=== PATIENT | female | born 1940 | race Caucasian/White ===

== ENCOUNTER 2016-09-06 12:55 | Emergency (ER) | payer MEDICARE, OTHER ==
[~2016-09-06] VITALS: Ht 160 cm; Wt 70.4 kg
[~2016-09-06 12:55] MED LIST: AMLO5TAB4 PO; ASP81TEC PO; ASPI-999 PO; ATOR20TA49 PO; ATRV10T; CA C1TAB26 PO; CALC-656 PO; CALCIUM; CALCIUM + D; CHOL10003 PO; CHOL5000 PO; CLOP75TA28 PO; CYAN1TAB46 PO; DGX.25T; DICL100G18 TP; FEXO60TA PO; FOLI1TAB24 PO; ISOS30TA3 PO; LEVO75TA6 PO; LISI1TAB6 PO; LVT.088T PO; LVT.1T; METO-351 PO; METO50TA7 PO; MULT1CAP27 PO; MULT1TAB69 PO; NF-CIT200; NF-METANX; NFPRILOC40 PO; OMG1KC PO; POTA99TA4 PO; PRAV40TA PO; PRD20T PO; SERT50TA2 PO; SIMV40TA2 PO; SRTR100T PO; WRF2.5T; WRF2.5T PO; [UNRECOGNIZED DRUG - OTHER]; [UNRECOGNIZED DRUG - OTHER]; alegra PO
--- OUTSIDE RECORDS SUMMARY | 2016-09-06 13:06 | XMS REPORT | Continuity of Care Document ---
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 If you do not see the information that you expected, contact Release of Information in the Health Information Management department at [phone] for further assistance in locating additional records.[facility] Active Allergies and Adverse Reactions No Known Allergies Current Medications Prescription Sig. Disp. Refills Start End Date Status Date levothyroxine (SYNTHROID) Take 100 mcg by mouth Active 100 mcg tablet Daily. warfarin (COUMADIN) 2.5 Take 2.5 mg by mouth. 1 Active mg tablet tablet , , sat,sat. 1/2 tablet sat,sat,sat metoprolol XL (TOPROL XL) Take by mouth Daily. 1/2 Active 50 mg tablet tablet daily lisinopril 20 mg Tab 20 Take by mouth daily. Active mg, hydrochlorothiazide 25 mg Tab 25 mg D-Hcjtkcpbheon-Hpe Take 2 Tabs by mouth Active B12-Vit B6 (METANX) Daily. 2.8-2-25 mg Tab Aspirin 81 mg Tab Take 1 Tab by mouth Active Daily. pravastatin (PRAVACHOL) Take 40 mg by mouth Active 40 mg tablet Daily. Cholecalciferol (Vitamin Take 2,000 Units by mouth Active D3) (VITAMIN D-3) 2,000 Daily. unit PO Tab sertraline (ZOLOFT) 50 mg Take 50 mg by mouth Active PO tablet daily. Active Problems Problem Noted Date PAST MEDICAL HISTORY OF 07/27/2010 Overview: PAST MEDICAL HISTORY: -Permanent AFIB: Deemed so June 2008. -First diagnosed April 2008 -- Attempted cardioversion without antiarrhythmic drug therapy June 2008 -- Immediate recurrent AFib. -Managed with rate control and anticoagulation since June 2008. -Questionable symptoms related to AFib. -EP consultation for other therapeutic options. -Rate control has been with digoxin and metoprolol. -Hypertension -Hyperlipidemia -History of PVD -April 2008 cardiac cath with runoff demonstrated 60 percent to 70 percent stenosis in the right superficial femoral artery with 50 percent stenosis in the left mid superficial femoral artery. -Hypothyroidism, on replacement therapy. -Normal LV function by prior imaging, including echo 08/09/2009, EF 55 percent. -Nonobstructive CAD -April [address] Apple's office suggestive of ischemia in the inferior apical wall. -06/30/2008, cardiac catheterization: 40 percent to 50 percent stenosis in the proximal LAD; 40 percent to 50 percent ostial right coronary stenosis with right coronary spasm; nonobstructive circ disease. Atrial fibrillation (HCC) 02/14/2010 A-fib (HCC) Heart palpitations Dyspnea Hypothyroidism HTN (hypertension), benign Hypercholesteremia Social History Tobacco Use Types Packs/Day Years Used Date Current Every Day Smoker Cigarettes 0.25 30 Smokeless Tobacco: Never Used Alcohol Use Drinks/Week oz/Week Comments Yes 7 Glasses of 4.2 1 glass of wine per day wine Last Filed Vital Signs Vital Sign Reading Time Taken Blood Pressure 98/60 09/12/2010 11:06 AM [employer]ET [employer] PROFESSIONAL Pulse 68 09/12/2010 11:06 AM [employer]AL Temperature - - Respiratory Rate - - Height 1.575 m (5' 2") 09/12/2010 11:06 AM [employer] PROF[employer]AL Weight 66.271 kg (146 lb 1.6 oz) 09/12/2010 11:06 AM [employer] PROFESSIONAL Body Mass Index 26.72 09/12/2010 11:06 AM [employer] PROFESSIONAL Oxygen Saturation - - Plan of Care Health Maintenance Due Date Last Done Comments Physical (Comprehensive) 1945 Exam Pertussis Vaccine 1949 Tetanus Vaccine 1955 Breast Cancer Screening 1978 Shingles Vaccine 1998 Osteoporosis Screening 2003 Prevnar/Pneumovax (#1) 2003 Influenza Vaccine 03/22/2015 Results from Last 3 Months Not on file
--- NOTE | 2016-09-06 13:24 | Diagnostic Imaging Report ---
EXAMINATION: CT scan of the head performed without intravenous contrast. INDICATION: Altered mental status. FINDINGS: There is no intracranial hemorrhage, edema or mass effect. There is encephalomalacia in the right frontal lobe in a relatively small region suggestive of an old infarct. Periventricular and deep white matter hypodensities are compatible with chronic microvascular ischemic changes. No hydrocephalus. No extra-axial fluid collection is seen. The calvarium, the paranasal sinuses and orbits appear grossly unremarkable. IMPRESSION: No intracranial hemorrhage. Dictated by: Dictated on workstation # [id number]
[2016-09-06 13:27] LABS: BASOPHILS % (AUTO) 0 % (0-10); EOSINOPHILS # (AUTO) 0.2 10^3/uL (0.0-0.3); EOSINOPHILS % (AUTO) 3 % (0-10); LYMPHOCYTES # (AUTO) 1.9 X 10^3 (1.0-4.0); LYMPHOCYTES % (AUTO) 23 % (12-44); MEAN CORPUSCULAR HEMOGLOBIN 32 PG (25-34); MEAN CORPUSCULAR HGB CONC 34 G/DL (32-36); MEAN CORPUSCULAR VOLUME 94 FL (80-99); MEAN PLATELET VOLUME 9.3 FL (7.4-10.4); MONOCYTES # (AUTO) 0.9 X 10^3 (0.0-1.0); MONOCYTES % (AUTO) 11 % (0-12); NEUTROPHILS # (AUTO) 5.2 X 10^3 (1.8-7.8); NEUTROPHILS % (AUTO) 63 % (42-75); PLATELET COUNT 203 10^3/uL (130-400); RED BLOOD COUNT 4.58 10^6/uL (4.35-5.85); RED CELL DISTRIBUTION WIDTH 14.2 % (10.0-14.5); WHITE BLOOD COUNT 8.2 10^3/uL (4.3-11.0)
--- NOTE | 2016-09-06 13:47 | ED Neurological Problem ---
General Chief Complaint: Neuro-Stroke Like Symptoms Stated Complaint: STROKE SYMPTOMS Nursing Triage Note: PT AMBULATES TO ED ROOM 8 WITH . REPORTS THAT PT WAS LAST KNOWN WELL AT APPROX 0930 THIS AM. HE LEFT TO GO RUN ERRANDS AND WHEN HE RETURNED PT WAS RAMBLING, NOT MAKING SENSE AND APPEARED TO BE CONFUSED. PT IS C/O FRIAS AT THIS TIME. PT SPEECH GARBLED, BUT CLEAR. PT UNABLE TO ANSWER QUESTIONS APPROPRIATELY AT THIS TIME. Nursing Sepsis Screen: No Definite Risk Source: patient Exam Limitations: no limitations History of Present Illness Time seen by provider: 13:00 Initial Comments This 76-year-old woman presents to the emergency room with her after developing confusion and "word salad" between 10:00 and 10:30. Last known well time was when her left the house around 09:00. When he returned home, he noted that she could not answer questions appropriately. She reported being hungry but would not eat anything that her offered. He noted speech became progressively garbled and she could not identify her children were. then brought her to the emergency room. She she reports discontinuing her Coumadin about 3 months ago due to her preference. She was concerned about bleeding issues and easy skin bruising. Her primary care providers Dr. Brady. Her enrollment representative has been Dr. Apple. She has atrial fibrillation which is confirmed on EKG today. Allergies and Home Medications Allergies Coded Allergies: No Known Drug Allergies (Verified , 04/30/08) Home Medications Amlodipine Besylate 5 Mg Tablet 5 MG PO DAILY (Reported) Aspirin 81 Mg Tab.chew 81 MG PO HS (Reported) Atorvastatin Calcium 20 Mg Tablet 20 MG PO DAILY (Reported) Cholecalciferol (Vitamin D3) 5,000 Unit Capsule 5,000 UNIT PO DAILY (Reported) Clopidogrel Bisulfate 75 Mg Tablet #30 75 MG PO DAILY Prescribed by: EUNICE APPLE on 03/24/15 1117 Diclofenac Sodium 100 Gm Gel..gram. TP BID PRN PRN PAIN (Reported) Fexofenadine Hcl 60 Mg Tablet 60 MG PO BID PRN PRN ALLERGIES (Reported) Folic Acid 1 Mg Tablet 1 MG PO BID (Reported) Isosorbide Mononitrate 30 Mg Tab.er.24h #30 30 MG PO DAILY Prescribed by: EUNICE APPLE on 03/24/15 1117 Levothyroxine Sodium 75 Mcg Tablet 75 MCG PO MO,TU,WE,TH,FR,SA (Reported) Levothyroxine Sodium 75 Mcg Tablet 112.5 MCG PO SUNDAYS (Reported) TAKES 1 & 1/2 (75MCG) TABLETS Metoprolol Succinate 25 Mg Tab.er.24h #30 25 MG PO DAILY Prescribed by: EUNICE APPLE on 03/24/15 1117 Multivitamin 1 Each Tablet 1 TAB PO DAILY (Reported) Ulen 3 Polyunsat Fatty Acids 1,000 Mg Cap 1,000 MG PO TID (Reported) Sertraline Hcl 100 Mg Tab 100 MG PO DAILY (Reported) Warfarin Sodium 2.5 Mg Tablet 2.5 MG PO EVERY EVENING (Reported) Constitutional: no symptoms reported Eyes: No Symptoms Reported Ears, Nose, Mouth, Throat: no symptoms reported Respiratory: no symptoms reported Cardiovascular: no symptoms reported Gastrointestinal: no symptoms reported Genitourinary: no symptoms reported Musculoskeletal: no symptoms reported Skin: no symptoms reported Psychiatric/Neurological: See HPI Endocrine: No Symptoms Reported Past Pepvlze-Juxust-Dgxhgy Hx Patient Social History Alcohol Use: Denies Use Recreational Drug Use: No Smoking Status: Unknown if Ever Smoked 2nd Hand Smoke Exposure: No Recent Infectious Disease Expo: No Recent Hopitalizations: No Immunizations Up To Date Tetanus Booster (TDap): More than 5yrs PED Vaccines UTD: Yes Date of Pneumonia Vaccine: Mar 29, 2013 Surgeries HX Surgeries: Yes (UNABLE TO OBTAIN AT THIS TIME) Respiratory Hx Respiratory Disorders: No Cardiovascular Hx Cardiac Disorders: Yes Cardiac Disorders: Atrial Fibrillation, Hypertension Neurological Hx Neurological Disorders: No 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 System Hx 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 Disorders: No Sexually Transmitted Disease: No HIV/AIDS: No Female 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 Disorders: Denies Genitourinary Hx Genitourinary Disorders: No Gastrointestinal Hx Gastrointestinal Disorders: No Musculoskeletal Hx Musculoskeletal Disorders: Yes Musculoskeletal Disorders: Osteoporosis, Arthritis Endocrine Hx Endocrine Disorders: Yes Endocrine Disorders: Hypothyroidsim HEENT HX ENT Disorders: No Loss of Vision: Denies Hearing Impairment: Denies Cancer Hx Cancer: No Cancer: Skin Psychosocial Hx Psychiatric Problems: Yes Behavioral Health Disorders: Anxiety, Depression Integumentary HX Skin/Integumentary Disorder: No Blood Transfusions Hx Blood Disorders: No Physical Exam Vital Signs Vital Sign - Last 12Hours 09/06/16 12:55 Temp 96.6 Pulse 66 Resp 14 B/P 165/141 Pulse Ox 97 O2 Delivery Room Air Capillary Refill : Less Than 3 Seconds General Appearance: WD/WN no apparent distress HEENT: PERRL/EOMI normal ENT inspection pharynx normal Neck: normal inspection Respiratory: lungs clear normal breath sounds no respiratory distress no accessory muscle use Cardiovascular: no edema no murmur irregularly irregular Gastrointestinal: normal bowel sounds non tender soft Extremities: normal inspection no pedal edema Neurologic/Psychiatric: alert normal mood/affect oriented x 3 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- XII (expressive aphasia, garbled speech) sensory deficit (slight right sided numbness) Crainal Nerves: normal hearing PERRL abnormal speech Coordination/Gait: normal finger to nose Motor/Sensory: no motor deficit sensory deficit (slight right-sided sensory deficit) Skin: normal color warm/dry Stroke NIH Stroke Scale Assessment Select: Initial (13:15) Level of Consciousness: 0=Alert Level of Consciousness-Questio: 2=Answer neither question LOC Commands: 1=Performs one task Gaze: 0=Normal Visual Castellon: 0=No visual loss Facial Movement (Facial Paresi: 0=Normal symmetrical mnt Motor Function-Arms Right: 0=No drift Motor Function-Arms Left: 0=No drift Motor Function-Legs Right: 0=No drift Motor Function-Legs Left: 0=No drift Limb Ataxia: 0=Absent Sensory: 1=Mild to Moderate loss Best Language: 2=Severe aphasia Dysarthria: 1=Mild to moderate loss Extinction & Inattention: 1=Visual,tactile,auditory NIH Stroke Scale Score: 7 Progress/Results/Core Measures Results/Orders Lab Results Laboratory Tests Test 09/06/16 13:21 09/06/16 13:38 09/06/16 14:35 Range/Units Basophils # (Auto) 0.0 0.0-0.1 10^3/uL Basophils (%) (Auto) 0 0-10 % Eosinophils # (Auto) 0.2 0.0-0.3 10^3/uL Eosinophils (%) (Auto) 3 0-10 % Hematocrit 43 35-52 % Hemoglobin 14.8 11.5-16.0 G/DL Lymphocytes # (Auto) 1.9 1.0-4.0 X 10^3 Lymphocytes (%) (Auto) 23 12-44 % Mean Corpuscular Hemoglobin 32 25-34 PG Mean Corpuscular Hemoglobin Concent 34 32-36 G/DL Mean Corpuscular Volume 94 80-99 FL Mean Platelet Volume 9.3 7.4-10.4 FL Monocytes # (Auto) 0.9 0.0-1.0 X 10^3 Monocytes (%) (Auto) 11 0-12 % Neutrophils # (Auto) 5.2 1.8-7.8 X 10^3 Neutrophils (%) (Auto) 63 42-75 % Platelet Count 203 130-400 10^3/uL Red Blood Count 4.58 4.35-5.85 10^6/uL Red Cell Distribution Width 14.2 10.0-14.5 % White Blood Count 8.2 4.3-11.0 10^3/uL Activated Partial Thromboplast Time 28 24-35 SEC Alanine Aminotransferase (ALT/SGPT) 17 0-55 U/L Albumin 3.9 3.2-4.5 G/DL Alkaline Phosphatase 62 40-136 U/L Anion Gap 9 5-14 MMOL/L Aspartate Amino Transf (AST/SGOT) 21 5-34 U/L BUN/Creatinine Ratio 17 Blood Urea Nitrogen 17 7-18 MG/DL Calcium Level 9.3 8.5-10.1 MG/DL Carbon Dioxide Level 26 21-32 MMOL/L Chloride Level 104 98-107 MMOL/L Creatinine 0.99 0.60-1.30 MG/DL D-Dimer 1.52 H 0.00-0.49 UG/ML Estimat Glomerular Filtration Rate 54 Free Thyroxine 1.19 0.70-1.48 NG/DL Glucose Level 85 70-105 MG/DL INR Comment 1.0 0.8-1.4 Potassium Level 4.4 3.6-5.0 MMOL/L Prothrombin Time 12.8 12.2-14.7 SEC Sodium Level 139 135-145 MMOL/L Thyroid Stimulating Hormone (TSH) 1.50 0.35-4.94 UIU/ML Total Bilirubin 0.6 0.1-1.0 MG/DL Total Protein 6.8 6.4-8.2 G/DL Troponin I < 0.30 <0.30 NG/ML Urine Bacteria NEGATIVE /HPF Urine Bilirubin NEGATIVE NEGATIVE Urine Casts NONE /LPF Urine Clarity CLEAR Urine Color YELLOW Urine Crystals NONE /LPF Urine Culture Indicated NO Urine Glucose (UA) NEGATIVE NEGATIVE Urine Ketones NEGATIVE NEGATIVE Urine Leukocyte Esterase 2+ H NEGATIVE Urine Mucus NEGATIVE /LPF Urine Nitrite NEGATIVE NEGATIVE Urine Protein NEGATIVE NEGATIVE Urine RBC NONE /HPF Urine RBC (Auto) NEGATIVE NEGATIVE Urine Specific [place] 1.005 L 1.016-1.022 Urine Squamous Epithelial Cells RARE /HPF Urine Urobilinogen NORMAL NORMAL MG/DL Urine WBC 2-5 /HPF Urine pH 7 5-9 My Orders Orders-GRIFFIN SILVA MD Cbc With Automated Diff (09/06/16 13:22) Protime With Inr (09/06/16 13:22) Partial Thromboplastin Time (09/06/16 13:22) Comprehensive Metabolic Panel (09/06/16 13:22) Fibrin Degradation Products (09/06/16 13:22) Troponin I (09/06/16 13:22) Ua Culture If Indicated (09/06/16 13:22) Chest 1 View, Ap/Pa Only (09/06/16:22) Ekg Tracing (09/06/16:22) Nothing By Mouth (09/06/16 Dinner) Accucheck Stat ONCE (09/06/16 13:22) Saline Lock/Iv-Start (09/06/16:22) Saline Lock/Iv-Start (09/06/16 13:22) Vital Signs-Stroke Q1H (09/06/16 13:22) O2 (09/06/16 13:22) Intake & Output 06,14,22 (09/06/16 13:22) Monitor-Rhythm Ecg Trace Only (09/06/16 13:22) Dysphagia Screening Tool (09/06/16 13:22) Thyroid Stimulating Hormone (09/06/16 13:23) Free T4 (Free Thyroxine) (09/06/16 13:23) Fentanyl Injection (Sublimaze Injection (09/06/16 15:30) Ct Angio Head/Neck (09/06/16 15:31) Iohexol Injection (Omnipaque 350 Mg/Ml 1 (09/06/16 15:45) Sodium Chloride Flush (Catheter Flush Sy (09/06/16 15:45) Ns (Ivpb) (Sodium Chloride 0.9% Ivpb Bag (09/06/16 15:45) Aspirin Tablet (Aspirin Tablet) (09/06/16 16:45) Enoxaparin Injection (Lovenox Injection) (09/06/16 17:15) Medications Given in ED Current Medications Medications Dose Ordered Sig/Ananth Route Start Time Stop Time Status Last Admin Dose Admin Fentanyl Citrate 50 mcg ONCE ONCE IVP 09/06/16 15:30 09/06/16 15:31 DC 09/06/16 15:37 50 MCG Iohexol 100 ml ONCE ONCE IV 09/06/16 15:45 09/06/16 15:46 DC 09/06/16 15:51 80 ML Sodium Chloride 100 ml ONCE ONCE IV 09/06/16 15:45 09/06/16 15:46 DC 09/06/16 15:51 80 ML Vital Signs/I&O Vital Sign - Last 12Hours 09/06/16 12:55 Temp 96.6 Pulse 66 Resp 14 B/P 165/141 Pulse Ox 97 O2 Delivery Room Air Blood Pressure Mean: 149 Progress Note #1: Time: 13:44 Progress Note Unfortunately, patient presented to near to the 4.5 hour time limitation for TPA. She has Coumadin listed on her medication profile, although she and her report this was stopped about 3 months ago. I spoke with Dr. De Jesus, stroke neurologist at [facility]. He agrees that patient is to near the 4.5 hour magalis from last known well time and that INR needs to be confirmed before TPA could be given in this scenario since Coumadin is on her med list. He advised against use of TPA. Progress Note #2: Time: 16:02 Progress Note Case was reviewed with Dr. Rodrigez and Dr. Sims. Dr. Rodrigez is agreeable to admission in the ICU for further monitoring. Case reviewed with Dr. Sims to suggest restarting anticoagulation with Eliquis. Patient is reluctant to use Ellik was because of cost. CT angiogram report is pending. Once the results of CT angiogram are reviewed, I will contact Dr. Rodrigez and discuss anticoagulation preferences as this will affect the course of hospital care and discharge. Patient's speech has improved significantly since arrival. Progress Note #3: Time: 17:[address] angiogram of the head was negative for thrombosis, aneurysm, or occlusion. Admission was accepted by Dr. Rodrigez and Dr. Sims. However, there are no beds available to accommodate this patient's needs. Transfer is necessary. Patient selects [facility] in [place] as a transfer facility. Progress Note #4: Time: 18:02 Progress Note Patient was accepted by Dr. Neri at [facility] in [place]. She received therapeutic Lovenox for prophylaxis with A. fib. She also received aspirin 325 mg orally. ECG Initial ECG Impression Date: Sep 06, 2016 Initial ECG Impression Time: 13:19 Initial ECG Rate: 66 Initial ECG Rhythm: A Fib/Flutter Comment Rate controlled atrial fibrillation with no ST elevation or depression. Similar to prior. Diagnostic Imaging Diagonstic Imaging: CT Plain Films/CT/US/NM/MRI: head Comments CT head viewed by me and report reviewed. See report below: NAME: NATHEN ALVAREZ [facility] REC#: [id number] PT STATUS: REG ER : 1940 PHYSICIAN: JUSTINO MEYERS APRN ADMIT DATE: 09/06/16/ER Signed Date of Exam: 09/06/16 CT HEAD WO-R/O STROKE EXAMINATION: CT scan of the head performed without intravenous contrast. INDICATION: Altered mental status. FINDINGS: There is no intracranial hemorrhage, edema or mass effect. There is encephalomalacia in the right frontal lobe in a relatively small region suggestive of an old infarct. Periventricular and deep white matter hypodensities are compatible with chronic microvascular ischemic changes. No hydrocephalus. No extra-axial fluid collection is seen. The calvarium, the paranasal sinuses and orbits appear grossly unremarkable. IMPRESSION: No intracranial hemorrhage. Dictated by: Dictated on workstation # [id number] Dict: 09/06/16 1319 Trans: 09/06/16 1419 [facility] [id number] Interpreted by: JAY CHAMBERS MD Electronically signed by:JAY CHAMBERS MD 09/06/16 1422 Diagonstic Imaging: Xray Plain Films/CT/US/NM/MRI: chest Comments Chest x-ray viewed by me and report reviewed. See report below: NAME: NATHEN ALVAREZ [facility] REC#: [id number] PT STATUS: REG ER : 1940 PHYSICIAN: GRIFFIN SILVA MD ADMIT DATE: 09/06/16/ER Signed Date of Exam: 09/06/16 CHEST 1 VIEW, AP/PA ONLY EXAMINATION: Portable upright radiograph of the chest. COMPARISON: 03/23/15. INDICATION: Altered mental status. FINDINGS: The heart size is enlarged. There is minimal vascular congestion. No significant consolidation. Mild density near the cardiac apex is probably related to prominent pericardial fat pad and minimal adjacent atelectasis. No effusion or pneumothorax. Mediastinum and marylou appear unremarkable. Impression: Cardiomegaly with minimal pulmonary vascular congestion. Dictated by: Dictated on workstation # [id number] Dict: 09/06/16 1351 Trans: 09/06/16 1419 [facility] [id number] Interpreted by: JAY CHAMBERS MD Electronically signed by:JAY CHAMBERS MD 09/06/16 1427 Diagonstic Imaging: CT Plain Films/CT/US/NM/MRI: other (CT angiogram head and neck) Comments CT angiogram head and neck viewed by me and report reviewed. See report below: NAME: NATHEN ALVAREZ [facility] REC#: [id number] PT STATUS: REG ER : 1940 PHYSICIAN: GRIFFIN SILVA MD ADMIT DATE: 09/06/16/ER Draft Date of Exam:09/06/16 CT ANGIO HEAD/NECK PROCEDURE: CT angiography of the head and CT angiography of the neck with and without contrast. TECHNIQUE: Contiguous noncontrast images were obtained from the skull base through the vertex. After intravenous contrast administration, helical CT angiography of the neck was performed. Source data was reformatted into multiple MIP projections. Delayed post contrast acquisition was also obtained. INDICATION: Slurred speech TECHNIQUE: 8 mL of Omnipaque 350 was administered intravenously. CTA HEAD: The unenhanced phase imaging of the brain demonstrates no intracranial hemorrhage, edema or mass-effect. There is evidence of an old small right frontal infarct. There is no hydrocephalus. No extra-axial fluid collection is seen. Parenchymal phase after contrast demonstrates no enhancing brain mass. Angiographic phase demonstrates atherosclerotic calcifications in the cavernous segment of the internal carotid arteries with no high-grade stenosis. The FIOR, the MCA, and the PATIENT OMBUDSPERSON are patent bilaterally. The left PATIENT OMBUDSPERSON has a origin from a prominent PCOM. The right PATIENT OMBUDSPERSON originates from the basilar artery which is patent. The right vertebral artery is dominant and continues as the basilar artery. The left vertebral artery terminates as the left PICA. CT NECK: The right vertebral artery is patent from its origin. The left vertebral artery is small in size and appears patent. The origin is not well-evaluated. The aortic arch demonstrates atherosclerotic plaque at the origin of the great vessels with no high-grade stenosis. The left common carotid artery is patent with atherosclerotic plaque at its distal aspect. The origin of the internal carotid demonstrates plaque extension with estimated 50% degree of stenosis. More distally, the ICA is tortuous with no significant stenosis. There is mild plaque along the proximal right ICA with no significant stenosis. Both external carotid arteries are patent. The right common carotid artery and right brachycephalic arteries are patent. No soft tissue mass in the neck is seen and no significant lymphadenopathy. The lung apices demonstrate emphysema changes with no significant consolidation. IMPRESSION: CTA NECK: Bilateral carotid bifurcation atherosclerotic plaques with estimated underlying stenosis of 50% at the origin of the left ICA. No significant stenosis in the right ICA. CTA HEAD: origin of the left PATIENT OMBUDSPERSON from a well-formed left PCOM. No significant stenosis, occlusion or aneurysm in the main central intracranial arteries. Dictated on workstation # [id number] Dict: 09/06/16 1622 Trans: 09/06/16 1647 [facility] [id number] Interpreted by: JAY CHAMBERS MD Departure Impression Impression: Primary Impression: CVA (cerebral vascular accident) Qualified Code: I63.9 - Cerebral infarction, unspecified Additional Impressions: Expressive aphasia Numbness on right side Atrial fibrillation Qualified Code: I48.2 - Chronic atrial fibrillation Disposition: ADMITTED INPATIENT Condition: Improved Decision to Admit Reason: Admit from ER (General) Decision to Admit/Date: Sep 06, 2016 Time/Decision to Admit Time: 13:10 Departure-Patient Inst. Referrals: BERTHA BRADY MD (PCP/Family) Primary Care Physician GRIFFIN SILVA MD Sep 06, 2016 13:47
--- NOTE | 2016-09-06 13:55 | Diagnostic Imaging Report ---
EXAMINATION: Portable upright radiograph of the chest. COMPARISON: 03/23/15. INDICATION: Altered mental status. FINDINGS: The heart size is enlarged. There is minimal vascular congestion. No significant consolidation. Mild density near the cardiac apex is probably related to prominent pericardial fat pad and minimal adjacent atelectasis. No effusion or pneumothorax. Mediastinum and marylou appear unremarkable. Impression: Cardiomegaly with minimal pulmonary vascular congestion. Dictated by: Dictated on workstation # [id number]
[2016-09-06 14:00] LABS: PROTHROMBIN TIME PATIENT 12.8 SEC (12.2-14.7)
[2016-09-06 14:10] LABS: ALANINE AMINOTRANSFERASE 17 U/L (0-55); ALBUMIN 3.9 G/DL (3.2-4.5); ANION GAP 9 MMOL/L (5-14); ASPARTATE AMINO TRANSFERASE 21 U/L (5-34); BILIRUBIN,TOTAL 0.6 MG/DL (0.1-1.0); BLOOD UREA NITROGEN 17 MG/DL (7-18); BUN/CREATININE RATIO 17; CALCIUM 9.3 MG/DL (8.5-10.1); CARBON DIOXIDE 26 MMOL/L (21-32); CHLORIDE 104 MMOL/L (98-107); CREATININE SERUM 0.99 MG/DL (0.60-1.30); GFR ESTIMATED 54; GLUCOSE 85 MG/DL (70-105); POTASSIUM 4.4 MMOL/L (3.6-5.0); SODIUM 139 MMOL/L (135-145); TOTAL PROTEIN 6.8 G/DL (6.4-8.2)
[2016-09-06 14:35] LABS: TROPONIN I < 0.30 NG/ML (<0.30)
[2016-09-06 14:46] LABS: BILIRUBIN,URINE NEGATIVE (NEGATIVE); KETONES,URINE NEGATIVE (NEGATIVE); LEUKOCYTE ESTERASE ,URINE 2+ (NEGATIVE); NITRITE,URINE NEGATIVE (NEGATIVE); PH,URINE 7 (5-9); PROTEIN,URINE NEGATIVE (NEGATIVE); UROBILINOGEN,URINE NORMAL (NORMAL)
[2016-09-06 15:04] LABS: SQUAMOUS EPITHELIAL CELL,UR RARE /HPF
[2016-09-06] MEDS ORDERED: fentaNYL INJECTION 100 MCG/2 ML AMP IVP ONE (15:30)
[2016-09-06] MEDS ORDERED: CATHETER FLUSH 10 ML SYR IV PRN (15:45)
[2016-09-06] MEDS ORDERED: IOHEXOL 350 MG/ML 100 ML (OMNIPAQUE 350) VIAL IV ONE (15:45)
[2016-09-06] MEDS ORDERED: NS 100 ML (IVPB) BAG IV ONE (15:45)
[2016-09-06] MEDS ORDERED: ASPIRIN 325 MG (5 GR) TABLET PO ONE (16:45)
--- NOTE | 2016-09-06 16:48 | Diagnostic Imaging Report ---
PROCEDURE: CT angiography of the head and CT angiography of the neck with and without contrast. TECHNIQUE: Contiguous noncontrast images were obtained from the skull base through the vertex. After intravenous contrast administration, helical CT angiography of the neck was performed. Source data was reformatted into multiple MIP projections. Delayed post contrast acquisition was also obtained. INDICATION: Slurred speech TECHNIQUE: 8 mL of Omnipaque 350 was administered intravenously. CTA HEAD: The unenhanced phase imaging of the brain demonstrates no intracranial hemorrhage, edema or mass-effect. There is evidence of an old small right frontal infarct. There is no hydrocephalus. No extra-axial fluid collection is seen. Parenchymal phase after contrast demonstrates no enhancing brain mass. Angiographic phase demonstrates atherosclerotic calcifications in the cavernous segment of the internal carotid arteries with no high-grade stenosis. The FIOR, the MCA, and the MEDICAL ADVISOR are patent bilaterally. The left MEDICAL ADVISOR has a origin from a prominent PCOM. The right MEDICAL ADVISOR originates from the basilar artery which is patent. The right vertebral artery is dominant and continues as the basilar artery. The left vertebral artery terminates as the left PICA. CT NECK: The right vertebral artery is patent from its origin. The left vertebral artery is small in size and appears patent. The origin is not well-evaluated. The aortic arch demonstrates atherosclerotic plaque at the origin of the great vessels with no high-grade stenosis. The left common carotid artery is patent with atherosclerotic plaque at its distal aspect. The origin of the internal carotid demonstrates plaque extension with estimated 50% degree of stenosis. More distally, the ICA is tortuous with no significant stenosis. There is mild plaque along the proximal right ICA with no significant stenosis. Both external carotid arteries are patent. The right common carotid artery and right brachycephalic arteries are patent. No soft tissue mass in the neck is seen and no significant lymphadenopathy. The lung apices demonstrate emphysema changes with no significant consolidation. IMPRESSION: CTA NECK: Bilateral carotid bifurcation atherosclerotic plaques with estimated underlying stenosis of 50% at the origin of the left ICA. No significant stenosis in the right ICA. CTA HEAD: origin of the left MEDICAL ADVISOR from a well-formed left PCOM. No significant stenosis, occlusion or aneurysm in the main central intracranial arteries. Dictated by: Dictated on workstation # [id number]
[2016-09-06] MEDS ORDERED: ENOXAPARIN 80 MG/0.8 ML (LOVENOX) SYR SC ONE (17:15)
--- NOTE | 2016-09-06 17:23 | Consultation-Cardiology ---
HPI-Cardiology Cardiology Consultation: Date of Consultation 09/06/16 Date of Admission 09/06/16 Attending Physician Admitting Physician Elvin Hess MD Consulting Physician DANIELA HALL MD, FACP, FACC, FSCAI, CCDS Primary imaging engineer: Dr Apple Physician requesting consult: Dr Rodrigez HPI: Chief Complaint: Reason for consultation: Chronic atrial fib 76 yo woman admitted to Dr Rodrigez for management of acute stroke resulting in expressive aphasia and R-sided numbness. We have been asked to see her for a fib for which she has been noncompliant with oral anticoag. Communication is difficult due to expressive aphasia, but she denies cp or palp or syncope or leg swelling or shortness of breath Review of Systems-Cardiology Review of Systems Constitutional: No weight loss, No weight gain Eyes: No vision change Ears/Nose/Throat: No ear discharge, No nasal drainage Respiratory: As described under HPI Cardiovascular: As described under HPI Gastrointestinal: No nausea Genitourinary: No dysuria, No hematuria Musculoskeletal: back pain (chronic) Skin: No rash, No ulcerations Psychiatric/Neurological: As described under HPI Hematologic: No bleeding abnormalities [id number]-Cxxihh Hx Patient Social History Alcohol Use: Denies Use Recreational Drug Use: No Smoking Status: Unknown if Ever Smoked 2nd Hand Smoke Exposure: No Recent Infectious Disease Expo: No Hospitalization with Isolation: Denies Immunizations Up To Date Tetanus Booster (TDap): More than 5yrs Date of Pneumonia Vaccine: Mar 29, 2013 Past Medical History PMH As described under Assessment. Family Medical History Family Medical History: Does not report fam h/o early CAD Allergies and Home Medications Allergies Coded Allergies: No Known Drug Allergies (Verified , 04/30/08) Home Medications Amlodipine Besylate 5 Mg Tablet 5 MG PO DAILY (Reported) Aspirin 81 Mg Tab.chew 81 MG PO HS (Reported) Atorvastatin Calcium 20 Mg Tablet 20 MG PO DAILY (Reported) Cholecalciferol (Vitamin D3) 5,000 Unit Capsule 5,000 UNIT PO DAILY (Reported) Clopidogrel Bisulfate 75 Mg Tablet #30 75 MG PO DAILY Prescribed by: EUNICE APPLE on 03/24/15 1117 Diclofenac Sodium 100 Gm Gel..gram. TP BID PRN PRN PAIN (Reported) Fexofenadine Hcl 60 Mg Tablet 60 MG PO BID PRN PRN ALLERGIES (Reported) Folic Acid 1 Mg Tablet 1 MG PO BID (Reported) Isosorbide Mononitrate 30 Mg Tab.er.24h #30 30 MG PO DAILY Prescribed by: EUNICE APPLE on 03/24/15 1117 Levothyroxine Sodium 75 Mcg Tablet 75 MCG PO MO,,,,FR,SA (Reported) Levothyroxine Sodium 75 Mcg Tablet 112.5 MCG PO SUNDAYS (Reported) TAKES 1 & 1/2 (75MCG) TABLETS Metoprolol Succinate 25 Mg Tab.er.24h #30 25 MG PO DAILY Prescribed by: EUNICE APPLE on 03/24/15 1117 Multivitamin 1 Each Tablet 1 TAB PO DAILY (Reported) [place] 3 Polyunsat Fatty Acids 1,000 Mg Cap 1,000 MG PO TID (Reported) Sertraline Hcl 100 Mg Tab 100 MG PO DAILY (Reported) Warfarin Sodium 2.5 Mg Tablet 2.5 MG PO EVERY EVENING (Reported) Physical Exam-Cardiology Physical Exam Vital Signs/I&O Vital Sign - Last 12Hours 09/06/16 12:55 Temp 96.6 Pulse 66 Resp 14 B/P 165/141 Pulse Ox 97 O2 Delivery Room Air Capillary Refill : Less Than 3 Seconds Constitutional: other (communication difficult, but does appear alert and oriented ) HEENT: PERRL EOMINo xanthelasmas are seen Neck: carotid pulses are 2 + bilaterally with good upstrokes Respiratory: No accessory muscle use, lungs clear to percussion lungs clear to auscultation Cardiovascular: irregularly irregular S1 and S2 systolic murmur (faint TIMOTHY at cardiac base) Gastrointestinal: No tender, softNo guarding, audible bowel sounds Extremities: No clubbing, No cyanosis, No significant edema Neurologic/Psychiatric: other (slurred speech, expressive aphasia, does seem to be able to move all limbs) Skin: No rash on exposed areas, No ulcerations on exposed areas Data Review Labs Laboratory Tests 09/06/16 13:21: Basophils # (Auto) 0.0, Basophils (%) (Auto) 0, Eosinophils # (Auto) 0.2, Eosinophils (%) (Auto) 3, Hematocrit 43, Hemoglobin 14.8, Lymphocytes # (Auto) 1.9, Lymphocytes (%) (Auto) 23, Mean Corpuscular Hemoglobin 32, Mean Corpuscular Hemoglobin Concent 34, Mean Corpuscular Volume 94, Mean Platelet Volume 9.3, Monocytes # (Auto) 0.9, Monocytes (%) (Auto) 11, Neutrophils # (Auto ) 5.2, Neutrophils (%) (Auto) 63, Platelet Count 203, Red Blood Count 4.58, Red Cell Distribution Width 14.2, White Blood Count 8.2 09/06/16 13:38: Activated Partial Thromboplast Time 28, Alanine Aminotransferase (ALT/SGPT) 17, Albumin 3.9, Alkaline Phosphatase 62, Anion Gap 9, Aspartate Amino Transf (AST/ SGOT) 21, BUN/Creatinine Ratio 17, Blood Urea Nitrogen 17, Calcium Level 9.3, Carbon Dioxide Level 26, Chloride Level 104, Creatinine 0.99, D-Dimer 1.52H, Estimat Glomerular Filtration Rate 54, Free Thyroxine 1.19, Glucose Level 85, INR Comment 1.0, Potassium Level 4.4, Prothrombin Time 12.8, Sodium Level 139, Thyroid Stimulating Hormone (TSH) 1.50, Total Bilirubin 0.6, Total Protein 6.8, Troponin I < 0.30 09/06/16 14:35: Urine Bacteria NEGATIVE, Urine Bilirubin NEGATIVE, Urine Casts NONE, Urine Clarity CLEAR, Urine Color YELLOW, Urine Crystals NONE, Urine Culture Indicated NO, Urine Glucose (UA) NEGATIVE, Urine Ketones NEGATIVE, Urine Leukocyte Esterase 2+H, Urine Mucus NEGATIVE, Urine Nitrite NEGATIVE, Urine Protein NEGATIVE, Urine RBC NONE, Urine RBC (Auto) NEGATIVE, Urine Specific [place] 1.005L, Urine Squamous Epithelial Cells RARE, Urine Urobilinogen NORMAL, Urine WBC 2-5, Urine pH 7 Laboratory Tests 09/06/16 13:21 09/06/16 13:38 A/P-Cardiology Assessment/Admission Diagnosis Ac CVA (nonhemorrhagic), being managed by Dr Rodrigez Permanent atrial fibrillation, rate controlled, noncompliant with anticoag (has not taken any warfarin in 3 months or more, according to her) Coronary artery disease, most recent cardiac catheterization done March 23, 2015 revealing 80 percent mid LAD stenosis. Successful primary stenting using a resolute integrity drug-eluting stent 318 mm. No residual stenosis. Ostial diagonal artery stenosis of 60 percent. 40 percent mid RCA stenosis. EF 50 percent. Hypertension, by history Hyperlipidemia, by history Allergy to TRACY inhibitor-causing angioedema Moderate carotid artery stenosis on head and neck CT angio of 09/06/16 Peripheral vascular disease monitored by [facility] Tobaccoism, still an active smoker Discussion and Recomendations * Resume oral anticoag, if OK with Dr Rodrigez * Parenteral anticoag until therapeutic on oral anticoag, if OK with Dr Rodrigez * I had a detailed discussion with Ms Liu and explained the rationale of anticoag and its pros and cons. She understands and wishes to proceed * Monitor labs DANIELA HALL MD FACP FAC CCDS Sep 06, 2016 17:23
[2016-09-06] MEDS ORDERED: ASPIRIN 325 MG (5 GR) TABLET ONE (17:57)
[2016-09-06] MEDS ORDERED: ENOXAPARIN 80 MG/0.8 ML (LOVENOX) SYR ONE (17:58)
[2016-09-06] MEDS ORDERED: warFARin 7.5 MG (COUMADIN) TAB PO SCH (18:00)
[2016-09-06 18:40] VITALS: BP 144/111
[2016-09-07] MEDS ORDERED: ENOXAPARIN 80 MG/0.8 ML (LOVENOX) SYR SC SCH (06:00)
[2016-09-07] MEDS ORDERED: ASPIRIN 81 MG CHEW (CHILDREN'S ASA) PO SCH (09:00)
[2016-09-14] MEDS ORDERED: WARF2TAB PO (07:45)
[2016-09-14] MEDS ORDERED: LEVO75TA PO (07:45)
== END 2016-09-06 18:40 | disposition short-term general hospital (02) ==
LOC: EDUNIT# 12:55 → ER 12:57
DX: I63.9 Cerebral infarction, unspecified (principal); R47.01 Aphasia; I48.2 Chronic atrial fibrillation; R20.0 Anesthesia of skin
CPT/HCPCS: 36415; 70450; 70496; 70498; 71010; 80053; 81000; 84439; 84443; 84484; 85025; 85379; 85610; 85730; 93005; 93041; 96372; 96374

== ENCOUNTER 2016-09-10 12:19 | Inpatient (IN) | payer MEDICARE, OTHER ==
[~2016-09-10] VITALS: Ht 157.5 cm; Wt 71.0 kg
[2016-09-10] MEDS ORDERED: ATOR80TA76 PO (14:42)
[2016-09-10 15:12] VITALS: BP 163/108
[2016-09-10] MEDS ORDERED: cloNIDine 0.1 MG (CATAPRES) TAB PO NR (15:15)
--- OUTSIDE RECORDS SUMMARY | 2016-09-10 15:43 | XMS REPORT | Continuity of Care Document ---
Author Author [facility] Organization [facility] Address Unknown Phone Unavailable Care Team Providers Care Sales Assistants And Salespersons Name Role Phone Unverified, Unverified PCP Unavailable Source Comments Some departments are not documenting in the electronic medical record. If you do not see the information that you expected, contact Release of Information in the Health Information Management department at [phone] for further assistance in locating additional records.[facility] Active Allergies and Adverse Reactions No Known [...] mg, hydrochlorothiazide 25 mg Tab 25 mg K-Arcowyejxdoq-Wru Take 2 Tabs by mouth Active B12-Vit [...] Taken Blood Pressure 98/60 09/12/2010 11:06 AM SOFTWARE TEST MANAGER Pulse 68 09/12/2010 11:06 AM SOFTWARE TEST MANAGER Temperature - - Respiratory Rate - - Height 1.575 m (5' 2") 09/12/2010 11:06 AM SOFTWARE TEST MANAGER Weight 66.271 kg (146 lb 1.6 oz) 09/12/2010 11:06 AM SOFTWARE TEST MANAGER Body Mass Index 26.72 09/12/2010 11:06 AM SOFTWARE TEST MANAGER Oxygen Saturation - - Plan of Care Health Maintenance Due Date Last Done Comments Physical (Comprehensive) 1945 Exam Pertussis Vaccine 1949 Tetanus Vaccine 1955 Breast Cancer Screening 1978 Shingles Vaccine 1998 Osteoporosis Screening 2003 Prevnar/Pneumovax (#1) 2003 Influenza Vaccine 03/22/2015 Results from Last 3 Months Not on file
--- NOTE | 2016-09-10 15:56 | Speech Therapy Progress Note ---
Therapy Progress Note The patient was admitted to [facility] on this date with a diagnosis of left parietal lobe CVA and past medical history significant for atrial fibrillation, HTN, hyperlipidemia, and a previous right parietal ischemic CVA. Upon admission, the patient reported feeling ill and fatigued, therefore, vitals were taken by staff. The patient's blood pressure was 163/108 and she stated, "I just don't feel well." Due to the patient's low tolerance level, full speech evaluation could not occur (please refer to subsequent notes for complete assessment results). Throughout informal conversation, the patient exhibited initial phoneme paraphasias, word-finding errors, and decreased fluency. The speech pathology evaluation will continue as the patient is able to fully participate. Time: 15:15 to 15:33 (18 minutes total) CHRISTIE SALAZAR Sep 10, 2016 15:56
--- NOTE | 2016-09-10 16:02 | Physical Therapy Evaluation ---
PT Evaluation-General Medical Diagnosis Admission Date Sep 10, 2016 at 15:00 Medical Diagnosis: CVA Onset Date: Sep 10, 2016 Therapy Diagnosis Therapy Diagnosis: abn gait; balance deficits Height/Weight Height (Feet): 5 Height (Inches): 2.00 Weight (Pounds): 156 Weight (Ounces): 9.0 Precautions Precautions/Isolations: Standard Precautions Referral Physician: Jefry Reason for Referral: Evaluation/Treatment Medical History Pertinent Medical History: Atrial Fib, Alcoholism, HTN, Hypothroidism, PVD Current History Pt with recent CVA, transferred to this facility from outside hospital for continued therapy services. Reviewed History: Yes Social History Home: Single Level Current Living Status: Spouse Entry Into Home: Stairs With Railing Prior/Core FIM Prior Level of Function Functional [place] Measure 0=Not Assessed/NA 4=Minimal Assistance 1=Total Assistance 5=Supervision or Setup 2=Maximal Assistance 6=Modified [place] 3=Moderate Assistance 7=Complete [place] Bed Mobility: 7 Transfers (B,C,W/C) (FIM): 7 Gait: 7 Pt was indep with all functional mobility and active at a community level. Pt able to still drive. Pt lives with spouse in [place], [place] PT Evaluation-Current Subjective Upon arrival on the floor, pt complained of a "slight" headache. Rated it 3-4/ 10. Nursing and Dr aware. Objective Patient Orientation: Person, Place, Time, Situation Problem Solving: Fair ROM/Strength ROM Lower Extremities WNL Strenght Lower Extremities WNL all planes. Integumentary/Posture Integumentary intact Bowel Incontinence: No Bladder Incontinence: No Posture normal and symmetrical Neuromuscular (Tone, Coordination, Reflexes) intact and without noted deficit. Sensory Vision: Wears Glasses Hearing: Functional Hand Dominance: Right Sensation Right Lower Extremit: Intact Sensation Left Lower Extremity: Intact Transfers Functional [place] Measure 0=Not Assessed/NA 4=Minimal Assistance 1=Total Assistance 5=Supervision or Setup 2=Maximal Assistance 6=Modified [place] 3=Moderate Assistance 7=Complete IndependenceIRFPAI Quality Coding Scale 6 Independent with activity with or without an assistive device 5 Patient requires set up or clean up by helper. Patient completes activity by themselves 4 Supervision or touching assist (CGA). [place] provide cues , steadying assist 3 The helper provides less than half the effort to complete the activity 2 The helper provides more than half the effort to complete the activity 1 Dependent. The helper does all the effort to complete an activity 7 Patient refused to complete or attempt activity 9 The patient did not perform the activity before the current illness or injury 88 Not attempted due to Medical conditions or safety concerns Transfers (B, C, W/C) (FIM): 5 Scootin Rollin Supine to/from Sit: 5 (supervision only for safety ) Sit to/from Stand: 5 (no touch assist required or indicated) Sit to Lying (QC): 5 Lying to Sitting/Side of Bed(Q: 5 Sit to Stand (QC): 5 Chair/Xtc-qv-Jxuev Xfer(QC): 5 Car Transfer (QC): 5 (met pt at curb and she exited car with no assist) Pt rated SBA with transfers as this is the first meeting and using caution with mobility. Recommend SBA due to recent CVA Gait Does the Patient Walk?: Yes Mode of Locomotion: Walk Anticipated Mode of Locomotion: Walk Gait (FIM): 5 Distance (FIM): 3=150 ft Walk 10 feet (QC): 5 (no AD) Walk 50 ft with 2 Turns(QC): 5 (to enter the hospital from outdoors. ) Walk 150 ft (QC): 5 Walking 10ft/uneven surface-QC: 5 (outdoor surface and with a slope; SBA only. ) Distance: 150 ft Gait Level of Assist: 5 Gait Assistive Device: None Comments/Gait Description Pt's gait is steady and without need for AD or touch assist. Pt is SBA with mobility for safety reasons and pt new to our unit and this therapist. Wheelchair Training Does the Pt Use a Wheelchair?: No Stairs Stairs (FIM): 1 #of Steps: 1 Level of Assist: 5 (SBa on outdoor curb step) 1 Step (curb) (QC): 5 4 Steps (QC): 88 12 Steps (QC): 88 Balance Sitting Static: Good Sitting Dynamic: Good Standing Static: Good Standing Dynamic: Fair Picking up an Object (QC): 4 Assessment/Needs Pt presents post CVA with transfer to this unit for continued therapy services to allow her to return home as she was before. Her functional mobility is fairly high level, but she does have slight balance deficit, further testing to follow. She will benefit from PT to integrate functional mobility with balance and safety. Upon entering her room, her vitals were taken and found to be 163/ 108--at this point, pt laid herself down to rest and no further treatment rendered due to elevated BP. Will continue to assess this patient tomorrow when her BP is more stable. Pt pleasant and cooperative and expresses that her primary desire is to focus on her speech. Pt does have 3 factors that affect her plan, CVA and current smoker and AFib, 3 systems affected, balance, gait and transfers and her presentation is changing as her BP elevated today as well as recent CVA. Rehab Potential: Good PT Short Term Goals Short Term Goals Time Frame: Sep 12, 2016 Transfers (B,C,W/C) (FIM): 6 Gait (FIM): 5 Stairs (FIM): 2 # of Steps: 4 Stairs Level of Assist: 6 PT Senior Living Goals Senior Living Goals PT Combat Control Goals Time Frame: Sep 19, 2016 Transfers (B,C,W/C) (FIM): 7 Sit to Lying (QC): 6 Lying-Sitting on Side/Bed(QC): 6 Sit to Stand (QC): 6 Roll Left to Right (QC): 6 Chair/Nvz-zg-Lyzon Xfer(QC): 6 Car Transfer (QC): 6 Gait (FIM): 7 Gait distance (FIM): 3=150 ft Walk 10 feet (QC): 6 Walk 10ft-Uneven Surface(QC): 6 Walk 50ft with 2 Turns (QC): 6 Walk 150 ft (QC): 6 Gait Level of Assist: 6 Gait Assistive Device: None Does the Pt use WC or Scooter?: No Stairs (FIM): 6 # of Steps: 12 1 Step (curb) (QC): 6 4 Steps (QC): 6 12 Steps (QC): 6 Stairs Level Of Assist: 6 Picking up an Object (QC): 6 The primary goal for this patient is to be indep with all functional mobility. PT Plan Problem List Problem List: Activity Tolerance, Functional Strength, Safety, Balance, Gait, Transfer, Bed Mobility Treatment/Plan Treatment Plan: Continue Plan of Care Treatment Plan: Bed Mobility, Education, Functional Activity Sweta, Functional Strength, Group Therapy, Gait, Safety, Therapeutic Exercise, Transfers Treatment Duration: Sep 19, 2016 # of days/week 5-6 Visits Per Week: 10-15 Minutes/Day (M-F): 60-90 Minutes/Day (Sat/Handy): prn Pt/Family Agrees w/Plan: Yes Safety Risks/Education Patient Education: Gait Training, Transfer Techniques, Safety Issues Teaching Recipient: Patient Teaching Methods: Discussion Response to Teaching: Reinforcement Needed Discharge Recommendations Plan Further assess functional balance. Time/GCodes Time In: 1450 Time Out: 1510 Total Billed Treatment Time: 20 Total Billed Treatment visit EVM 20 MARTHA VALLEJO PT Sep 10, 2016 16:02
[2016-09-10 16:24] VITALS: BP 139/92
[2016-09-10 18:00] VITALS: BP 130/80
[2016-09-10] MEDS: SERTRALINE 100 MG (ZOLOFT) TAB PO SCH (21:06)
[2016-09-11 05:04] VITALS: BP 121/71
[2016-09-11] MEDS: LEVOTHYROXINE 75 MCG (LEVOTHROID) TABLET PO SCH (06:08)
[2016-09-11] MEDS: CALCIUM CARB + VIT D 600 MG (CALCARB + D) TAB PO SCH (06:08)
[2016-09-11 06:32] LABS: BASOPHILS % (AUTO) 0 % (0-10); EOSINOPHILS # (AUTO) 0.2 10^3/uL (0.0-0.3); EOSINOPHILS % (AUTO) 4 % (0-10); LYMPHOCYTES # (AUTO) 1.4 X 10^3 (1.0-4.0); LYMPHOCYTES % (AUTO) 23 % (12-44); MEAN CORPUSCULAR HEMOGLOBIN 32 PG (25-34); MEAN CORPUSCULAR HGB CONC 34 G/DL (32-36); MEAN CORPUSCULAR VOLUME 95 FL (80-99); MEAN PLATELET VOLUME 9.2 FL (7.4-10.4); MONOCYTES # (AUTO) 0.6 X 10^3 (0.0-1.0); MONOCYTES % (AUTO) 10 % (0-12); NEUTROPHILS # (AUTO) 3.9 X 10^3 (1.8-7.8); NEUTROPHILS % (AUTO) 63 % (42-75); PLATELET COUNT 208 10^3/uL (130-400); RED BLOOD COUNT 4.33 10^6/uL (4.35-5.85); RED CELL DISTRIBUTION WIDTH 14.2 % (10.0-14.5); WHITE BLOOD COUNT 6.2 10^3/uL (4.3-11.0)
[2016-09-11 06:36] LABS: INR 2.6 (0.8-1.4); PROTHROMBIN TIME PATIENT 27.6 SEC (12.2-14.7)
[2016-09-11 06:54] LABS: ALBUMIN 3.5 G/DL (3.2-4.5); BILIRUBIN,TOTAL 0.3 MG/DL (0.1-1.0); CALCIUM 8.9 MG/DL (8.5-10.1); CREATININE SERUM 0.93 MG/DL (0.60-1.30); POTASSIUM 4.2 MMOL/L (3.6-5.0); TOTAL PROTEIN 6.4 G/DL (6.4-8.2)
[2016-09-11] MEDS: ASPIRIN E.C. 81 MG (ECOTRIN) TAB PO SCH (08:19)
--- NOTE | 2016-09-11 08:46 | Consultation ---
History of Present Illness History of Present Illness Patient Consulted On(chayo/time) 09/11/16 08:42 Date of Admission History of Present Illness patient states she had a stroke which chest affected her speech. Patient showed up at the emergency room at [facility]. Patient transferred to [facility] in [place]. Patient states she can move all extremities. Patient states she had problems with his speech. Patient denied having any surgeries. Family history father cancer. Denies asthma TB diabetes heart disease Allergies and Home Medications Allergies Coded Allergies: hydrochlorothiazide (Verified Allergy, Unknown, 09/10/16) Home Medications Aspirin 81 Mg Tab.chew 81 MG PO HS (Reported) Atorvastatin Calcium 80 Mg Tablet 80 MG PO HS (Reported) Cholecalciferol (Vitamin D3) 5,000 Unit Capsule 5,000 UNIT PO DAILY (Reported) Levothyroxine Sodium 75 Mcg Tablet 75 MCG PO ,,,,, (Reported) Levothyroxine Sodium 75 Mcg Tablet 112.5 MCG PO SUNDAYS (Reported) TAKES 1 & 1/2 (75MCG) TABLETS Metoprolol Succinate 25 Mg Tab.er.24h #30 25 MG PO DAILY Prescribed by: EUNICE BURGOS on 03/24/15 1117 Sertraline Hcl 100 Mg Tab 100 MG PO DAILY (Reported) Warfarin Sodium 2.5 Mg Tablet 2.5 MG PO EVERY EVENING (Reported) Past Cmzdduw-Szfhpo-Qxwyma Hx Patient Social History Alcohol Use: Denies Use Recreational Drug Use: No Smoking Status: Current Everyday Smoker Type Used: Cigarettes 2nd Hand Smoke Exposure: No Recent Foreign Travel: No Contact w/Someone Who Travel: No Recent Infectious Disease Expo: No Recent Hopitalizations: Yes ([facility] ) Physical Abuse Screen: No Sexual Abuse: No Immunizations Up To Date Tetanus Booster (TDap): More than 5yrs PED Vaccines UTD: Yes Date of Pneumonia Vaccine: May 10, 2015 Date of Influenza Vaccine: May 22, 2016 Seasonal Allergies Seasonal Allergies: No Surgeries HX Surgeries: Yes (UNABLE TO OBTAIN AT THIS TIME) Respiratory Hx Respiratory Disorders: No Cardiovascular Hx Cardiac Disorders: Yes Cardiac Disorders: Atrial Fibrillation, Hypertension Neurological Hx Neurological Disorders: No 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 System Hx 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 Disorders: No Sexually Transmitted Disease: No HIV/AIDS: No Female 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 Disorders: Denies Genitourinary Hx Genitourinary Disorders: No Gastrointestinal Hx Gastrointestinal Disorders: No Musculoskeletal Hx Musculoskeletal Disorders: Yes Musculoskeletal Disorders: Osteoporosis, Arthritis Endocrine Hx Endocrine Disorders: Yes Endocrine Disorders: Hypothyroidsim HEENT HX ENT Disorders: No Loss of Vision: Denies Hearing Impairment: Denies Cancer Hx Cancer: No Cancer: Skin Psychosocial Hx Psychiatric Problems: Yes Behavioral Health Disorders: Anxiety, Depression Integumentary HX Skin/Integumentary Disorder: No Blood Transfusions Hx Blood Disorders: No Adverse Reaction to a Blood Tr: No Review of Systems-General Constitutional: no symptoms reported EENTM: other (speech difficulty) Respiratory: no symptoms reported Cardiovascular: other (hhistory of atrial fibrillation) Gastrointestinal: no symptoms reported Genitourinary: no symptoms reported Physical Exam-General Problems Physical Exam Vital Signs Vital Sign - Last 12Hours 09/10/16 15:12 Temp 98.0 Pulse 77 Resp 20 B/P 163/108 Pulse Ox 98 O2 Delivery Room Air Capillary Refill : General Appearance: WD/WN no apparent distress Eyes: Bilateral Eye Normal Inspection HEENT: normal ENT inspection Neck: non-tender full range of motion Respiratory: chest non-tender no respiratory distress no accessory muscle use Cardiovascular: other (atrial fibrillation) Gastrointestinal: non tender soft Assessment/Plan Assessment/Plan Admission Diagnosis/Plan CVA affecting her speech. Atrial fibrillation. Elevated liver enzymes. Hyperlipidemia. Present date tobacco usage Clinical Quality Measures DVT/VTE Risk/Contraindication: Risk Factor Score Per Nursin RFS Level Per Nursing on Admit: 4+=Very High JUICE VILLASENOR DO Sep 11, 2016 08:46
--- NOTE | 2016-09-11 09:00 | ST Cognitive Linguistic Eval ---
Speech Evaluation-General Medical Diagnosis CVA (Left Parietal) Onset Date: Sep 10, 2016 Therapy Diagnosis Therapy Diagnosis: Moderate Expressive Aphasia Precautions Precautions/Isolations: Standard Precautions Referral Referring Physician: Dr. Santo Capps Reason for Referral: Evaluation/Treatment Speech, Language, and Cognitive Evaluation Medical History Pertinent Medical History: Atrial Fib, Alcoholism, HTN, Hypothroidism, PVD, Smoking Reviewed History: Yes Social History Current Living Status: Spouse Speech PLF-Current Status Prior Level of Function Prior to the patient's CVA, the patient denied challenges with communication (expressive or receptive) and cognition. Subjective The patient was recently admitted to [facility] following a left parietal CVA. The patient greeted the clinician appropriately and agreed to participate in the speech, language, and cognitive evaluation. Per patient, her largest deficit and concern post-CVA is her communication ability. Language Eval: Auditory Comprehends Simple Yes/No Ques: Functional (+12/12 (independently)) Indent/Objects Multiple Castellon: Functional (Single phoneme paraphasia present throughout evaluation.) Ident/Pics in Multiple Castellon: Functional (Single phoneme paraphasia present throughout evaluation.) Follows 1-Step Commands: Functional (Intermittent repetition of instruction for increased accuracy.) Follows Complex Directions: Mild (Increased, intermittent repetition for improved accuracy.) Follows General Conversations: Mild (Intermittent repetition is required, as well as, increased pauses for comprehension and response.) Language Eval: Verbal Language Completes Spontaneous Greeting: Functional Produces Auto, Serial Info: Functional Imitates Simple Words/Phrases: Moderate Word Finding: Severe Requests Basic Needs: Mild States Basic Personal Info: Mild Expresses Complex Ideas: Moderate Moderate whole word and single phoneme paraphasias were present throughout the evaluation. Language Evaluation: Reading Comprehends Single Nouns: Functional Follows Simple Written Direct: Functional Comprehends Multiple Sentences: Functional Language Evaluation: Writing Writes to Simple Dictation: Mild Writes Personal Information: Functional Writes Short Phrases: Mild (Patient exhibited difficulty with accurate spelling.) Cognitive Patient Orientation The patient is oriented to name, date of , location, city, and month. The patient could identify the accurate year, however, had a difficult time with verbal expression. Objective Cognitive Domain Attention: Mild Memory: Mild (The patient was able to recall three of three single words with recognition cues.) Problem Solving: Mild Clock Drawing Severity Rating: Mild (The patient provided one inaccurate number on the clock drawing.) Objective Oral Motor/Speech Production No oral motor impairments were noted. The patient is 100% intelligible in known and unknown contexts. Impression The patient demonstrates moderate expressive aphasia with the presence of whole word and single phoneme paraphasias, as well as, word-finding errors and pauses. Communication/Social Cognition Comprehension: 4 Expression: 3 Social Interaction: 5 Problem Solvin Memory: 5 Speech Patient Assess Expression of Ideas/Wants: Frequently (2) Understanding Vebal Content: Usually Understands (3) Brief Interview-Mental Status: Yes Repetition of Three Words: Three (3) Temporal Orientation: Year: Missed by 2-5 years (1) Temporal Orientation: Month: Accurate within 5 days(2) Temporal Orientation: Day: Correct (1) Recall : Wear to say "Sock": Yes, no cue required (2) Recall : Color: Yes, no cue required (2) Recall : Bed: Yes,after cueing (1) Speech Short Term Goals Short Term Goals Short Term Goals 1. The patient will demonstrate 90% accuracy with structured word-finding tasks with mild clinician cueing. 2. The patient will display 80% accuracy with repetition of functional phrases with mild clinician cueing. Time Frame-ST Days Speech Employment Interviewer Goals Employment Interviewer Goals 1. The patient will demonstrate improved expressive communication for increased function and safety with ADL's in the least restrictive setting. Time Frame: Two Weeks Comprehension: 6 Expression: 5 Social Interaction: 6 Problem Solvin Memory: 5 Speech-Plan Treatment Plan Speech Therapy Treatment Plan: Continue Plan of Care Skilled speech services to focus on functional word-finding and expressive communication. Treatment Duration: Sep 25, 2016 # of days/week Five Visits Per Week: Eight to Ten Minutes/Day (M-F): 30 to 60 Rehab Potential: Fair Safety Risks/Education Teaching Recipient: Patient Teaching Methods: Discussion Response to Teaching: Verbalize Understanding Education Topics Provided: Results, Recommendations, Plan of Care, Therapy Goals Discharge Recommendations Speech Therapy Outpatient Time Speech Therapy Time In: 07:45 Speech Therapy Time Out: 08:45 Total Billed Time: 60 Billed Treatment Time 1CHINYERE ELIZABETH Sep 11, 2016 09:00
--- NOTE | 2016-09-11 10:02 | HISTORY AND PHYSICAL ---
CHIEF COMPLAINT: Difficulty with speech. HISTORY OF PRESENT ILLNESS: The patient is a 76-year-old female patient of Dr. Hess who presented to [facility] with difficulty with speech. This was associated with left frontal headache. 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 The patient gradually improved, but had a decline in her functional independence. She had been independent prior to this and had been followed by Dr. Apple and Jimena. She was referred to Inpatient Rehabilitation Unit as she is from [place], [place]. Currently she is standby assist for mobility and much of her ADLs, other than eating and grooming which she is modified independent at the wheelchair level with extra time. INR today is 3.1. Hospitalist from [facility] discussed the case with Dr. Capps today by phone. Coumadin is to be on hold this evening and resumed tomorrow at home dose at 2.5. Her Plavix has been discontinued. Dr. Apple is to follow-up regarding the need to continue the aspirin along with the Coumadin. PAST MEDICAL HISTORY: 1. Tobaccoism. 2. Atrial fibrillation. 3. Hypertension. 4. Hyperlipidemia. 5. Bilateral carotid artery stenosis. PAST SURGICAL HISTORY: 1. Rotator cuff repair on the right. 2. Hysterectomy. ALLERGIES: Hydrochlorothiazide. FAMILY HISTORY: Noncontributory. SOCIAL HISTORY: She lives in [place], [place]. She has family that presents to the unit with her today. REVIEW OF SYSTEMS: Ten-point review of systems: significant for difficulty with speech, mild gait imbalance, headaches. Blood pressure upon admission to this facility was 163/108. Not all therapy assessments could be done due to this reason. One Catapres 0.1 mg was given with blood pressure at 1392, with headache improved. MEDICATIONS: 1. Coumadin 2.5 mg daily, resumed tomorrow on hold this evening. 2. ASA 81 mg p.o. daily. 3. Toprol-XL 25 mg p.o. daily. 4. Calcium carbonate with D 600 mg p.o. daily. 5. Synthroid 75 mcg p.o. daily. 6. Zoloft 100 mg p.o. at bedtime. 7. Catapres 0.1 mg x1 this afternoon. 8. Tylenol Extra Strength 1 to 2 tablets p.o. q.8 hours p.r.n. headache. PHYSICAL EXAMINATION: Significant for a pleasant female, appearing somewhat younger than stated age, lying in bed in no acute distress. VITAL SIGNS: Blood pressure 139/92, respirations 20, pulse 77. She is afebrile. O2 sat 98%. HEENT: Vision, hearing, grossly intact. No oral lesions noted. Speech, she has mild expressive aphasia with some word finding difficulty. She is able to follow simple commands. NECK: Supple without mass. HEART: Regular rhythm. LUNGS: Clear. ABDOMEN: Soft, nontender. Bowel sounds present. EXTREMITIES: No lower leg edema. No calf tenderness. MUSCULOSKELETAL: The patient has functional active range of motion of all 4 extremities. NEUROLOGIC: Sensation is grossly intact to touch. Cognition grossly intact. She has mild expressive aphasia. Strength is functional generally 4+/5. She has mild impairment in dynamic standing balance. IMPRESSION: 1. 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 2. Atrial fibrillation, currently controlled on medication and with chronic anticoagulation with Coumadin. 3. Hypothyroidism on replacement. 4. Frontal headaches improved with treatment of hypertension. 5. Hypertension, additional dose done. The patient will follow up with Dr. Apple tomorrow regarding any further adjustments. 6. Hypertension, currently abstaining. 7. Bilateral mild carotid artery stenosis associated with mixed hyperlipidemia on statin, currently off statin. 8. Peripheral vascular disease. PLAN: The patient will have a comprehensive program of inpatient rehabilitation with goal of maximizing level of functional independence prior to discharge home with family and home health care. The patient will have PT/OT 90 minutes per day each discipline, 5 days a week, when not being seen by speech therapy, for gait strengthening, conditioning, balance, ADLs, any patient/family/caregiver training necessary, any adaptive equipment and training necessary. Speech therapy to see patient 30 to 45 minutes per day, 3 to 5 times a week for expressive aphasia, word finding difficulty. Rehabilitation nursing to assist with pain management, medication administration, monitoring vital signs, adjusting medications as ordered for hypertension. Consult Dr. Apple for cardiology follow-up. Consult Medical service for follow-up in lieu of Dr. Hess, PCP. Routine admission labs, therapy with cardiac and fall precautions. Social work to assist with discharge planning and community reentry. ESTIMATED LENGTH OF STAY: Two weeks. PROGNOSIS: Rehab prognosis appears good for goal of discharging home with family and home health hopefully modified independent to supervision for ADLs and mobility skills. DIET: Heart healthy. CODE STATUS: Full code. POST ADMISSION PHYSICIAN ASSESSMENT: The preadmission screen agrees with the post admission assessment that the patient is a good candidate for inpatient rehabilitation. She appears to be well motivated to participate in 3 hours of therapy a day. She should be able tolerate 3 hours of therapy a day from a medical standpoint. She should benefit from the 3 hours of therapy a day. She did miss some time today do to elevated blood pressure and headache. These can be made up during the week. She has various comorbidities that need to be closely monitored with medications and treatments adjusted on a daily basis as needed. These include adjustment of her INR, therapeutic doses Coumadin as well as medication adjustments for her hypertension. BARRIERS TO DISCHARGE: Barriers to discharge for this patient who had been independent prior to this are for her to be modified independent to supervision for ADLs, mobility and communication skills prior to discharge home with family so as to lessen the burden of the caregivers. RISKS FOR THIS PATIENT INCLUDE: Include: 1. Recurrent stroke. 2. Fall. 3. Fracture. 4. DVT. 5. Pulmonary embolism. 6. Urinary retention. 7. UTI. 8. Respiratory infection. 9. Aspiration. 10. Poorly controlled hypertension. 11. Non-therapeutic INR. 12. Recurrent stroke. Job ID: [id number] Dictated Date: 09/10/2016 17:16:57 Cake Wringer Date: 09/11/2016 09:11:57/noreen BOB
--- NOTE | 2016-09-11 10:28 | Physical Therapy Daily Note ---
PT Daily Note-Current Subjective Patient in bed pre tx, agrees to PT, does not have any complaints about pain. Appearance Patient sitting EOB post tx with family in the room, has tray. Mental Status Patient Orientation: Unable to Assess Patient has communication problems and it is unclear how oriented she is Transfers Functional Cedar Measure 0=Not Assessed/NA 4=Minimal Assistance 1=Total Assistance 5=Supervision or Setup 2=Maximal Assistance 6=Modified Cedar 3=Moderate Assistance 7=Complete IndependenceIRFPAI Quality Coding Scale 6 Independent with activity with or without an assistive device 5 Patient requires set up or clean up by helper. Patient completes activity by themselves 4 Supervision or touching assist (CGA). [place] provide cues , steadying assist 3 The helper provides less than half the effort to complete the activity 2 The helper provides more than half the effort to complete the activity 1 Dependent. The helper does all the effort to complete an activity 7 Patient refused to complete or attempt activity 9 The patient did not perform the activity before the current illness or injury 88 Not attempted due to Medical conditions or safety concerns Transfers (B, C, W/C) (FIM): 5 Scootin Rollin Supine to/from Sit: 6 Sit to/from Stand: 6 Bed to/from Chair: 5 Patient has moments of unsteadiness but no LOB. Gait Training Gait (FIM): 5 Distance: 800'x2 Gait Level of Assist: 5 Gait Persons Needed: 1 Gait Assistive Device: None Patient has impaired balance and cannot walk in a strait path but she did not have a LOB. Stair Training Stair Training: Handrails/: 2 handrails Stairs (FIM): 5 #of Steps: 12 Stairs: Pattern: Step to Level of Assist: 5 cues for safety, she needed to be told to slow down Neuromuscular García balance score was 47/56, patient also performed balance activities (toe touches to cones, stepping over and back) Treatments bed mobility and transfers, ambulation, balance training, stair training Assessment Current Status: Fair Progress Had a safety discussion about her home with patient and her family member. Apparently she has a lot of throw rugs and I advised patient to think about getting rid of them because she barely scored above needed an assistive device on the García. Family member seemed to understand and agree. Patient was against the idea and stated that she has never had any problems with it and didn 't see a need to get rid of them now. Safety awareness could very well be impaired. She also has impaired tracking on the left side however her peripheral vision seemed to be intact. Her family member was asking me about driving and because of her tracking I advised her to see an passenger elevator operator at least before even thinking about driving at this time. PT Short Term Goals Short Term Goals Time Frame: Sep 12, 2016 Transfers (B,C,W/C) (FIM): 6 Gait (FIM): 5 Stairs (FIM): 2 # of Steps: 4 Stairs Level of Assist: 6 PT Custodial Goals Custodial Goals PT Rx Specialist Goals Time Frame: Sep 19, 2016 Transfers (B,C,W/C) (FIM): 7 Sit to Lying (QC): 6 Lying-Sitting on Side/Bed(QC): 6 Sit to Stand (QC): 6 Rollin Roll Left to Right (QC): 6 Chair/Ufd-gz-Fhdeo Xfer(QC): 6 Car Transfer (QC): 6 Gait (FIM): 7 Gait distance (FIM): 3=150 ft Walk 10 feet (QC): 6 Walk 10ft-Uneven Surface(QC): 6 Walk 50ft with 2 Turns (QC): 6 Walk 150 ft (QC): 6 Gait Level of Assist: 6 Gait Assistive Device: None Does the Pt use WC or Scooter?: No Stairs (FIM): 6 # of Steps: 12 1 Step (curb) (QC): 6 4 Steps (QC): 6 12 Steps (QC): 6 Stairs Level Of Assist: 6 Picking up an Object (QC): 6 PT Plan Problem List Problem List: Activity Tolerance, Functional Strength, Safety, Balance, Gait, Transfer Treatment/Plan Treatment Plan: Continue Plan of Care Treatment Plan: Bed Mobility, Education, Functional Activity Sweta, Functional Strength, Group Therapy, Gait, Safety, Therapeutic Exercise, Transfers Treatment Duration: Sep 19, 2016 Visits Per Week: 10-15 Minutes/Day (M-F): 60-90 Minutes/Day (Sat/Handy): prn Safety Risks/Education Patient Education: Gait Training, Transfer Techniques, Steps, Safety Issues Teaching Recipient: Patient Teaching Methods: Demonstration, Discussion Response to Teaching: Reinforcement Needed Time/GCodes Time In: 945 Time Out: 1030 Total Billed Treatment Time: 45 Total Billed Treatment 1 visit NM 30 min GT 15 min MARVIN ARAUZ PT Sep 11, 2016 10:28
--- NOTE | 2016-09-11 13:08 | Consultation-Cardiology ---
HPI-Cardiology Cardiology Consultation Date of Consultation 09/11/16 Date of Admission Indication: Acute CVA HPI 76 years old lady with history of paroxysmal atrial fibrillation, was refusing to take oral anticoagulation, admitted to [facility] with acute stroke. Recovering slowly, reporting improvement in her weakness have slight weakness on her right side, diagnosed with right middle cerebral artery stroke. Still having slight slurred speech. Denied any chest pain or shortness of breath. Home Medications & Allergies Allergies: Coded Allergies: hydrochlorothiazide (Verified Allergy, Unknown, 09/10/16) Home Medication List Reviewed: Yes QBM-[id number]-Nucotp Hx Patient Social History Alcohol Use: Denies Use Recreational Drug Use: No Smoking Status: Current Everyday Smoker Type Used: Cigarettes 2nd Hand Smoke Exposure: No Recent Foreign Travel: No Recent Infectious Disease Expo: No Recent [facility]: [facility] Physical Abuse Screen: No Sexual Abuse: No Immunizations Up To Date Tetanus Booster (TDap): More than 5yrs Date of Pneumonia Vaccine: May 10, 2015 Date of Influenza Vaccine: May 22, 2016 Past Medical History past medical history as discussed below Family Medical History Family Medical Hx noncontributory to her current condition Family History: Constitutional: no symptoms reported see HPI EENTM: no symptoms reported see HPI Respiratory: no symptoms reported see HPI Cardiovascular: see HPI Gastrointestinal: no symptoms reported see HPI Genitourinary: no symptoms reported see HPI Musculoskeletal: no symptoms reported see HPI Skin: no symptoms reported see HPI Psychiatric/Neurological: See HPI Other (slurred speech and slight weakness) Reviewed Test Results Reviewed Test Results Lab Laboratory Tests Test 09/11/16 05:30 Range/Units Alanine Aminotransferase (ALT/SGPT) 66 H 0-55 U/L Albumin 3.5 3.2-4.5 G/DL Alkaline Phosphatase 63 40-136 U/L Anion Gap 9 5-14 MMOL/L Aspartate Amino Transf (AST/SGOT) 82 H 5-34 U/L BUN/Creatinine Ratio 26 Basophils # (Auto) 0.0 0.0-0.1 10^3/uL Basophils (%) (Auto) 0 0-10 % Blood Urea Nitrogen 24 H 7-18 MG/DL Calcium Level 8.9 8.5-10.1 MG/DL Carbon Dioxide Level 22 21-32 MMOL/L Chloride Level 108 H 98-107 MMOL/L Creatinine 0.93 0.60-1.30 MG/DL Eosinophils # (Auto) 0.2 0.0-0.3 10^3/uL Eosinophils (%) (Auto) 4 0-10 % Estimat Glomerular Filtration Rate 58 Glucose Level 89 70-105 MG/DL Hematocrit 41 35-52 % Hemoglobin 13.9 11.5-16.0 G/DL INR Comment 2.6 H 0.8-1.4 Lymphocytes # (Auto) 1.4 1.0-4.0 X 10^3 Lymphocytes (%) (Auto) 23 12-44 % Mean Corpuscular Hemoglobin 32 25-34 PG Mean Corpuscular Hemoglobin Concent 34 32-36 G/DL Mean Corpuscular Volume 95 80-99 FL Mean Platelet Volume 9.2 7.4-10.4 FL Monocytes # (Auto) 0.6 0.0-1.0 X 10^3 Monocytes (%) (Auto) 10 0-12 % Neutrophils # (Auto) 3.9 1.8-7.8 X 10^3 Neutrophils (%) (Auto) 63 42-75 % Platelet Count 208 130-400 10^3/uL Potassium Level 4.2 3.6-5.0 MMOL/L Prothrombin Time 27.6 H 12.2-14.7 SEC Red Blood Count 4.33 L 4.35-5.85 10^6/uL Red Cell Distribution Width 14.2 10.0-14.5 % Sodium Level 139 135-145 MMOL/L Total Bilirubin 0.3 0.1-1.0 MG/DL Total Protein 6.4 6.4-8.2 G/DL White Blood Count 6.2 4.3-11.0 10^3/uL Physical Exam Vital Signs Vital Sign - Last 12Hours 09/10/16 15:12 Temp 98.0 Pulse 77 Resp 20 B/P 163/108 Pulse Ox 98 O2 Delivery Room Air Capillary Refill : General Appearance: No Apparent Distress WD/WN Eyes: Bilateral Eye EOMI, Bilateral Eye Normal Inspection, Bilateral Eye PERRL HEENT: PERRL/EOMI TMs Normal Normal ENT Inspection Pharynx Normal Neck: Full Range of Motion Normal Inspection Non Tender Supple Carotid Bruit Respiratory: Chest Non Tender Lungs Clear Normal Breath Sounds No Accessory Muscle Use No Respiratory Distress Cardiovascular: No Edema No Gallop No JVD No Murmur Normal Peripheral Pulses Irregularly Irregular Gastrointestinal: Normal Bowel Sounds No Organomegaly No Pulsatile Mass Non Tender Soft Back: Normal Inspection No CVA Tenderness No Vertebral Tenderness Extremity: Normal Capillary Refill Normal Inspection Normal Range of Motion Non Tender No Calf Tenderness No Pedal Edema Neurologic/Psychiatric: Alert Oriented x3 Normal Mood/Affect Other ( expressive aphasia and slight slurred speech, slight weakness on the right side) Skin: Normal Color Warm/Dry Lymphatic: No Adenopathy A/P-Cardiology Admission Diagnosis Acute CVA Atrial fibrillation Coronary artery disease Hypertension Assessment/Plan Acute CVA, right middle cerebral artery infarct, still having slight weakness on the right side and slurred speech. Receiving physical and occupational therapy. Embolic stroke Permanent atrial fibrillation, rate controlled with history of sick sinus syndrome, has been refusing Coumadin, aaron to restarted. [id number] score is 5, yearly risk of stroke without oral anticoagulation is 6.7 percent. Patient stopped taking her Coumadin as an outpatient, currently back on Coumadin. Understand the importance of compliance with medication. Coronary artery disease, most recent cardiac catheterization done March 23, 2015 revealing 80 percent mid LAD stenosis. Successful primary stenting using a resolute integrity drug-eluting stent 318 mm. No residual stenosis. Ostial diagonal artery stenosis of 60 percent. 40 percent mid RCA stenosis. EF 50 percent. currently asymptomatic, planning for stress test as an outpatient Hypertension, continue current medication monitor blood pressure Hyperlipidemia, continue to monitor lipids Allergy to TRACY inhibitor-causing angioedema Moderate carotid artery stenosis monitored by heart and vascular care Peripheral vascular disease monitored by heart and vascular care Tobaccoism, still an active smoker, educated and instructed on smoking cessation. Clinical Quality Measures DVT/VTE Risk/Contraindication: Risk Factor Score Per Nursin RFS Level Per Nursing on Admit: 4+=Very High EUNICE BURGOS MD Sep 11, 2016 13:08
--- NOTE | 2016-09-11 13:59 | Physical Therapy Daily Note ---
PT Daily Note-Current Subjective Patient in bed pre tx, agrees to PT, no complaints of pain. Pain Numeric Pain Scale: 0-No Pain Appearance Patient in bed post tx, has nurse call, phone, tray, all needs met. Daughter in the room. Transfers Functional [place] Measure 0=Not Assessed/NA 4=Minimal Assistance 1=Total Assistance 5=Supervision or Setup 2=Maximal Assistance 6=Modified [place] 3=Moderate Assistance 7=Complete IndependenceIRFPAI Quality Coding Scale 6 Independent with activity with or without an assistive device 5 Patient requires set up or clean up by helper. Patient completes activity by themselves 4 Supervision or touching assist (CGA). [place] provide cues , steadying assist 3 The helper provides less than half the effort to complete the activity 2 The helper provides more than half the effort to complete the activity 1 Dependent. The helper does all the effort to complete an activity 7 Patient refused to complete or attempt activity 9 The patient did not perform the activity before the current illness or injury 88 Not attempted due to Medical conditions or safety concerns Transfers (B, C, W/C) (FIM): 5 Scootin Rollin Supine to/from Sit: 7 Sit to/from Stand: 5 patient can be impulsive, cues for safety Gait Training Gait (FIM): 5 Distance: 800'x2 Gait Level of Assist: 5 Gait Persons Needed: 1 Patient needs cues to slow down Exercises NuStep Minutes: 10 NuStep Workload: 5 Treatments bed mobility and transfers, ambulation, functional strengthening Assessment Current Status: Fair Progress Patient has impaired safety awareness and is somewhat impulsive. She has poor endurance, 10 min on the stepper really wore her out. PT Short Term Goals Short Term Goals Time Frame: Sep 12, 2016 Transfers (B,C,W/C) (FIM): 6 Gait (FIM): 5 Stairs (FIM): 2 # of Steps: 4 Stairs Level of Assist: 6 PT Shelter Goals Shelter Goals PT Saw Offbearer Goals Time Frame: Sep 19, 2016 Transfers (B,C,W/C) (FIM): 7 Sit to Lying (QC): 6 Lying-Sitting on Side/Bed(QC): 6 Sit to Stand (QC): 6 Rollin Roll Left to Right (QC): 6 Chair/[id number] Xfer(QC): 6 Car Transfer (QC): 6 Gait (FIM): 7 Gait distance (FIM): 3=150 ft Walk 10 feet (QC): 6 Walk 10ft-Uneven Surface(QC): 6 Walk 50ft with 2 Turns (QC): 6 Walk 150 ft (QC): 6 Gait Level of Assist: 6 Gait Assistive Device: None Does the Pt use WC or Scooter?: No Stairs (FIM): 6 # of Steps: 12 1 Step (curb) (QC): 6 4 Steps (QC): 6 12 Steps (QC): 6 Stairs Level Of Assist: 6 Picking up an Object (QC): 6 PT Plan Problem List Problem List: Activity Tolerance, Functional Strength, Safety, Balance, Gait, Transfer, Bed Mobility Treatment/Plan Treatment Plan: Continue Plan of Care Treatment Plan: Bed Mobility, Education, Functional Activity Sweta, Functional Strength, Group Therapy, Gait, Safety, Therapeutic Exercise, Transfers Treatment Duration: Sep 19, 2016 Visits Per Week: 10-15 Minutes/Day (M-F): 60-90 Minutes/Day (Sat/Handy): prn Safety Risks/Education Patient Education: Gait Training, Transfer Techniques, Safety Issues Teaching Recipient: Patient Teaching Methods: Demonstration, Discussion Response to Teaching: Reinforcement Needed Time/GCodes Time In: 1330 Time Out: 1400 Total Billed Treatment Time: 30 Total Billed Treatment 1 visit EX 10 min GT 20 min MARVIN ARAUZ PT Sep 11, 2016 13:59
--- NOTE | 2016-09-11 13:59 | Occupational Therapy Eval ---
OT Evaluation-General/PLF Medical Diagnosis Admission Date Sep 10, 2016 at 15:00 Medical Diagnosis: CVA (Left Parietal) Onset Date: Sep 10, 2016 Therapy Diagnosis Therapy Diagnosis: Expressive aphasia Height/Weight Height (Feet): 5 Height (Inches): 2.00 Weight (Pounds): 156 Weight (Ounces): 9.0 Precautions Precautions/Isolations: Standard Precautions Weight Bear Status Weight Bearing Restriction: Weight Bearing/Tolerated Referral Physician: Jefry Referral Reason: Activity Tolerance, Self Care, Evaluation/Treatment, Strengthening/ROM Medical History Pertinent Medical History: Atrial Fib, Alcoholism, HTN, Hypothroidism, PVD, Smoking Additional Medical History alcoholism Current History Pt. had CVA. Has difficulty expressing self. States that her spouse is unable to help her. She states, "I take care of him." Reviewed History: Yes Social History Home: Single Level Current Living Status: Spouse Entry Into Home: Stairs With Railing Steps Into Home: 5 ADL-Prior Level of Function ADL PLOF Comments Pt. and daughter state that pt. was independent with daily tasks previous to this happening. State that she was driving, and had no difficulties. DME/Equipment: Bath Chair, Tub/Shower DME/Equipment Comments Pt. states that she has no other equipment at home. Drive Self: Yes OT Current Status Subjective Pt. has difficulty getting words out but overall is able to express herself. States that she has no pain. Appearance Pt. is sitting on side of bed. Already dressed. Daughter and pt. both state that she has had a shower the last two days. Daughter states that she was in the room when pt. showered, but did not have to assist her and that the pt. was able to do it on her own. Mental Status/Objective Patient Orientation: Person, Place Current Glasses/Contacts: Yes Hand Dominance: Right Upper Extremity ROM WFL Upper Extremity Coordination intact Upper Extremity Sensation intact Upper Extremity Strength Pt. demonstrates bilateral UE strength of 4/5 ADL-Treatment Functional [place] Measure 0=Not Assessed/NA 4=Minimal Assistance 1=Total Assistance 5=Supervision or Setup 2=Maximal Assistance 6=Modified [place] 3=Moderate Assistance 7=Complete IndependenceIRFPAI Quality Coding Scale 6 Independent with activity with or without an assistive device 5 Patient requires set up or clean up by helper. Patient completes activity by themselves 4 Supervision or touching assist (CGA). [place] provide cues , steadying assist 3 The helper provides less than half the effort to complete the activity 2 The helper provides more than half the effort to complete the activity 1 Dependent. The helper does all the effort to complete an activity 7 Patient refused to complete or attempt activity 9 The patient did not perform the activity before the current illness or injury 88 Not attempted due to Medical conditions or safety concerns Lower Body Dressing (FIM): 5 (Pt. demonstrated ability to stand, pull down pants, sit down and pull off pants and socks. Pt. able to don socks and pants back on with SBA.) Other Treatments Pt. on side of bed and already dressed. Both daughter and pt. state that she had a shower the last two days. Daughter states that she was in the room when she showered, but she did it on her own. Pt. declines fully showering again. Ambulated to therapy gym. Daughter states that her concern was that she noticed that pt. had spilled her coffee in other hospital, and was unaware of this. States that her awareness has increased, but that was a concern. Noted that with ambulation, pt somewhat impulsive and did not know left from right. Ambulated to therapy gym and completed series of fine motor coordination and strengthening tasks. Pt. demonstrates adequate fine motor skills. Ambulated to kitchen. Before going, pt. given two items to complete, which were to retrieve items from high and low cabinets. Once in kitchen, pt. had forgot what she had been told. Required cues again, and pt. able to retrieve item from high and low cabinet with no difficulty. Ambulated back to room. All needs met. Completed simple visual test from behind. Without looking at eyes, pt is able to indicate that she sees items in periphery correctly. All needs met in room. Pt. is issued hand sponge and theraband to continue with strengthening while not in therapy. Verbalizes understanding of exercises given to her. Education OT Patient Education: Correct positioning, Exercise program, Instructions to caregiver, Modified ADL techniques, Progress toward Goal/Update tx plan, Purpose of tx/functional activities, Reviewed precautions, Rehab process, Transfer techniques Teaching Recipient: Patient Teaching Methods: Demonstration, Discussion Response to Teaching: Verbalize Understanding, Return Demonstration OT Short Term Goals Short Term Goals Time Frame: Sep 11, 2016 Transfers (B,C,W/C) (FIM): 6 1=Demonstrate adherence to instructed precautions during ADL tasks. 2=Patient will verbalize/demonstrate understanding of assistive devices/ modifications for ADL. 3=Patient will improve strength/tolerance for activity to enable patient to perform ADL's. OT Intermediate Goals Wastewater Analyst Goals Time Frame: Sep 25, 2016 Eating (FIM): 6 Eating (QC): 6 Groomin Oral Hygiene (QC): 6 Bathing(FIM): 5 Shower/Bathe Self (QC): 5 Upper Body Dressing(FIM): 6 Upper Body Dressing (QC): 6 Lower Body Dressing(FIM): 6 Lower Body Dressing (QC): 6 Toileting(FIM): 6 Toileting Hygiene (QC): 6 Transfers (B,C,W/C) (FIM): 6 Toilet/Commode Transfer(FIM): 6 Toilet/Commode Transfer (QC): 6 Shower Transfer(FIM): 5 Comprehension(FIM): 6 Expression (FIM): 5 Social Interaction(FIM): 6 Problem Solving(FIM): 5 Memory(FIM): 5 1=Demonstrate adherence to instructed precautions during ADL tasks. 2=Patient will verbalize/demonstrate understanding of assistive devices/ modifications for ADL. 3=Patient will improve strength/tolerance for activity to enable patient to perform ADL's. OT Education/Plan Problem List/Assessment Assessment: Decreased Activ Tolerance, Decreased Safety Aware, Decreased UE Strength, Dependent Transfers, Impaired Cognition, Impaired Funct Balance, Impaired I ADL's, Impaired Self-Care Skills Discharge Recommendations Plan/Recommendations: Continue POC Therapy D/C Recommendations: Home w/ Family Support, Occupational Therapy Home Care Target Placement Home with family support. Treatment Plan/Plan of Care Treatment,Training & Education: Yes Patient would benefit from OT for education, treatment and training to promote independence in ADL's, mobility, safety and/or upper extremity function for ADL' s. Plan of Care: ADL Retraining, Functional Mobility, UE Funct Exercise/Act Treatment Duration: Sep 25, 2016 # of days/week 5-6 Visits Per Week: 10-12 Agreement: Yes Rehab Potential: Fair Time/GCodes Start Time: 08:45 Stop Time: 09:45 Total Time Billed (hr/min): 60 Billed Treatment Time 1, EVmod complexity x 15minutes, FA x 45minutes WILLIE MCDOWELL OT Sep 11, 2016 13:59
--- NOTE | 2016-09-11 14:46 | PM & R (SOAP) Progress Note ---
Subjective Subjective/Events-last exam Patient was seen in her room this AM INR 2.[address] Trejo and ksenia notes and orders Patient SBA for transfers and gait Objective Exam Last Set of Vital Signs Vital Signs Date Time Temp Pulse Resp B/P Pulse Ox O2 Delivery O2 Flow Rate FiO2 09/11/16 09:00 97 Room Air 09/11/16 05:04 97.4 67 18 121/71 Capillary Refill : I&O Bad tableGeneral: Alert, Oriented X3, Cooperative, No Acute Distress HEENT: Atraumatic, PERRLA, EOMI, Mucous Memb Moist/[place], Other (mild aphasia and word finding difficulties) Neck: Supple, No JVD Lungs: Clear to Auscultation Heart: Regular Rate Abdomen: Normal Bowel Sounds, Soft Extremities: No Edema Neuro: Other (mild gait imbalance and word finding difficulties) Results Lab Laboratory Tests 09/11/16 05:30: Alanine Aminotransferase (ALT/SGPT) 66H, Albumin 3.5, Alkaline Phosphatase 63, Anion Gap 9, Aspartate Amino Transf (AST/SGOT) 82H, BUN/Creatinine Ratio 26, Basophils # (Auto) 0.0, Basophils (%) (Auto) 0, Blood Urea Nitrogen 24H, Calcium Level 8.9, Carbon Dioxide Level 22, Chloride Level 108H, Creatinine 0.93 , Eosinophils # (Auto) 0.2, Eosinophils (%) (Auto) 4, Estimat Glomerular Filtration Rate 58, Glucose Level 89, Hematocrit 41, Hemoglobin 13.9, INR Comment 2.6H, Lymphocytes # (Auto) 1.4, Lymphocytes (%) (Auto) 23, Mean Corpuscular Hemoglobin 32, Mean Corpuscular Hemoglobin Concent 34, Mean Corpuscular Volume 95, Mean Platelet Volume 9.2, Monocytes # (Auto) 0.6, Monocytes (%) (Auto) 10, Neutrophils # (Auto) 3.9, Neutrophils (%) (Auto) 63, Platelet Count 208, Potassium Level 4.2, Prothrombin Time 27.6H, Red Blood Count 4.33L, Red Cell Distribution Width 14.2, Sodium Level 139, Total Bilirubin 0.3, Total Protein 6.4, White Blood Count 6.2 Assessment/Plan Assessment 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 HTN better conrolled-missed some therapy time yesterday due to Elevated SBP associated with FRIAS Chronic anticoagulation now with INR in Therapeutic range with Coumadin resumed Plan Continue PT/OT/ST F/U with Cardiology PRN Monitor INR and Adjust Coumadin as needed Monitor Blood pressure and adjust meds as needed SANJU SUN MD Sep 11, 2016 14:46
[2016-09-11 17:57] VITALS: BP 122/74
[2016-09-11] MEDS: warFARin 2.5 MG (COUMADIN) TAB PO SCH (18:04)
[2016-09-11] MEDS: SERTRALINE 100 MG (ZOLOFT) TAB PO SCH (20:08)
[2016-09-12 05:59] LABS: BASOPHILS % (AUTO) 1 % (0-10); EOSINOPHILS # (AUTO) 0.3 10^3/uL (0.0-0.3); EOSINOPHILS % (AUTO) 4 % (0-10); LYMPHOCYTES # (AUTO) 1.8 X 10^3 (1.0-4.0); LYMPHOCYTES % (AUTO) 28 % (12-44); MEAN CORPUSCULAR HEMOGLOBIN 31 PG (25-34); MEAN CORPUSCULAR HGB CONC 33 G/DL (32-36); MEAN CORPUSCULAR VOLUME 94 FL (80-99); MEAN PLATELET VOLUME 9.2 FL (7.4-10.4); MONOCYTES # (AUTO) 0.6 X 10^3 (0.0-1.0); MONOCYTES % (AUTO) 9 % (0-12); NEUTROPHILS # (AUTO) 3.9 X 10^3 (1.8-7.8); NEUTROPHILS % (AUTO) 59 % (42-75); PLATELET COUNT 215 10^3/uL (130-400); RED BLOOD COUNT 4.31 10^6/uL (4.35-5.85); RED CELL DISTRIBUTION WIDTH 14.2 % (10.0-14.5); WHITE BLOOD COUNT 6.6 10^3/uL (4.3-11.0)
[2016-09-12 06:00] VITALS: BP 149/89
[2016-09-12 06:08] LABS: INR 2.4 (0.8-1.4)
[2016-09-12] MEDS: LEVOTHYROXINE 75 MCG (LEVOTHROID) TABLET PO SCH (06:11)
[2016-09-12] MEDS: CALCIUM CARB + VIT D 600 MG (CALCARB + D) TAB PO SCH ×2 (06:12→20:21)
[2016-09-12 06:30] LABS: ALANINE AMINOTRANSFERASE 59 U/L (0-55); ALBUMIN 3.6 G/DL (3.2-4.5); ANION GAP 11 MMOL/L (5-14); ASPARTATE AMINO TRANSFERASE 63 U/L (5-34); BILIRUBIN,TOTAL 0.3 MG/DL (0.1-1.0); BLOOD UREA NITROGEN 23 MG/DL (7-18); BUN/CREATININE RATIO 27; CALCIUM 8.8 MG/DL (8.5-10.1); CARBON DIOXIDE 20 MMOL/L (21-32); CHLORIDE 109 MMOL/L (98-107); CREATININE SERUM 0.85 MG/DL (0.60-1.30); GFR ESTIMATED > 60; GLUCOSE 86 MG/DL (70-105); POTASSIUM 4.2 MMOL/L (3.6-5.0); SODIUM 140 MMOL/L (135-145); TOTAL PROTEIN 6.3 G/DL (6.4-8.2)
[2016-09-12] MEDS: ASPIRIN E.C. 81 MG (ECOTRIN) TAB PO SCH (08:14)
--- NOTE | 2016-09-12 08:44 | Progress Note (SOAP) ---
Subjective Subjective/Events-last exam CVA affecting speech. Atrial fibrillation. Patient less confused Objective Exam Vital Signs Date Time Temp Pulse Resp B/P Pulse Ox O2 Delivery O2 Flow Rate FiO2 09/12/16 06:00 96.9 54 20 149/89 97 Room Air 09/11/16 21:00 Room Air 09/11/16 17:57 97.3 64 16 122/74 98 Room Air 09/11/16 09:00 97 Room Air I & O 09/12/16 07:00 Intake Total 1040 ml Balance 1040 ml Capillary Refill : General Appearance: No Apparent Distress WD/WN Results Lab Laboratory Tests 09/12/16 05:06: Alanine Aminotransferase (ALT/SGPT) 59H, Albumin 3.6, Alkaline Phosphatase 60, Anion Gap 11, Aspartate Amino Transf (AST/SGOT) 63H, BUN/Creatinine Ratio 27, Basophils # (Auto) 0.0, Basophils (%) (Auto) 1, Blood Urea Nitrogen 23H, Calcium Level 8.8, Carbon Dioxide Level 20L, Chloride Level 109H, Creatinine 0.85, Eosinophils # (Auto) 0.3, Eosinophils (%) (Auto) 4, Estimat Glomerular Filtration Rate > 60, Glucose Level 86, Hematocrit 41, Hemoglobin 13.5, INR Comment 2.4H, Lymphocytes # (Auto) 1.8, Lymphocytes (%) (Auto) 28, Mean Corpuscular Hemoglobin 31, Mean Corpuscular Hemoglobin Concent 33, Mean Corpuscular Volume 94, Mean Platelet Volume 9.2, Monocytes # (Auto) 0.6, Monocytes (%) (Auto) 9, Neutrophils # (Auto) 3.9, Neutrophils (%) (Auto) 59, Platelet Count 215, Potassium Level 4.2, Prothrombin Time 26.0H, Red Blood Count 4.31L, Red Cell Distribution Width 14.2, Sodium Level 140, Total Bilirubin 0.3, Total Protein 6.3L, White Blood Count 6.6 Assessment/Plan Assessment/Plan Assess & Plan/Chief Complaint CVA affecting her speech. Atrial fibrillation. Elevated liver enzymes. Hyperlipidemia. Present date tobacco usage. . 09/12/16. CVA affecting speech atrial fibrillation. Hyperlipidemia Diagnosis/Problems: Clinical Quality Measures DVT/VTE Risk/Contraindication: Risk Factor Score Per Nursin RFS Level Per Nursing on Admit: 4+=Very High JUICE VILLASENOR DO Sep 12, 2016 08:44
--- NOTE | 2016-09-12 09:00 | Cardiology Progress Note ---
Subjective Subjective/Events-last exam Patient with PT. No new complaints. Continues to have mild right sided weakness. Review of Systems General: No Night Sweats, No Fatigue, No Malaise HEENT: No Visual Changes, No Dysphasia Pulmonary: No Dyspnea, No Cough Cardiovascular: No: Chest Pain, Edema, Palpitations, Paroxysmal Noc. Dyspnea Gastrointestinal: No: Abdominal Pain, Constipation, Diarrhea, Nausea, Vomiting Genitourinary: No Dysuria, No Frequency Musculoskeletal: No: back pain, neck pain Neurological: : Change in speech: WeaknessNo: Confusion, Numbness Objective-Cardiology Exam Last Set of Vital Signs Vital Signs 09/12/16 06:00 Temp 96.9 Pulse 54 Resp 20 B/P 149/89 Pulse Ox 97 O2 Delivery Room Air Capillary Refill : I&O Intake and Output 09/12/16 00:00 Intake Total 1080 ml Balance 1080 ml Intake Oral 1080 ml # Voids 6 General: Alert, Oriented X3, Cooperative, No Acute Distress HEENT: Atraumatic, PERRLA, EOMI, Mucous Memb Moist/[place], Other (mild aphasia and word finding difficulties) Neck: Supple, No JVD Lungs: Clear to Auscultation Heart: Regular Rate Abdomen: Normal Bowel Sounds, Soft Extremities: No Edema Neuro: Other (mild gait imbalance and word finding difficulties) Results Lab Laboratory Tests 09/12/16 05:06 A/P-Cardiology Admission Diagnosis Acute CVA Atrial fibrillation Coronary artery disease Hypertension Assessment/Plan Acute CVA, right middle cerebral artery infarct, still having slight weakness on the right side and difficulty finding words. Receiving physical and occupational therapy. Embolic stroke Permanent atrial fibrillation, rate controlled with history of sick sinus syndrome, has been refusing Coumadin in the past. Now agreeable to OAC. [id number] score is 5, yearly risk of stroke without oral anticoagulation is 6.7 percent. Patient stopped taking her Coumadin as an outpatient, currently back on Coumadin. Understand the importance of compliance with medication. Coronary artery disease, most recent cardiac catheterization done March 23, 2015 revealing 80 percent mid LAD stenosis. Successful primary stenting using a resolute integrity drug-eluting stent 318 mm. No residual stenosis. Ostial diagonal artery stenosis of 60 percent. 40 percent mid RCA stenosis. EF 50 percent. currently asymptomatic, planning for stress test as an outpatient Hypertension, continue current medication monitor blood pressure Hyperlipidemia, continue to monitor lipids Allergy to TRACY inhibitor-causing angioedema Moderate carotid artery stenosis monitored by heart and vascular care Peripheral vascular disease monitored by heart and vascular care Tobaccoism, still an active smoker, educated and instructed on smoking cessation. Clinical Quality Measures DVT/VTE Risk/Contraindication: Risk Factor Score Per Nursin RFS Level Per Nursing on Admit: 4+=Very High FOZIA LANTIGUA Sep 12, 2016 09:00
--- NOTE | 2016-09-12 09:29 | PM & R (SOAP) Progress Note ---
Subjective Subjective/Events-last exam Patient was seen in HER ROOM THIS am aPPRECIATE dR [place] NOTES AND ORDERS aPPRECIATE cURRENT LABS AND THERAPY NOTES Review of Systems HEENT: Other (DIFFICULTY WITH SPEECH) Neurological: : Other (APHASIA MOLD AND GAIT IMBALANCE) Objective Exam Last Set of Vital Signs Vital Signs Date Time Temp Pulse Resp B/P Pulse Ox O2 Delivery O2 Flow Rate FiO2 09/12/16 06:00 96.9 54 20 149/89 97 Room Air Capillary Refill : I&O Intake and Output 09/12/16 00:00 Intake Total 1080 ml Balance 1080 ml Intake Oral 1080 ml # Voids 6 General: Alert, Oriented X3, Cooperative, No Acute Distress HEENT: Atraumatic, PERRLA, EOMI, Mucous Memb Moist/[place], Other (mild aphasia and word finding difficulties) Neck: Supple, No JVD Lungs: Clear to Auscultation Heart: Regular Rate Abdomen: Normal Bowel Sounds, Soft Extremities: No Edema Neuro: Other (mild gait imbalance and word finding difficulties) Results Lab Laboratory Tests 09/11/16 05:30: Alanine Aminotransferase (ALT/SGPT) 66H, Albumin 3.5, Alkaline Phosphatase 63, Anion Gap 9, Aspartate Amino Transf (AST/SGOT) 82H, BUN/Creatinine Ratio 26, Basophils # (Auto) 0.0, Basophils (%) (Auto) 0, Blood Urea Nitrogen 24H, Calcium Level 8.9, Carbon Dioxide Level 22, Chloride Level 108H, Creatinine 0.93 , Eosinophils # (Auto) 0.2, Eosinophils (%) (Auto) 4, Estimat Glomerular Filtration Rate 58, Glucose Level 89, Hematocrit 41, Hemoglobin 13.9, INR Comment 2.6H, Lymphocytes # (Auto) 1.4, Lymphocytes (%) (Auto) 23, Mean Corpuscular Hemoglobin 32, Mean Corpuscular Hemoglobin Concent 34, Mean Corpuscular Volume 95, Mean Platelet Volume 9.2, Monocytes # (Auto) 0.6, Monocytes (%) (Auto) 10, Neutrophils # (Auto) 3.9, Neutrophils (%) (Auto) 63, Platelet Count 208, Potassium Level 4.2, Prothrombin Time 27.6H, Red Blood Count 4.33L, Red Cell Distribution Width 14.2, Sodium Level 139, Total Bilirubin 0.3, Total Protein 6.4, White Blood Count 6.2 09/12/16 05:06: Alanine Aminotransferase (ALT/SGPT) 59H, Albumin 3.6, Alkaline Phosphatase 60, Anion Gap 11, Aspartate Amino Transf (AST/SGOT) 63H, BUN/Creatinine Ratio 27, Basophils # (Auto) 0.0, Basophils (%) (Auto) 1, Blood Urea Nitrogen 23H, Calcium Level 8.8, Carbon Dioxide Level 20L, Chloride Level 109H, Creatinine 0.85, Eosinophils # (Auto) 0.3, Eosinophils (%) (Auto) 4, Estimat Glomerular Filtration Rate > 60, Glucose Level 86, Hematocrit 41, Hemoglobin 13.5, INR Comment 2.4H, Lymphocytes # (Auto) 1.8, Lymphocytes (%) (Auto) 28, Mean Corpuscular Hemoglobin 31, Mean Corpuscular Hemoglobin Concent 33, Mean Corpuscular Volume 94, Mean Platelet Volume 9.2, Monocytes # (Auto) 0.6, Monocytes (%) (Auto) 9, Neutrophils # (Auto) 3.9, Neutrophils (%) (Auto) 59, Platelet Count 215, Potassium Level 4.2, Prothrombin Time 26.0H, Red Blood Count 4.31L, Red Cell Distribution Width 14.2, Sodium Level 140, Total Bilirubin 0.3, Total Protein 6.3L, White Blood Count 6.6 Assessment/Plan Assessment 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 HTN better conrolled-missed some therapy time yesterday due to Elevated SBP associated with FRIAS Chronic anticoagulation now with INR in Therapeutic range with Coumadin resumed eLEVATED lfts Plan Continue PT/OT/ST F/U with Cardiology PRN Monitor INR and Adjust Coumadin as needed Monitor Blood pressure and adjust meds as needed f/u lIVER PANEL tEAM cONFERENCE TO BE HELD LATER TODAY SEE REPORT FOR FULL FUNCTIONAL UPDATE AND poc AND SANJU Koroma MD Sep 12, 2016 09:29
--- NOTE | 2016-09-12 11:02 | Speech Therapy Daily Note ---
Speech Daily Progress Note Subjective The patient was seated upright in bed upon entrance. The patient greeted the clinician appropriately and was agreeable to speech and language therapy on this date. Objective Word-Finding Strategies: Ten word finding strategies were discussed and demonstrated for the patient at the initiation of the session. The strategies included description, synonym use, drawing, writing, resting, phonemic cues, practice, gestures, and association. The strategy of synonym use was practiced throughout today's session. Synonym Use: The patient demonstrated fair accuracy with providing synonyms for specific words (74% accuracy) with mild clinician cueing. Repetition of Single Words: - Single Syllable: The patient demonstrated 100% accuracy with single syllable word repetition. - Two Syllable: The patient demonstrated 40% accuracy with double syllable words with maximum clinician prompting. The patient's accuracy increased with direct modeling by clinician. - Multi-Syllable: The patient demonstrated 36% accuracy with multi syllabic words with maximum clinician prompting. * The patient's accuracy did not increase if she read the word instead of hearing the word read by the clinician. Assessment Assessment Current Status: Fair Progress Treatment Plan Continue Plan of Care Communication Comprehension: 4 Expression: 3 Social Cognition Social Interaction: 5 Problem Solvin Memory: 5 Speech Short Term Goals Short Term Goals Short Term Goals 1. The patient will demonstrate 90% accuracy with structured word-finding tasks with mild clinician cueing. 2. The patient will display 80% accuracy with repetition of functional phrases with mild clinician cueing. Time Frame-ST Days Speech Yarn Dyer Goals Yarn Dyer Goals 1. The patient will demonstrate improved expressive communication for increased function and safety with ADL's in the least restrictive setting. Time Frame: Two Weeks Comprehension: 6 Expression: 5 Social Interaction: 6 Problem Solvin Memory: 5 Speech-Plan Treatment Plan Speech Therapy Treatment Plan: Continue Plan of Care Continue skilled speech services to target expressive communication for increased function and safety at home. Treatment Duration: Sep 25, 2016 # of days/week Eight to Ten Visits Per Week: Eight to Ten Minutes/Day (M-F): 30 to 60 Rehab Potential: Fair Safety Risks/Education Teaching Recipient: Patient Teaching Methods: Demonstration, Handout, Discussion Response to Teaching: Verbalize Understanding, Return Demonstration Education Topics Provided: Circumlocuation Strategies Time Speech Therapy Time In: 07:45 Speech Therapy Time Out: 08:45 Total Billed Time: 60 Billed Treatment Time 1TYSON [address]IZ[address] ST Sep 12, 2016 11:02
--- NOTE | 2016-09-12 11:51 | Cardiology Progress Note ---
Subjective Subjective/Events-last exam Patient is in bed, feeling better, receiving PT Review of Systems General: No Chills, No Night Sweats, No Fatigue, No Malaise, No Appetite HEENT: No Head Aches, No Visual Changes, No Eye Pain, No Ear Pain, No Dysphasia , No Sinus Congestion, No Post Nasal Drip, No Sore Throat, No Other Pulmonary: No Dyspnea, No Cough, No Pleuritic Chest Pain, No Other Cardiovascular: No: Chest Pain, Edema, Lt Headedness, Orthopnea, Other, Palpitations, Paroxysmal Noc. Dyspnea Objective-Cardiology Exam Last Set of Vital Signs Vital Signs 09/12/16 09/12/16 06:00 09:00 Temp 96.9 Pulse 54 Resp 20 B/P 149/89 Pulse Ox 97 O2 Delivery Room Air Capillary Refill : I&O Intake and Output 09/12/16 00:00 Intake Total 1080 ml Balance 1080 ml Intake Oral 1080 ml # Voids 6 General: Alert, Oriented X3, Cooperative, No Acute Distress HEENT: Atraumatic, PERRLA, EOMI, Mucous Memb Moist/[place], Other (mild aphasia and word finding difficulties) Neck: Supple, No JVD Lungs: Clear to Auscultation Heart: Regular Rate Abdomen: Normal Bowel Sounds, Soft Extremities: No Edema Neuro: Other (mild gait imbalance and word finding difficulties) Results Lab Laboratory Tests 09/12/16 05:06 A/P-Cardiology Admission Diagnosis Acute CVA Atrial fibrillation Coronary artery disease Hypertension Assessment/Plan Acute CVA, right middle cerebral artery infarct, still having slight weakness on the right side and difficulty finding words. Receiving physical and occupational therapy. Embolic stroke Permanent atrial fibrillation, rate controlled with history of sick sinus syndrome, has been refusing Coumadin in the past. Now agreeable to OAC. [id number] score is 5, yearly risk of stroke without oral anticoagulation is 6.7 percent. Patient stopped taking her Coumadin as an outpatient, currently back on Coumadin. Understand the importance of compliance with medication. Coronary artery disease, most recent cardiac catheterization done March 23, 2015 revealing 80 percent mid LAD stenosis. Successful primary stenting using a resolute integrity drug-eluting stent 318 mm. No residual stenosis. Ostial diagonal artery stenosis of 60 percent. 40 percent mid RCA stenosis. EF 50 percent. currently asymptomatic, planning for stress test as an outpatient Hypertension, continue current medication monitor blood pressure Hyperlipidemia, continue to monitor lipids Allergy to TRACY inhibitor-causing angioedema Moderate carotid artery stenosis monitored by heart and vascular care Peripheral vascular disease monitored by heart and vascular care Tobaccoism, still an active smoker, educated and instructed on smoking cessation. Clinical Quality Measures DVT/VTE Risk/Contraindication: Risk Factor Score Per Nursin RFS Level Per Nursing on Admit: 4+=Very High EUNICE BURGOS MD Sep 12, 2016 11:51
--- NOTE | 2016-09-12 14:17 | Occupational Ther Daily Note ---
OT Current Status-Daily Note Subjective No pain reported. Appearance Pt. is in bed. Has already showered and dressed independently. Agreed to come to therapy gym. Mental Status/Objective Patient Orientation: Person, Place Functional [place] Measure 0=Not Assessed/NA 4=Minimal Assistance 1=Total Assistance 5=Supervision or Setup 2=Maximal Assistance 6=Modified [place] 3=Moderate Assistance 7=Complete [place] ADL-Treatment Functional [place] Measure 0=Not Assessed/NA 4=Minimal Assistance 1=Total Assistance 5=Supervision or Setup 2=Maximal Assistance 6=Modified [place] 3=Moderate Assistance 7=Complete IndependenceIRFPAI Quality Coding Scale 6 Independent with activity with or without an assistive device 5 Patient requires set up or clean up by helper. Patient completes activity by themselves 4 Supervision or touching assist (CGA). [place] provide cues , steadying assist 3 The helper provides less than half the effort to complete the activity 2 The helper provides more than half the effort to complete the activity 1 Dependent. The helper does all the effort to complete an activity 7 Patient refused to complete or attempt activity 9 The patient did not perform the activity before the current illness or injury 88 Not attempted due to Medical conditions or safety concerns Eating (FIM): 6 Eating (QC): 6 Grooming (FIM): 6 Oral Hygiene (QC): 6 Bathing (FIM): 6 Shower/Bathe Self (QC): 5 Upper Body (FIM): 7 Upper Body Dressing (QC): 6 Lower Body Dressing (FIM): 7 Lower Body Dressing (QC): 6 On/Off Footwear (QC): 7 Toileting Hygiene (QC): 6 Transfers (B, C, W/C) (FIM): 7 Toilet/Commode Transfer (FIM): 6 Toilet Transfer (QC): 7 Shower Transfer(FIM): 6 Other Treatment Pt. had already bathed and dressed. Agreed to come to therapy gym. Ambulated independently to therapy gym. Completed armbike x 15 minutes to increase overall strength and independence for daily tasks. Tolerated treatment well. Completed several visual worksheets for visual scanning and perception. Pt. tolerated these well. Pt. educated in therapy putty exercises to increase fine motor coordination and strength. Pt. tolerated these as well. Issued theraputty for home. All needs met back in room. Education OT Patient Education: Modified ADL techniques, Progress toward Goal/Update tx plan, Purpose of tx/functional activities, Reviewed precautions, Rehab process, Transfer techniques Teaching Recipient: Patient Teaching Methods: Demonstration, Discussion Response to Teaching: Verbalize Understanding OT Short Term Goals Short Term Goals Time Frame: Sep 11, 2016 Transfers (B,C,W/C) (FIM): 6 1=Demonstrate adherence to instructed precautions during ADL tasks. 2=Patient will verbalize/demonstrate understanding of assistive devices/ modifications for ADL. 3=Patient will improve strength/tolerance for activity to enable patient to perform ADL's. OT Penitentiary Goals Penitentiary Goals Time Frame: Sep 25, 2016 Eating (FIM): 6 Eating (QC): 6 Groomin Oral Hygiene (QC): 6 Bathing(FIM): 5 Shower/Bathe Self (QC): 5 Upper Body Dressing(FIM): 6 Upper Body Dressing (QC): 6 Lower Body Dressing(FIM): 6 Lower Body Dressing (QC): 6 Toileting(FIM): 6 Toileting Hygiene (QC): 6 Transfers (B,C,W/C) (FIM): 6 Toilet/Commode Transfer(FIM): 6 Toilet/Commode Transfer (QC): 6 Shower Transfer(FIM): 5 Comprehension(FIM): 6 Expression (FIM): 5 Social Interaction(FIM): 6 Problem Solving(FIM): 5 Memory(FIM): 5 Additional Goals: 1-Demonstrate ADL Tasks, 2-Verbalize Understanding, 3- ImproveStrength/Sweta 1=Demonstrate adherence to instructed precautions during ADL tasks. 2=Patient will verbalize/demonstrate understanding of assistive devices/ modifications for ADL. 3=Patient will improve strength/tolerance for activity to enable patient to perform ADL's. OT Education/Plan Problem List/Assessment Assessment: Decreased Activ Tolerance Discharge Recommendations Plan/Recommendations: Continue POC Therapy D/C Recommendations: Home Independently Target Placement Home with family support. Treatment Plan/Plan of Care Treatment,Training & Education: Yes Patient would benefit from OT for education, treatment and training to promote independence in ADL's, mobility, safety and/or upper extremity function for ADL' s. Plan of Care: ADL Retraining, Functional Mobility, UE Funct Exercise/Act Treatment Duration: Sep 25, 2016 Visits Per Week: 10-12 Agreement: Yes Rehab Potential: Fair Time/GCodes Start Time: 08:45 Stop Time: 09:45 Total Time Billed (hr/min): 60 Billed Treatment Time 1, FA x 45minutes, EX x 15minutes WILLIE MCDOWELL OT Sep 12, 2016 14:17
--- NOTE | 2016-09-12 15:50 | Physical Therapy Daily Note ---
PT Daily Note-Current Subjective Pt laying supine in bed upon arrival. Pt is continuing to have confusion and is unaware of deficits. Pt agrees to PT. Pain Numeric Pain Scale: 0-No Pain Location: No Pain Reported Mental Status Patient Orientation: Person, Confused Transfers Functional [place] Measure 0=Not Assessed/NA 4=Minimal Assistance 1=Total Assistance 5=Supervision or Setup 2=Maximal Assistance 6=Modified [place] 3=Moderate Assistance 7=Complete IndependenceIRFPAI Quality Coding Scale 6 Independent with activity with or without an assistive device 5 Patient requires set up or clean up by helper. Patient completes activity by themselves 4 Supervision or touching assist (CGA). [place] provide cues , steadying assist 3 The helper provides less than half the effort to complete the activity 2 The helper provides more than half the effort to complete the activity 1 Dependent. The helper does all the effort to complete an activity 7 Patient refused to complete or attempt activity 9 The patient did not perform the activity before the current illness or injury 88 Not attempted due to Medical conditions or safety concerns Transfers (B, C, W/C) (FIM): 5 Scootin Rollin Roll Left to Right (QC): 6 Supine to/from Sit: 5 Sit to/from Stand: 5 Sit to Lying (QC): 5 Sit to Stand (QC): 5 Weight Bearing Weight Bearing Restriction: Full Weight Bearing Location Restriction: LE Bilateral Gait Training Does the Patient Walk?: Yes Gait (FIM): 5 Distance (FIM): 3=150 ft Distance: 200' + 200'= 400' Walk 10 feet (QC): 5 Walk 50 ft with 2 Turns(QC): 5 Walk 150 ft (QC): 5 Gait Level of Assist: 5 Gait Persons Needed: 1 Gait Assistive Device: None Pt is unsteady when walking and has difficulty walking in straight line. Wheelchair Training Does the Pt Use a Wheelchair?: No Exercises NuStep Minutes: 15 NuStep Workload: 3 Treatments Pt transfers from supine to EOB at Mod I then EOB to standing at SBA. Pt ambulates w/o AD at close SBA in hallway to Therapy Gym. Pt transferred to NuStep at SBA then used for 15m at Workload 3. Pt took short rest break before transferring to standing at SBA. Pt ambulated in hallway w/o AD at close SBA and tried to focus on walking straight line with reference point used. Pt returned to room to rest at end of walk. Pt transferred from standing to EOB to supine at SBA. Pt left with all needs met at end of tx. Assessment Current Status: Fair Progress Pt has poor social awareness. Pt ambulates about room as pt wants to. Pt needs to continue to work on activity tolerance as well as balance especially while walking. PT Short Term Goals Short Term Goals Time Frame: Sep 12, 2016 Transfers (B,C,W/C) (FIM): 6 Gait (FIM): 5 Stairs (FIM): 2 # of Steps: 4 Stairs Level of Assist: 6 PT Snf Goals Supervisor [employer] Goals PT Supervisor [employer] Goals Time Frame: Sep 19, 2016 Transfers (B,C,W/C) (FIM): 7 Sit to Lying (QC): 6 Lying-Sitting on Side/Bed(QC): 6 Sit to Stand (QC): 6 Rollin Roll Left to Right (QC): 6 Chair/Ucc-rv-Glhsj Xfer(QC): 6 Car Transfer (QC): 6 Gait (FIM): 7 Gait distance (FIM): 3=150 ft Walk 10 feet (QC): 6 Walk 10ft-Uneven Surface(QC): 6 Walk 50ft with 2 Turns (QC): 6 Walk 150 ft (QC): 6 Gait Level of Assist: 6 Gait Assistive Device: None Does the Pt use WC or Scooter?: No Stairs (FIM): 6 # of Steps: 12 1 Step (curb) (QC): 6 4 Steps (QC): 6 12 Steps (QC): 6 Stairs Level Of Assist: 6 Picking up an Object (QC): 6 PT Plan Problem List Problem List: Activity Tolerance, Safety, Balance, Gait Treatment/Plan Treatment Plan: Continue Plan of Care Treatment Plan: Bed Mobility, Education, Functional Activity Sweta, Functional Strength, Group Therapy, Gait, Safety, Therapeutic Exercise, Transfers Treatment Duration: Sep 19, 2016 Visits Per Week: 10-15 Minutes/Day (M-F): 60-90 Minutes/Day (Sat/Handy): prn Safety Risks/Education Patient Education: Gait Training, Transfer Techniques, Correct Positioning, Safety Issues Teaching Recipient: Patient Teaching Methods: Discussion Response to Teaching: Reinforcement Needed Time/GCodes Time In: 1100 Time Out: 1145 Total Billed Treatment Time: 45 Total Billed Treatment visit, GT X2 (30m) & EX (15m) JUAN RICE HEAD OF ACQUISITIONS Sep 12, 2016 15:50
--- NOTE | 2016-09-12 16:46 | Physical Therapy Daily Note ---
PT Daily Note-Current Subjective Pt reports feeling fatigued from morning tx. Pt agrees to PT. Pain Numeric Pain Scale: 0-No Pain Location: No Pain Reported Mental Status Patient Orientation: Person, Confused Transfers Functional [place] Measure 0=Not Assessed/NA 4=Minimal Assistance 1=Total Assistance 5=Supervision or Setup 2=Maximal Assistance 6=Modified [place] 3=Moderate Assistance 7=Complete IndependenceIRFPAI Quality Coding Scale 6 Independent with activity with or without an assistive device 5 Patient requires set up or clean up by helper. Patient completes activity by themselves 4 Supervision or touching assist (CGA). [place] provide cues , steadying assist 3 The helper provides less than half the effort to complete the activity 2 The helper provides more than half the effort to complete the activity 1 Dependent. The helper does all the effort to complete an activity 7 Patient refused to complete or attempt activity 9 The patient did not perform the activity before the current illness or injury 88 Not attempted due to Medical conditions or safety concerns Wheelchair Training Does the Pt Use a Wheelchair?: No Exercises Supine Ex: Ankle pumps, Quad Set, Glut sets, Heel Slides, Straight leg raise, Hip abd/add Supine Reps: 20 Treatments Pt completes supine EX due to fatigue from morning tx. Pt completes EX with a couple short rest breaks. Pt is left with all needs met at end of tx. Assessment Current Status: Fair Progress Pt continues to be very confused during tx. Pt fatigues easy but is able to complete tx. PT Short Term Goals Short Term Goals Time Frame: Sep 12, 2016 Transfers (B,C,W/C) (FIM): 6 Gait (FIM): 5 Stairs (FIM): 2 # of Steps: 4 Stairs Level of Assist: 6 PT Potato [employer] Maker Goals Group Home Goals PT Group Home Goals Time Frame: Sep 19, 2016 Transfers (B,C,W/C) (FIM): 7 Sit to Lying (QC): 6 Lying-Sitting on Side/Bed(QC): 6 Sit to Stand (QC): 6 Rollin Roll Left to Right (QC): 6 Chair/Ifx-jz-Arcum Xfer(QC): 6 Car Transfer (QC): 6 Gait (FIM): 7 Gait distance (FIM): 3=150 ft Walk 10 feet (QC): 6 Walk 10ft-Uneven Surface(QC): 6 Walk 50ft with 2 Turns (QC): 6 Walk 150 ft (QC): 6 Gait Level of Assist: 6 Gait Assistive Device: None Does the Pt use WC or Scooter?: No Stairs (FIM): 6 # of Steps: 12 1 Step (curb) (QC): 6 4 Steps (QC): 6 12 Steps (QC): 6 Stairs Level Of Assist: 6 Picking up an Object (QC): 6 PT Plan Problem List Problem List: Activity Tolerance, Safety, Balance, Gait Treatment/Plan Treatment Plan: Continue Plan of Care Treatment Plan: Bed Mobility, Education, Functional Activity Sweta, Functional Strength, Group Therapy, Gait, Safety, Therapeutic Exercise, Transfers Treatment Duration: Sep 19, 2016 Visits Per Week: 10-15 Minutes/Day (M-F): 60-90 Minutes/Day (Sat/Handy): prn Safety Risks/Education Patient Education: Transfer Techniques, Correct Positioning, Safety Issues Teaching Recipient: Patient Teaching Methods: Discussion Response to Teaching: Reinforcement Needed Time/GCodes Time In: 1430 Time Out: 1445 Total Billed Treatment Time: 15 Total Billed Treatment visit, EX (15m) JUAN RICE SKIVER MACHINE Sep 12, 2016 16:46
[2016-09-12 17:15] VITALS: BP 135/71
[2016-09-12] MEDS: warFARin 2.5 MG (COUMADIN) TAB PO SCH (17:22)
--- NOTE | 2016-09-12 19:34 | Individualized Plan of Care ---
Individualized Plan of Care Rehab Nursing IPOC Order Admission Date Sep 10, 2016 at 15:00 Current Orders Orders-SANJU SUN MD Consult Physician (09/11/16 08:34) Patient Visit (09/11/16 ) Speech Sound Lang Comp (09/11/16 ) Patient Visit (09/11/16 ) Ex Neuromuscular, Ea 15 Min (09/11/16 ) Gait Training, Ea 15 Min (09/11/16 ) Exercise Therap, Ea 15 Min (09/11/16 ) Patient Visit (09/12/16 ) Treat. Speech/Lang/Voice (09/12/16 ) Patient Visit (09/12/16 ) Gait Training, Ea 15 Min (09/12/16 ) Exercise Therap, Ea 15 Min (09/12/16 ) PT IPOC Problem List: Activity Tolerance, Safety, Balance, Gait Treatment Plan: Continue Plan of Care Bed Mobility, Education, Functional Activity Sweta, Functional Strength, Group Therapy, Gait, Safety, Therapeutic Exercise, Transfers Treatment Duration: Sep 19, 2016 Visits Per Week: 10-15 Minutes/Day (M-F): 60-90 Minutes/Day (Sat/Handy): prn OT IPOC Problems: Decreased Activ Tolerance Plan of Care: ADL Retraining, Functional Mobility, UE Funct Exercise/Act Treatment Duration: Sep 25, 2016 Visits Per Week: 10-12 Minutes/Day (M-F): 60-90 Minutes/Day (Sat/Handy): prn ST IPOC Speech Therapy Treatment Plan: Continue Plan of Care Treatment Duration: Sep 25, 2016 Visits Per Week: Eight to Ten Minutes/Day (M-F): 30 to 60 Physician IPOC Medical Issues being managed closely and that require the 24 hour availability of a physician: HTN Elevated LFTS Headaches Coumadin management Medical Issues: DVT Prophylaxis, Falls Precautions, Fluid/Electrolyte/ Nutrition Balance, Infection Protection, Pain Management, Other (List) (as per above) Brief Synthesis of Preadmission Screen, Post-Admission Evaluation, and Therapy Evaluations: 76 yo female with Left MCA distribution CVA with gait imbalance and aphasia which is mild Currently INR is therapeutic on home dose of Coumadin Also on ASA DR Padilla and Ambika following Statin on hold due to Elevated LFTS Had frontal headache upon arrival to [facility] associated with Elevated SBP Now resolved Medical Prognosis: good Anticipated Length of Stay: 09-15-16 Rehab Goals Modified Independent for adls and mobility skills with improved intelligibility of speech Therapeutic INR and good control of HTN Anticipated discharge destinat: Home with family and C SANJU SUN MD Sep 12, 2016 19:34
[2016-09-12] MEDS: SERTRALINE 100 MG (ZOLOFT) TAB PO SCH (20:52)
[2016-09-13 05:31] VITALS: BP 130/67
[2016-09-13 05:35] LABS: INR 2.6 (0.8-1.4); PROTHROMBIN TIME PATIENT 27.9 SEC (12.2-14.7)
[2016-09-13 05:42] LABS: ALBUMIN 3.5 G/DL (3.2-4.5); BILIRUBIN,DIRECT 0.1 MG/DL (0.0-0.3); BILIRUBIN,INDIRECT 0.3 MG/DL; BILIRUBIN,TOTAL 0.4 MG/DL (0.1-1.0); TOTAL PROTEIN 6.2 G/DL (6.4-8.2)
[2016-09-13] MEDS: LEVOTHYROXINE 75 MCG (LEVOTHROID) TABLET PO SCH (05:50)
--- NOTE | 2016-09-13 07:37 | Cardiology Progress Note ---
Subjective Subjective/Events-last exam Patient is eating breakfast, feeling better, still having slurred speech Review of Systems General: No Chills, No Night Sweats, No Fatigue, No Malaise, No Appetite, No Other HEENT: No Head Aches, No Visual Changes, No Eye Pain, No Ear Pain, No Dysphasia , No Sinus Congestion, No Post Nasal Drip, No Sore Throat, No Other Pulmonary: No Dyspnea, No Cough, No Pleuritic Chest Pain, No Other Cardiovascular: No: Chest Pain, Edema, Lt Headedness, Orthopnea, Other, Palpitations, Paroxysmal Noc. Dyspnea Objective-Cardiology Exam Last Set of Vital Signs Vital Signs 09/13/16 05:31 Temp 98.2 Pulse 57 Resp 16 B/P 130/67 Pulse Ox 97 O2 Delivery Room Air Capillary Refill : I&O Intake and Output 09/13/16 00:00 Intake Total 1020 ml Balance 1020 ml Intake Oral 1020 ml # Voids 5 General: Alert, Oriented X3, Cooperative, No Acute Distress HEENT: Atraumatic, PERRLA, EOMI, Mucous Memb Moist/[place], Other (mild aphasia and word finding difficulties) Neck: Supple, No JVD Lungs: Clear to Auscultation Heart: Regular Rate, Normal S1, Normal S2 Abdomen: Normal Bowel Sounds, Soft Extremities: No Clubbing, No Cyanosis, No Edema Skin: No Rashes, No Breakdown Neuro: Normal Gait, Other (mild gait imbalance and word finding difficulties) Results Lab Laboratory Tests Test 09/13/16 05:17 Range/Units Alanine Aminotransferase (ALT/SGPT) 54 0-55 U/L Albumin 3.5 3.2-4.5 G/DL Alkaline Phosphatase 64 40-136 U/L Aspartate Amino Transf (AST/SGOT) 46 H 5-34 U/L Direct Bilirubin 0.1 0.0-0.3 MG/DL INR Comment 2.6 H 0.8-1.4 Indirect Bilirubin 0.3 MG/DL Prothrombin Time 27.9 H 12.2-14.7 SEC Total Bilirubin 0.4 0.1-1.0 MG/DL Total Protein 6.2 L 6.4-8.2 G/DL A/P-Cardiology Admission Diagnosis Acute CVA Atrial fibrillation Coronary artery disease Hypertension Assessment/Plan Acute CVA, right middle cerebral artery infarct, still having slight weakness on the right side and difficulty finding words. Receiving physical and occupational therapy. Embolic stroke Permanent atrial fibrillation, rate controlled with history of sick sinus syndrome, has been refusing Coumadin in the past. Now agreeable to OAC. INR 2.6 , I will decrease coumadin to 2mg daily and monitor [id number] score is 5, yearly risk of stroke without oral anticoagulation is 6.7 percent. Patient stopped taking her Coumadin as an outpatient, currently back on Coumadin. Understand the importance of compliance with medication. Coronary artery disease, most recent cardiac catheterization done March 23, 2015 revealing 80 percent mid LAD stenosis. Successful primary stenting using a resolute integrity drug-eluting stent 318 mm. No residual stenosis. Ostial diagonal artery stenosis of 60 percent. 40 percent mid RCA stenosis. EF 50 percent. currently asymptomatic, planning for stress test as an outpatient Hypertension, continue current medication monitor blood pressure Hyperlipidemia, continue to monitor lipids Allergy to TRACY inhibitor-causing angioedema Moderate carotid artery stenosis monitored by heart and vascular care Peripheral vascular disease monitored by heart and vascular care Tobaccoism, still an active smoker, educated and instructed on smoking cessation. Dr Camp is covering for [place] Clinical Quality Measures DVT/VTE Risk/Contraindication: Risk Factor Score Per Nursin RFS Level Per Nursing on Admit: 4+=Very High EUNICE BURGOS MD Sep 13, 2016 07:37
[2016-09-13] MEDS: ASPIRIN E.C. 81 MG (ECOTRIN) TAB PO SCH (08:26)
--- NOTE | 2016-09-13 08:37 | Progress Note (SOAP) ---
Subjective Subjective/Events-last exam acute CVA with speech problem Patient is improving. Patient a work in progress. Patient daughter from [place] is here. Patient still has to think before words come out at time Objective Exam Vital Signs Date Time Temp Pulse Resp B/P Pulse Ox O2 Delivery O2 Flow Rate FiO2 09/13/16 05:31 98.2 57 16 130/67 97 Room Air 09/12/16 20:32 Room Air 09/12/16 17:15 97.5 61 18 135/71 95 Room Air 09/12/16 09:00 Room Air I & O 09/13/16 07:00 Intake Total 1070 ml Balance 1070 ml Capillary Refill : General Appearance: No Apparent Distress WD/WN Results Lab Laboratory Tests 09/13/16 05:17: Alanine Aminotransferase (ALT/SGPT) 54, Albumin 3.5, Alkaline Phosphatase 64, Aspartate Amino Transf (AST/SGOT) 46H, Direct Bilirubin 0.1, INR Comment 2.6H, Indirect Bilirubin 0.3, Prothrombin Time 27.9H, Total Bilirubin 0.4, Total Protein 6.2L Assessment/Plan Assessment/Plan Assess & Plan/Chief Complaint CVA affecting her speech. Atrial fibrillation. Elevated liver enzymes. Hyperlipidemia. Present date tobacco usage. . 09/12/16. CVA affecting speech atrial fibrillation. Hyperlipidemia. . 09/13/16. CVA affecting her speech. Patient speech is improving but is a work in progress. Patient at time has to think before she states the words. Patient's liver tests coming down. Patient has definite improvement Diagnosis/Problems: Clinical Quality Measures DVT/VTE Risk/Contraindication: Risk Factor Score Per Nursin RFS Level Per Nursing on Admit: 4+=Very High JUICE VILLASENOR DO Sep 13, 2016 08:37
[2016-09-13] MEDS ORDERED: ACETAMINOPHEN 325 MG TABLET/CAPLET (TYLENOL) PO PRN (09:30)
--- NOTE | 2016-09-13 11:07 | PM & R (SOAP) Progress Note ---
Subjective Subjective/Events-last exam Patient was seen in [facility] this AM Discussed case with RN Patient c/o left frontal FRIAS earlier today relieved by Baudilio EMERY Patient sba for transfers Patients daughter from [place] in to visit Her other daughter from [place] has left Review of Systems HEENT: Head Aches Objective Exam Last Set of Vital Signs Vital Signs Date Time Temp Pulse Resp B/P Pulse Ox O2 Delivery O2 Flow Rate FiO2 09/13/16 08:23 Room Air 09/13/16 05:31 98.2 57 16 130/67 97 Capillary Refill : I&O Intake and Output 09/13/16 00:00 Intake Total 1020 ml Balance 1020 ml Intake Oral 1020 ml # Voids 5 General: Alert, Oriented X3, Cooperative, No Acute Distress HEENT: Atraumatic, PERRLA, EOMI, Mucous Memb Moist/[place], Other (mild aphasia and word finding difficulties) Neck: Supple, No JVD Lungs: Clear to Auscultation Heart: Regular Rate, Normal S1, Normal S2 Abdomen: Normal Bowel Sounds, Soft Extremities: No Clubbing, No Cyanosis, No Edema Skin: No Rashes, No Breakdown Neuro: Normal Gait, Other (mild gait imbalance and word finding difficulties) Results Lab Laboratory Tests 09/11/16 05:30: Alanine Aminotransferase (ALT/SGPT) 66H, Albumin 3.5, Alkaline Phosphatase 63, Anion Gap 9, Aspartate Amino Transf (AST/SGOT) 82H, BUN/Creatinine Ratio 26, Basophils # (Auto) 0.0, Basophils (%) (Auto) 0, Blood Urea Nitrogen 24H, Calcium Level 8.9, Carbon Dioxide Level 22, Chloride Level 108H, Creatinine 0.93 , Eosinophils # (Auto) 0.2, Eosinophils (%) (Auto) 4, Estimat Glomerular Filtration Rate 58, Glucose Level 89, Hematocrit 41, Hemoglobin 13.9, INR Comment 2.6H, Lymphocytes # (Auto) 1.4, Lymphocytes (%) (Auto) 23, Mean Corpuscular Hemoglobin 32, Mean Corpuscular Hemoglobin Concent 34, Mean Corpuscular Volume 95, Mean Platelet Volume 9.2, Monocytes # (Auto) 0.6, Monocytes (%) (Auto) 10, Neutrophils # (Auto) 3.9, Neutrophils (%) (Auto) 63, Platelet Count 208, Potassium Level 4.2, Prothrombin Time 27.6H, Red Blood Count 4.33L, Red Cell Distribution Width 14.2, Sodium Level 139, Total Bilirubin 0.3, Total Protein 6.4, White Blood Count 6.2 09/12/16 05:06: Alanine Aminotransferase (ALT/SGPT) 59H, Albumin 3.6, Alkaline Phosphatase 60, Anion Gap 11, Aspartate Amino Transf (AST/SGOT) 63H, BUN/Creatinine Ratio 27, Basophils # (Auto) 0.0, Basophils (%) (Auto) 1, Blood Urea Nitrogen 23H, Calcium Level 8.8, Carbon Dioxide Level 20L, Chloride Level 109H, Creatinine 0.85, Eosinophils # (Auto) 0.3, Eosinophils (%) (Auto) 4, Estimat Glomerular Filtration Rate > 60, Glucose Level 86, Hematocrit 41, Hemoglobin 13.5, INR Comment 2.4H, Lymphocytes # (Auto) 1.8, Lymphocytes (%) (Auto) 28, Mean Corpuscular Hemoglobin 31, Mean Corpuscular Hemoglobin Concent 33, Mean Corpuscular Volume 94, Mean Platelet Volume 9.2, Monocytes # (Auto) 0.6, Monocytes (%) (Auto) 9, Neutrophils # (Auto) 3.9, Neutrophils (%) (Auto) 59, Platelet Count 215, Potassium Level 4.2, Prothrombin Time 26.0H, Red Blood Count 4.31L, Red Cell Distribution Width 14.2, Sodium Level 140, Total Bilirubin 0.3, Total Protein 6.3L, White Blood Count 6.6 09/13/16 05:17: Alanine Aminotransferase (ALT/SGPT) 54, Albumin 3.5, Alkaline Phosphatase 64, Aspartate Amino Transf (AST/SGOT) 46H, INR Comment 2.6H, Prothrombin Time 27.9H , Total Bilirubin 0.4, Total Protein 6.2L, Direct Bilirubin 0.1, Indirect Bilirubin 0.3 Assessment/Plan Assessment 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
--- NOTE | 2016-09-13 13:06 | Speech Therapy Daily Note ---
Speech Daily Progress Note Subjective The patient was seated upright in bed upon entrance. The patient reported a headache and the RN was notified. Per RN, pain medication will be administered for the patient. The patient greeted the clinician appropriately and agreed to participate in the speech and language session on this date. Objective Synonym Use: The patient demonstrated fair accuracy (mildly reduced) with providing synonyms for specific words (65% accuracy) with moderate clinician cueing. The patient's accuracy decreased as her fatigue increased. Repetition of Single Words: - Single Syllable: The patient demonstrated 100% accuracy with single syllable word repetition (/b/). - Two Syllable: The patient demonstrated 70% accuracy with double syllable words with mild clinician prompting (/b/). The patient's accuracy increased with direct modeling by clinician. - Multi-Syllable: The patient demonstrated 40% accuracy with multi syllabic words with maximum clinician prompting (/b/). Assessment Assessment Current Status: Good Progress Treatment Plan Continue Plan of Care Communication Comprehension: 4 Expression: 4 Social Cognition Social Interaction: 5 Problem Solvin Memory: 5 Speech Short Term Goals Short Term Goals Short Term Goals 1. The patient will demonstrate 90% accuracy with structured word-finding tasks with mild clinician cueing. 2. The patient will display 80% accuracy with repetition of functional phrases with mild clinician cueing. Time Frame-ST Days Speech [facility] Goals Chemical Laboratory Chief Goals 1. The patient will demonstrate improved expressive communication for increased function and safety with ADL's in the least restrictive setting. Time Frame: Two Weeks Comprehension: 6 Expression: 5 Social Interaction: 6 Problem Solvin Memory: 5 Speech-Plan Treatment Plan Speech Therapy Treatment Plan: Continue Plan of Care Continue skilled speech services to focus on expressive communication. Treatment Duration: Sep 25, 2016 # of days/week Five Visits Per Week: Eight to Ten Minutes/Day (M-F): 30 to 60 Rehab Potential: Fair Safety Risks/Education Teaching Recipient: Patient, Family Teaching Methods: Demonstration, Handout, Discussion Response to Teaching: Verbalize Understanding, Return Demonstration, Reinforcement Needed Education Topics Provided: Word-Finding Strategies Time Speech Therapy Time In: 07:45 Speech Therapy Time Out: 08:45 Total Billed Time: 60 Billed Treatment Time TYSON Ortega ELIZABETH Sep 13, 2016 13:06
--- NOTE | 2016-09-13 13:07 | Physical Therapy Daily Note ---
PT Daily Note-Current Subjective Pt supine in bed upon arrival. Pt reports headache but nursing gave Tylenol to help and pt reported it was helping. Pt agreed to PT. Pain Location: Anterior Location Body Site: Head Pain Description: Ache Comment: Pt didn't give rating to pain. Mental Status Patient Orientation: Person, Confused Transfers Functional [place] Measure 0=Not Assessed/NA 4=Minimal Assistance 1=Total Assistance 5=Supervision or Setup 2=Maximal Assistance 6=Modified [place] 3=Moderate Assistance 7=Complete IndependenceIRFPAI Quality Coding Scale 6 Independent with activity with or without an assistive device 5 Patient requires set up or clean up by helper. Patient completes activity by themselves 4 Supervision or touching assist (CGA). [place] provide cues , steadying assist 3 The helper provides less than half the effort to complete the activity 2 The helper provides more than half the effort to complete the activity 1 Dependent. The helper does all the effort to complete an activity 7 Patient refused to complete or attempt activity 9 The patient did not perform the activity before the current illness or injury 88 Not attempted due to Medical conditions or safety concerns Transfers (B, C, W/C) (FIM): 5 Scootin Rollin Roll Left to Right (QC): 6 Supine to/from Sit: 6 Sit to/from Stand: 5 Sit to Lying (QC): 6 Sit to Stand (QC): 5 Weight Bearing Weight Bearing Restriction: Full Weight Bearing Location Restriction: LE Bilateral Gait Training Does the Patient Walk?: Yes Gait (FIM): 5 Distance (FIM): 3=150 ft Distance: 400' Walk 10 feet (QC): 5 Walk 50 ft with 2 Turns(QC): 5 Walk 150 ft (QC): 5 Gait Level of Assist: 5 Gait Persons Needed: 1 Gait Assistive Device: None Pt still walks with some unsteadiness but no LOB. PT focuses on pt using floor seam to follow in straight line. Pt gets easily distracted and "wobbles side to side". Wheelchair Training Does the Pt Use a Wheelchair?: No Stair Training Stair Training: Handrails/: 2 handrails Stairs (FIM): 5 #of Steps: 16 1 Step (curb) (QC): 5 4 Steps (QC): 5 12 Steps (QC): 5 Stairs: Pattern: Reciprocal Level of Assist: 5 Exercises Standing: Hip Abduction, Heel/toe raises, 3 way Ex=Flex, Abd, Ext, Marching, Mini squats, Weight shifts Standing Reps: 20 NuStep Minutes: 15 NuStep Workload: 5 Treatments Pt transfers supine to EOB at Mod I and EOB to standing w/o AD at SBA. Pt ambulates in hallway w/o AD at close SBA for unsteadiness. Pt ambulates to Therapy Gym for short rest at NuStep. Pt uses NuStep for 15m at Workload 5. Pt then takes short rest before ambulating the stairs. Pt able to ambulate using both hand rails in reciprocal gait pattern for 4 sets of 4 stairs. Pt then ambulates to //bars for Standing Ex at //bars. Pt takes short rest break at chair during Ex. Pt then ambulates to room at end of tx to rest. Pt transfers standing to EOB to supine in bed at SBA. PT left with all needs met at end of tx. Pt's daughter visiting with pt. Assessment Current Status: Good Progress Pt is making progress with activity tolerance but continues to ambulate unsteady. PT Short Term Goals Short Term Goals Time Frame: Sep 12, 2016 Transfers (B,C,W/C) (FIM): 6 Gait (FIM): 5 Stairs (FIM): 2 # of Steps: 4 Stairs Level of Assist: 6 PT Fringe Maker Goals Fci Goals PT [facility]ci Goals Time Frame: Sep 19, 2016 Transfers (B,C,W/C) (FIM): 7 Sit to Lying (QC): 6 Lying-Sitting on Side/Bed(QC): 6 Sit to Stand (QC): 6 Rollin Roll Left to Right (QC): 6 Chair/Bwh-cw-Afexo Xfer(QC): 6 Car Transfer (QC): 6 Gait (FIM): 7 Gait distance (FIM): 3=150 ft Walk 10 feet (QC): 6 Walk 10ft-Uneven Surface(QC): 6 Walk 50ft with 2 Turns (QC): 6 Walk 150 ft (QC): 6 Gait Level of Assist: 6 Gait Assistive Device: None Does the Pt use WC or Scooter?: No Stairs (FIM): 6 # of Steps: 12 1 Step (curb) (QC): 6 4 Steps (QC): 6 12 Steps (QC): 6 Stairs Level Of Assist: 6 Picking up an Object (QC): 6 PT Plan Problem List Problem List: Safety, Balance, Gait Treatment/Plan Treatment Plan: Continue Plan of Care Treatment Plan: Bed Mobility, Education, Functional Activity Sweta, Functional Strength, Group Therapy, Gait, Safety, Therapeutic Exercise, Transfers Treatment Duration: Sep 19, 2016 Visits Per Week: 10-15 Minutes/Day (M-F): 60-90 Minutes/Day (Sat/Handy): prn Safety Risks/Education Patient Education: Gait Training, Correct Positioning, Safety Issues Teaching Recipient: Patient, Family Teaching Methods: Discussion Response to Teaching: Verbalize Understanding Time/GCodes Time In: 945 Time Out: 1045 Total Billed Treatment Time: 60 Total Billed Treatment visit, GT (15m), EX X2 (30m) & FA (15m) JUAN RICE INTERNATIONAL ACCOUNT MANAGER Sep 13, 2016 13:07
--- NOTE | 2016-09-13 15:15 | Occupational Ther Daily Note ---
OT Current Status-Daily Note Subjective No pain reported. Pt. is tired since she has just had PT. Demonstrates slurred speech that is less recognizable. Appearance Pt. is in bed. Daughter in room. Pt. agrees to shower. Mental Status/Objective Patient Orientation: Person Functional [place] Measure 0=Not Assessed/NA 4=Minimal Assistance 1=Total Assistance 5=Supervision or Setup 2=Maximal Assistance 6=Modified [place] 3=Moderate Assistance 7=Complete [place] ADL-Treatment Functional [place] Measure 0=Not Assessed/NA 4=Minimal Assistance 1=Total Assistance 5=Supervision or Setup 2=Maximal Assistance 6=Modified [place] 3=Moderate Assistance 7=Complete IndependenceIRFPAI Quality Coding Scale 6 Independent with activity with or without an assistive device 5 Patient requires set up or clean up by helper. Patient completes activity by themselves 4 Supervision or touching assist (CGA). [place] provide cues , steadying assist 3 The helper provides less than half the effort to complete the activity 2 The helper provides more than half the effort to complete the activity 1 Dependent. The helper does all the effort to complete an activity 7 Patient refused to complete or attempt activity 9 The patient did not perform the activity before the current illness or injury 88 Not attempted due to Medical conditions or safety concerns Grooming (FIM): 6 Bathing (FIM): 6 Upper Body (FIM): 6 Lower Body Dressing (FIM): 6 Toileting (FIM): 6 Transfers (B, C, W/C) (FIM): 7 Toilet/Commode Transfer (FIM): 6 Shower Transfer(FIM): 6 Other Treatment Pt. seen for shower. Pt. is able to shower and dress self independently, using only equipment to sit on. After shower, pt. ambulates to therapy gym. Completes armbike x 15 reps for increased UE strength and overall endurance for functional tasks. Tolerated this well with no rest breaks, even though they are offered to her. Pt. then completed fine motor coordination tasks due to slight fine motor weakness in left hand, reported by pt. today. Pt. did very well with all tasks, including threading large beads on string and other tasks. Pt. then ambulated back to room and all needs met in room. Education OT Patient Education: Correct positioning, Exercise program, Modified ADL techniques, Progress toward Goal/Update tx plan, Purpose of tx/functional activities, Reviewed precautions, Rehab process, Transfer techniques Teaching Recipient: Patient Teaching Methods: Demonstration, Discussion Response to Teaching: Verbalize Understanding, Return Demonstration OT Short Term Goals Short Term Goals Time Frame: Sep 11, 2016 Transfers (B,C,W/C) (FIM): 6 1=Demonstrate adherence to instructed precautions during ADL tasks. 2=Patient will verbalize/demonstrate understanding of assistive devices/ modifications for ADL. 3=Patient will improve strength/tolerance for activity to enable patient to perform ADL's. OT Senior Living Goals Remelt Operator Goals Time Frame: Sep 25, 2016 Eating (FIM): 6 Eating (QC): 6 Groomin Oral Hygiene (QC): 6 Bathing(FIM): 5 Shower/Bathe Self (QC): 5 Upper Body Dressing(FIM): 6 Upper Body Dressing (QC): 6 Lower Body Dressing(FIM): 6 Lower Body Dressing (QC): 6 Toileting(FIM): 6 Toileting Hygiene (QC): 6 Transfers (B,C,W/C) (FIM): 6 Toilet/Commode Transfer(FIM): 6 Toilet/Commode Transfer (QC): 6 Shower Transfer(FIM): 5 Comprehension(FIM): 6 Expression (FIM): 5 Social Interaction(FIM): 6 Problem Solving(FIM): 5 Memory(FIM): 5 Additional Goals: 1-Demonstrate ADL Tasks, 2-Verbalize Understanding, 3- ImproveStrength/Sweta 1=Demonstrate adherence to instructed precautions during ADL tasks. 2=Patient will verbalize/demonstrate understanding of assistive devices/ modifications for ADL. 3=Patient will improve strength/tolerance for activity to enable patient to perform ADL's. OT Education/Plan Problem List/Assessment Assessment: Decreased Activ Tolerance Discharge Recommendations Plan/Recommendations: Continue POC Therapy D/C Recommendations: Home w/ Family Support Treatment Plan/Plan of Care Treatment,Training & Education: Yes Patient would benefit from OT for education, treatment and training to promote independence in ADL's, mobility, safety and/or upper extremity function for ADL' s. Plan of Care: ADL Retraining, Functional Mobility, UE Funct Exercise/Act Treatment Duration: Sep 25, 2016 Visits Per Week: 10-12 Minutes/Day (M-F): 60-90 Minutes/Day (Sat/Handy): prn Agreement: Yes Rehab Potential: Good Time/GCodes Start Time: 10:55 Stop Time: 11:55 Total Time Billed (hr/min): 60 Billed Treatment Time 1, ADL x 45minutes, EX x 15minutes WILLIE MCDOWELL OT Sep 13, 2016 15:15
[2016-09-13] MEDS: warFARin 2 MG (COUMADIN) TAB PO SCH (17:25)
[2016-09-13 18:03] VITALS: BP 134/78
[2016-09-13] MEDS: SERTRALINE 100 MG (ZOLOFT) TAB PO SCH (21:20)
[2016-09-14 05:50] VITALS: BP 162/83
[2016-09-14] MEDS: CALCIUM CARB + VIT D 600 MG (CALCARB + D) TAB PO SCH ×2 (06:37→06:39)
[2016-09-14] MEDS: LEVOTHYROXINE 75 MCG (LEVOTHROID) TABLET PO SCH (06:37)
[2016-09-14 06:50] LABS: INR 2.8 (0.8-1.4); PROTHROMBIN TIME PATIENT 29.5 SEC (12.2-14.7)
--- NOTE | 2016-09-14 07:40 | PM & R (SOAP) Progress Note ---
Subjective Subjective/Events-last exam Patient was seen in her room this AM Patient SBA for transfers INR therapeutic Objective Exam Last Set of Vital Signs Vital Signs Date Time Temp Pulse Resp B/P Pulse Ox O2 Delivery O2 Flow Rate FiO2 09/14/16 05:50 98.3 64 20 162/83 98 Room Air Capillary Refill : I&O Intake and Output 09/14/16 00:00 Intake Total 1200 ml Balance 1200 ml Intake Oral 1200 ml # Voids 9 # Bowel Movements 2 General: Alert, Oriented X3, Cooperative, No Acute Distress HEENT: Atraumatic, PERRLA, EOMI, Mucous Memb Moist/[place], Other (mild aphasia and word finding difficulties) Neck: Supple, No JVD Lungs: Clear to Auscultation Heart: Regular Rate, Normal S1, Normal S2 Abdomen: Normal Bowel Sounds, Soft Extremities: No Clubbing, No Cyanosis, No Edema Skin: No Rashes, No Breakdown Neuro: Normal Gait, Other (mild gait imbalance and word finding difficulties) Results Lab Laboratory Tests 09/12/16 05:06: Alanine Aminotransferase (ALT/SGPT) 59H, Albumin 3.6, Alkaline Phosphatase 60, Anion Gap 11, Aspartate Amino Transf (AST/SGOT) 63H, BUN/Creatinine Ratio 27, Basophils # (Auto) 0.0, Basophils (%) (Auto) 1, Blood Urea Nitrogen 23H, Calcium Level 8.8, Carbon Dioxide Level 20L, Chloride Level 109H, Creatinine 0.85, Eosinophils # (Auto) 0.3, Eosinophils (%) (Auto) 4, Estimat Glomerular Filtration Rate > 60, Glucose Level 86, Hematocrit 41, Hemoglobin 13.5, INR Comment 2.4H, Lymphocytes # (Auto) 1.8, Lymphocytes (%) (Auto) 28, Mean Corpuscular Hemoglobin 31, Mean Corpuscular Hemoglobin Concent 33, Mean Corpuscular Volume 94, Mean Platelet Volume 9.2, Monocytes # (Auto) 0.6, Monocytes (%) (Auto) 9, Neutrophils # (Auto) 3.9, Neutrophils (%) (Auto) 59, Platelet Count 215, Potassium Level 4.2, Prothrombin Time 26.0H, Red Blood Count 4.31L, Red Cell Distribution Width 14.2, Sodium Level 140, Total Bilirubin 0.3, Total Protein 6.3L, White Blood Count 6.6 09/13/16 05:17: Alanine Aminotransferase (ALT/SGPT) 54, Albumin 3.5, Alkaline Phosphatase 64, Aspartate Amino Transf (AST/SGOT) 46H, INR Comment 2.6H, Prothrombin Time 27.9H , Total Bilirubin 0.4, Total Protein 6.2L, Direct Bilirubin 0.1, Indirect Bilirubin 0.3 09/14/16 06:17: INR Comment 2.8H, Prothrombin Time 29.5H Assessment/Plan Assessment 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 HTN better conrolled-missed some therapy time yesterday due to Elevated SBP associated with FRIAS Chronic anticoagulation now with INR in Therapeutic range with Coumadin resumed ELEVATED LFTS Recuurent left frontal H/A Plan Continue PT/OT/ST F/U with Cardiology PRN Monitor INR and Adjust Coumadin as needed Monitor Blood pressure and adjust meds as needed F/U lIVER PANEL-done improved TEAM cONFERENCE held 09-12-16 SEE REPORT FOR FULL FUNCTIONAL UPDATE AND POC AND ELOS Discharge tomorrow to home with her daughter and [facility] F/U with PCP DR lion F/U INR thru [facility] See orders SANJU SUN MD Sep 14, 2016 07:40
[2016-09-14] MEDS ORDERED: LEVO75TA PO (07:45)
[2016-09-14] MEDS ORDERED: WARF2TAB PO (07:45)
--- NOTE | 2016-09-14 08:14 | Progress Note (SOAP) ---
Subjective Subjective/Events-last exam patient is a work in progress. Patient speaking better than when first came in. Patient still needs practice Objective Exam Vital Signs Date Time Temp Pulse Resp B/P Pulse Ox O2 Delivery O2 Flow Rate FiO2 09/14/16 05:50 98.3 64 20 162/83 98 Room Air 09/13/16 18:03 96.9 72 16 134/78 95 09/13/16 08:23 Room Air I & O 09/14/16 07:00 Intake Total 1630 ml Balance 1630 ml Capillary Refill : General Appearance: No Apparent Distress WD/WN Results Lab Laboratory Tests 09/14/16 06:17: INR Comment 2.8H, Prothrombin Time 29.5H Assessment/Plan Assessment/Plan Assess & Plan/Chief Complaint CVA affecting her speech. Atrial fibrillation. Elevated liver enzymes. Hyperlipidemia. Present date tobacco usage. . 09/12/16. CVA affecting speech atrial fibrillation. Hyperlipidemia. . 09/13/16. CVA affecting her speech. Patient speech is improving but is a work in progress. Patient at time has to think before she states the words. Patient's liver tests coming down. Patient has definite improvement. . 09/14/16. CVA affecting her speech. Patient work in progress. Patient improving. Atrial fibrillation Diagnosis/Problems: Clinical Quality Measures DVT/VTE Risk/Contraindication: Risk Factor Score Per Nursin RFS Level Per Nursing on Admit: 4+=Very High JUICE VILLASENOR DO Sep 14, 2016 08:13
[2016-09-14] MEDS: ASPIRIN E.C. 81 MG (ECOTRIN) TAB PO SCH (08:40)
--- NOTE | 2016-09-14 08:44 | Speech Therapy Daily Note ---
Speech Daily Progress Note Subjective The patient was seated upright in bed upon entrance. The patient's daughter was present for the treatment session on this date. The patient greeted the clinician appropriately and agreed to participate in the speech and language session on this date. Objective Functional Safety Problem Solving (Picture Description): The patient was provided pictures that showed safety issues in the home environment. The patient was asked to describe the photograph to the clinician, state the safety issue, and provide a solution to make the situation more safe. The patient demonstrated excellent accuracy with identification of safety issues, however, moderate whole word and phoneme paraphasias were present throughout descriptions. Single Word Repetition: - Single Syllable: The patient demonstrated 90% accuracy with single syllable word repetition (/m/). - Two Syllable: The patient demonstrated 70% accuracy with double syllable words with mild clinician prompting (/m/). The patient's accuracy increased with direct modeling by clinician. - Multi-Syllable: The patient demonstrated 20% accuracy with multi syllabic words with maximum clinician prompting (/m/). - To note, the patient's accuracy began decreasing significantly upon fatigue. The correlation between accuracy and fatigue were discussed and reviewed with the patient and her daughter on this date. Assessment Assessment Current Status: Good Progress Treatment Plan Continue Plan of Care Communication Comprehension: 5 Expression: 4 Social Cognition Social Interaction: 6 Problem Solvin Memory: 5 Speech Short Term Goals Short Term Goals Short Term Goals 1. The patient will demonstrate 90% accuracy with structured word-finding tasks with mild clinician cueing. 2. The patient will display 80% accuracy with repetition of functional phrases with mild clinician cueing. Time Frame-ST Days Speech [facility] Goals [facility] Goals 1. The patient will demonstrate improved expressive communication for increased function and safety with ADL's in the least restrictive setting. 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 Treatment Duration: Sep 25, 2016 # of days/week Five Visits Per Week: Eight to Ten Minutes/Day (M-F): 30 to 60 Rehab Potential: Good Safety Risks/Education Teaching Recipient: Patient, Family Teaching Methods: Demonstration, Handout, Discussion Response to Teaching: Verbalize Understanding, Return Demonstration Education Topics Provided: /M/ Practice Sheets Time Speech Therapy Time In: 07:45 Speech Therapy Time Out: 08:45 Total Billed Time: 60 Billed Treatment Time 1, CHRISTIE FERRARO Sep 14, 2016 08:44
--- NOTE | 2016-09-14 10:45 | Physical Therapy Daily Note ---
PT Daily Note-Current Subjective Pt supine in bed upon arrival. Pt & daughter report that pt didn't sleep well last night. Pt agrees to PT. Pain Numeric Pain Scale: 0-No Pain Location: No Pain Reported Mental Status Patient Orientation: Person, Confused Transfers Functional [place] Measure 0=Not Assessed/NA 4=Minimal Assistance 1=Total Assistance 5=Supervision or Setup 2=Maximal Assistance 6=Modified [place] 3=Moderate Assistance 7=Complete IndependenceIRFPAI Quality Coding Scale 6 Independent with activity with or without an assistive device 5 Patient requires set up or clean up by helper. Patient completes activity by themselves 4 Supervision or touching assist (CGA). [place] provide cues , steadying assist 3 The helper provides less than half the effort to complete the activity 2 The helper provides more than half the effort to complete the activity 1 Dependent. The helper does all the effort to complete an activity 7 Patient refused to complete or attempt activity 9 The patient did not perform the activity before the current illness or injury 88 Not attempted due to Medical conditions or safety concerns Transfers (B, C, W/C) (FIM): 6 Scootin Rollin Roll Left to Right (QC): 6 Supine to/from Sit: 6 Sit to/from Stand: 6 Sit to Lying (QC): 6 Sit to Stand (QC): 6 Chair/Gdk-wy-Xefaf Xfer(QC): 6 Bed to/from Chair: 6 Car Transfer (QC): 6 Weight Bearing Weight Bearing Restriction: Full Weight Bearing Location Restriction: LE Bilateral Gait Training Does the Patient Walk?: Yes Gait (FIM): 5 Distance (FIM): 3=150 ft Distance: 400' Walk 10 feet (QC): 5 Walk 50 ft with 2 Turns(QC): 5 Walk 150 ft (QC): 5 Walking 10ft/uneven surface-QC: 5 Gait Level of Assist: 5 Gait Persons Needed: 1 Gait Assistive Device: None Pt continues to walk in serpentine motion during ambulation. Pt has social awareness problem and when given VC to correct pt verbalizes that she is following VC. Stair Training Stair Training: Handrails/: 2 handrails Stairs (FIM): 6 #of Steps: 12 1 Step (curb) (QC): 6 4 Steps (QC): 6 12 Steps (QC): 6 Stairs: Pattern: Reciprocal Level of Assist: 6 Balance Picking up an Object (QC): 6 Exercises Supine Ex: Ankle pumps, Quad Set, Rolling, Heel Slides, Straight leg raise, Hip abd/add Supine Reps: 20 Treatments Pt transfers from supine to EOB to standing w/o AD at [place]. Pt ambulates to restroom to use w/o AD at A. After using toilet, pt transfers to standing at sink to wash hands and fix hair. Pt then ambulates to Therapy Gym. Pt ambulates 3 sets of 4 stairs using both handrails at [place] in reciprocal gait pattern. Pt then transfers to mat from standing to EOB to supine at [place] then rolls side to side. Pt completes supine EX on mat then rests. Pt then transfers from supine to EOB to standing at [place]. Pt ambulates in hallway w/o AD at [facility] for safety. Pt takes rest break after approx. 150'. Pt then ambulated an additional 250'. Pt transferred from standing to EOB to supine in bed at [place]. Pt left with all needs met at end of tx. Assessment Current Status: Good Progress Pt's daughter inquired as to if pt would be able to drive and PT advised PT did not feel pt would be safe to drive yet but advised it is up to the doctor to release pt to drive. Pt continues to be socially unaware of how pt ambulates and safety. PT Short Term Goals Short Term Goals Time Frame: Sep 12, 2016 Transfers (B,C,W/C) (FIM): 6 Gait (FIM): 5 Stairs (FIM): 2 # of Steps: 4 Stairs Level of Assist: 6 PT Mcfp Goals Analyst Sales Goals PT Analyst Sales Goals Time Frame: Sep 19, 2016 Transfers (B,C,W/C) (FIM): 7 Sit to Lying (QC): 6 Lying-Sitting on Side/Bed(QC): 6 Sit to Stand (QC): 6 Rollin Roll Left to Right (QC): 6 Chair/Poy-np-Fvmic Xfer(QC): 6 Car Transfer (QC): 6 Gait (FIM): 7 Gait distance (FIM): 3=150 ft Walk 10 feet (QC): 6 Walk 10ft-Uneven Surface(QC): 6 Walk 50ft with 2 Turns (QC): 6 Walk 150 ft (QC): 6 Gait Level of Assist: 6 Gait Assistive Device: None Does the Pt use WC or Scooter?: No Stairs (FIM): 6 # of Steps: 12 1 Step (curb) (QC): 6 4 Steps (QC): 6 12 Steps (QC): 6 Stairs Level Of Assist: 6 Picking up an Object (QC): 6 PT Plan Problem List Problem List: Safety, Balance, Gait Treatment/Plan Treatment Plan: Continue Plan of Care Treatment Plan: Bed Mobility, Education, Functional Activity Sweta, Functional Strength, Group Therapy, Gait, Safety, Therapeutic Exercise, Transfers Treatment Duration: Sep 19, 2016 Visits Per Week: 10-15 Minutes/Day (M-F): 60-90 Minutes/Day (Sat/Handy): prn Safety Risks/Education Patient Education: Gait Training, Transfer Techniques, Correct Positioning, Safety Issues Teaching Recipient: Patient Teaching Methods: Discussion Response to Teaching: Verbalize Understanding Time/GCodes Time In: 945 Time Out: 1045 Total Billed Treatment Time: 60 Total Billed Treatment visit, GT X2 (30m), GT (15m) & FA (15m) JUAN RICE HISTORY TEACHER Sep 14, 2016 10:45
--- NOTE | 2016-09-14 12:01 | Occupational Ther Daily Note ---
OT Current Status-Daily Note Subjective Pt in bed, agrees to treatment. Pt has no c/o pain. Plan is for pt to d/c home tomorrow. Mental Status/Objective Functional [place] Measure 0=Not Assessed/NA 4=Minimal Assistance 1=Total Assistance 5=Supervision or Setup 2=Maximal Assistance 6=Modified [place] 3=Moderate Assistance 7=Complete [place] ADL-Treatment Supine to sit with modified independence. Pt retrieved clothing and carried it to restroom without AD. [place] clothing with modified independence. Transfer to walk in shower with modified independence. Pt able to wash/dry all areas with modified independence. Uses grab bars for balance. Don pullover shirt with modified independence. Pt donned pants and shoes with modified independence. Transfer to toilet with modified independence. Pt able to manage clothing and hygiene with modified independence. Pt combed hair and brushed teeth with modified independence. Functional [place] Measure 0=Not Assessed/NA 4=Minimal Assistance 1=Total Assistance 5=Supervision or Setup 2=Maximal Assistance 6=Modified [place] 3=Moderate Assistance 7=Complete IndependenceIRFPAI Quality Coding Scale 6 Independent with activity with or without an assistive device 5 Patient requires set up or clean up by helper. Patient completes activity by themselves 4 Supervision or touching assist (CGA). [place] provide cues , steadying assist 3 The helper provides less than half the effort to complete the activity 2 The helper provides more than half the effort to complete the activity 1 Dependent. The helper does all the effort to complete an activity 7 Patient refused to complete or attempt activity 9 The patient did not perform the activity before the current illness or injury 88 Not attempted due to Medical conditions or safety concerns Eating (FIM): 6 (per nursing report) Eating (QC): 6 Grooming (FIM): 6 Oral Hygiene (QC): 6 Bathing (FIM): 6 Shower/Bathe Self (QC): 6 Upper Body (FIM): 6 Upper Body Dressing (QC): 6 Lower Body Dressing (FIM): 6 Lower Body Dressing (QC): 6 On/Off Footwear (QC): 6 Toileting (FIM): 6 Toileting Hygiene (QC): 6 Toilet/Commode Transfer (FIM): 6 Toilet Transfer (QC): 6 Shower Transfer(FIM): 6 Other Treatment Gait to therapy gym without AD, no LOB noted. Arm bike [id number] to increase overall strength and activity tolerance needed for functional tasks. Pt completed activity with moderate resistance. One brief rest break taken during task. Pt completed fine motor peg activity with bilateral UE with 1# weights in place to increase strength and coordination. Fine motor activity with nuts and bolts to increase coordination. Pt able to complete task without difficulty. Pt returned to room, in bed with needs met and daughter present after session. Plan is for pt to d/c home tomorrow. Pt has no questions or concerns at this time. OT Short Term Goals Short Term Goals Time Frame: Sep 11, 2016 Transfers (B,C,W/C) (FIM): 6 1=Demonstrate adherence to instructed precautions during ADL tasks. 2=Patient will verbalize/demonstrate understanding of assistive devices/ modifications for ADL. 3=Patient will improve strength/tolerance for activity to enable patient to perform ADL's. OT Hand Stripper Goals Hand Stripper Goals Time Frame: Sep 25, 2016 Eating (FIM): 6 (met 09/14/16) Eating (QC): 6 (6-MET) Groomin (met 09/14/16) Oral Hygiene (QC): 6 (6-MET) Bathing(FIM): 5 (met 09/14/16) Shower/Bathe Self (QC): 5 (6--EXCEEDED) Upper Body Dressing(FIM): 6 (met 09/14/16) Upper Body Dressing (QC): 6 (6-MET) Lower Body Dressing(FIM): 6 (met 09/14/16) Lower Body Dressing (QC): 6 (6-MET) Toileting(FIM): 6 (met 09/14/16) Toileting Hygiene (QC): 6 (6-MET) Transfers (B,C,W/C) (FIM): 6 Toilet/Commode Transfer(FIM): 6 (met 09/14/16) Toilet/Commode Transfer (QC): 6 (6-MET) Shower Transfer(FIM): 5 (6-EXCEEDED) Comprehension(FIM): 6 Expression (FIM): 5 Social Interaction(FIM): 6 Problem Solving(FIM): 5 Memory(FIM): 5 Additional Goals: 1-Demonstrate ADL Tasks, 2-Verbalize Understanding, 3- ImproveStrength/Sweta 1=Demonstrate adherence to instructed precautions during ADL tasks. 2=Patient will verbalize/demonstrate understanding of assistive devices/ modifications for ADL. 3=Patient will improve strength/tolerance for activity to enable patient to perform ADL's. OT Education/Plan Discharge Recommendations Plan/Recommendations: Continue POC Treatment Plan/Plan of Care Patient would benefit from OT for education, treatment and training to promote independence in ADL's, mobility, safety and/or upper extremity function for ADL' s. Plan of Care: ADL Retraining, Functional Mobility, UE Funct Exercise/Act Treatment Duration: Sep 25, 2016 Visits Per Week: 10-12 Minutes/Day (M-F): 60-90 Minutes/Day (Sat/Handy): prn Agreement: Yes Rehab Potential: Good Time/GCodes Start Time: 10:45 Stop Time: 11:45 Total Time Billed (hr/min): 60 Billed Treatment Time 1 visit, ADLx2(25minutes), EXx2(35minutes) YARI STODDARD OT Sep 14, 2016 12:01
[2016-09-14] MEDS: warFARin 2 MG (COUMADIN) TAB PO SCH (17:09)
[2016-09-14 17:59] VITALS: BP 142/76
[2016-09-14] MEDS: SERTRALINE 100 MG (ZOLOFT) TAB PO SCH (21:56)
[2016-09-15] MEDS: CALCIUM CARB + VIT D 600 MG (CALCARB + D) TAB PO SCH (05:09)
[2016-09-15] MEDS: LEVOTHYROXINE 75 MCG (LEVOTHROID) TABLET PO SCH (05:09)
[2016-09-15 05:24] LABS: INR 3.2 (0.8-1.4); PROTHROMBIN TIME PATIENT 32.4 SEC (12.2-14.7)
[2016-09-15 05:36] VITALS: BP 138/76
[2016-09-15] MEDS: ASPIRIN E.C. 81 MG (ECOTRIN) TAB PO SCH (09:31)
--- NOTE | 2016-09-17 09:41 | Therapy Team Discharge Summary ---
Therapy Discharge Summary Discharge Recommendations Date of Discharge Sep 15, 2016 at 11:33 Therapy D/C Recommendations: Home w/ Family Support Physical Therapy Patient came to rehab following CVA. Upon admission patient performed bed mobility and transfers with SBA, ambulated 150' with standby assist and no assistive device, went up and down 1 step with SBA, she showed balance and endurance deficits. Patient has been performing transfer training, balance and endurance training, functional strengthening, stair training, gait training, and education. Patient has made fair progress and has met all of her group home goals except for her gait goal. Now, patient performs bed mobility and transfers with mod I, ambulates 400' with SBA and no assistive device ( including 10' over an uneven surface like carpet and 50' with at least 2 turns of 90 degrees), and can go up and down 12 steps using 2 handrails with mod I. Patient has been discharged from this facility and will be discharged from PT at this time. PT Chcf Goals Chcf Goals PT Human Resources Benefits Assistant Goals Time Frame: Sep 19, 2016 Transfers (B,C,W/C) (FIM): 7 Roll Left to Right (QC): 6 Sit to Lying (QC): 6 Lying-Sitting on Side/Bed(QC): 6 Sit to Stand (QC): 6 Chair/Awc-du-Yocrl Xfer(QC): 6 Car Transfer (QC): 6 Gait (FIM): 7 Gait distance (FIM): 3=150 ft Walk 10 feet (QC): 6 Walk 10ft-Uneven Surface(QC): 6 Walk 50ft with 2 Turns (QC): 6 Walk 150 ft (QC): 6 Gait Level of Assist: 6 Gait Assistive Device: None Does the Pt use WC or Scooter?: No Stairs (FIM): 6 # of Steps: 12 1 Step (curb) (QC): 6 4 Steps (QC): 6 12 Steps (QC): 6 Stairs Level Of Assist: 6 Picking up an Object (QC): 6 OT Chcf Goals Human Resources Benefits Assistant Goals Time Frame: Sep 25, 2016 Eating (FIM): 6 (met 09/14/16) Eating (QC): 6 (6-MET) Oral Hygiene (QC): 6 (6-MET) Grooming(FIM): 6 (met 09/14/16) Bathing(FIM): 5 (met 09/14/16) Shower/Bathe Self (QC): 5 (6--EXCEEDED) Upper Body Dressing(FIM): 6 (met 09/14/16) Upper Body Dressing (QC): 6 (6-MET) Lower Body Dressing(FIM): 6 (met 09/14/16) Lower Body Dressing (QC): 6 (6-MET) Toileting(FIM): 6 (met 09/14/16) Toileting Hygiene (QC): 6 (6-MET) Transfers (B,C,W/C) (FIM): 6 Toilet/Commode Transfer(FIM): 6 (met 09/14/16) Toilet/Commode Transfer (QC): 6 (6-MET) Shower Transfer(FIM): 5 (6-EXCEEDED) Comprehension(FIM): 6 Expression (FIM): 5 Social Interaction(FIM): 6 Problem Solving(FIM): 5 Memory(FIM): 5 Additional Goals: 1-Demonstrate ADL Tasks, 2-Verbalize Understanding, 3- ImproveStrength/Sweta 1=Demonstrate adherence to instructed precautions during ADL tasks. 2=Patient will verbalize/demonstrate understanding of assistive devices/ modifications for ADL. 3=Patient will improve strength/tolerance for activity to enable patient to perform ADL's. Speech Chcf Goals Human Resources Benefits Assistant Goals 1. The patient will demonstrate improved expressive communication for increased function and safety with ADL's in the least restrictive setting. Time Frame: Two Weeks Comprehension: 6 Expression: 5 Social Interaction: 6 Problem Solvin Memory: 5 MARVIN ARAUZ PT Sep 17, 2016 09:41
--- NOTE | 2016-09-17 13:30 | Therapy Team Discharge Summary ---
Therapy Discharge Summary Discharge Recommendations Date of Discharge Sep 15, 2016 at 11:33 Therapy D/C Recommendations: Home w/ Family Support Occupational Therapy Pt admitted to ARU following acute hospitalization for CVA. On admission pt required SBA for LE dressing and transfers. Skilled OT intervention focused on ADL training, transfers, strengthening and safety education. Pt progressed with therapy and by discharge is completing ADLs and transfers with modified independence. Pt met all OT LTG. Pt discharged home. D/C ARU OT. PT Mcfp Goals Electrical Calibrator Goals PT Mcfp Goals Time Frame: Sep 19, 2016 Transfers (B,C,W/C) (FIM): 7 Roll Left to Right (QC): 6 Sit to Lying (QC): 6 Lying-Sitting on Side/Bed(QC): 6 Sit to Stand (QC): 6 Chair/Qgd-iq-Aethu Xfer(QC): 6 Car Transfer (QC): 6 Gait (FIM): 7 Gait distance (FIM): 3=150 ft Walk 10 feet (QC): 6 Walk 10ft-Uneven Surface(QC): 6 Walk 50ft with 2 Turns (QC): 6 Walk 150 ft (QC): 6 Gait Level of Assist: 6 Gait Assistive Device: None Does the Pt use WC or Scooter?: No Stairs (FIM): 6 # of Steps: 12 1 Step (curb) (QC): 6 4 Steps (QC): 6 12 Steps (QC): 6 Stairs Level Of Assist: 6 Picking up an Object (QC): 6 OT Electrical Calibrator Goals Mcfp Goals Time Frame: Sep 25, 2016 Eating (FIM): 6 (met 09/14/16) Eating (QC): 6 (6-MET) Oral Hygiene (QC): 6 (6-MET) Grooming(FIM): 6 (met 09/14/16) Bathing(FIM): 5 (met 09/14/16) Shower/Bathe Self (QC): 5 (6--EXCEEDED) Upper Body Dressing(FIM): 6 (met 09/14/16) Upper Body Dressing (QC): 6 (6-MET) Lower Body Dressing(FIM): 6 (met 09/14/16) Lower Body Dressing (QC): 6 (6-MET) Toileting(FIM): 6 (met 09/14/16) Toileting Hygiene (QC): 6 (6-MET) Transfers (B,C,W/C) (FIM): 6 Toilet/Commode Transfer(FIM): 6 (met 09/14/16) Toilet/Commode Transfer (QC): 6 (6-MET) Shower Transfer(FIM): 5 (6-EXCEEDED) Comprehension(FIM): 6 Expression (FIM): 5 Social Interaction(FIM): 6 Problem Solving(FIM): 5 Memory(FIM): 5 Additional Goals: 1-Demonstrate ADL Tasks, 2-Verbalize Understanding, 3- ImproveStrength/Sweta 1=Demonstrate adherence to instructed precautions during ADL tasks. 2=Patient will verbalize/demonstrate understanding of assistive devices/ modifications for ADL. 3=Patient will improve strength/tolerance for activity to enable patient to perform ADL's. Speech Electrical Calibrator Goals Electrical Calibrator Goals 1. The patient will demonstrate improved expressive communication for increased function and safety with ADL's in the least restrictive setting. Time Frame: Two Weeks Comprehension: 6 Expression: 5 Social Interaction: 6 Problem Solvin Memory: 5 YARI STODDARD OT Sep 17, 2016 13:30
--- NOTE | 2016-09-26 10:44 | DISCHARGE SUMMARY ---
DATE OF ADMISSION: 09/10/2016 DATE OF DISCHARGE: 09/15/2016 HISTORY OF PRESENT ILLNESS: The patient is a 76-year-old female with history of paroxysmal atrial fibrillation who was refusing to take her oral anticoagulation. She was who was admitted to [facility] with acute stroke involving the left middle cerebral artery distribution, embolic in nature with very mild right hemiparesis and expressive aphasia. The patient gradually improved but had a decline in her functional independence. She had been independent prior to this and is followed by Dr. Apple and Dr. Hess. She was referred to Inpatient Rehabilitation Unit. She is from [place], [place]. Coumadin was on hold the evening of admission to rehab unit as her INR was more than 3. She is to resume 2.5 mg in the morning. Her Plavix has been discontinued. Dr. Apple was to follow-up regarding the need to continue the aspirin along with the Coumadin. PAST MEDICAL HISTORY: 1. Tobaccoism. 2. Atrial fibrillation. 3. Hypertension 4. Hyperlipidemia. 5. Bilateral carotid artery stenosis. 6. Rotator cuff repair of the right. 7. Hysterectomy. MEDICAL COURSE: The patient was followed by Dr. Capps and Dr. Padilla as well as Dr. Apple cardiology while on rehab unit. INR was monitored, Coumadin adjusted accordingly CBC on 09/12 showed H&H 13.5/41. Platelet count 215,000, WBC 6.6. Chemistry on 09/12 showed chloride elevated at 109, CO2 low at 28, BUN elevated at 23 but declining from 24 on 09/11. Liver function tests were elevated on 09/11, AST was 82, ALT 66. They were trending down to AST of 46 and normalized ALT of 54 on 09/13. Total protein was 6.2 on 09/13, albumin 3.5, INR on 09/15 and was 3.2. She was afebrile during her stay. Her pulse was 63 and regular on 09/15, respirations 18, blood pressure 138/76, O2 sat 97% on room air. Her aspirin was continued as well as the Zoloft, Toprol XL, vitamin D3. The patient will go home on Coumadin 2 mg daily. REHABILITATION COURSE: She progressed well with her therapies. She had increased strength and endurance. Speech therapy notes that the patient demonstrated 90% accuracy with single syllable words upon discharge, 70% accuracy with double syllable words. Her activity began decreasing significantly with fatigue. Speech therapy notes upon admission, her reading comprehension was functional. She did have mild impairment in attention and memory, problem solving. These were gradually improving. OT notes upon admission, the patient requires standby assist for lower body dressing, and transfers. The patient progressed well with therapies and by discharge was completing ADLs and transfers with modified independence. PT notes upon admission, the patient performed bed mobility, and transfers. Standby assist and could ambulate 150 feet with standby assist and no assistive device. Prior to discharge the patient performed bed mobility, and transfers with modified independence, and could ambulate 400 feet with standby assist with no assistive device. DISCHARGE INSTRUCTIONS: The patient will have follow-up with Dr. Hess, PCP and cardiology, to follow-up INR draw on Wednesday 08/23. The patient will have home health care services. Continue current diet. DISCHARGE MEDICATIONS: 1. Synthroid 75 micrograms p.o. daily. 2. Coumadin 2 mg p.o. evening. 3. ASA 81 mg p.o. at bedtime. 4. Vitamin D3 5000 units p.o. daily. 5. Toprol-XL 25 mg p.o. daily. 6. Zoloft 100 mg p.o. daily. 7. Lipitor was stopped due to elevated liver function tests, which are improving. She may have follow-up liver function test with Dr. Apple or Dr. Hess. DISCHARGE DIAGNOSES: 1. 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 2. Mild gait imbalance, improving. 3. Paroxysmal atrial fibrillation, controlled with medication. 4. Hypertension, controlled with medication. 5. Mixed hyperlipidemia, currently with statin on hold due to elevated liver function tests. 6. Hypothyroidism on replacement. 7. Bilateral carotid artery disease. 8. Peripheral arterial disease. 9. Osteoporosis. 10. Coronary artery disease, status post cardiac stents. 11. Tobaccoism currently abstaining. 12. Oral anticoagulation on Coumadin 13. Elevated liver function tests with statin medication on hold. 14. Mild azotemia with BUN 23 on 09/13. CONDITION AT DISCHARGE: Improved and stable. PROGNOSIS: Rehab prognosis appears good for continued improvement at home with ongoing home health therapies. Her daughter will assist her at her home. Job ID: [id number] Dictated Date: 09/25/2016 10:13:50 Kindergarten Assistant Date: 09/26/2016 10:22:51/ambreen BOB
== END 2016-09-15 11:33 | disposition home health service (06) | DRG 57 ==
PROVIDERS: ADMIT Physical Medicine & Rehabilitation; ATTEND Physical Medicine & Rehabilitation
DX: I69.351 Hemiplegia and hemiparesis following cerebral infarction affecting right dominant side (principal); I69.320 Aphasia following cerebral infarction; I69.398 Other sequelae of cerebral infarction; R26.81 Unsteadiness on feet; I48.0 Paroxysmal atrial fibrillation; I10 Essential (primary) hypertension; E78.2 Mixed hyperlipidemia; E03.9 Hypothyroidism, unspecified; I65.23 Occlusion and stenosis of bilateral carotid arteries; I73.9 Peripheral vascular disease, unspecified; M81.0 Age-related osteoporosis without current pathological fracture; I25.10 Atherosclerotic heart disease of native coronary artery without angina pectoris; Z95.5 Presence of coronary angioplasty implant and graft; F17.210 Nicotine dependence, cigarettes, uncomplicated; Z79.01 Long term (current) use of anticoagulants
CPT/HCPCS: 36415; 80053; 80076; 85025; 85610

== ENCOUNTER 2016-11-13 10:29 | Outpatient (RCR) | payer MEDICARE, OTHER ==
--- OUTSIDE RECORDS SUMMARY | 2016-09-20 10:28 | XMS REPORT | Continuity of Care Document ---
Author Author [facility] Organization [facility] Address Unknown Phone Unavailable Care Team Providers Care Branch Controller Name Role Phone Unverified, Unverified PCP Unavailable Source Comments Some departments are not documenting in the electronic medical record. If you do not see the information that you expected, contact Release of Information in the Health Information Management department at [phone] for further assistance in locating additional records.[facility] Active Allergies and Adverse Reactions [...] mg, hydrochlorothiazide 25 mg Tab 25 mg P-Xolazluulppr-Umm Take 2 Tabs by mouth Active B12-Vit [...] Taken Blood Pressure 98/60 09/12/2010 11:06 AM BRONC BUSTER Pulse 68 09/12/2010 11:06 AM BRONC BUSTER Temperature - - Respiratory Rate - - Height 1.575 m (5' 2") 09/12/2010 11:06 AM BRONC BUSTER Weight 66.271 kg (146 lb 1.6 oz) 09/12/2010 11:06 AM BRONC BUSTER Body Mass Index 26.72 09/12/2010 11:06 AM BRONC BUSTER Oxygen Saturation - - Plan of Care Health Maintenance Due Date Last Done Comments Physical (Comprehensive) 1945 Exam Pertussis Vaccine 1949 Tetanus Vaccine 1955 Breast Cancer Screening 1978 Shingles Vaccine 1998 Osteoporosis Screening 2003 Prevnar/Pneumovax (#1) 2003 Influenza Vaccine 03/22/2015 Results from Last 3 Months Not on file
[~2016-11-13 10:29] MED LIST changes: +ATOR80TA76 PO; +LEVO75TA PO; +WARF2TAB PO
== END 2016-11-13 13:47 | disposition home or self-care (01) ==
PROVIDERS: ATTEND Internal Medicine
DX: I69.351 Hemiplegia and hemiparesis following cerebral infarction affecting right dominant side (principal); I69.320 Aphasia following cerebral infarction; I69.398 Other sequelae of cerebral infarction

== ENCOUNTER → 2017-02-22 | Outpatient (CLI) | payer MEDICARE, OTHER | LOC: CARD 09:37 | PROVIDERS: ATTEND Physician Assistant | DX: I48.2 Chronic atrial fibrillation (principal); I25.10 Atherosclerotic heart disease of native coronary artery without angina pectoris; I65.23 Occlusion and stenosis of bilateral carotid arteries; I10 Essential (primary) hypertension | CPT/HCPCS: 93306 ==

== ENCOUNTER → 2017-02-27 | Outpatient (CLI) | payer MEDICARE, OTHER ==
[~2017-02-27] VITALS: Ht 157.5 cm; Wt 70.8 kg
[~2017-02-27] MED LIST changes: +CATHETER FLUSH 10 ML SYR IV PRN; +REGADENOSON 0.4 MG/5 ML SYR (LEXISCAN) IV ONE
[2017-02-27 09:25] VITALS: BP 151/76
--- NOTE | 2017-02-28 08:43 | STRESS TEST ---
DATE OF SERVICE: 02/27/2017 LEXISCAN MYOVIEW STRESS TEST REPORT REFERRING PHYSICIAN: Dr. Hess. SUMMARY: The patient was injected with 10.76 mCi of technetium-99 Myoview and the resting images were obtained with peak. Then she received 0.4 mg of Lexiscan followed by 31.0 mCi of technetium-99 Myoview. Throughout the test, there were no EKG changes. The resting and stress images were reviewed and compared in the short axis, horizontal long axis, and vertical long axis views. Review of the images showed breast attenuation affecting the quality of the images. There is mild decreased uptake at the mid to apical anterolateral and inferolateral wall with subtle reversibility. SSS 4, SDS 4. TID value of 1.1. On the gated images, the left ventricle appeared to be normal size with normal contractility. Calculated ejection fraction 75%. CONCLUSION: 1. The patient tolerated Lexiscan well. 2. Breast attenuation with mild decreased uptake at the mid to apical anterior lateral wall and inferolateral wall, probably due to the breast attenuation. 3. Normal left ventricular size with normal contractility. Calculated ejection fraction 75%. Job ID: [id number] DocumentID: [id number] Dictated Date: 02/27/2017 14:44:57 Executive Sous Chef Date: 02/27/2017 18:19:57 Dictated By: EUNICE BURGOS MD
== END ==
LOC: CARD 07:24
PROVIDERS: ATTEND Physician Assistant
DX: I48.2 Chronic atrial fibrillation (principal); I25.10 Atherosclerotic heart disease of native coronary artery without angina pectoris; I65.23 Occlusion and stenosis of bilateral carotid arteries; I10 Essential (primary) hypertension
CPT/HCPCS: 78452; 93017

== ENCOUNTER → 2017-03-12 | Outpatient (CLI) | payer MEDICARE, OTHER ==
[~2017-03-12] MED LIST changes: -CATHETER FLUSH 10 ML SYR IV PRN; -REGADENOSON 0.4 MG/5 ML SYR (LEXISCAN) IV ONE
--- NOTE | 2017-03-12 20:42 | Diagnostic Imaging Report ---
EXAMINATION: Ultrasound of the left breast. INDICATION: Left breast pain. FINDINGS: The diagnostic mammogram performed earlier today failed to show any sign of an acute abnormality of the left breast. There is no evidence of malignancy. On this study, there is no mass, cyst, or abscess identified to account for the patient's left breast pain. Clinical follow-up is recommended. IMPRESSION: There is no evidence of malignancy or for an acute abnormality to account for the patient's left breast pain. Clinical follow-up is recommended. ACR BI-RADS Category 1: Negative. Dictated by: Dictated on workstation # [id number]
--- NOTE | 2017-03-13 06:41 | Diagnostic Imaging Report ---
Bilateral diagnostic mammogram with tomosynthesis. INDICATION: At this time the patient does complain of pain in the left breast. There are scattered fibroglandular densities in both breasts which could obscure a lesion. There is no primary or secondary sign of malignancy noted. The 3-D tomographic views also failed to show any sign of malignancy. There is no abnormality to account for the patient's left breast pain either. I would recommend that ultrasound be performed for further study. IMPRESSION: There is no evidence of malignancy of either breast. There is no sign of acute abnormality to account for the patient's left breast pain. Ultrasound would be recommended for further study. ACR BI-RADS Category 0: Incomplete. (Needs additional imaging evaluation). Result letter will be mailed to the patient. Note: At least 10% of breast cancer is not imaged by mammography. Dictated on workstation # [id number]
== END ==
LOC: RAD 08:44
PROVIDERS: ATTEND Nurse Practitioner
DX: Z12.31 Encounter for screening mammogram for malignant neoplasm of breast (principal); N64.4 Mastodynia
CPT/HCPCS: 76642; 77066

== ENCOUNTER → 2017-07-03 | Outpatient (CLI) | payer MEDICARE, OTHER ==
[~2017-07-03] MED LIST changes: +RT-ALBUTEROL SULF 2.5 MG/3 ML PRE-MIX VIAL INH ONE
== END ==
LOC: RT 12:42
PROVIDERS: ATTEND Internal Medicine
DX: J44.9 Chronic obstructive pulmonary disease, unspecified (principal)
CPT/HCPCS: 94060; 94726; 94729

== ENCOUNTER → 2017-08-28 | Outpatient (CLI) | payer MEDICARE, OTHER ==
[~2017-08-28] MED LIST changes: +GADOBUTROL 7.5 MMOL/7.5 ML (GADAVIST) VIAL IV ONE; -RT-ALBUTEROL SULF 2.5 MG/3 ML PRE-MIX VIAL INH ONE
[2017-08-28 14:16] LABS: CREATININE SERUM 1.08 MG/DL (0.60-1.30)
--- NOTE | 2017-08-28 15:46 | Diagnostic Imaging Report ---
EXAMINATION: MRI of the brain and IACs with and without contrast. INDICATION: Hearing loss. TECHNIQUE: Multiplanar images utilizing both T1- and T2-weighted sequences were obtained. Additional images following administration of intravenous contrast were also performed. Magnified images of the skull base were also obtained in both the coronal and axial plane both before and after administration of intravenous contrast. FINDINGS: There are no previous MRI examinations available for comparison. The CTA head and neck exam performed on 09/06/2016 failed to show any sign of an acute intracranial abnormality or of a mass lesion. There is no sign of an aneurysm either. There did appear to be a prominent area of encephalomalacia involving the right jvvaecq-aayhqyur-vfridajv region. On the postcontrast images through the skull base, there is no abnormal enhancement to suggest a mass involving the seventh or eighth nerve complexes. There is no other abnormal enhancement identified. There is no mass, shift of the midline, or hemorrhage. There is no abnormal signal arising from the brain on the diffusion series to indicate an area of acute ischemia either. The ventricles are not abnormally dilated and stable in size when compared to the prior CT head exam. The area of encephalomalacia in the right yqeacyg-dcisrary-djzbjbom lobe seen previously is again visualized and unchanged. The FLAIR series does show areas of increased signal in the periventricular white matter bilaterally as well as about the area of encephalomalacia in the right zdefmnd-ncjvugia-fmswymhw lobe. There is also an area of increased signal in the posterior aspect of the left temporal lobe. I suspect that this is related to encephalomalacia as well. This may be a sequela of a prior infarct. Cortical atrophy is also seen. The degree of atrophy is consistent with the patient's age. The orbits are symmetrical and within normal limits. The sinuses are generally clear. The sella is not enlarged, and the expected carotid flow voids are evident bilaterally. IMPRESSION: 1. There is no evidence for an acute intracranial abnormality. In particular, there is no abnormal enhancement of the seventh or eighth nerve complexes to account for the patient's hearing loss. 2. There are senescent changes including cortical atrophy and periventricular encephalomalacia. There also appear to be areas of encephalomalacia in the right wddfiiw-azcbpcfc-yhhforbq region and in the left temporoparietal lobe. Dictated by: Dictated on workstation # [id number]
== END ==
LOC: RAD 13:36
PROVIDERS: ATTEND Otolaryngology Otolaryngology/Facial Plastic Surgery
DX: H91.8X1 Other specified hearing loss, right ear (principal); G31.9 Degenerative disease of nervous system, unspecified; G93.89 Other specified disorders of brain
CPT/HCPCS: 36415; 70553; 82565; 84520

== ENCOUNTER → 2018-04-28 | Outpatient (CLI) | payer MEDICARE, OTHER ==
[~2018-04-28] MED LIST changes: -GADOBUTROL 7.5 MMOL/7.5 ML (GADAVIST) VIAL IV ONE
--- NOTE | 2018-04-28 13:18 | Diagnostic Imaging Report ---
INDICATION: Screening. COMPARISON: 03/12/2017. TECHNIQUE: Screening digital mammography was performed bilaterally with a Computer Aided Detection (CAD) system. 3D tomosynthesis was also performed and reviewed. FINDINGS: There are scattered fibroglandular densities bilaterally. There are vascular benign type calcifications in both breasts. There is no new dominant mass, spiculated lesion, or suspicious calcification identified. The skin, nipples, and axillae are unremarkable. IMPRESSION: Benign findings. ACR BI-RADS Category 2: Benign findings. Result letter will be mailed to the patient. Note: At least 10% of breast cancer is not imaged by mammography. Dictated by: Dictated on workstation # [id number]
== END ==
LOC: RAD 09:41
PROVIDERS: ATTEND Internal Medicine
DX: Z12.31 Encounter for screening mammogram for malignant neoplasm of breast (principal)
CPT/HCPCS: 77067

== ENCOUNTER 2018-05-12 05:41 | Outpatient (CLI) | payer MEDICARE, OTHER ==
[~2018-05-12] VITALS: Ht 157.5 cm; Wt 72.1 kg
[2018-05-13] MEDS ORDERED: WARF2TAB8 PO ×2 (10:55)
[2018-05-13] MEDS ORDERED: SERT100T8 PO (10:55)
== END 2018-05-12 15:00 | disposition home or self-care (01) ==
LOC: PREOP 05:41
PROVIDERS: ATTEND Internal Medicine
DX: Z01.818 Encounter for other preprocedural examination (principal)

== ENCOUNTER 2018-05-16 07:34 | Day surgery (SDC) | payer MEDICARE, OTHER ==
--- NOTE | 2018-05-08 15:46 | HISTORY AND PHYSICAL ---
DATE OF SERVICE: COLONOSCOPY H AND P HISTORY OF PRESENT ILLNESS: The patient is a 77-year-old white female referred for screening colonoscopy by Dr. Hess. I last performed colonoscopy on her 10 years ago, at which time she had two small hyperplastic polyps removed. No other significant abnormalities were noted at that time. She may be of higher than average risk as there is a family history of cancer in her father who at the age of 64. It was questionably colonic in origin, but the patient nor her daughter are sure. 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 It did involve the left middle cerebral artery distribution. Her only residual and has some memory impairment and word search difficulty at times. She reports that she has been feeling well. She denies chest pain, shortness of breath, bowel habit change, abdominal pain, bright red blood per rectum, melena, heartburn symptoms or dysphagia. PAST MEDICAL HISTORY: Other than above is also significant for coronary artery disease. She had one coronary stent placed, she believes around 5 years ago with no subsequent problems with acute coronary syndrome. She has been compliant with Coumadin with no subsequent strokes since 08/2016 per her report. She has history of hypertension and hyperlipidemia as well as past tobaccoism. PAST SURGICAL HISTORY: Significant for right-sided rotator cuff repair, past total abdominal hysterectomy for benign reasons and an appendectomy many years ago. She also underwent radioactive iodine ablation for Graves' disease many years ago with no problems with recurrence. She has been on thyroid replacement since that time. FAMILY HISTORY: Her mother of dementia at the age of 82. Father had a malignancy, possibly colon cancer as noted above at the age of 64. SOCIAL HISTORY: Quit smoking many years ago. No significant past alcohol intake. She is retired and I believe she lives with her daughter since her stroke. PHYSICAL EXAMINATION: GENERAL: Reveals a pleasant white female appears to be in no acute distress. VITAL SIGNS: Blood pressure 130/80, weight 159.6. HEENT: Reveals a Mallampati class 3 oropharyngeal configuration without erythema or exudate. Sclerae are nonicteric. NECK: Revealed no JVD, adenopathy or bruits. CHEST: Clear to auscultation. CARDIOVASCULAR: Reveals regular rate and rhythm without murmur, S3 or S4. ABDOMEN: Soft, supple without mass, organomegaly or tenderness. EXTREMITIES: Reveal no cyanosis, clubbing or edema. ASSESSMENT AND PLAN: The patient was set up for screening colonoscopy on 05/16/2018. We will have her hold her Coumadin 48 hours for the procedure and obtain an INR prior. We will hold aspirin one week prior to the procedure and written instructions were given to the patient and her daughter. She will continue her other medications unchanged. With review of electronic medical record and evaluation, 40 minutes care time spent. I thank you for the referral of this pleasant lady. Job ID: [id number] DocumentID: [id number] Dictated Date: 05/06/2018 10:08:57 [employer] Teacher Date: 05/06/2018 10:35:49 Dictated By: NURIS PETERS MD
[~2018-05-16] VITALS: Ht 157.5 cm; Wt 72.1 kg
[~2018-05-16 07:34] MED LIST changes: +SERT100T8 PO; +WARF2TAB8 PO
--- OUTSIDE RECORDS SUMMARY | 2018-05-16 07:38 | XMS REPORT | Clinical Summary ---
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 If you do not see the information that you expected, contact Release of Information in the Health Information Management department at [phone] for further assistance in locating additional records.[facility] Allergies No Known Allergies Current Medications Prescription Sig. Disp. Refills Start End Date Status Date levothyroxine (SYNTHROID) Take 100 mcg by mouth Active 100 mcg tablet Daily. warfarin (COUMADIN) 2.5 Take 2.5 mg by mouth. 1 Active mg tablet tablet , , sat,sat. 1/2 tablet mon,sat,sat metoprolol XL (TOPROL XL) Take by mouth Daily. 1/2 Active 50 mg tablet tablet daily lisinopril 20 mg Tab 20 Take by mouth daily. Active mg, hydrochlorothiazide 25 mg Tab 25 mg Q-Nfxdrqpcypfb-Xfk Take 2 Tabs by mouth Active B12-Vit [...] palpitations Dyspnea Hypothyroidism HTN (hypertension), benign Hypercholesteremia Family History Medical History Relation Name Comments Stroke Father Cancer Mother Relation Name Status Comments Brother Alive Brother Alive Brother Alive Brother MVA Father Mother Sister Alive Sister Alive Social History Tobacco Use Types Packs/Day Years Used Date Current Every Day Smoker Cigarettes 0.25 30 Smokeless Tobacco: Never Used Alcohol Use Drinks/Week oz/Week Comments Yes 7 Glasses of 4.2 1 glass of wine per day wine Sex Assigned at Date Recorded Not on file Last Filed Vital Signs Vital Sign Reading Time Taken Blood Pressure 98/60 09/12/2010 11:06 AM [facility] TECH Pulse 68 09/12/2010 11:06 AM [facility] PROC[facility]URES TECH Temperature - - Respiratory Rate - - Oxygen Saturation - - Inhaled Oxygen - - Concentration Weight 66.3 kg (146 lb 1.6 oz) 09/12/2010 11:06 AM [facility] PROC[facility] TECH Height 157.5 cm (5' 2") 09/12/2010 11:06 AM [employer] PROC[facility]URES TECH Body Mass Index 26.72 09/12/2010 11:06 AM 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
--- OUTSIDE RECORDS SUMMARY | 2018-05-16 07:40 | XMS REPORT | Continuity of Care Document ---
Author Author [facility] Organization [facility] Address Unknown Phone Unavailable Allergies Active Description Code Type Severity Reaction Onset Reported/Identified Relationship to Patient Clinical Status Yes No Known Drug Allergies [id number] Drug Allergy Unknown N/A 04/30/2008 Yes hydrochlorothiazide [id number] Drug Allergy Unknown N/A 09/10/2016 Medications There is no data. Problems Date Dx Coded Attending Type Code Diagnosis Diagnosed By 06/20/1346 BERTHA BRADY MD Ot I69.320 APHASIA FOLLOWING CEREBRAL INFARCTION 06/20/1346 BERTHA BRADY MD Ot I69.351 HEMIPLGA FOLLOWING CEREBRAL INFRC AFF RI 06/20/1346 BERTHA BRADY MD Ot I69.398 OTHER SEQUELAE OF CEREBRAL INFARCTION 09/20/2010 Ot 173.3 03/29/2013 DARRION WORTHINGTON MD Ot 300.00 ANXIETY STATE NOS 03/29/2013 DARRION WORTHINGTON MD Ot 305.1 TOBACCO USE DISORDER 03/29/2013 DARRION WORTHINGTON MD Ot 311 DEPRESSIVE DISORDER NEC 03/29/2013 DARRION WORTHINGTON MD Ot 401.9 HYPERTENSION NOS 03/29/2013 DARRION WORTHINGTON MD Ot 427.31 ATRIAL FIBRILLATION 03/29/2013 DARRION WORTHINGTON MD Ot 478.19 OTHER DISEASE OF NASAL CAVITY AND SINUSE 03/29/2013 DARRION WORTHINGTON MD Ot 995.1 ANGIONEUROTIC EDEMA 03/29/2013 DARRION WORTHINGTON MD Ot V03.82 PROPHYLACTIC VACC AGAINST STREPTOCOCCUS 10/21/2014 Ot 719.41 10/28/2014 Ot 719.41 12/18/2014 EUNICE BURGOS MD Ot 272.4 12/18/2014 EUNICE BURGOS MD Ot 401.9 12/18/2014 EUNICE BURGOS MD Ot 414.00 12/18/2014 EUNICE BURGOS MD Ot 433.10 01/03/2015 EUNICE BURGOS MD Ot 272.4 01/03/2015 EUNICE BURGOS MD Ot 401.9 01/03/2015 EUNICE BURGOS MD Ot 414.00 01/03/2015 EUNICE BURGOS MD Ot 433.10 03/14/2015 GRZEGORZ TATE, FOZIA Mcginnis Ot 272.4 03/14/2015 GRZEGORZ PA, FOZIA Mcginnis Ot 401.9 03/14/2015 GRZEGORZ PA, FOZIA K Ot 414.00 03/14/2015 GRZEGORZ PA, FOZIA K Ot 427.31 03/14/2015 GRZEGORZ PA, FOZIA K Ot 433.10 03/18/2015 GRZEGORZ PA, FOZIA Mcginnis Ot 272.4 03/18/2015 GRZEGORZ PA, FOZIA Mcginnis Ot 401.9 03/18/2015 GRZEGORZ PA, FOZIA K Ot 414.00 03/18/2015 GRZEGORZ PA, FOZIA Mcginnis Ot 427.31 03/18/2015 GRZEGORZ PA, FOZIA Mcginnis Ot 433.10 03/24/2015 EUNICE BURGOS MD Ot 272.4 HYPERLIPIDEMIA NEC/NOS 03/24/2015 EUNICE BURGOS MD Ot 305.1 TOBACCO USE DISORDER 03/24/2015 EUNICE BURGOS MD Ot 401.9 HYPERTENSION NOS 03/24/2015 EUNICE BURGOS MD Ot 414.01 CORONARY ATHEROSCLEROSIS OF [place] CORON 03/24/2015 EUNICE BURGOS MD Ot 427.31 ATRIAL FIBRILLATION 03/24/2015 EUNICE BURGOS MD Ot 443.9 PERIPH VASCULAR DIS NOS 03/24/2015 EUNICE BURGOS MD Ot 794.30 ABN CARDIOVASC STUDY NOS 03/24/2015 EUNICE BURGOS MD Ot V58.61 ANTICOAGULANTS,LT,CURRENT USE 03/24/2015 EUNICE BURGOS MD Ot V58.69 OTH MED,LT,CURRENT USE 03/30/2015 FOZIA MILAN Ot 272.4 03/30/2015 FOZIA MILAN Ot 401.9 03/30/2015 FOZIA MILAN Ot 414.00 03/30/2015 FOZIA MILAN Ot 427.31 03/30/2015 GRZEGORZ PA, FOZIA Rahel Ot 433.10 04/20/2015 GRZEGORZ PA, FOZIA K Ot 272.4 04/20/2015 GRZEGORZ PA, FOZIA Rahel Ot 401.9 04/20/2015 GRZEGORZ PA, FOZIA K Ot 414.00 04/20/2015 GRZEGORZ PA, FOZIA K Ot 427.31 04/20/2015 GRZEGORZ PA, FOZIA Rahel Ot 433.10 08/02/2015 Ot 726.0 08/02/2015 Ot V58.69 08/02/2015 Ot V72.83 08/02/2015 Ot V74.8 08/02/2015 Ot 733.00 08/02/2015 Ot V76.12 08/02/2015 Ot 722.52 08/02/2015 Ot 173.3 08/02/2015 Ot V72.63 08/02/2015 Ot V72.81 08/02/2015 Ot V74.8 08/02/2015 Ot 427.31 08/02/2015 Ot 786.50 08/02/2015 Ot 473.9 08/02/2015 Ot 733.00 08/02/2015 Ot 733.90 08/02/2015 Ot 414.00 08/02/2015 Ot 427.31 08/02/2015 Ot 786.50 08/02/2015 Ot 414.00 08/02/2015 Ot 427.31 08/02/2015 Ot 786.50 08/02/2015 Ot 414.00 08/02/2015 Ot 427.31 08/02/2015 Ot 786.50 08/02/2015 Ot 429.3 08/02/2015 Ot 786.05 08/02/2015 ANDER GRIFFIN, DARRION Landin Ot 733.00 08/02/2015 ANDER GRIFFIN, DARRION Landin Ot 733.90 08/02/2015 Ot 719.41 08/02/2015 AUBREY GRIFFIN, EUNICE Carlson Ot 272.4 08/02/2015 AUBREY GRIFFIN, EUNICE Carlson Ot 401.9 08/02/2015 AUBREY GRIFFIN, EUNICE J Ot 414.00 08/02/2015 AUBREY GRIFFIN, EUNICE Carlson Ot 433.10 08/02/2015 GARVEY-FOZIA DELACRUZ Ot 272.4 08/02/2015 FOZIA MILAN Ot 401.9 08/02/2015 FOZIA MILAN Ot 414.00 08/02/2015 FOZIA MILAN Ot 427.31 08/02/2015 FOZIA MILAN Ot 433.10 09/06/2016 Ot 473.9 CHRONIC SINUSITIS NOS 09/06/2016 Ot 733.00 OSTEOPOROSIS NOS 09/06/2016 Ot 733.90 BONE CARTILAGE DIS NOS 09/06/2016 Ot 414.00 CORON ATHEROSCLER NOS TYPE VESSEL, NATIV 09/06/2016 Ot 427.31 ATRIAL FIBRILLATION 09/06/2016 Ot 786.50 CHEST PAIN NOS 09/06/2016 Ot 414.00 CORON ATHEROSCLER NOS TYPE VESSEL, NATIV 09/06/2016 Ot 427.31 ATRIAL FIBRILLATION 09/06/2016 Ot 786.50 CHEST PAIN NOS 09/06/2016 Ot 414.00 CORON ATHEROSCLER NOS TYPE VESSEL, NATIV 09/06/2016 Ot 427.31 ATRIAL FIBRILLATION 09/06/2016 Ot 786.50 CHEST PAIN NOS 09/06/2016 Ot 429.3 CARDIOMEGALY 09/06/2016 Ot 786.05 SHORTNESS OF BREATH 09/06/2016 ANDER GRIFFIN, DARRION Landin Ot 733.00 OSTEOPOROSIS NOS 09/06/2016 DARRION WORTHINGTON MD Ot 733.90 BONE CARTILAGE DIS NOS 09/06/2016 Ot 719.41 JOINT PAIN- SHLDER 09/06/2016 EUNICE BURGOS MD Ot 272.4 HYPERLIPIDEMIA NEC/NOS 09/06/2016 EUNICE BURGOS MD Ot 401.9 HYPERTENSION NOS 09/06/2016 EUNICE BURGOS MD Ot 414.00 CORON ATHEROSCLER NOS TYPE VESSEL, NATIV 09/06/2016 EUNICE BURGOS MD Ot 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 W O CEREBRAL IN 09/06/2016 FOZIA MILAN Ot 272.4 HYPERLIPIDEMIA NEC/NOS 09/06/2016 FOZIA MILAN Ot 401.9 HYPERTENSION NOS 09/06/2016 FOZIA MILAN Ot 414.00 CORON ATHEROSCLER NOS TYPE VESSEL, NATIV 09/06/2016 GARVEY-AYDEN PA, FOZIA K Ot 427.31 ATRIAL FIBRILLATION 09/06/2016 FOZIA MILAN Ot 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 W O CEREBRAL IN 09/06/2016 GRIFFIN SILVA MD Ot I48.2 CHRONIC ATRIAL FIBRILLATION 09/06/2016 GRIFFIN SILVA MD Ot I63.9 CEREBRAL INFARCTION, UNSPECIFIED 09/06/2016 GRIFFIN SILVA MD Ot R20.0 ANESTHESIA OF SKIN 09/06/2016 GRIFFIN SILVA MD Ot R41.0 DISORIENTATION, UNSPECIFIED 09/06/2016 GRIFFIN SILVA MD Ot R47.01 APHASIA 09/07/2016 GRIFFIN SILVA MD Ot I48.2 CHRONIC ATRIAL FIBRILLATION 09/07/2016 GRIFFIN SILVA MD Ot I63.9 CEREBRAL INFARCTION, UNSPECIFIED 09/07/2016 GRIFFIN SILVA MD Ot R20.0 ANESTHESIA OF SKIN 09/07/2016 GRIFFIN SILVA MD Ot R41.0 DISORIENTATION, UNSPECIFIED 09/07/2016 GRIFFIN SILVA MD Ot R47.01 APHASIA 09/10/2016 Ot 473.9 CHRONIC SINUSITIS NOS 09/10/2016 Ot 733.00 OSTEOPOROSIS NOS 09/10/2016 Ot 733.90 BONE CARTILAGE DIS NOS 09/10/2016 Ot 414.00 CORON ATHEROSCLER NOS TYPE VESSEL, NATIV 09/10/2016 Ot 427.31 ATRIAL FIBRILLATION 09/10/2016 Ot 786.50 CHEST PAIN NOS 09/10/2016 Ot 414.00 CORON ATHEROSCLER NOS TYPE VESSEL, NATIV 09/10/2016 Ot 427.31 ATRIAL FIBRILLATION 09/10/2016 Ot 786.50 CHEST PAIN NOS 09/10/2016 Ot 414.00 CORON ATHEROSCLER NOS TYPE VESSEL, NATIV 09/10/2016 Ot 427.31 ATRIAL FIBRILLATION 09/10/2016 Ot 786.50 CHEST PAIN NOS 09/10/2016 Ot 429.3 CARDIOMEGALY 09/10/2016 Ot 786.05 SHORTNESS OF BREATH 09/10/2016 DARRION WORTHINGTON MD Ot 733.00 OSTEOPOROSIS NOS 09/10/2016 DARRION WORTHINGTON MD Ot 733.90 BONE CARTILAGE DIS NOS 09/10/2016 Ot 719.41 JOINT PAIN- SHLDER 09/10/2016 AUBREY GRIFFIN, EUNICE Carlson Ot 272.4 HYPERLIPIDEMIA NEC/NOS 09/10/2016 EUNICE BURGOS MD Ot 401.9 HYPERTENSION NOS 09/10/2016 EUNICE BURGOS MD Ot 414.00 CORON ATHEROSCLER NOS TYPE VESSEL, NATIV 09/10/2016 EUNICE BURGOS MD Ot 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 W O CEREBRAL IN 09/10/2016 FOZIA MILAN Ot 272.4 HYPERLIPIDEMIA NEC/NOS 09/10/2016 FOZIA MILAN Ot 401.9 HYPERTENSION NOS 09/10/2016 FOZIA MILAN Ot 414.00 CORON ATHEROSCLER NOS TYPE VESSEL, NATIV 09/10/2016 FOZIA MILAN Ot 427.31 ATRIAL FIBRILLATION 09/10/2016 FOZIA MILAN Ot 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 W O CEREBRAL IN 09/13/2016 Ot 473.9 CHRONIC SINUSITIS NOS 09/13/2016 Ot 733.00 OSTEOPOROSIS NOS 09/13/2016 Ot 733.90 BONE CARTILAGE DIS NOS 09/13/2016 Ot 414.00 CORON ATHEROSCLER NOS TYPE VESSEL, NATIV 09/13/2016 Ot 427.31 ATRIAL FIBRILLATION 09/13/2016 Ot 786.50 CHEST PAIN NOS 09/13/2016 Ot 414.00 CORON ATHEROSCLER NOS TYPE VESSEL, NATIV 09/13/2016 Ot 427.31 ATRIAL FIBRILLATION 09/13/2016 Ot 786.50 CHEST PAIN NOS 09/13/2016 Ot 414.00 CORON ATHEROSCLER NOS TYPE VESSEL, NATIV 09/13/2016 Ot 427.31 ATRIAL FIBRILLATION 09/13/2016 Ot 786.50 CHEST PAIN NOS 09/13/2016 Ot 429.3 CARDIOMEGALY 09/13/2016 Ot 786.05 SHORTNESS OF BREATH 09/13/2016 DARRION WORTHINGTON MD Ot 733.00 OSTEOPOROSIS NOS 09/13/2016 DARRION WORTHINGTON MD Ot 733.90 BONE CARTILAGE DIS NOS 09/13/2016 Ot 719.41 JOINT PAIN- SHLDER 09/13/2016 AUBREY GRIFFIN, EUNICE Carlson Ot 272.4 HYPERLIPIDEMIA NEC/NOS 09/13/2016 EUNICE BURGOS MD Ot 401.9 HYPERTENSION NOS 09/13/2016 EUNICE BURGOS MD Ot 414.00 CORON ATHEROSCLER NOS TYPE VESSEL, NATIV 09/13/2016 EUNICE BURGOS MD Ot 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 W O CEREBRAL IN 09/13/2016 FOZIA MILAN Ot 272.4 HYPERLIPIDEMIA NEC/NOS 09/13/2016 FOZIA MILAN Ot 401.9 HYPERTENSION NOS 09/13/2016 FOZIA MILAN Ot 414.00 CORON ATHEROSCLER NOS TYPE VESSEL, NATIV 09/13/2016 FOZIA MILAN Ot 427.31 ATRIAL FIBRILLATION 09/13/2016 FOZIA MILAN Ot 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 W O CEREBRAL IN 09/15/2016 SANJU SUN MD Ot E03.9 HYPOTHYROIDISM, UNSPECIFIED 09/15/2016 SANJU SUN MD Ot E78.2 MIXED HYPERLIPIDEMIA 09/15/2016 SANJU SUN MD Ot F17.210 NICOTINE DEPENDENCE, CIGARETTES, UNCOMPL 09/15/2016 SANJU SUN MD Ot I10 ESSENTIAL (PRIMARY) HYPERTENSION 09/15/2016 SANJU SUN MD Ot I25.10 ATHSCL HEART DISEASE OF [place] CORONARY 09/15/2016 SANJU SUN MD Ot I48.0 PAROXYSMAL ATRIAL FIBRILLATION 09/15/2016 SANJU SUN MD Ot I65.23 OCCLUSION AND STENOSIS OF [place] 09/15/2016 SANJU SUN MD Ot I69.320 APHASIA FOLLOWING CEREBRAL INFARCTION 09/15/2016 SANJU SUN MD Ot I69.351 HEMIPLGA FOLLOWING CEREBRAL INFRC AFF RI 09/15/2016 SANJU SUN MD Ot I69.398 OTHER SEQUELAE OF CEREBRAL INFARCTION 09/15/2016 SANJU SUN MD Ot I73.9 PERIPHERAL VASCULAR DISEASE, UNSPECIFIED 09/15/2016 SANJU SUN MD Ot M81.0 AGE-RELATED OSTEOPOROSIS W/O CURRENT PAT 09/15/2016 SANJU SUN MD Ot R26.81 UNSTEADINESS ON FEET 09/15/2016 SANJU SUN MD Ot Z79.01 FRONT END ENGINEER (CURRENT) USE OF ANTICOAGULANT 09/15/2016 SANJU SUN MD Ot Z95.5 PRESENCE OF CORONARY ANGIOPLASTY IMPLANT 10/02/2016 BERTHA BRADY MD Ot I69.320 APHASIA FOLLOWING CEREBRAL INFARCTION 10/02/2016 BERTHA BRADY MD Ot I69.351 HEMIPLGA FOLLOWING CEREBRAL INFRC AFF RI 10/02/2016 BERTHA BRADY MD Ot I69.398 OTHER SEQUELAE OF CEREBRAL INFARCTION 10/02/2016 BERTHA BRADY MD Ot I69.320 APHASIA FOLLOWING CEREBRAL INFARCTION 10/02/2016 BERTHA BRADY MD Ot I69.351 HEMIPLGA FOLLOWING CEREBRAL INFRC AFF RI 10/02/2016 BERTHA BRADY MD Ot I69.398 OTHER SEQUELAE OF CEREBRAL INFARCTION 11/13/2016 BERTHA BRADY MD Ot I69.320 APHASIA FOLLOWING CEREBRAL INFARCTION 11/13/2016 BERTHA BRADY MD Ot I69.351 HEMIPLGA FOLLOWING CEREBRAL INFRC AFF RI 11/13/2016 BERTHA BRADY MD Ot I69.398 OTHER SEQUELAE OF CEREBRAL INFARCTION 11/13/2016 BERTHA BRADY MD Ot I69.320 APHASIA FOLLOWING CEREBRAL INFARCTION 11/13/2016 BERTHA BRADY MD Ot I69.351 HEMIPLGA FOLLOWING CEREBRAL INFRC AFF RI 11/13/2016 BERTHA BRADY MD Ot I69.398 OTHER SEQUELAE OF CEREBRAL INFARCTION 02/21/2017 Ot 414.00 CORON ATHEROSCLER NOS TYPE VESSEL, NATIV 02/21/2017 Ot 427.31 ATRIAL FIBRILLATION 02/21/2017 Ot 786.50 CHEST PAIN NOS 02/21/2017 Ot 414.00 CORON ATHEROSCLER NOS TYPE VESSEL, NATIV 02/21/2017 Ot 427.31 ATRIAL FIBRILLATION 02/21/2017 Ot 786.50 CHEST PAIN NOS 02/21/2017 Ot 414.00 CORON ATHEROSCLER NOS TYPE VESSEL, NATIV 02/21/2017 Ot 427.31 ATRIAL FIBRILLATION 02/21/2017 Ot 786.50 CHEST PAIN NOS 02/21/2017 Ot 429.3 CARDIOMEGALY 02/21/2017 Ot 786.05 SHORTNESS OF BREATH 02/21/2017 DARRION WORTHINGTON MD Ot 733.00 OSTEOPOROSIS NOS 02/21/2017 DARRION WORTHINGTON MD Ot 733.90 BONE CARTILAGE DIS NOS 02/21/2017 Ot 719.41 JOINT PAIN- SHLDER 02/21/2017 EUNICE BURGOS MD Ot 272.4 HYPERLIPIDEMIA NEC/NOS 02/21/2017 EUNICE BURGOS MD Ot 401.9 HYPERTENSION NOS 02/21/2017 EUNICE BURGOS MD Ot 414.00 CORON ATHEROSCLER NOS TYPE VESSEL, NATIV 02/21/2017 AUBREY GRIFFIN, EUNICE Carlson Ot 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 W O CEREBRAL IN 02/21/2017 GRZEGORZ TATE FOZIA K Ot 272.4 HYPERLIPIDEMIA NEC/NOS 02/21/2017 FOZIA MILAN Ot 401.9 HYPERTENSION NOS 02/21/2017 FOZIA MILAN Ot 414.00 CORON ATHEROSCLER NOS TYPE VESSEL, NATIV 02/21/2017 FOZIA MILAN Ot 427.31 ATRIAL FIBRILLATION 02/21/2017 GRZEGORZ TATE FOZIA K Ot 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 W O CEREBRAL IN 02/25/2017 GRZEGORZ TATE FOZIA K Ot I10 ESSENTIAL (PRIMARY) HYPERTENSION 02/25/2017 FOZIA MILAN Ot I25.10 ATHSCL HEART DISEASE OF [place] CORONARY 02/25/2017 GRZEGORZ TATE FOZIA K Ot I48.2 CHRONIC ATRIAL FIBRILLATION 02/25/2017 GRZEGORZ TATE FOZIA K Ot I65.23 OCCLUSION AND STENOSIS OF [place] 02/28/2017 GRZEGORZ TATE FOZIA K Ot I10 ESSENTIAL (PRIMARY) HYPERTENSION 02/28/2017 GRZEGORZ TATE FOZIA K Ot I25.10 ATHSCL HEART DISEASE OF [place] CORONARY 02/28/2017 GRZEGORZ TATE FOZIA K Ot I48.2 CHRONIC ATRIAL FIBRILLATION 02/28/2017 GRZEGORZ TATE FOZIA K Ot I65.23 OCCLUSION AND STENOSIS OF [place] 03/04/2017 GRZEGORZ TATE FOZIA K Ot I10 ESSENTIAL (PRIMARY) HYPERTENSION 03/04/2017 GRZEGORZ TATE FOZIA Rahel Ot I25.10 ATHSCL HEART DISEASE OF [place] CORONARY 03/04/2017 GRZEGORZ TATE FOZIA Rahel Ot I48.2 CHRONIC ATRIAL FIBRILLATION 03/04/2017 GRZEGORZ TATE FOZIA K Ot I65.23 OCCLUSION AND STENOSIS OF [place] 03/06/2017 GRZEGORZ TATE FOZIA K Ot I10 ESSENTIAL (PRIMARY) HYPERTENSION 03/06/2017 NIKITA MILANTH K Ot I25.10 ATHSCL HEART DISEASE OF [place] CORONARY 03/06/2017 GRZEGORZ TATE FOZIA Mcginnis Ot I48.2 CHRONIC ATRIAL FIBRILLATION 03/06/2017 KRISSYAYDEN TATE, FOZIA Mcginnis Ot I65.23 OCCLUSION AND STENOSIS OF [place] 03/08/2017 DEEPAK HENSLEY APRN Ot Z12.31 ENCNTR SCREEN MAMMOGRAM FOR MALIGNANT NE 03/08/2017 DEEPAK HENSLEY APRN Ot Z12.31 ENCNTR SCREEN MAMMOGRAM FOR MALIGNANT NE 03/16/2017 GARVEY-AYDEN TATE FOZIA Rahel Ot I10 ESSENTIAL (PRIMARY) HYPERTENSION 03/16/2017 GARVEY-AYDEN TATE FOZIA Mcginnis Ot I25.10 ATHSCL HEART DISEASE OF [place] CORONARY 03/16/2017 GRZEGORZ BEBETO FOZIA Mcginnis Ot I48.2 CHRONIC ATRIAL FIBRILLATION 03/16/2017 GARVEY-AYDEN TATE FOZIA Mcginnis Ot I65.23 OCCLUSION AND STENOSIS OF [place] 03/20/2017 KRISSYAYDEN TATE FOZIA K Ot I10 ESSENTIAL (PRIMARY) HYPERTENSION 03/20/2017 GARVEY-AYDEN TATE FOZIA Mcginnis Ot I25.10 ATHSCL HEART DISEASE OF [place] CORONARY 03/20/2017 GARVEY-AYDEN TATE FOZIA Mcginnis Ot I48.2 CHRONIC ATRIAL FIBRILLATION 03/20/2017 KRISSYAYDEN TATE FOZIA Mcginnis Ot I65.23 OCCLUSION AND STENOSIS OF [place] 04/02/2017 DEEPAK HENSLEY FIELD OPERATIONS COORDINATOR Ot N64.4 MASTODYNIA 04/02/2017 DEEPAK HENSLEY FIELD OPERATIONS COORDINATOR Ot Z12.31 ENCNTR SCREEN MAMMOGRAM FOR MALIGNANT NE 06/29/2017 Ot 429.3 CARDIOMEGALY 06/29/2017 Ot 786.05 SHORTNESS OF BREATH 06/29/2017 DARRION WORTHINGTON MD Ot 733.00 OSTEOPOROSIS NOS 06/29/2017 DARRION WORTHINGTON MD Ot 733.90 BONE CARTILAGE DIS NOS 06/29/2017 Ot 719.41 JOINT PAIN- SHLDER 06/29/2017 EUNICE BURGOS MD Ot 272.4 HYPERLIPIDEMIA NEC/NOS 06/29/2017 EUNICE BURGOS MD Ot 401.9 HYPERTENSION NOS 06/29/2017 EUNICE BURGOS MD Ot 414.00 CORON ATHEROSCLER NOS TYPE VESSEL, NATIV 06/29/2017 EUNICE BURGOS MD Ot 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 W O CEREBRAL IN 06/29/2017 GRZEGORZ TATE FOZIA Mcginnis Ot 272.4 HYPERLIPIDEMIA NEC/NOS 06/29/2017 GRZEGORZ TATE FOZIA Rahel Ot 401.9 HYPERTENSION NOS 06/29/2017 GRZEGORZ TATE FOZIA Rahel Ot 414.00 CORON ATHEROSCLER NOS TYPE VESSEL, NATIV 06/29/2017 GRZEGORZ TATE FOZIA Rahel Ot 427.31 ATRIAL FIBRILLATION 06/29/2017 GRZEGORZ TATE FOZIA Rahel Ot 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 W O CEREBRAL IN 06/29/2017 GRZEGORZ TATE FOZIA K Ot I10 ESSENTIAL (PRIMARY) HYPERTENSION 06/29/2017 GRZEGORZ TATE FOZIA K Ot I25.10 ATHSCL HEART DISEASE OF [place] CORONARY 06/29/2017 GRZEGORZ TATE FOZIA Rahel Ot I48.2 CHRONIC ATRIAL FIBRILLATION 06/29/2017 GRZEGORZ TATE OFZIA Rahel Ot I65.23 OCCLUSION AND STENOSIS OF [place] 06/29/2017 GRZEGORZ TATE FOZIA Rahel Ot I10 ESSENTIAL (PRIMARY) HYPERTENSION 06/29/2017 GRZEGORZ TATE FOZIA Mcginnis Ot I25.10 ATHSCL HEART DISEASE OF [place] CORONARY 06/29/2017 GRZEGORZ TATE FOZIA Mcginnis Ot I48.2 CHRONIC ATRIAL FIBRILLATION 06/29/2017 GRZEGORZ TATE FOZIA Mcginnis Ot I65.23 OCCLUSION AND STENOSIS OF [place] 06/29/2017 DEEPAK HENSLEY FIELD OPERATIONS COORDINATOR Ot N64.4 MASTODYNIA 06/29/2017 DEEPAK HENSLEY FIELD OPERATIONS COORDINATOR Ot Z12.31 ENCNTR SCREEN MAMMOGRAM FOR MALIGNANT NE 07/25/2017 CAITLYN GRIFFIN, BERTHA Bhakta Ot J44.9 CHRONIC OBSTRUCTIVE PULMONARY DISEASE, U 08/29/2017 PARTH SALAZAR MD Ot 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, 08/29/2017 PARTH SALAZAR MD Ot G93.89 OTHER SPECIFIED DISORDERS OF BRAIN 08/29/2017 PARTH SALAZAR MD Ot 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00 CORON ATHEROSCLER NOS TYPE VESSEL, NATIV 04/28/2018 EUNICE BURGOS MD Ot 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 W O CEREBRAL IN 04/28/2018 FOZIA MILAN Ot 272.4 HYPERLIPIDEMIA NEC/NOS 04/28/2018 FOZIA MILAN Ot 401.9 HYPERTENSION NOS 04/28/2018 FOZIA MILAN Ot 414.00 CORON ATHEROSCLER NOS TYPE VESSEL, NATIV 04/28/2018 FOZIA MILAN Ot 427.31 ATRIAL FIBRILLATION 04/28/2018 FOZIA MILAN Ot 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 W O CEREBRAL IN 04/28/2018 FOZIA MILAN Ot I10 ESSENTIAL (PRIMARY) HYPERTENSION 04/28/2018 FOZIA MILAN Ot I25.10 ATHSCL HEART DISEASE OF [place] CORONARY 04/28/2018 FOZIA MILAN Ot I48.2 CHRONIC ATRIAL FIBRILLATION 04/28/2018 FOZIA MILAN Ot I65.23 OCCLUSION AND STENOSIS OF [place] 04/28/2018 FOZIA MILAN Ot I10 ESSENTIAL (PRIMARY) HYPERTENSION 04/28/2018 FOZIA MILAN Ot I25.10 ATHSCL HEART DISEASE OF [place] CORONARY 04/28/2018 FOZIA MILAN Ot I48.2 CHRONIC ATRIAL FIBRILLATION 04/28/2018 FOZIA MILAN Ot I65.23 OCCLUSION AND STENOSIS OF [place] 04/28/2018 DEEPAK HENSLEY APRN Ot N64.4 MASTODYNIA 04/28/2018 DEEPAK HENSLEY APRN Ot Z12.31 ENCNTR SCREEN MAMMOGRAM FOR MALIGNANT NE 04/28/2018 BERTHA BRADY MD Ot J44.9 CHRONIC OBSTRUCTIVE PULMONARY DISEASE, U 04/28/2018 PARTH SALAZAR MD Ot 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 Results Test Result Range Complete blood count (CBC) with automated white blood cell (WBC) differential - 09/06/16 13:21 Blood leukocytes automated count (number/volume) 8.2 10*3/uL 4.3-11.0 Blood erythrocytes automated count (number/volume) 4.58 10*6/uL 4.35-5.85 Venous blood hemoglobin measurement (mass/volume) 14.8 g/dL 11.5-16.0 Blood hematocrit (volume fraction) 43 % 35-52 Automated erythrocyte mean corpuscular volume 94 [foz_us] 80-99 Automated erythrocyte mean corpuscular hemoglobin (mass per erythrocyte) 32 pg 25-34 Automated erythrocyte mean corpuscular hemoglobin concentration measurement ( mass/volume) 34 g/dL 32-36 Automated erythrocyte distribution width ratio 14.2 % 10.0-14.5 Automated blood platelet count (count/volume) 203 10*3/uL 130-400 Automated blood platelet mean volume measurement 9.3 [foz_us] 7.4-10.4 Automated blood neutrophils/100 leukocytes 63 % 42-75 Automated blood lymphocytes/100 leukocytes 23 % 12-44 Blood monocytes/100 leukocytes 11 % 0-12 Automated blood eosinophils/100 leukocytes 3 % 0-10 Automated blood basophils/100 leukocytes 0 % 0-10 Blood neutrophils automated count (number/volume) 5.2 10*3 1.8-7.8 Blood lymphocytes automated count (number/volume) 1.9 10*3 1.0-4.0 Blood monocytes automated count (number/volume) 0.9 10*3 0.0-1.0 Automated eosinophil count 0.2 10*3/uL 0.0-0.3 Automated blood basophil count (count/volume) 0.0 10*3/uL 0.0-0.1 PT panel in platelet poor plasma by coagulation assay - 09/06/16 13:38 Prothrombin time (PT) in platelet poor plasma by coagulation assay 12.8 s 12.2-14.7 INR in platelet poor plasma or blood by coagulation assay 1.0 0.8-1.4 Activated partial thromboplastin time (aPTT) in platelet poor plasma bycoagulation assay - 09/06/16 13:38 Activated partial thromboplastin time (aPTT) in platelet poor plasma bycoagulation assay 28 s 24-35 Fibrin D-dimer FEU measurement in platelet poor plasma (mass/volume) - 13:38 Fibrin D-dimer FEU measurement in platelet poor plasma (mass/volume) 1.52 ug/mL 0.00-0.49 Comprehensive metabolic panel - 09/06/16 13:38 Serum or plasma sodium measurement (moles/volume) 139 mmol/L 135-145 Serum or plasma potassium measurement (moles/volume) 4.4 mmol/L 3.6-5.0 Serum or plasma chloride measurement (moles/volume) 104 mmol/L 98-107 Carbon dioxide 26 mmol/L 21-32 Serum or plasma anion gap determination (moles/volume) 9 mmol/L 5-14 Serum or plasma urea nitrogen measurement (mass/volume) 17 mg/dL 7-18 Serum or plasma creatinine measurement (mass/volume) 0.99 mg/dL 0.60-1.30 Serum or plasma urea nitrogen/creatinine mass ratio 17 NRG Serum or plasma creatinine measurement with calculation of estimated glomerular filtration rate 54 NRG Serum or plasma glucose measurement (mass/volume) 85 mg/dL 70-105 Serum or plasma calcium measurement (mass/volume) 9.3 mg/dL 8.5-10.1 Serum or plasma total bilirubin measurement (mass/volume) 0.6 mg/dL 0.1-1.0 Serum or plasma alkaline phosphatase measurement (enzymatic activity/volume) 62 U/L 40-136 Serum or plasma aspartate aminotransferase measurement (enzymatic activity/ volume) 21 U/L 5-34 Serum or plasma alanine aminotransferase measurement (enzymatic activity/volume ) 17 U/L 0-55 Serum or plasma protein measurement (mass/volume) 6.8 g/dL 6.4-8.2 Serum or plasma albumin measurement (mass/volume) 3.9 g/dL 3.2-4.5 Serum or plasma troponin i.cardiac measurement (mass/volume) - 09/06/16 13:38 Serum or plasma troponin i.cardiac measurement (mass/volume) < ng/ mL <0.30 THYROID STIMULATING HORMONE - 09/06/16 13:38 THYROID STIMULATING HORMONE 1.50 u[iU]/mL 0.35-4.94 Serum or plasma thyroxine (T4) free measurement (mass/volume) - 09/06/16 13:38 Serum or plasma thyroxine (T4) free measurement (mass/volume) 1.19 ng/dL 0.70-1.48 Complete urinalysis with reflex to culture - 09/06/16 14:35 Urine color determination YELLOW NRG Urine clarity determination CLEAR NRG Urine pH measurement by test strip 7 5-9 Specific gravity of urine by test strip 1.005 1.016- 1.022 Urine protein assay by test strip, semi-quantitative NEGATIVE NEGATIVE Urine glucose detection by automated test strip NEGATIVE NEGATIVE Erythrocytes detection in urine sediment by light microscopy NEGATIVE NEGATIVE Urine ketones detection by automated test strip NEGATIVE NEGATIVE Urine nitrite detection by test strip NEGATIVE NEGATIVE Urine total bilirubin detection by test strip NEGATIVE NEGATIVE Urine urobilinogen measurement by automated test strip (mass/volume) NORMAL NORMAL Urine leukocyte esterase detection by dipstick 2+ NEGATIVE Automated urine sediment erythrocyte count by microscopy (number/high power field) NONE NRG Automated urine sediment leukocyte count by microscopy (number/high power field ) [HPF] NRG Bacteria detection in urine sediment by light microscopy NEGATIVE NRG Squamous epithelial cells detection in urine sediment by light microscopy RARE NRG Crystals detection in urine sediment by light microscopy NONE NRG Casts detection in urine sediment by light microscopy NONE NRG Mucus detection in urine sediment by light microscopy NEGATIVE NRG Complete urinalysis with reflex to culture NO NRG Complete blood count (CBC) with automated white blood cell (WBC) differential - 09/11/16 05:30 Blood leukocytes automated count (number/volume) 6.2 10*3/uL 4.3-11.0 Blood erythrocytes automated count (number/volume) 4.33 10*6/uL 4.35-5.85 Venous blood hemoglobin measurement (mass/volume) 13.9 g/dL 11.5-16.0 Blood hematocrit (volume fraction) 41 % 35-52 Automated erythrocyte mean corpuscular volume 95 [foz_us] 80-99 Automated erythrocyte mean corpuscular hemoglobin (mass per erythrocyte) 32 pg 25-34 Automated erythrocyte mean corpuscular hemoglobin concentration measurement ( mass/volume) 34 g/dL 32-36 Automated erythrocyte distribution width ratio 14.2 % 10.0-14.5 Automated blood platelet count (count/volume) 208 10*3/uL 130-400 Automated blood platelet mean volume measurement 9.2 [foz_us] 7.4-10.4 Automated blood neutrophils/100 leukocytes 63 % 42-75 Automated blood lymphocytes/100 leukocytes 23 % 12-44 Blood monocytes/100 leukocytes 10 % 0-12 Automated blood eosinophils/100 leukocytes 4 % 0-10 Automated blood basophils/100 leukocytes 0 % 0-10 Blood neutrophils automated count (number/volume) 3.9 10*3 1.8-7.8 Blood lymphocytes automated count (number/volume) 1.4 10*3 1.0-4.0 Blood monocytes automated count (number/volume) 0.6 10*3 0.0-1.0 Automated eosinophil count 0.2 10*3/uL 0.0-0.3 Automated blood basophil count (count/volume) 0.0 10*3/uL 0.0-0.1 PT panel in platelet poor plasma by coagulation assay - 09/11/16 05:30 Prothrombin time (PT) in platelet poor plasma by coagulation assay 27.6 s 12.2-14.7 INR in platelet poor plasma or blood by coagulation assay 2.6 0.8-1.4 Comprehensive metabolic panel - 09/11/16 05:30 Serum or plasma sodium measurement (moles/volume) 139 mmol/L 135-145 Serum or plasma potassium measurement (moles/volume) 4.2 mmol/L 3.6-5.0 Serum or plasma chloride measurement (moles/volume) 108 mmol/L 98-107 Carbon dioxide 22 mmol/L 21-32 Serum or plasma anion gap determination (moles/volume) 9 mmol/L 5-14 Serum or plasma urea nitrogen measurement (mass/volume) 24 mg/dL 7-18 Serum or plasma creatinine measurement (mass/volume) 0.93 mg/dL 0.60-1.30 Serum or plasma urea nitrogen/creatinine mass ratio 26 NRG Serum or plasma creatinine measurement with calculation of estimated glomerular filtration rate 58 NRG Serum or plasma glucose measurement (mass/volume) 89 mg/dL 70-105 Serum or plasma calcium measurement (mass/volume) 8.9 mg/dL 8.5-10.1 Serum or plasma total bilirubin measurement (mass/volume) 0.3 mg/dL 0.1-1.0 Serum or plasma alkaline phosphatase measurement (enzymatic activity/volume) 63 U/L 40-136 Serum or plasma aspartate aminotransferase measurement (enzymatic activity/ volume) 82 U/L 5-34 Serum or plasma alanine aminotransferase measurement (enzymatic activity/volume ) 66 U/L 0-55 Serum or plasma protein measurement (mass/volume) 6.4 g/dL 6.4-8.2 Serum or plasma albumin measurement (mass/volume) 3.5 g/dL 3.2-4.5 Complete blood count (CBC) with automated white blood cell (WBC) differential - 09/12/16 05:06 Blood leukocytes automated count (number/volume) 6.6 10*3/uL 4.3-11.0 Blood erythrocytes automated count (number/volume) 4.31 10*6/uL 4.35-5.85 Venous blood hemoglobin measurement (mass/volume) 13.5 g/dL 11.5-16.0 Blood hematocrit (volume fraction) 41 % 35-52 Automated erythrocyte mean corpuscular volume 94 [foz_us] 80-99 Automated erythrocyte mean corpuscular hemoglobin (mass per erythrocyte) 31 pg 25-34 Automated erythrocyte mean corpuscular hemoglobin concentration measurement ( mass/volume) 33 g/dL 32-36 Automated erythrocyte distribution width ratio 14.2 % 10.0-14.5 Automated blood platelet count (count/volume) 215 10*3/uL 130-400 Automated blood platelet mean volume measurement 9.2 [foz_us] 7.4-10.4 Automated blood neutrophils/100 leukocytes 59 % 42-75 Automated blood lymphocytes/100 leukocytes 28 % 12-44 Blood monocytes/100 leukocytes 9 % 0-12 Automated blood eosinophils/100 leukocytes 4 % 0-10 Automated blood basophils/100 leukocytes 1 % 0-10 Blood neutrophils automated count (number/volume) 3.9 10*3 1.8-7.8 Blood lymphocytes automated count (number/volume) 1.8 10*3 1.0-4.0 Blood monocytes automated count (number/volume) 0.6 10*3 0.0-1.0 Automated eosinophil count 0.3 10*3/uL 0.0-0.3 Automated blood basophil count (count/volume) 0.0 10*3/uL 0.0-0.1 PT panel in platelet poor plasma by coagulation assay - 09/12/16 05:06 Prothrombin time (PT) in platelet poor plasma by coagulation assay 26.0 s 12.2-14.7 INR in platelet poor plasma or blood by coagulation assay 2.4 0.8-1.4 Comprehensive metabolic panel - 09/12/16 05:06 Serum or plasma sodium measurement (moles/volume) 140 mmol/L 135-145 Serum or plasma potassium measurement (moles/volume) 4.2 mmol/L 3.6-5.0 Serum or plasma chloride measurement (moles/volume) 109 mmol/L 98-107 Carbon dioxide 20 mmol/L 21-32 Serum or plasma anion gap determination (moles/volume) 11 mmol/L 5-14 Serum or plasma urea nitrogen measurement (mass/volume) 23 mg/dL 7-18 Serum or plasma creatinine measurement (mass/volume) 0.85 mg/dL 0.60-1.30 Serum or plasma urea nitrogen/creatinine mass ratio 27 NRG Serum or plasma creatinine measurement with calculation of estimated glomerular filtration rate > NRG Serum or plasma glucose measurement (mass/volume) 86 mg/dL 70-105 Serum or plasma calcium measurement (mass/volume) 8.8 mg/dL 8.5-10.1 Serum or plasma total bilirubin measurement (mass/volume) 0.3 mg/dL 0.1-1.0 Serum or plasma alkaline phosphatase measurement (enzymatic activity/volume) 60 U/L 40-136 Serum or plasma aspartate aminotransferase measurement (enzymatic activity/ volume) 63 U/L 5-34 Serum or plasma alanine aminotransferase measurement (enzymatic activity/volume ) 59 U/L 0-55 Serum or plasma protein measurement (mass/volume) 6.3 g/dL 6.4-8.2 Serum or plasma albumin measurement (mass/volume) 3.6 g/dL 3.2-4.5 PT panel in platelet poor plasma by coagulation assay - 09/13/16 05:17 Prothrombin time (PT) in platelet poor plasma by coagulation assay 27.9 s 12.2-14.7 INR in platelet poor plasma or blood by coagulation assay 2.6 0.8-1.4 Liver function panel (serum or plasma alk phos, alb, total and direct bili, total protein, ALT, AST) - 09/13/16 05:17 Serum or plasma total bilirubin measurement (mass/volume) 0.4 mg/dL 0.1-1.0 Serum or plasma alkaline phosphatase measurement (enzymatic activity/volume) 64 U/L 40-136 Serum or plasma aspartate aminotransferase measurement (enzymatic activity/ volume) 46 U/L 5-34 Serum or plasma alanine aminotransferase measurement (enzymatic activity/volume ) 54 U/L 0-55 Serum or plasma protein measurement (mass/volume) 6.2 g/dL 6.4-8.2 Serum or plasma albumin measurement (mass/volume) 3.5 g/dL 3.2-4.5 Bilirubin direct 0.1 mg/dL 0.0-0.3 Serum or plasma indirect bilirubin measurement (mass/volume) 0.3 mg/ dL NRG PT panel in platelet poor plasma by coagulation assay - 09/14/16 06:17 Prothrombin time (PT) in platelet poor plasma by coagulation assay 29.5 s 12.2-14.7 INR in platelet poor plasma or blood by coagulation assay 2.8 0.8-1.4 PT panel in platelet poor plasma by coagulation assay - 09/15/16 05:05 Prothrombin time (PT) in platelet poor plasma by coagulation assay 32.4 s 12.2-14.7 INR in platelet poor plasma or blood by coagulation assay 3.2 0.8-1.4 [id number] - 08/28/17 13:52 Serum or plasma urea nitrogen measurement (mass/volume) 21 mg/dL 7-18 Serum or plasma creatinine measurement (mass/volume) 1.08 mg/dL 0.60-1.30 Serum or plasma urea nitrogen/creatinine mass ratio 19 NRG Serum or plasma creatinine measurement with calculation of estimated glomerular filtration rate 49 NRG Encounters ACCT No. Visit Date/Time Discharge Status Pt. Type Provider Facility Loc./Unit Complaint [id number] 05/12/2018 05:41:00 05/12/2018 15:00:00 DIS Outpatient NURIS PETERS MD [facility] PREOP COLONOSCOPY [id number] 04/28/2018 09:41:00 04/28/2018 23:59:59 CLS Outpatient BERTHA BRADY MD [facility] RAD SCREENING [id number] 08/28/2017 13:36:00 08/28/2017 23:59:59 CLS Outpatient PARTH SALAZAR MD [facility] RAD ASYMMETRICAL RT HEARING LOSS [id number] 07/03/2017 12:42:00 07/03/2017 23:59:59 CLS Outpatient BERTHA BRADY MD [facility] RT COPD [id number] 03/12/2017 08:44:00 03/12/2017 23:59:59 CLS Outpatient DEEPAK HENSLEY APRN [facility] RAD SCREENING Z12.31 [id number] 02/27/2017 07:24:00 02/27/2017 23:59:59 CLS Outpatient FOZIA MILAN [facility] CARD AF I48.2, CAD I25.10 [id number] 02/22/2017 09:37:00 02/22/2017 23:59:59 CLS Outpatient FOZIA MILAN [facility] CARD AF I48.2, CAD I25.10 [id number] 11/13/2016 10:29:00 11/13/2016 13:47:00 DIS Outpatient BERTHA BRADY MD [facility] REHAB CVA [id number] 09/10/2016 15:00:00 09/15/2016 11:33:00 DIS Inpatient DINO GRIFFIN, SANJU Zuluaga [facility] IRF CVA W/ EXPRESSIVE APHASIA [id number] 09/06/2016 12:57:00 09/06/2016 18:40:00 DIS Emergency RICARDO GRIFFIN, GRIFFIN Kwon [facility] ER STROKE SYMPTOMS [id number] 03/23/2015 07:38:00 03/24/2015 14:55:00 DIS Outpatient AUBREY GRIFFIN, EUNICE Carlson [facility] CATH CP,ABNORMAL STRESS, CAD [id number] 03/09/2015 11:46:00 03/09/2015 23:59:59 CLS Outpatient FOZIA MILAN [facility] CARD HTN,HLP [id number] 11/11/2014 10:01:00 11/11/2014 23:59:59 CLS Outpatient EUNICE BURGOS MD [facility] CARD CAD CAIN HTN HLE [id number] 07/21/2013 09:55:00 07/21/2013 23:59:59 CLS Outpatient [id number] 07/17/2013 08:54:00 07/17/2013 23:59:59 CLS Outpatient DARRION WORTHINGTON MD [facility] RAD OSTEOPOROSIS [id number] 03/29/2013 09:28:00 03/29/2013 14:45:00 DIS Inpatient DARRION WORTHINGTON MD [facility] 4TH ACUTE ANGIOEDEMA [id number] 05/16/2018 08:00:00 PEN Preadmit FRAN GRIFFIN, NURIS Bhakta [facility] ENDO SCREENING [id number] 08/02/2015 12:19:00 Document Registration [id number] 08/02/2015 12:19:00 Document Registration [id number] 08/02/2015 12:19:00 Document Registration [id number] 08/02/2015 12:19:00 Document Registration [id number] 08/02/2015 12:19:00 Document Registration [id number] 08/02/2015 12:19:00 Document Registration [id number] 09/30/2014 08:03:00 Document Registration [id number] 08/21/2012 16:29:00 Document Registration [id number] 11/19/2011 07:41:00 Document Registration [id number] 10/17/2011 07:36:00 Document Registration [id number] 10/08/2011 09:02:00 Document Registration [id number] 04/19/2011 10:09:00 Document Registration [id number] 09/20/2010 05:40:00 Document Registration [id number] 09/15/2010 11:56:00 Document Registration [id number] 08/29/2010 12:17:00 Document Registration [id number] 01/04/2010 13:26:00 Document Registration [id number] 01/25/2009 10:16:00 Document Registration [id number] 08/17/2008 07:07:00 Document Registration
[2018-05-16 07:45] VITALS: BP 130/89
[2018-05-16] MEDS ORDERED: fentaNYL INJECTION 100 MCG/2 ML AMP IVP ONE (08:00)
[2018-05-16] MEDS ORDERED: MIDAZOLAM 2 MG/2 ML (VERSED) VIAL IVP ONE (08:00)
[2018-05-16] MEDS ORDERED: D5 LR IV SOLUTION 1,000 ML IV PRN (08:00)
--- NOTE | 2018-05-16 08:12 | Pre-Op Note & Conscious Sedat ---
Pre-Operative Progress Note H&P Reviewed The H&P was reviewed, patient examined and no changes noted. Date H&P Reviewed: May 16, 2018 Time H&P Reviewed: 08:12 Conscious Sedation Pre-Proced ASA Score 3 For ASA 3 and 4: Consider anesthesia and medical clearance. Also, for patients with a history of failed moderate sedation consider anesthesia. Airway Lungs Heart ASA score ASA 1: a normal healthy patient ASA 2: a patient with a mild systemic disease (mid diabetes, controlled hypertension, obesity ASA 3: a patient with a severe systemic disease that limits activity (angina , COPD, prior Myocardial infarction) ASA 4: a patient with an incapacitating disease that is a constant threat to life (CHF, renal failure) ASA 5: a moribund patient not expected to survive 24 hrs. (ruptured aneurysm) ASA 6: a declared brain patient whose organs are being harvested. For emergent operations, add the letter E after the classification Mallampati Classification Grade 3 Sedation Plan Analgesia, Amnesia, Plan communicated to team members, Discussed options with patient/fam, Discussed risks with patient/fam The patient is an appropriate candidate to undergo the planned procedure, sedation, and anesthesia. The patient immediately re-assessed prior to indication. NURIS PETERS MD May 16, 2018 08:12
[2018-05-16] MEDS ORDERED: LIDOCAINE JELLY 2% 6 ML SYRINGE ONE (08:27)
[2018-05-16] MEDS ORDERED: fentaNYL INJECTION 100 MCG/2 ML AMP ONE (08:28)
[2018-05-16] MEDS ORDERED: MIDAZOLAM 2 MG/2 ML (VERSED) VIAL ONE ×2 (08:28)
[2018-05-16] MEDS ORDERED: LIDOCAINE JELLY 2% 6 ML SYRINGE TOP ONE (08:30)
[2018-05-16] MEDS ORDERED: ONDANSETRON 4 MG/2 ML (SDV) Z0FRAN ONE (08:38)
[2018-05-16] MEDS ORDERED: ONDANSETRON 4 MG/2 ML (SDV) Z0FRAN IVP ONE (09:15)
[2018-05-16 09:30] VITALS: BP_SYST 124; BP_SYST 130; BP_DIAS 81; BP_DIAS 89
[2018-05-16 10:00] VITALS: BP 131/87
[2018-05-16 10:10] VITALS: BP 131/87
--- NOTE | 2018-05-16 11:02 | OPERATIVE REPORT ---
DATE OF SERVICE: COLONOSCOPY SUMMARY INDICATION FOR THE PROCEDURE: The patient is a 77-year-old white female referred for surveillance colonoscopy due to a past history of colon polyps. The patient was placed in the left lateral decubitus position. Prior to doing the colonoscopy, digital rectal evaluation was performed. Anal sphincter tone was normal and the perianal reflexes were intact. No abnormalities were noted on visual inspection of the anal canal or distal rectal vault. The colonoscope was then inserted into the rectum under direct visualization and advanced to the cecum. The cecum was identified by identification of the ileocecal cecal strap. Photographic documentation was obtained. A careful inspection was made. The scope was withdrawn. FINDINGS: There was no evidence for internal or external hemorrhoids. The rectum was unremarkable. Two small diminutive hyperplastic appearing polyps were noted in the distal sigmoid colon. Because of the patient's age and anticoagulant therapy, the risk of polyp removal/bleeding is higher than potential benefits, so they were left. Several small sigmoid diverticula were present without evidence for diverticulitis. No other sigmoid colonic abnormalities were appreciated. The descending colon was unremarkable. Two small polyps were noted, the first one 3 mm in the distal transverse colon, another 5 mm adenomatous appearing polyp was noted in the proximal descending colon. Both were biopsied and ablated with no subsequent blood loss and submitted for histopathology. The hepatic flexure, ascending colon and cecum were unremarkable. ASSESSMENT: 1. Mild diverticular disease confined to the sigmoid colon was present without evidence for diverticulitis. 2. Two small adenomatous appearing polyps were removed, one from the proximal descending colon and the other one from the distal transverse colon. They were biopsied and ablated and submitted for histopathology. Considering this patient's age and medical comorbidities, I would not recommend future surveillance colonoscopy. I thank you for the referral of this pleasant lady. 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
== END 2018-05-16 10:15 | disposition home or self-care (01) ==
LOC: ENDO 07:34
PROVIDERS: ATTEND Internal Medicine
DX: Z12.11 Encounter for screening for malignant neoplasm of colon (principal); D12.3 Benign neoplasm of transverse colon; K63.5 Polyp of colon; K57.30 Diverticulosis of large intestine without perforation or abscess without bleeding; I25.10 Atherosclerotic heart disease of native coronary artery without angina pectoris; I10 Essential (primary) hypertension; E78.5 Hyperlipidemia, unspecified; Z87.891 Personal history of nicotine dependence; Z95.5 Presence of coronary angioplasty implant and graft; Z79.01 Long term (current) use of anticoagulants; Z79.899 Other long term (current) drug therapy

== ENCOUNTER → 2019-01-19 | Outpatient (CLI) | payer MEDICARE, OTHER | LOC: CARD 08:41 | PROVIDERS: ATTEND Internal Medicine Cardiovascular Disease | DX: I25.10 Atherosclerotic heart disease of native coronary artery without angina pectoris (principal); R07.89 Other chest pain; E78.5 Hyperlipidemia, unspecified; I10 Essential (primary) hypertension | CPT/HCPCS: 93306 ==

== ENCOUNTER → 2019-09-09 | Outpatient (CLI) | payer MEDICARE, OTHER ==
[~2019-09-09] VITALS: Ht 157 cm; Wt 71.0 kg
[~2019-09-09] MED LIST changes: +CATHETER FLUSH 10 ML SYR IV PRN; +REGADENOSON 0.4 MG/5 ML SYR (LEXISCAN) IV ONE
[2019-09-09 13:30] VITALS: BP 151/119
--- NOTE | 2019-09-09 18:45 | STRESS TEST ---
DATE OF SERVICE: LEXISCAN MYOVIEW STRESS TEST REPORT REFERRING PHYSICIAN: Dr. Hess. Baseline heart rate is 62. Baseline blood pressure 151/110. Baseline EKG is atrial fibrillation with no ischemic changes. In summary, the patient was injected with 10.05 mCi of technetium-99 Myoview and the resting images were obtained. Then, the patient received 0.4 mg of Lexiscan followed by 27.1 mCi of technetium-99 Myoview. Throughout the test, there were no EKG changes. The resting and stress images were reviewed and compared in the short axis, horizontal long axis, and vertical long axis views. Review of the images showed breast attenuation affecting the quality of the images, there is mild decreased uptake involving the mid to apical anterolateral wall with subtle reversibility. SSS is 8, SDS 6, TID value 1.14. On the gated images, the left ventricle appeared to be in normal size with normal contractility. Calculated ejection fraction 76%. Gated images are unreliable due to underlying atrial fibrillation. CONCLUSION: 1. The patient tolerated Lexiscan well. 2. Breast attenuation with decreased uptake involving the mid to apical anterolateral wall with mild reversibility. 3. Normal left ventricular size with normal contractility. Calculated ejection fraction 76%, gated images are unreliable due to underlying atrial fibrillation. Job ID: [id number] DocumentID: [id number] Dictated Date: 09/09/2019 16:22:55 Health It Specialist Date: 09/09/2019 18:43:59 Dictated By: EUNICE BURGOS MD
== END ==
LOC: CARD 11:59
PROVIDERS: ATTEND Internal Medicine Cardiovascular Disease
DX: I10 Essential (primary) hypertension (principal); I48.91 Unspecified atrial fibrillation; I65.29 Occlusion and stenosis of unspecified carotid artery; E78.5 Hyperlipidemia, unspecified
CPT/HCPCS: 78452; 93017

== ENCOUNTER 2019-09-16 10:56 | Day surgery (SDC) | payer MEDICARE, OTHER ==
[~2019-09-16] VITALS: Ht 162.6 cm; Wt 71.5 kg
[2019-09-16] VITALS (10 sets, daily range): BP systolic 113–143; BP diastolic 66–81
[~2019-09-16 10:56] MED LIST changes: -CATHETER FLUSH 10 ML SYR IV PRN; -REGADENOSON 0.4 MG/5 ML SYR (LEXISCAN) IV ONE
[2019-09-16] MEDS ORDERED: LIDOCAINE 1% INJ 20 ML 20 ML VIAL ONE (11:06)
[2019-09-16] MEDS ORDERED: NS IV 1000 ML 1,000 ML ONE ×2 (11:06→12:55)
[2019-09-16] MEDS ORDERED: HEParin (CATH LAB) 2,000 ML IV ONE (11:06)
[2019-09-16] MEDS ORDERED: NS IV 1000 ML 1,000 ML IV SCH ×2 (11:07→13:32)
[2019-09-16 11:31] LABS: HEMOGLOBIN 14.3 G/DL (11.5-16.0); MEAN PLATELET VOLUME 8.7 FL (7.4-10.4); RED CELL DISTRIBUTION WIDTH 14.5 % (10.0-14.5); WHITE BLOOD COUNT 8.1 10^3/uL (4.3-11.0)
[2019-09-16 11:39] LABS: CLARITY,URINE SL CLOUDY; COLOR,URINE YELLOW; GLUCOSE, URINE (UA) NEGATIVE (NEGATIVE); KETONES,URINE NEGATIVE (NEGATIVE); LEUKOCYTE ESTERASE ,URINE 2+ (NEGATIVE); NITRITE,URINE NEGATIVE (NEGATIVE); PH,URINE 5.5 (5-9); PROTEIN,URINE 1+ (NEGATIVE)
[2019-09-16] MEDS ORDERED: NITR1PAT62 TD (11:44)
[2019-09-16] MEDS ORDERED: OMEG100032 PO (11:44)
[2019-09-16] MEDS ORDERED: ATOR20TA66 PO (11:44)
[2019-09-16] MEDS ORDERED: AMLO10TA7 PO (11:44)
[2019-09-16] MEDS ORDERED: WARF2TAB8 PO (11:44)
[2019-09-16] MEDS ORDERED: SERT100T PO (11:44)
[2019-09-16] MEDS ORDERED: MTP25TSR PO (11:44)
[2019-09-16] MEDS ORDERED: ASPI-999 PO (11:44)
[2019-09-16] MEDS ORDERED: RT-ALBUINH IH (11:44)
[2019-09-16] MEDS ORDERED: LEVO88TA54 PO (11:44)
[2019-09-16 11:50] LABS: INR 1.2 (0.8-1.4); PROTHROMBIN TIME PATIENT 15.7 SEC (12.2-14.7)
[2019-09-16 11:56] LABS: ALBUMIN 4.2 GM/DL (3.2-4.5); BILIRUBIN,TOTAL 0.4 MG/DL (0.1-1.0); CALCIUM 9.6 MG/DL (8.5-10.1); CREATININE SERUM 1.04 MG/DL (0.60-1.30); POTASSIUM 3.9 MMOL/L (3.6-5.0); TOTAL PROTEIN 7.6 GM/DL (6.4-8.2)
[2019-09-16 11:58] LABS: BACTERIA,URINE MODERATE /HPF; BILIRUBIN,URINE 1+ (NEGATIVE); RBC,URINE 0-2 /HPF
[2019-09-16] MEDS ORDERED: fentaNYL INJECTION 100 MCG/2 ML AMP ONE (12:36)
[2019-09-16] MEDS ORDERED: MIDAZOLAM 5 MG/5 ML (VERSED) VIAL ONE (12:36)
--- NOTE | 2019-09-16 12:49 | Cardiac Procedure Note-CS/ASA ---
Pre-Procedure Note Pre-Op Procedure Note H&P Reviewed The H&P was reviewed, patient examined and no changes noted. Date H&P Reviewed: Sep 16, 2019 Time H&P Reviewed: 12:49 Conscious Sedation Pre-Proced Time 12:49 ASA Score 3 For ASA 3 and 4: Consider anesthesia and medical clearance. Also, for patients with a history of failed moderate sedation consider anesthesia. Airway Lungs Heart ASA score ASA 1: a normal healthy patient ASA 2: a patient with a mild systemic disease (mid diabetes, controlled hypertension, obesity ASA 3: a patient with a severe systemic disease that limits activity (angina, COPD, prior Myocardial infarction) ASA 4: a patient with an incapacitating disease that is a constant threat to life (CHF, renal failure) ASA 5: a moribund patient not expected to survive 24 hrs. (ruptured aneurysm) ASA 6: a declared brain- patient whose organs are being harvested. For emergent operations, add the letter E after the classification Mallampati Classification Grade 3 Sedation Plan Analgesia, Amnesia, Plan communicated to team members, Discussed options with patient/fam, Discussed risks with patient/fam The patient is an appropriate candidate to undergo the planned procedure, sedation, and anesthesia. The patient immediately re-assessed prior to indication. EUNICE BURGOS MD Sep 16, 2019 12:49
--- NOTE | 2019-09-16 12:53 | NUR ---
PT NOW STATES SHE HAS HYPOTHYROIDISM. PREVIOUSLY DOCUMENTED NO ENDOCRINE DX'S Addendum: 09/16/19 at 1254 by MARTHA SHORT RN Amended: Links added.
--- NOTE | 2019-09-16 13:36 | Discharge Inst-Post CATH ---
Discharge Inst-CATH/EP Problems Reviewed?: Yes Post Cardiac Cath/EP D/C Inst Follow Up/Plan Appointment with Dr. Apple's office in 2-4 weeks <b>CARDIAC CATH/EP PROCEDURE DISCHARGE INSTRUCTIONS</b> ACTIVITY * Go Home directly and rest. * Limit activity of the leg (or wrist if it was used) for 7 days including aerobics, swimming, jogging, bicycling, etc. * Restrict stair-climbing for 7 days if possible, if not, climb up with your non-cath leg, then bring together on the same step. * Avoid lifting, pushing, pulling or excessive movement of the affected extremity for 7 days. * Customary sexual activity may be resumed after 2 days-use caution not to use a position that strains or causes pain to the affected extremity. * No driving for 24 hours. * NO SMOKING. * Avoid straining for bowel movements for 7 days. * Gentle walking on level ground is allowed. * Returning to work will depend on the type of procedure and the results. Your doctor will discuss this with you. CALL YOUR DOCTOR FOR ANY OF THE FOLLOWING: *If bleeding from the puncture site occurs- Apply gentle pressure to site with clean cloth and call your doctor or EMS. * If a knot or lump forms under the skin, increases in size, or causes pain. * If bruising appears to be worsening or moving further down your leg instead of disappearing. * Temperature above 101 F. CARE OF YOUR GROIN INCISION; * Bruising or purple discoloration of the skin near the puncture site is common. * You may shower only, no bathtub bathing for 5 days. Be careful to avoid slipping as your leg may feel stiff. * If a closure device was used on your femoral artery, please see the attached guide regarding care of the device and your leg. * Leave dressing on FOR 24 hours. CARE OF YOUR WRIST INCISION; * Bruising or purple discoloration of the skin near the puncture site is common. * You may shower. * DO NOT submerge wrist. * Leave dressing on FOR 24 hours. EUNICE APPLE MD Sep 16, 2019 13:36
--- NOTE | 2019-09-16 13:40 | Cardiac Cath Report ---
Cardiac Cath Report Physician (s)/Batch Dumper (s) Physician EUNICE BURGOS MD Pre-Procedure Diagnosis Pre-Procedure Diagnosis: Coronary artery disease Post-Procedure Note Procedure Start Date: Sep 16, 2019 Name of Procedure: Left heart catheterization Abdominal aortogram Findings/Procedure Note PROCEDURE NOTE: 79-year-old lady with history of coronary artery disease, had an abnormal stress test scheduled for cardiac catheterization possible PTCA. After explaining the procedure to the patient, all pros and cons were explained, all questions were answered. The patient signed the consent and then she was placed on the cardiac catheterization laboratory. Groin was prepped SL fashion local anesthesia was used. Sheath placed in the right femoral artery. Gil right and left catheter were used to access the coronary system. I had difficulties advancing the catheter, long exchange wire was used, Gil right prolapsed into the left ventricular cavity, pressure was better no left ventricular gram was done and I exchanged catheter into pigtail catheter and did abdominal aortogram. At the end of the procedure the sheath was removed. Closure device was used FINDINGS: Hemodynamics LV 116/14, end-diastolic pressure 14 Aorta 115/48 mean of 73 ANATOMY: Left Main is free of obstructive disease Left Anterior Descending has patent stents known to be 3 mm stent, mild disease with tortuosity no obstructive disease Left Circumflex has mild disease nonobstructive disease Right Coronory Artery dominant artery with slow flow due to small vessel disease no obstructive disease LV Gram was not done, pressure was measured Aorta evaluation done with abdominal aortogram showing hypertensive changes with consultation in the abdominal aorta no dissection or aneurysm, normal renal arteries SMA and RACHEL CONCLUSION: 1. Tortuous and calcified coronary system, patent stent in the LAD, mild disease nonobstructive disease 2. Slow flow in the right coronary artery due to small vessel disease nonobstructive disease 3. Normal left ventricular end-diastolic pressure 4. Hypertensive changes in the abdominal aorta, no dissection or aneurysm, normal renal arteries DISCUSSION AND RECOMMENDATION: Medical therapy is recommended no intervention is needed Anesthesia Type: Conscious Sedation Estimated blood loss (mL): 15 ml Contrast Amount: 37 ml Total Radiation Dose: 260 mGy Post-Procedure Diagnosis Post-operative diagnosis: Chest pain Coronary artery disease Hypertension Hyperlipidemia EUNICE BURGOS MD Sep 16, 2019 13:40
[2019-09-16] MEDS ORDERED: PATIENT MAY USE OWN MEDS, ALL PO SCH (13:45)
--- NOTE | 2019-09-16 14:20 | Diagnostic Imaging Report ---
INDICATION: Coronary artery disease. TIME OF EXAM: 11:31 a.m. Correlation is made with prior chest from 09/06/2016. The heart is mildly enlarged but stable. The lungs are clear. No infiltrate or failure is detected. No effusion or pneumothorax is seen. IMPRESSION: No acute cardiopulmonary process is detected. Dictated by: Dictated on workstation # [id number]
== END 2019-09-16 18:10 | disposition home or self-care (01) ==
LOC: CATH 10:56 → SDC 13:45 → CATH 18:10
PROVIDERS: ATTEND Internal Medicine Cardiovascular Disease
DX: I25.10 Atherosclerotic heart disease of native coronary artery without angina pectoris (principal); I10 Essential (primary) hypertension; E78.5 Hyperlipidemia, unspecified; I65.23 Occlusion and stenosis of bilateral carotid arteries; I48.21 Permanent atrial fibrillation; E03.9 Hypothyroidism, unspecified; M19.91 Primary osteoarthritis, unspecified site; I73.9 Peripheral vascular disease, unspecified; F17.210 Nicotine dependence, cigarettes, uncomplicated; I34.0 Nonrheumatic mitral (valve) insufficiency; I69.320 Aphasia following cerebral infarction; Z79.01 Long term (current) use of anticoagulants
CPT/HCPCS: 36415; 71045; 75625; 80053; 80061; 81000; 85027; 85610; 85730; 87081; 87088; 93458

== ENCOUNTER → 2019-09-24 | Outpatient (CLI) | payer MEDICARE, OTHER ==
[~2019-09-24] MED LIST changes: +AMLO10TA7 PO; +ATOR20TA66 PO; +LEVO88TA54 PO; +MTP25TSR PO; +NITR1PAT62 TD; +OMEG100032 PO; +RT-ALBUINH IH; +SERT100T PO
--- NOTE | 2019-09-24 11:37 | Diagnostic Imaging Report ---
EXAMINATION: PA and lateral chest at 10:29 a.m. INDICATION: Cough, congestion. FINDINGS: The heart is mildly enlarged but the heart does seem less prominent than noted on the prior exam of 09/16/2019. The carotid bronchovascular markings in the left lung base seen previously are again evident and no different. There is still no sign of failure, pneumonia or pleural effusion to indicate an acute abnormality. The mediastinum is not widened. The osseous structures are intact. IMPRESSION: 1. There is mild cardiomegaly but there is no evidence for an acute cardiopulmonary abnormality. 2. These results were called to Dr. Hess's office. Dictated by: Dictated on workstation # [id number]
== END ==
LOC: RAD 10:14
PROVIDERS: ATTEND Internal Medicine
DX: J44.9 Chronic obstructive pulmonary disease, unspecified (principal); I51.7 Cardiomegaly
CPT/HCPCS: 71046

== ENCOUNTER 2021-09-26 16:04 | Inpatient (IN) | payer MEDICARE, OTHER ==
[~2021-09-26] VITALS: Ht 167 cm; Wt 168.0 kg
[~2021-09-26 16:04] MED LIST changes: +AMLO-251 PO; -AMLO10TA7 PO; -ISOS30TA3 PO; +ISOS30TA82 PO; +MULT-567 PO; -MULT1TAB69 PO; +SERT-414 PO; -SERT100T8 PO
[2021-09-26 16:25] LABS: BASOPHILS # (AUTO) 0.1 10^3/uL (0.0-0.1); BASOPHILS % (AUTO) 1 % (0-10); EOSINOPHILS # (AUTO) 0.3 10^3/uL (0.0-0.3); EOSINOPHILS % (AUTO) 3 % (0-10); HEMATOCRIT 41 % (35-52); HEMOGLOBIN 13.5 g/dL (11.5-16.0); LYMPHOCYTES # (AUTO) 2.3 10^3/uL (1.0-4.0); LYMPHOCYTES % (AUTO) 22 % (12-44); MEAN CORPUSCULAR HEMOGLOBIN 31 pg (25-34); MEAN CORPUSCULAR HGB CONC 33 g/dL (32-36); MEAN CORPUSCULAR VOLUME 94 fL (80-99); MEAN PLATELET VOLUME 8.8 fL (9.0-12.2); MONOCYTES # (AUTO) 0.8 10^3/uL (0.0-1.0); MONOCYTES % (AUTO) 7 % (0-12); NEUTROPHILS % (AUTO) 66 % (42-75); PLATELET COUNT 236 10^3/uL (130-400); WHITE BLOOD COUNT 10.5 10^3/uL (4.3-11.0)
[2021-09-26 16:30] LABS: ALBUMIN 3.9 GM/DL (3.2-4.5); POTASSIUM 3.5 MMOL/L (3.6-5.0)
[2021-09-26] MEDS ORDERED: fentaNYL INJ 100 MCG/2 ML AMP IVP ONE (16:30)
[2021-09-26] MEDS ORDERED: LACTATED RINGERS 1,000 ML IV ONE ×2 (16:30→19:31)
[2021-09-26 16:31] LABS: CALCIUM 9.5 MG/DL (8.5-10.1)
[2021-09-26 16:32] LABS: PROTHROMBIN TIME PATIENT 23.5 SEC (12.2-14.7)
[2021-09-26 16:33] LABS: TOTAL PROTEIN 7.1 GM/DL (6.4-8.2)
[2021-09-26 16:34] LABS: BILIRUBIN,TOTAL 0.4 MG/DL (0.1-1.0)
[2021-09-26 16:36] LABS: CREATININE SERUM 0.99 MG/DL (0.60-1.30)
[2021-09-26 16:39] LABS: MAGNESIUM 1.6 MG/DL (1.6-2.4)
[2021-09-26] MEDS ORDERED: KETAMINE 50 MG/5 ML SYRINGE IV ONE (17:00)
--- NOTE | 2021-09-26 17:07 | Diagnostic Imaging Report ---
PROCEDURE: CT head and CT cervical spine without contrast. TECHNIQUE: Multiple contiguous axial images were obtained through the brain and cervical spine without the use of intravenous contrast. Sagittal and coronal reformations through the cervical spine were then performed. Auto Exposure Controls were utilized during the CT exam to meet ALARA standards for radiation dose reduction. INDICATION: Trauma with head and cervical spine injury CT HEAD: COMPARISON: 09/06/2016 Encephalomalacia in the posterior right frontal lobe is again noted. There has been evolution of left temporal parietal encephalomalacia with associated mild dilatation of the adjacent lateral ventricle indicating chronic nature. There is no evidence of hemorrhage. There is no CT evidence of an acute infarction. Calvarium is intact and the visualized paranasal sinuses are clear. IMPRESSION: Encephalomalacia in both hemispheres likely the result of previous insult such as infarct however no acute normality is identified. MRI has increased sensitivity for acute ischemia. CT cervical spine: Cervical spinal curvature and alignment are unremarkable. There is moderate disc space narrowing from the C4-C7 levels. Diffuse degenerative facet arthropathy is also noted however there is no evidence of an acute fracture or subluxation. No paraspinous hematoma is identified. IMPRESSION: Cervical spondylosis without CT evidence of acute cervical spinal abnormality. Dictated by: Dictated on workstation # [id number]
[2021-09-26 17:10] LABS: BILIRUBIN,URINE NEGATIVE (NEGATIVE); CLARITY,URINE CLEAR; COLOR,URINE YELLOW; GLUCOSE, URINE (UA) NEGATIVE (NEGATIVE); KETONES,URINE NEGATIVE (NEGATIVE); LEUKOCYTE ESTERASE ,URINE NEGATIVE (NEGATIVE); NITRITE,URINE NEGATIVE (NEGATIVE); PH,URINE 6.5 (5-9); PROTEIN,URINE NEGATIVE (NEGATIVE)
--- NOTE | 2021-09-26 17:15 | Diagnostic Imaging Report ---
PROCEDURE: CT thoracic and lumbar spine without contrast. TECHNIQUE: Multiple contiguous axial images were obtained through the thoracic and lumbar spine without the use of intravenous contrast. Sagittal and coronal reformations were then performed. All CT scans use one or more of the following dose optimizing techniques: automated exposure control, MA and/or KvP adjustment based on a patient size and exam type, or iterative reconstruction. INDICATION: Fall. FINDINGS: CT THORACIC: There is hyperkyphotic curvature to the thoracic spine. Vertebral body heights are maintained. No acute compression fracture is seen. Bony canal is patent. Thoracic aorta is ectatic. IMPRESSION: Thoracic spondylosis. No acute fracture is seen. CT LUMBAR SPINE: Curvature and alignment of the lumbar spine is normal. There is significant degenerative disc disease at L5-S1 with disc space narrowing noted. Vertebral body heights are maintained. No acute compression fracture is seen. Aorta and iliac vessels are heavily calcified but nonaneurysmal. There is a low-density lesion extending laterally from the left kidney, only partially included on this study and may represent a cyst. Further evaluation of this on a nonemergent basis with perhaps ultrasound could be performed. IMPRESSION: 1. Lumbar spondylosis. No acute bony abnormality is detected. 2. Left renal lesion, likely a cyst but further evaluation with renal ultrasound on a nonemergent basis would be recommended. Dictated by: Dictated on workstation # [id number]
[2021-09-26 17:17] LABS: BACTERIA,URINE NEGATIVE /HPF; SQUAMOUS EPITHELIAL CELL,UR RARE /HPF
--- NOTE | 2021-09-26 17:26 | Diagnostic Imaging Report ---
INDICATION: Fall and pelvic pain. TIME OF EXAM: 5:04 p.m. FINDINGS: AP view of the pelvis and multiple views of the bilateral hips were obtained. Femoroacetabular alignment is normal bilaterally. Both femoral heads and necks appear to be intact. There are fractures involving the right superior and inferior pubic rami. Left-sided rami are intact. The SI joints and symphysis are non-widened. IMPRESSION: Right-sided superior and inferior pubic rami fractures. No hip fracture is detected. Dictated by: Dictated on workstation # [id number]
--- NOTE | 2021-09-26 17:28 | Diagnostic Imaging Report ---
INDICATION: Fall and chest pain. TIME OF EXAM: 05:03 p.m. COMPARISON: Correlation is made with prior chest from 09/16/2019. FINDINGS: Heart is enlarged but stable. Lungs are clear of acute infiltrates. There is no effusion or pneumothorax. Bony structures appear nonacute. IMPRESSION: No acute abnormality is detected. Dictated by: Dictated on workstation # [id number]
--- NOTE | 2021-09-26 17:40 | Diagnostic Imaging Report ---
PROCEDURE: CT pelvis without contrast. TECHNIQUE: Multiple contiguous axial images were obtained through the pelvis without the use of intravenous contrast. Sagittal and coronal reformations were performed. Auto Exposure Controls were utilized during the CT exam to meet ALARA standards for radiation dose reduction. INDICATION: Pelvic fractures. FINDINGS: There is comminuted fracture involving the right pubic body. Fracture line extends into the pubic symphysis with mild displacement of fracture fragments. There is also displaced fracture of the right inferior ischial ramus with mild overriding of fragments. These are associated with moderate enlargement of the right obturator internus muscle and associated [id number] right pelvic sidewall hematoma resulting in leftward displacement of the decompressed urinary bladder. Miranda catheter is in place. Correlation with catheter output would be useful to exclude bladder hemorrhage. Otherwise, hip joints are intact, and no additional fracture is appreciated. Sacroiliac joints are also intact. IMPRESSION: Fractures involving the right pubic body and right inferior ischial ramus with displacement and moderate associated right pelvic sidewall hematoma resulting in mass effect upon the bladder. No other definite acute abnormality is seen. Dictated by: Dictated on workstation # [id number]
--- NOTE | 2021-09-26 18:29 | ED Fall/Injury ---
General Stated Complaint: R HIP FRACTURE Source: patient, EMS ([facility]) Exam Limitations: clinical condition (History of dysphagia and aphasia related to stroke.) History of Present Illness Date Seen by Provider: Sep 26, 2021 Time Seen by Provider: 16:06 Initial Comments Patient to ER by EMS from her home where she was in the garage and had a fall l anding on her right hip. She denies striking head or loss of consciousness. She is on Coumadin. She is having significant pain shortening and rotation in her right lower extremity. It was splinted by EMS and brought here after 100 mcg of fentanyl. While laying still she rates her pain as a 2 out of 10. No prior hip/Knee arthroplasty. She has had a wrist surgery by Dr. Miller. Primary care by Dr. Falk and cardiology by Dr. Apple. No history of heart attack. She follows Dr. Apple for atrial fibrillation. Allergies and Home Medications Allergies Coded Allergies: hydrochlorothiazide (Verified Allergy, Unknown, 09/10/16) Patient Home Medication List Home Medication List Reviewed: Yes Amlodipine Besylate (Amlodipine Besylate) 5 Mg Tablet, 5 MG PO HS, (Reported) Entered as Reported by: TEE HO on 09/27/211509 Last Action: Held Aspirin (Aspirin) 81 Mg Tab.chew, 81 MG PO DAILY, (Reported) Entered as Reported by: TAZ ONEIL on 09/16/191143 Last Action: Held Atorvastatin Calcium (Atorvastatin Calcium) 20 Mg Tablet, 20 MG PO HS, (Reported) Entered as Reported by: TAZ ONEIL on 09/16/191143 Last Action: Held Buspirone HCl (Buspirone HCl) 5 Mg Tablet, 5 MG PO BID, (Reported) Entered as Reported by: TEE HO on 09/27/211509 Last Action: Continued Levothyroxine Sodium (Levothyroxine Sodium) 88 Mcg Tablet, 88 MCG PO DAILY, (Reported) Entered as Reported by: TAZ ONEIL on 09/16/191143 Last Action: Continued Metoprolol Succinate (Metoprolol Succinate) 25 Mg Tab.er.24h, 25 MG PO DAILY, (Reported) Entered as Reported by: TAZ ONEIL on 09/16/191143 Last Action: Continued Sertraline HCl (Zoloft) 100 Mg Tablet, 100 MG PO HS, (Reported) Entered as Reported by: TAZ ONEIL on 09/16/191143 Last Action: Held Sertraline HCl (Sertraline HCl) 100 Mg Tablet, 50 MG PO DAILY, (Reported) Entered as Reported by: TEE HO on 09/27/211509 Last Action: Continued Warfarin Sodium (Warfarin Sodium) 2 Mg Tablet, 2 MG PO DAILY, (Reported) Entered as Reported by: TEE HO on 09/27/211509 Last Action: Continued Discontinued Medications Albuterol Sulfate (Proair Hfa) 1 Puff Puff, 2 PUFF IH Q4H PRN for WHEEZING, (Reported) Discontinued Reason: No Longer Taking Entered as Reported by: TAZ ONEIL on 09/16/191143 Last Action: Discontinued Amlodipine Besylate (Amlodipine Besylate) 10 Mg Tablet, 10 MG PO DAILY, (Reported) Discontinued Reason: No Longer Taking Entered as Reported by: TAZ ONEIL on 09/16/191143 Last Action: Discontinued Cholecalciferol (Vitamin D3) (Vitamin D3) 5,000 Unit Capsule, 5,000 UNIT PO DAILY, (Reported) Discontinued Reason: No Longer Taking Entered as Reported by: EVIE CORNEJO on 03/23/15 0849 Last Action: Discontinued Nitroglycerin (Nitroglycerin 0.4mg/HR Patch) 1 Each Patch.td24, 1 EACH TD PRN, (Reported) Discontinued Reason: No Longer Taking Entered as Reported by: TAZ ONEIL on 09/16/191143 Last Action: Discontinued [place]-3/Dha/Epa/Fish Oil (Fish Oil 1,000 mg Softgel) 1,000 Mg Capsule, 3,000 MG PO DAILY, (Reported) Discontinued Reason: No Longer Taking Entered as Reported by: TAZ ONEIL on 09/16/191143 Last Action: Discontinued Warfarin Sodium (Jantoven) 2 Mg Tablet, 2 MG PO DAILY, (Reported) Discontinued Reason: No Longer Taking Entered as Reported by: TAZ ONEIL on 09/16/191143 Last Action: Discontinued Review of Systems Review of Systems Constitutional: No chills, No diaphoresis Eyes: Denies Blindness, Denies Blurred Vision Ears, Nose, Mouth, Throat: see HPI (Complains of dry mouth); denies ear pain, denies ear discharge Respiratory: No cough, No short of breath Cardiovascular: No chest pain, No edema Gastrointestinal: No abdominal pain, No nausea, No vomiting Musculoskeletal: No back pain, No joint pain All Other Systems Reviewed Negative Unless Noted: Yes Past Ovmwhcg-Ttfzxi-Tnepyn Hx Patient Social History Tobacco Use?: Yes Substance use?: No Immunizations Up To Date Tetanus Booster (TDap): Unknown PED Vaccines UTD: Yes Seasonal Allergies Seasonal Allergies: No Past Medical History Surgeries: Yes Hysterectomy, Tonsillectomy Respiratory: Yes COPD Currently Using CPAP: No Currently Using BIPAP: No Cardiac: Yes Coronary Artery Disease, Hypertension Neurological: Yes TIA 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 Disorders: No Female 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 Disorders: Denies QA [employer] History: Hysterectomy Sexually Transmitted Disease: No HIV/AIDS: No Genitourinary: No Gastrointestinal: No Musculoskeletal: Yes Osteoporosis, Arthritis Endocrine: Yes Hypothyroidsim HEENT: No Loss of Vision: Denies Hearing Impairment: Denies Cancer: No Skin Psychosocial: Yes Anxiety, Depression Integumentary: No Blood Disorders: No Adverse Reaction/Blood Tranf: No Physical Exam Vital Signs Vital Signs - First Documented 09/26/21 16:05 Temp 36.0 Pulse 74 Resp 18 B/P (MAP) 155/103 (120) Pulse Ox 96 O2 Delivery Room Air Capillary Refill : Height, Weight, BMI Height: 5'2.00" Weight: 159lbs. 0.0oz. 72.167430nc; 27.04 BMI Method:Stated General Appearance: WD/WN, moderate distress HEENT: PERRL/EOMI, normal ENT inspection, TMs normal (Negative for hemotympanum, hardin sign, raccoon eyes), pharynx normal Neck: non-tender, full range of motion, supple, normal inspection Cardiovascular: normal peripheral pulses, regular rate, rhythm Respiratory: lungs clear, normal breath sounds, no respiratory distress, no accessory muscle use Peripheral Pulses: 2+ Dorsalis Pedis (R), 2+ Left Dors-Pedis (L), 2+ Radial Pulses (R), 2+ Radial Pulses (L) Gastrointestinal: normal bowel sounds, non tender, soft Extremities: no pedal edema, normal capillary refill, other (Cool to touch extremities with good pulses and exquisite tenderness over bilateral hips. Field expedient splint in place.) Neurologic/Psychiatric: alert, normal mood/affect, oriented x 3 Skin: normal color, warm/dry [place] Coma Score Best Eye Response: (4) Open Spontaneously Best Verbal Response: (5) Oriented Best Motor Response: (6) Obeys Commands Felicita Total: 15 Progress/Results/Core Measures Results/Orders Lab Results Laboratory Tests Test 09/26/21 16:22 09/26/21 16:25 Range/Units White Blood Count 10.5 4.3-11.0 10^3/uL Red Blood Count 4.34 3.80-5.11 10^6/uL Hemoglobin 13.5 11.5-16.0 g/dL Hematocrit 41 35-52 % Mean Corpuscular Volume 94 80-99 fL Mean Corpuscular Hemoglobin 31 25-34 pg Mean Corpuscular Hemoglobin Concent 33 32-36 g/dL Red Cell Distribution Width 15.8 H 10.0-14.5 % Platelet Count 236 130-400 10^3/uL Mean Platelet Volume 8.8 L 9.0-12.2 fL Immature Granulocyte % (Auto) 1 % Neutrophils (%) (Auto) 66 42-75 % Lymphocytes (%) (Auto) 22 12-44 % Monocytes (%) (Auto) 7 0-12 % Eosinophils (%) (Auto) 3 0-10 % Basophils (%) (Auto) 1 0-10 % Neutrophils # (Auto) 7.0 1.8-7.8 10^3/uL Lymphocytes # (Auto) 2.3 1.0-4.0 10^3/uL Monocytes # (Auto) 0.8 0.0-1.0 10^3/uL Eosinophils # (Auto) 0.3 0.0-0.3 10^3/uL Basophils # (Auto) 0.1 0.0-0.1 10^3/uL Immature Granulocyte # (Auto) 0.1 0.0-0.1 10^3/uL Prothrombin Time 23.5 H 12.2-14.7 SEC INR Comment 2.0 H 0.8-1.4 Activated Partial Thromboplast Time 32 24-35 SEC Sodium Level 140 135-145 MMOL/L Potassium Level 3.5 L 3.6-5.0 MMOL/L Chloride Level 102 98-107 MMOL/L Carbon Dioxide Level 25 21-32 MMOL/L Anion Gap 13 5-14 MMOL/L Blood Urea Nitrogen 30 H 7-18 MG/DL Creatinine 0.99 0.60-1.30 MG/DL Estimat Glomerular Filtration Rate 57 BUN/Creatinine Ratio 30 Glucose Level 113 H 70-105 MG/DL Calcium Level 9.5 8.5-10.1 MG/DL Corrected Calcium 9.6 8.5-10.1 MG/DL Magnesium Level 1.6 1.6-2.4 MG/DL Total Bilirubin 0.4 0.1-1.0 MG/DL Aspartate Amino Transf (AST/SGOT) 26 5-34 U/L Alanine Aminotransferase (ALT/SGPT) 19 0-55 U/L Alkaline Phosphatase 57 40-136 U/L Total Protein 7.1 6.4-8.2 GM/DL Albumin 3.9 3.2-4.5 GM/DL Urine Color YELLOW Urine Clarity CLEAR Urine pH 6.5 5-9 Urine Specific [place] 1.010 L 1.016-1.022 Urine Protein NEGATIVE NEGATIVE Urine Glucose (UA) NEGATIVE NEGATIVE Urine Ketones NEGATIVE NEGATIVE Urine Nitrite NEGATIVE NEGATIVE Urine Bilirubin NEGATIVE NEGATIVE Urine Urobilinogen 0.2 < = 1.0 MG/DL Urine Leukocyte Esterase NEGATIVE NEGATIVE Urine RBC (Auto) 1+ H NEGATIVE Urine RBC 5-10 H /HPF Urine WBC NONE /HPF Urine Squamous Epithelial Cells RARE /HPF Urine Crystals NONE /LPF Urine Bacteria NEGATIVE /HPF Urine Casts NONE /LPF Urine Mucus NEGATIVE /LPF Urine Culture Indicated NO My Orders Orders - JORGE ROGERS Ct Head/Cervical Spine Wo (09/26/21 16:17) Ct Thoracic/Lumbar Spine Wo (09/26/21 16:17) Chest 1 View, Ap/Pa Only (09/26/21 16:17) Pelvis/Yovany Hips 5> Views (09/26/21 16:17) Catheter(Urinary) Insert & Ass 03,15 (09/26/21 16:17) Cbc With Automated Diff (09/26/21 16:17) Comprehensive Metabolic Panel (09/26/21 16:17) Ua Culture If Indicated (09/26/21 16:17) Protime With Inr (09/26/21 16:17) Partial Thromboplastin Time (09/26/21 16:17) Magnesium (09/26/21 16:17) Fentanyl Inj (Sublimaze Injection) (09/26/21 16:30) End Tidal Co2 (09/26/21 16:26) Ed Iv/Invasive Line Start (09/26/21 16:28) Lactated Ringers (Lr 1000 Ml Iv Solution (09/26/21 16:30) Ketamine Syringe (Ketamine Syringe) (09/26/21 17:00) Ct Pelvis Wo (09/26/21 17:17) Medications Given in ED Vital Signs/I&O 09/26/21 16:05 Temp 36.0 Pulse 74 Resp 18 B/P (MAP) 155/103 (120) Pulse Ox 96 O2 Delivery Room Air Progress Progress Note : Time: 16:53 Progress Note Number 50 mcg of fentanyl were ordered to help her undergo imaging. Patient is not tolerating moving across tables or imaging so we will give her 25 mg of ketamine IV slow push. Labs urine chest x-ray CT of the spine since she is complaining of back pain. No neurologic deficit. Concern for right hip fracture. Diagnostic Imaging Diagonstic Imaging: Xray Plain Films/CT/US/NM/MRI: chest Comments Technically adequate study. No acute cardiopulmonary process. [facility] [place] [place] NAME: [facility] REC#: [id number] PT STATUS: REG ER : 1940 PHYSICIAN: JORGE ROGERS MD ADMIT DATE: 09/26/21/ER Draft Date of Exam:09/26/21 CHEST 1 VIEW, AP/PA ONLY INDICATION: Fall and chest pain. TIME OF EXAM: 05:03 p.m. COMPARISON: Correlation is made with prior chest from 09/16/2019. FINDINGS: Heart is enlarged but stable. Lungs are clear of acute infiltrates. There is no effusion or pneumothorax. Bony structures appear nonacute. IMPRESSION: No acute abnormality is detected. Dictated on workstation # [id number] Dict: 09/26/21 1720 Trans: 09/26/21 1727 AS6 [id number] Interpreted by: TIARRA PEÑA MD Electronically signed by: Diagonstic Imaging: Xray Plain Films/CT/US/NM/MRI: pelvis, hip Comments [facility] [place] [place] NAME: [facility] REC#: [id number] PT STATUS: REG ER : 1940 PHYSICIAN: JORGE ROGERS MD ADMIT DATE: 09/26/21/ER Draft Date of Exam:09/26/21 PELVIS/YOVANY HIPS 5> VIEWS INDICATION: Fall and pelvic pain. TIME OF EXAM: 5:04 p.m. FINDINGS: AP view of the pelvis and multiple views of the bilateral hips were obtained. Femoroacetabular alignment is normal bilaterally. Both femoral heads and necks appear to be intact. There are fractures involving the right superior and inferior pubic rami. Left-sided rami are intact. The SI joints and symphysis are non-widened. IMPRESSION: Right-sided superior and inferior pubic rami fractures. No hip fracture is detected. Dictated on workstation # [id number] Dict: 09/26/21 1721 Trans: 09/26/21 1726 [id number] Interpreted by: TIARRA PEÑA MD Electronically signed by: Reviewed: Reviewed by Me Diagonstic Imaging: CT Plain Films/CT/US/NM/MRI: c-spine, head Comments [facility] [place] [place] NAME: [facility] REC#: [id number] PT STATUS: REG ER : 1940 PHYSICIAN: JORGE ROGERS MD ADMIT DATE: 09/26/21/ER Signed Date of Exam:09/26/21 CT HEAD/CERVICAL SPINE WO PROCEDURE: CT head and CT cervical spine without contrast. TECHNIQUE: Multiple contiguous axial images were obtained through the brain and cervical spine without the use of intravenous contrast. Sagittal and coronal reformations through the cervical spine were then performed. Auto Exposure Controls were utilized during the CT exam to meet ALARA standards for radiation dose reduction. INDICATION: Trauma with head and cervical spine injury CT HEAD: COMPARISON: 09/06/2016 Encephalomalacia in the posterior right frontal lobe is again noted. There has been evolution of left temporal parietal encephalomalacia with associated mild dilatation of the adjacent lateral ventricle indicating chronic nature. There is no evidence of hemorrhage. There is no CT evidence of an acute infarction. Calvarium is intact and the visualized paranasal sinuses are clear. IMPRESSION: Encephalomalacia in both hemispheres likely the result of previous insult such as infarct however no acute normality is identified. MRI has increased sensitivity for acute ischemia. CT cervical spine: Cervical spinal curvature and alignment are unremarkable. There is moderate disc space narrowing from the C4-C7 levels. Diffuse degenerative facet arthropathy is also noted however there is no evidence of an acute fracture or subluxation. No paraspinous hematoma is identified. IMPRESSION: Cervical spondylosis without CT evidence of acute cervical spinal abnormality. Dictated by: Dictated on workstation # [id number] Dict: 09/26/211702 Trans: 09/26/211705 [id number] Interpreted by: CAITY CALLAHAN MD Electronically signed by: CAITY CALLAHAN MD 09/26/211705 Reviewed: Reviewed by Me Diagonstic Imaging: CT Plain Films/CT/US/NM/MRI: other (Thoracolumbar spine) Comments [facility] [place] [place] NAME: [facility] REC#: [id number] PT STATUS: REG ER : 1940 PHYSICIAN: JORGE ROGERS MD ADMIT DATE: 09/26/21/ER Draft Date of Exam:09/26/21 CT THORACIC/LUMBAR SPINE WO PROCEDURE: CT thoracic and lumbar spine without contrast. TECHNIQUE: Multiple contiguous axial images were obtained through the thoracic and lumbar spine without the use of intravenous contrast. Sagittal and coronal reformations were then performed. All CT scans use one or more of the following dose optimizing techniques: automated exposure control, MA and/or KvP adjustment based on a patient size and exam type, or iterative reconstruction. INDICATION: Fall. FINDINGS: CT THORACIC: There is hyperkyphotic curvature to the thoracic spine. Vertebral body heights are maintained. No acute compression fracture is seen. Bony canal is patent. Thoracic aorta is ectatic. IMPRESSION: Thoracic spondylosis. No acute fracture is seen. CT LUMBAR SPINE: Curvature and alignment of the lumbar spine is normal. There is significant degenerative disc disease at L5-S1 with disc space narrowing noted. Vertebral body heights are maintained. No acute compression fracture is seen. Aorta and iliac vessels are heavily calcified but nonaneurysmal. There is a low-density lesion extending laterally from the left kidney, only partially included on this study and may represent a cyst. Further evaluation of this on a nonemergent basis with perhaps ultrasound could be performed. IMPRESSION: 1. Lumbar spondylosis. No acute bony abnormality is detected. 2. Left renal lesion, likely a cyst but further evaluation with renal ultrasound on a nonemergent basis would be recommended. Dictated on workstation # [id number] Dict: 09/26/21 1704 Trans: 09/26/21 1715 AS6 [id number] Interpreted by: TIARRA PEÑA MD Electronically signed by: Diagonstic Imaging: CT Plain Films/CT/US/NM/MRI: abdomen, pelvis Comments [facility] [place] [place] NAME: [facility] REC#: [id number] PT STATUS: REG ER : 1940 PHYSICIAN: JORGE ROGERS MD ADMIT DATE: 09/26/21/ER Draft Date of Exam:09/26/21 CT PELVIS WO PROCEDURE: CT pelvis without contrast. TECHNIQUE: Multiple contiguous axial images were obtained through the pelvis without the use of intravenous contrast. Sagittal and coronal reformations were performed. Auto Exposure Controls were utilized during the CT exam to meet ALARA standards for radiation dose reduction. INDICATION: Pelvic fractures. FINDINGS: There is comminuted fracture involving the right pubic body. Fracture line extends into the pubic symphysis with mild displacement of fracture fragments. There is also displaced fracture of the right inferior ischial ramus with mild overriding of fragments. These are associated with moderate enlargement of the right obturator internus muscle and associated [id number]-[id number] right pelvic sidewall hematoma resulting in leftward displacement of the decompressed urinary bladder. Miranda catheter is in place. Correlation with catheter output would be useful to exclude bladder hemorrhage. Otherwise, hip joints are intact, and no additional fracture is appreciated. Sacroiliac joints are also intact. IMPRESSION: Fractures involving the right pubic body and right inferior ischial ramus with displacement and moderate associated right pelvic sidewall hematoma resulting in mass effect upon the bladder. No other definite acute abnormality is seen. Dictated on workstation # [id number] Dict: 09/26/21 1731 Trans: 09/26/21 1739 [id number] Interpreted by: CAITY CALLAHAN MD Electronically signed by: Reviewed: Reviewed by Me Consults : Consulting Physician: PARTH DELGADO MD Consults Notes 1710: Discussed the case with orthopedic surgery and he recommends these fractures as long as they do not involve the acetabulum are nonoperative and will heal on their own. He will review the images when they are up. We will get a CT of her pelvis to look for other occult fractures. 1645: Discussed the case with Dr. Galicia, trauma surgeon on-call and he agrees with consult orthopedics. Nonactivation case. Departure Communication (Admissions) Time/Spoke to Admitting Phy: 17:45 Discussed the case with Dr. Falk who agrees to admit the patient for pain management. We discussed that the patient is being admitted closely for pain management and is nonoperative so no inpatient consult to trauma surgery or orthopedics is necessary at this time. Repeat urinalysis in the morning. Impression Primary Impression: Fall Qualified Codes: W19.XXXA - Unspecified fall, initial encounter Additional Impressions: Pelvis fracture, right Qualified Codes: S32.501A - Unspecified fracture of right pubis, initial encounter for closed fracture Hematuria Qualified Codes: R31.29 - Other microscopic hematuria Pelvic hematoma in female Disposition: ADMITTED INPATIENT Condition: Stable Admissions Decision to Admit Reason: Admit from ER (General) Decision to Admit/Date: Sep 26, 2021 Time/Decision to Admit Time: 17:45 Departure-Patient Inst. Referrals: BERTHA BRADY MD (PCP/Family) Primary Care Physician JORGE ROGERS Sep 26, 2021 16:23
[2021-09-26] MEDS ORDERED: HYDROmorphone 2 MG/ML VIAL (DILAUDID) ONE (19:15)
[2021-09-26] MEDS: HYDROmorphone 2 MG/ML VIAL (DILAUDID) IV PRN (19:36)
[2021-09-26] MEDS: LACTATED RINGERS 1,000 ML IV SCH (19:36)
[2021-09-26 19:53] VITALS: BP 159/85
--- NOTE | 2021-09-26 20:26 | Consultation - Surgery ---
History of Present Illness History of Present Illness Patient Consulted On(chayo/time) 09/26/21 20:21 Time Seen by Provider: 19:58 History of Present Illness Surgery asked to consult for Trauma activation. HPI per ED: Patient to ER by EMS from her home where she was in the garage and had a fall landing on her right hip. She denies striking head or loss of consciousness. She is on Coumadin. She is having significant pain shortening and rotation in her right lower extremity. It was splinted by EMS and brought here after 100 mcg of fentanyl. While laying still she rates her pain as a 2 out of 10. No prior hip/Knee arthroplasty. She has had a wrist surgery by Dr. Miller. Primary care by Dr. Falk and cardiology by Dr. Apple. No history of heart attack. She follows Dr. Apple for atrial fibrillation. Pt is a same level fall. Stated she was getting out of car and walking through garage and slipped. She was trying to get around some boxes when this occurred and reached out for them, but unable to grab. She doesn't remember exactly how she fell, "it was too fast". She complains of pain in her back and hips. Pain is ok when she is laying down, but even when I raised the head of her bed so she could take a sip of water, she had sharp pain. Denied abdominal pain or SOB. Allergies and Home Medications Allergies Coded Allergies: hydrochlorothiazide (Verified Allergy, Unknown, 09/10/16) Patient Home Medication List Home Medication List Reviewed: Yes Albuterol Sulfate (Proair Hfa) 1 Puff Puff, 2 PUFF IH Q4H PRN for WHEEZING, (Reported) Entered as Reported by: TAZ ONEIL on 09/16/19 1144 Amlodipine Besylate (Amlodipine Besylate) 10 Mg Tablet, 10 MG PO DAILY, (Reported) Entered as Reported by: TAZ ONEIL on 09/16/19 1144 Aspirin (Aspirin) 81 Mg Tab.chew, 81 MG PO DAILY, (Reported) Entered as Reported by: TAZ ONEIL on 09/16/19 1144 Atorvastatin Calcium (Atorvastatin Calcium) 20 Mg Tablet, 20 MG PO DAILY, (Reported) Entered as Reported by: TAZ ONEIL on 09/16/19 1144 Cholecalciferol (Vitamin D3) (Vitamin D3) 5,000 Unit Capsule, 5,000 UNIT PO DAILY, (Reported) Entered as Reported by: EVIE CORNEJO on 03/23/15 0849 Levothyroxine Sodium (Levothyroxine Sodium) 88 Mcg Tablet, 88 MCG PO DAILY, (Reported) Entered as Reported by: TAZ ONEIL on 09/16/19 1144 Metoprolol Succinate (Metoprolol Succinate) 25 Mg Tab.er.24h, 25 MG PO DAILY, (Reported) Entered as Reported by: TAZ ONEIL on 09/16/19 1144 Nitroglycerin (Nitroglycerin 0.4mg/HR Patch) 1 Each Patch.td24, 1 EACH TD PRN, (Reported) Entered as Reported by: TAZ ONEIL on 09/16/19 1144 [place]-3/Dha/Epa/Fish Oil (Fish Oil 1,000 mg Softgel) 1,000 Mg Capsule, 3,000 MG PO DAILY, (Reported) Entered as Reported by: TAZ ONEIL on 09/16/19 1144 Sertraline HCl (Zoloft) 100 Mg Tablet, 125 MG PO DAILY, (Reported) Entered as Reported by: TAZ ONEIL on 09/16/19 1144 Warfarin Sodium (Jantoven) 2 Mg Tablet, 2 MG PO DAILY, (Reported) Entered as Reported by: TAZ ONEIL on 09/16/19 1144 Past Czyqsjl-Evutzw-Cicjgi Hx Patient Social History Smoking Status: Current Everyday Smoker (1ppd since she was in her 30s) Type Used: Cigarettes 2nd Hand Smoke Exposure: No Recent Hopitalizations: No Alcohol Use?: No Have you traveled recently?: No Immunizations Up To Date Tetanus Booster (TDap): Unknown PED Vaccines UTD: Yes Date of Pneumonia Vaccine: May 10, 2015 Date of Influenza Vaccine: May 22, 2016 Seasonal Allergies Seasonal Allergies: No Surgeries History of Surgeries: Yes Surgeries: Hysterectomy, Orthopedic, Tonsillectomy Respiratory History of Respiratory Disorde: Yes Respiratory Disorders: COPD Cardiovascular History of Cardiac Disorders: Yes Cardiac Disorders: Coronary Artery Disease, Hypertension Neurological History of Neurological Disord: Yes Neurological Disorders: TIA 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 System Hx 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 Disorders: No Sexually Transmitted Disease: No HIV/AIDS: No Female 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 Disorders: 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 Genitourinary History of Genitourinary Disor: No Gastrointestinal History of Gastrointestinal Di: No Musculoskeletal History of Musculoskeletal Dis: Yes Musculoskeletal Disorders: Osteoporosis, Arthritis Endocrine History of Endocrine Disorders: Yes Endocrine Disorders: Hypothyroidsim HEENT History of HEENT Disorders: No Loss of Vision: Denies Hearing Impairment: Denies Cancer History of Cancer: No Cancer: Skin Psychosocial History of Psychiatric Problem: Yes Behavioral Health Disorders: Anxiety, Depression Integumentary History of Skin or Integumenta: No Blood Transfusions History of Blood Disorders: No Adverse Reaction to a Blood Tr: No Family Medical History Significant Family History: Cancer (Father, but unsure what type), Stroke (mother) Review of Systems-General Constitutional: No chills, No diaphoresis EENTM: No blurred vision, No double vision, No epistaxis Respiratory: No cough, No dyspnea on exertion Cardiovascular: No chest pain, No edema Gastrointestinal: No abdominal pain, No nausea, No vomiting Genitourinary: No dysuria, No hematuria Musculoskeletal: joint pain, joint swelling, muscle pain, muscle stiffness, muscle cramps Skin: No change in color, No change in hair/nails Psychiatric/Neurological: Anxiety, Depressed; Denies Tremors Physical Exam-General Problems Physical Exam Vital Signs Vital Signs - First Documented 09/26/21 16:05 Temp 36.0 Pulse 74 Resp 18 B/P (MAP) 155/103 (120) Pulse Ox 96 O2 Delivery Room Air Capillary Refill : General Appearance: WD/WN, mild distress Eyes: Bilateral Eye PERRL, Bilateral Eye EOMI HEENT: pharynx normal; No scleral icterus (R), No scleral icterus (L); other (poor dentition and mouth is dry) Neck: non-tender, supple Respiratory: lungs clear, normal breath sounds, no respiratory distress, no accessory muscle use Cardiovascular: regular rate, rhythm, no murmur Gastrointestinal: non tender, soft, no organomegaly Back: no CVA tenderness, no vertebral tenderness Extremities: no pedal edema, no calf tenderness; No pelvis stable; other (hips are very tender) Neurologic/Psychiatric: juice tester II-XII nml as tested, alert, oriented x 3 Skin: normal color, warm/dry Lymphatic: no adenopathy (neck, axilla or groin) Data Review Labs Laboratory Tests 09/26/21 16:22: White Blood Count 10.5, Red Blood Count 4.34, Hemoglobin 13.5, Hematocrit 41, Mean Corpuscular Volume 94, Mean Corpuscular Hemoglobin 31, Mean Corpuscular Hemoglobin Concent 33, Red Cell Distribution Width 15.8H, Platelet Count 236, Mean Platelet Volume 8.8L, Immature Granulocyte % (Auto) 1, Neutrophils (%) (Auto) 66, Lymphocytes (%) (Auto) 22, Monocytes (%) (Auto) 7, Eosinophils (%) (Auto) 3, Basophils (%) (Auto) 1, Neutrophils # (Auto) 7.0, Lymphocytes # (Auto) 2.3, Monocytes # (Auto) 0.8, Eosinophils # (Auto) 0.3, Basophils # (Auto) 0.1, Immature Granulocyte # (Auto) 0.1, Prothrombin Time 23.5H, INR Comment 2.0H, Activated Partial Thromboplast Time 32, Sodium Level 140, Potassium Level 3.5L, Chloride Level 102, Carbon Dioxide Level 25, Anion Gap 13, Blood Urea Nitrogen 30H, Creatinine 0.99, Estimat Glomerular Filtration Rate 57, BUN/Creatinine Ratio 30, Glucose Level 113H, Calcium Level 9.5, Corrected Calcium 9.6, Magnesium Level 1.6, Total Bilirubin 0.4, Aspartate Amino Transf (AST/SGOT) 26, Alanine Aminotransferase (ALT/SGPT) 19, Alkaline Phosphatase 57, Total Protein 7.1, Albumin 3.9 09/26/21 16:25: Urine Color YELLOW, Urine Clarity CLEAR, Urine pH 6.5, Urine Specific [place] 1.010L, Urine Protein NEGATIVE, Urine Glucose (UA) NEGATIVE, Urine Ketones NEGATIVE, Urine Nitrite NEGATIVE, Urine Bilirubin NEGATIVE, Urine Urobilinogen 0.2, Urine Leukocyte Esterase NEGATIVE, Urine RBC (Auto) 1+H, Urine RBC 5-10H, Urine WBC NONE, Urine Squamous Epithelial Cells RARE, Urine Crystals NONE, Urine Bacteria NEGATIVE, Urine Casts NONE, Urine Mucus NEGATIVE, Urine Culture Indicated NO Radiology Date of Exam:09/26/21 CT PELVIS WO PROCEDURE: CT pelvis without contrast. TECHNIQUE: Multiple contiguous axial images were obtained through the pelvis without the use of intravenous contrast. Sagittal and coronal reformations were performed. Auto Exposure Controls were utilized during the CT exam to meet ALARA standards for radiation dose reduction. INDICATION: Pelvic fractures. FINDINGS: There is comminuted fracture involving the right pubic body. Fracture line extends into the pubic symphysis with mild displacement of fracture fragments. There is also displaced fracture of the right inferior ischial ramus with mild overriding of fragments. These are associated with moderate enlargement of the right obturator internus muscle and associated [id number] right pelvic sidewall hematoma resulting in leftward displacement of the decompressed urinary bladder. Miranda catheter is in place. Correlation with catheter output would be useful to exclude bladder hemorrhage. Otherwise, hip joints are intact, and no additional fracture is appreciated. Sacroiliac joints are also intact. IMPRESSION: Fractures involving the right pubic body and right inferior ischial ramus with displacement and moderate associated right pelvic sidewall hematoma resulting in mass effect upon the bladder. No other definite acute abnormality is seen. Dictated on workstation # [id number] Dict: 09/26/21 1731 Trans: 09/26/21 1739 [id number] Interpreted by: CAITY CALLAHAN MD Electronically signed by: Assessment/Plan Assessment/Plan Assessment/Plan Comminuted Right Pubic Rami Fracture Pelvic Hematoma Trauma Activation Hypercoagulable state Hypokalemia Pt is being admitted for non-surgical management to Dr. Falk. ER has already spoken to the Orthopedic surgeon, Dr. Cervantes; who stated there is nothing surgical to do at this time. She will need rest; will wait for more recommendations from him. In the meantime, pt will need pain control, diet as tolerated, monitor labs; elena H/H because of hypercoagulable state and pelvic hematoma. She will get Potassium replacement. May need to repeat Pelvic CT with contrast if pt drops Hg. Hold coumadin. SANJU HEDA DO Sep 26, 2021 20:26
[2021-09-26] MEDS ORDERED: NICOTINE 14 MG (NICODERM) PATCH TD PRN (21:45)
[2021-09-26] MEDS ORDERED: ONDANSETRON 4 MG/2 ML (SDV) Z0FRAN IV PRN (21:45)
[2021-09-26] MEDS ORDERED: LACTATED RINGERS 1,000 ML IV SCH (21:45)
[2021-09-27] VITALS (7 sets, daily range): BP systolic 98–129; BP diastolic 58–72
[2021-09-27 05:57] LABS: BASOPHILS % (AUTO) 1 % (0-10); EOSINOPHILS # (AUTO) 0.2 10^3/uL (0.0-0.3); EOSINOPHILS % (AUTO) 2 % (0-10); HEMATOCRIT 33 % (35-52); HEMOGLOBIN 10.7 g/dL (11.5-16.0); LYMPHOCYTES # (AUTO) 1.4 10^3/uL (1.0-4.0); LYMPHOCYTES % (AUTO) 16 % (12-44); MEAN CORPUSCULAR HGB CONC 33 g/dL (32-36); MEAN CORPUSCULAR VOLUME 93 fL (80-99); MEAN PLATELET VOLUME 9.2 fL (9.0-12.2); MONOCYTES # (AUTO) 0.7 10^3/uL (0.0-1.0); MONOCYTES % (AUTO) 9 % (0-12); NEUTROPHILS # (AUTO) 6.2 10^3/uL (1.8-7.8); NEUTROPHILS % (AUTO) 72 % (42-75); PLATELET COUNT 182 10^3/uL (130-400); WHITE BLOOD COUNT 8.6 10^3/uL (4.3-11.0)
[2021-09-27 06:03] LABS: MEAN CORPUSCULAR HEMOGLOBIN 30 pg (25-34)
[2021-09-27 06:11] LABS: POTASSIUM 4.2 MMOL/L (3.6-5.0)
[2021-09-27 06:12] LABS: CALCIUM 8.8 MG/DL (8.5-10.1)
[2021-09-27 06:17] LABS: CREATININE SERUM 0.84 MG/DL (0.60-1.30)
[2021-09-27] MEDS ORDERED: CATHETER FLUSH 10 ML SYR IVP PRN (06:30)
[2021-09-27] MEDS: HYDROmorphone 2 MG/ML VIAL (DILAUDID) IV PRN ×2 (08:02→19:01)
[2021-09-27] MEDS: LACTATED RINGERS 1,000 ML IV SCH (08:11)
[2021-09-27] MEDS: morphine INJ 4 MG/ML 1 ML (VIAL/SYRINGE) IV PRN (09:16)
--- NOTE | 2021-09-27 09:21 | History & Physical ---
History of Present Illness History of Present Illness Reason for visit/HPI PT IS AN 81 Y/O FEMALE WHO IS WELL KNOWN TO ME FROM CLINIC. [place] STATES THAT SHE WAS MOVING FROM THE GARAGE TO ANOTHER ROOM WHEN SHE FELL, SHE IS UNSURE HOW SHE CAME ABOUT FALLING. SHE DOES NOT REMEMBER TRIPPING, WAS NOT PUSHED, DOES NOT REMEMBER ANYTHING ON THE FLOOR AT THE TIME OF HER FALL. SHE THINKS THAT SHE WAS JUST REALLY TIRED AND COULD NOT LEASE ATTENDANT HER FEET WELL AND TRIPPED AT THE THRESHOLD. THIS MORNING SHE IS COMPLAINING OF SEVERE PAIN AND SPASMS IN HER PELVIS. Date of Admission Sep 26, 2021 at 18:00 Date Seen by a Provider: Sep 27, 2021 Time Seen by a Provider: 09:00 I consulted on this patient on 09/27/21 09:18 Attending Physician Dayanna Falk MD Admitting Physician Dayanna Falk MD Consult PARTH DELGADO MD Allergies and Home Medications Allergies Coded Allergies: hydrochlorothiazide (Verified Allergy, Unknown, 09/10/16) Patient Home Medication List Home Medication List Reviewed: Yes Amlodipine Besylate (Amlodipine Besylate) 5 Mg Tablet, 5 MG PO HS, (Reported) Entered as Reported by: TEE HO on 09/27/211509 Last Action: Held Aspirin (Aspirin) 81 Mg Tab.chew, 81 MG PO DAILY, (Reported) Entered as Reported by: TAZ ONEIL on 09/16/191143 Last Action: Held Atorvastatin Calcium (Atorvastatin Calcium) 20 Mg Tablet, 20 MG PO HS, (Reported) Entered as Reported by: TAZ ONEIL on 09/16/191143 Last Action: Held Buspirone HCl (Buspirone HCl) 5 Mg Tablet, 5 MG PO BID, (Reported) Entered as Reported by: TEE HO on 09/27/211509 Last Action: Continued Levothyroxine Sodium (Levothyroxine Sodium) 88 Mcg Tablet, 88 MCG PO DAILY, (Reported) Entered as Reported by: TAZ ONEIL on 09/16/191143 Last Action: Continued Metoprolol Succinate (Metoprolol Succinate) 25 Mg Tab.er.24h, 25 MG PO DAILY, (Reported) Entered as Reported by: TAZ ONEIL on 09/16/191143 Last Action: Held Sertraline HCl (Zoloft) 100 Mg Tablet, 100 MG PO HS, (Reported) Entered as Reported by: TAZ ONEIL on 09/16/191143 Last Action: Held Sertraline HCl (Sertraline HCl) 100 Mg Tablet, 50 MG PO DAILY, (Reported) Entered as Reported by: TEE HO on 09/27/211509 Last Action: Continued Warfarin Sodium (Warfarin Sodium) 2 Mg Tablet, 2 MG PO DAILY, (Reported) Entered as Reported by: TEE HO on 09/27/211509 Last Action: Held Discontinued Medications Albuterol Sulfate (Proair Hfa) 1 Puff Puff, 2 PUFF IH Q4H PRN for WHEEZING, (Reported) Discontinued Reason: No Longer Taking Entered as Reported by: TAZ ONEIL on 09/16/191143 Last Action: Discontinued Amlodipine Besylate (Amlodipine Besylate) 10 Mg Tablet, 10 MG PO DAILY, (Repor candy) Discontinued Reason: No Longer Taking Entered as Reported by: TAZ ONEIL on 09/16/191143 Last Action: Discontinued Cholecalciferol (Vitamin D3) (Vitamin D3) 5,000 Unit Capsule, 5,000 UNIT PO DAILY, (Reported) Discontinued Reason: No Longer Taking Entered as Reported by: EVIE CORNEJO on 03/23/15 0849 Last Action: Discontinued Nitroglycerin (Nitroglycerin 0.4mg/HR Patch) 1 Each Patch.td24, 1 EACH TD PRN, (Reported) Discontinued Reason: No Longer Taking Entered as Reported by: TAZ ONEIL on 09/16/191143 Last Action: Discontinued [place]-3/Dha/Epa/Fish Oil (Fish Oil 1,000 mg Softgel) 1,000 Mg Capsule, 3,000 MG PO DAILY, (Reported) Discontinued Reason: No Longer Taking Entered as Reported by: TAZ ONEIL on 09/16/191143 Last Action: Discontinued Warfarin Sodium (Jantoven) 2 Mg Tablet, 2 MG PO DAILY, (Reported) Discontinued Reason: No Longer Taking Entered as Reported by: TAZ ONEIL on 09/16/191143 Last Action: Discontinued Past Dfgoigp-Guxuju-Fsyuti Hx Patient Social History Marrital Status: Living Status: LIVES [place] D[place]ED [place]IR [place] Employed/Student: retired Tobacco Use?: Yes Tobacco type used: Cigarettes Smoking Status: Current Everyday Smoker (1ppd since she was in her 30s) Use of E-Cig and/or Vaping dev: No Substance use?: No Alcohol Use?: No Pt feels they are or have been: No Immunizations Up To Date Date of Influenza Vaccine: May 22, 2016 First/Initial COVID19 Vaccinat: 08/31/20 Second COVID19 Vaccination Rasheed: 09/29/20 Tetanus Booster (TDap): Unknown Hepatitis B: No PED Vaccines UTD: Yes Date of Pneumonia Vaccine: May 10, 2015 Seasonal Allergies Seasonal Allergies: No Current Status status: No Advance Directives: No Communicates: Verbally Primary Language: Malay Preferred Spoken Language: Malay Is interpretation needed?: No Implanted or Applied Medical D: None, Stents Past Medical History Surgeries: Hysterectomy, Orthopedic, Tonsillectomy COPD Currently Using CPAP: No Currently Using BIPAP: No Coronary Artery 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, Hypertension 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 Sexually Transmitted Disease: No HIV/AIDS: No Osteoporosis, Arthritis Hypothyroidsim Loss of Vision: Denies Hearing Impairment: Denies Skin Anxiety, Depression Blood Disorders: No Adverse Reaction/Blood Tranf: No Family Medical History Reviewed and Corrections made Cancer (Father, but unsure what type), Hypertension, Stroke (mother) Review of Systems Constitutional: weakness EENTM: no symptoms reported Respiratory: cough; No dyspnea on exertion, No short of breath, No stridor, No wheezing Cardiovascular: No chest pain, No palpitations Gastrointestinal: No no symptoms reported, No abdominal pain, No constipation, No diarrhea, No nausea Genitourinary: other (URINARY RETENTION AFTER FALLING) Musculoskeletal: muscle cramps (IN PELVIS), other (PELVIC/HIP, LOW BACK PAIN) Skin: no symptoms reported Psychiatric/Neurological: Anxiety, Depressed, Weakness All Other Systems Reviewed Negative Unless Noted: Yes Physical Exam Vital Signs Vital Signs - First Documented 09/26/21 09/27/21 16:05 01:18 Temp 36.0 Pulse 74 Resp 18 B/P (MAP) 155/103 (120) Pulse Ox 96 O2 Delivery Room Air O2 Flow Rate 2.00 Capillary Refill : Height, Weight, BMI Height: 5'2.00" Weight: 159lbs. 0.0oz. [id number]; 26.82 BMI Method:Stated General Appearance: WD/WN, Anxious, Severe Distress (WITH MOVEMENT, COUGH, DEEP BREATHING) HEENT: PERRL/EOMI, Pharynx Normal Neck: Full Range of Motion, Supple Respiratory: Chest Non Tender, Decreased Breath Sounds, Wheezing Cardiovascular: Regular Rate, Rhythm, Normal Peripheral Pulses, Systolic Murmur Gastrointestinal: Normal Bowel Sounds, Non Tender, Soft Back: Other (UNABLE TO EXAMINE DUE TO PT'S PAIN) Extremity: Normal Capillary Refill, No Pedal Edema Neurologic/Psychiatric: Alert, Oriented x3, Other (PT IN PAIN WITH MOVEMENT, TEARFUL ABOUT HER SITUATION) Skin: Normal Color, Warm/Dry Assessment/Plan Assessment and Plan PELVIC BONE FRACTURES - RIGHT PUBIC BODY AND RIGHT INFERIOR ISCHIAL RAMI FRACTURE WITH DISPLACEMENT FALL AT SAME LEVEL IN HOME ANEMIA POST FALL HEMATOMA OF PELVIS CHRONIC ANTICOAGULATION THERAPY CHRONIC HYPERTENSION TOBACCOISM 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 ANXIETY DEPRESSION COPD HYPOTHYROIDISM PELVIC BONE FRACTURES - RIGHT PUBIC BODY AND RIGHT INFERIOR ISCHIAL RAMI FRACTURE WITH DISPLACEMENT - IMPRESSION FROM CT SCAN FOLLOWS: IMPRESSION: Fractures involving the right pubic body and right inferior ischial ramus with displacement and moderate associated right pelvic sidewall hematoma resulting in mass effect upon the bladder. No other definite acute abnormality is seen. - DISCUSSED WITH DR. DELGADO, PT IS WEIGHT BEARING TOLERATED. 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 - DISCUSSED WITH PT AND HER DTR - PLAN WILL BE TO ATTEMPT TO TRANSFER HER TO A [facility] [place] FOR LONGER TERM THERAPY SINCE THAT IS WHERE HER DAUGHTER RESIDES FALL AT SAME LEVEL IN HOME ANEMIA POST FALL WITH HEMATOMA OF THE PELVIS - MONITOR LABS TO ASSURE THAT SHE IS NOT STILL BLEEDING INTO HER PELVIS. CHRONIC ANTICOAGULATION THERAPY - HOLD TODAY AND TOMORROW, WILL REPEAT INR TOMORROW AND SATURDAY. CHRONIC HYPERTENSION - HOLD MEDICATION FOR NOW, MONITOR PRESSURE, RESTART NEEDED. TOBACCOISM - LOW DOSE NICODERM PATCH 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 ANXIETY ANd DEPRESSION - RESUME PART OF HOME REGiMEN COPD - MONITOR HYPOTHYROIDISM - RESUME HOME REGIMEN DVT PROPHYLAXIS WITH COMPRESSION, HOLDING OFF OF COUMADIN THERAPY AND LOVENOx DUE TO PELVIC HEMATOMA GI PROPHYLAXIS WITH PPI Admission Diagnosis PELVIC BONE FRACTURES - RIGHT PUBIC BODY AND RIGHT INFERIOR ISCHIAL RAMI FRACTURE WITH DISPLACEMENT FALL AT SAME LEVEL IN HOME ANEMIA POST FALL HEMATOMA OF PELVIS CHRONIC ANTICOAGULATION THERAPY CHRONIC HYPERTENSION TOBACCOISM 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 ANXIETY DEPRESSION COPD HYPOTHYROIDISM Admission Status: Inpatient Order (span 2 midnights) Reason for Inpatient Admission: inpatient admission for pain control, iv pain medication to transition to oral as able once her pain is controlled, will need at least 2-3 midnights for stabilization, pt will then need to go to a [facility] for longer term care DAYANNA FALK MD Sep 27, 2021 09:21
[2021-09-27] MEDS ORDERED: NALOXONE 0.4 MG/ML 1 ML (NARCAN) VIAL IV PRN (09:30)
[2021-09-27] MEDS ORDERED: VITAMIN D3 10 MCG (400 UNITS) TABLET PO ONE (09:30)
[2021-09-27] MEDS ORDERED: morphine PCA 100 MG/100 ML BAG IV PRN (09:30)
[2021-09-27] MEDS ORDERED: diphenhydrAMINE 50 MG/ML INJ (BENADRYL) IV PRN (09:30)
[2021-09-27] MEDS ORDERED: ONDANSETRON 4 MG/2 ML (SDV) Z0FRAN IV PRN (09:30)
[2021-09-27] MEDS: BACLOFEN 10 MG (LIORESAL) TAB PO SCH ×4 (09:37→21:13)
[2021-09-27] MEDS: NICOTINE 7 MG (NICODERM) PATCH TD SCH (09:37)
[2021-09-27] MEDS: CALCITONIN NASAL 200 INTLU/AC (FORTICAL) 3.7 ML BTL SCH (09:38)
[2021-09-27] MEDS: NS IV 1000 ML 1,000 ML IV SCH (10:03)
--- NOTE | 2021-09-27 11:32 | Progress Note ---
Standard Progress Note Progress Notes/Assess & Plan Date Seen by a Provider: Sep 27, 2021 Time Seen by a Provider: 11:31 Progress/Assessment & Plan consult dictated superior and inferior rami fractures can be treated with WBAT with a walder no need for operative intervention PARTH DELGADO MD Sep 27, 2021 11:32
--- NOTE | 2021-09-27 13:45 | CONSULTATION REPORT ---
DATE OF SERVICE: INPATIENT CONSULTATION I was asked to evaluate the patient for a pelvic fracture. I spoke with the Emergency Department physician last evening. This is a nonoperative injury. She has slightly displaced superior and inferior rami fractures that do not involve the posterior elements of the pelvic ring nor the acetabulum. This can be treated with weightbearing as tolerated with a walker. I would be happy to see her as an outpatient as needed. Thank you for the consultation. Job ID: [id number] DocumentID: [id number] Dictated Date: 09/27/2021 11:31:23 [place] Date: 09/27/2021 13:44:32 Dictated By: PARTH DELGADO MD
--- NOTE | 2021-09-27 14:50 | Progress Note - Surgery ---
Subjective Time Seen by a Provider: 10:31 Subjective/Events-last exam Pt seen and examined, states she is still having back and hip pain. Can't really move because that hurts. She also has a little bit of abdominal pain. Tolerating clears. Review of Systems General: Fatigue Pulmonary: No Dyspnea, No Cough Cardiovascular: No: Chest Pain, Palpitations Gastrointestinal: Abdominal Pain; No: Nausea, Vomiting Musculoskeletal: other (hip pain), back pain, leg pain Objective Exam Vital Signs Date Time Temp Pulse Resp B/P (MAP) Pulse Ox O2 Delivery O2 Flow Rate FiO2 09/27/21 11:21 36.1 77 18 103/66 (78) 95 Nasal Cannula 2.00 09/27/21 10:35 92 Nasal Cannula 2.00 09/27/21 08:02 36.5 70 18 129/71 (90) 97 Nasal Cannula 2.00 09/27/21 08:00 Nasal Cannula 2.00 09/27/21 04:09 36.0 74 18 111/72 (85) 99 Nasal Cannula 2.00 09/27/21 01:18 96 Nasal Cannula 2.00 09/27/21 00:28 36.6 90 18 98/58 (71) 88 Room Air 09/26/21 19:53 35.9 87 20 159/85 (109) 92 Room Air 09/26/21 19:15 Room Air 09/26/21 18:49 36.0 113 18 155/96 94 Room Air 09/26/21 16:05 36.0 74 18 155/103 (120) 96 Room Air I & O 09/27/21 07:00 Intake Total 1600 ml Output Total 725 ml Balance 875 ml Capillary Refill : General Appearance: WD/WN, Mild Distress (secondary to pain) Respiratory: Lungs Clear, Normal Breath Sounds, No Accessory Muscle Use, No Respiratory Distress Cardiovascular: Regular Rate, Rhythm, No Murmur Peripheral Pulses: 2+ Dorsalis Pedis (R), 2+ Left Dors-Pedis (L), 2+ Radial Pulses (R), 2+ Radial Pulses (L) Gastrointestinal: soft, no organomegaly, distended (??very mildly compared to yesterday), tenderness (lower abdomen) Neurologic/Psychiatric: Alert, Oriented x3 Results Lab Laboratory Tests 09/26/21 16:22: White Blood Count 10.5, Red Blood Count 4.34, Hemoglobin 13.5, Hematocrit 41, Mean Corpuscular Volume 94, Mean Corpuscular Hemoglobin 31, Mean Corpuscular Hemoglobin Concent 33, Red Cell Distribution Width 15.8H, Platelet Count 236, Mean Platelet Volume 8.8L, Immature Granulocyte % (Auto) 1, Neutrophils (%) (Auto) 66, Lymphocytes (%) (Auto) 22, Monocytes (%) (Auto) 7, Eosinophils (%) (Auto) 3, Basophils (%) (Auto) 1, Neutrophils # (Auto) 7.0, Lymphocytes # (Auto) 2.3, Monocytes # (Auto) 0.8, Eosinophils # (Auto) 0.3, Basophils # (Auto) 0.1, Immature Granulocyte # (Auto) 0.1, Prothrombin Time 23.5H, INR Comment 2.0H, Activated Partial Thromboplast Time 32, Sodium Level 140, Potassium Level 3.5L, Chloride Level 102, Carbon Dioxide Level 25, Anion Gap 13, Blood Urea Nitrogen 30H, Creatinine 0.99, Estimat Glomerular Filtration Rate 57, BUN/Creatinine Ratio 30, Glucose Level 113H, Calcium Level 9.5, Corrected Calcium 9.6, Magnesium Level 1.6, Total Bilirubin 0.4, Aspartate Amino Transf (AST/SGOT) 26, Alanine Aminotransferase (ALT/SGPT) 19, Alkaline Phosphatase 57, Total Protein 7.1, Albumin 3.9 09/26/21 16:25: Urine Color YELLOW, Urine Clarity CLEAR, Urine pH 6.5, Urine Specific [place] 1.010L, Urine Protein NEGATIVE, Urine Glucose (UA) NEGATIVE, Urine Ketones NEGATIVE, Urine Nitrite NEGATIVE, Urine Bilirubin NEGATIVE, Urine Urobilinogen 0.2, Urine Leukocyte Esterase NEGATIVE, Urine RBC (Auto) 1+H, Urine RBC 5-10H, Urine WBC NONE, Urine Squamous Epithelial Cells RARE, Urine Crystals NONE, Urine Bacteria NEGATIVE, Urine Casts NONE, Urine Mucus NEGATIVE, Urine Culture Indicated NO 09/27/21 05:40: White Blood Count 8.6, Red Blood Count 3.51L, Hemoglobin 10.7#L, Hematocrit 33L, Mean Corpuscular Volume 93, Mean Corpuscular Hemoglobin 30, Mean Corpuscular Hemoglobin Concent 33, Red Cell Distribution Width 15.9H, Platelet Count 182, Mean Platelet Volume 9.2, Immature Granulocyte % (Auto) 0, Neutrophils (%) (Auto) 72, Lymphocytes (%) (Auto) 16, Monocytes (%) (Auto) 9, Eosinophils (%) (Auto) 2, Basophils (%) (Auto) 1, Neutrophils # (Auto) 6.2, Lymphocytes # (Auto) 1.4, Monocytes # (Auto) 0.7, Eosinophils # (Auto) 0.2, Basophils # (Auto) 0.0, Immature Granulocyte # (Auto) 0.0, Sodium Level 137, Potassium Level 4.2, Chloride Level 102, Carbon Dioxide Level 26, Anion Gap 9, Blood Urea Nitrogen 24H, Creatinine 0.84, Estimat Glomerular Filtration Rate 69, BUN/Creatinine Ratio 29, Glucose Level 93, Calcium Level 8.8 Assessment/Plan Assessment/Plan Assessment/Plan Comminuted Right Pubic Rami Fracture Pelvic Hematoma Trauma Activation Hypercoagulable state Hypokalemia - resolved. Hemoglobin dropped which could be due to IV fluids or could be from bleeding into the pelvic hematoma. Will monitor H/H and if drops more tomorrow will order CT pelvis with IV contrast to look for active bleeding. I asked Dr. Cervantes to put recomendations on the chart and his input is greatly appreciated. Hold Santiago wilson. Check H/H, supposed to have been done at 14:00. SANJU HEAD DO Sep 27, 2021 14:50
[2021-09-27 14:53] LABS: HEMOGLOBIN 10.9 g/dL (11.5-16.0)
[2021-09-27] MEDS ORDERED: SERT-414 PO (15:10)
[2021-09-27] MEDS ORDERED: BUSP5TAB59 PO (15:10)
[2021-09-27] MEDS ORDERED: WARF-47 PO (15:10)
[2021-09-27] MEDS ORDERED: AMLO-250 PO (15:10)
[2021-09-28 04:05] VITALS: BP 133/61
[2021-09-28 05:52] LABS: HEMATOCRIT 33 % (35-52); HEMOGLOBIN 10.7 g/dL (11.5-16.0); MEAN CORPUSCULAR HEMOGLOBIN 31 pg (25-34); MEAN CORPUSCULAR HGB CONC 32 g/dL (32-36); MEAN CORPUSCULAR VOLUME 95 fL (80-99); MEAN PLATELET VOLUME 9.1 fL (9.0-12.2); PLATELET COUNT 161 10^3/uL (130-400); WHITE BLOOD COUNT 9.3 10^3/uL (4.3-11.0)
[2021-09-28 05:56] LABS: POTASSIUM 3.7 MMOL/L (3.6-5.0)
[2021-09-28 05:58] LABS: CALCIUM 8.9 MG/DL (8.5-10.1); INR 1.7 (0.8-1.4); PROTHROMBIN TIME PATIENT 20.2 SEC (12.2-14.7)
[2021-09-28 06:02] LABS: CREATININE SERUM 0.91 MG/DL (0.60-1.30)
[2021-09-28] MEDS: VITAMIN D3 10 MCG (400 UNITS) TABLET PO SCH ×2 (06:55→08:19)
--- NOTE | 2021-09-28 07:58 | Progress Note - Surgery ---
ANA HERBERT 09/28/21 0758: Subjective Date Seen by a Provider: Sep 28, 2021 Time Seen by a Provider: 07:40 Subjective/Events-last exam Pt seems slow to answer and slightly confused. She states she is not in pain now, but is in her pelvis with movement. She does not know 0-10 how bad it hurts when she moves. She wasn't sure if she had CP or palpitations. She denied N/V, abdominal pain. Has not had bm. States she does feel short of breath despite being on Oxymask and does have slight cough. Review of Systems General: Fatigue, Malaise HEENT: Head Aches (from talking); No Visual Changes Pulmonary: Dyspnea, Cough Cardiovascular: Chest Pain (stated she didn't know), Palpitations (stated she didn't know) Gastrointestinal: No: Nausea, Vomiting, Abdominal Pain Genitourinary: No Dysuria, No Frequency Musculoskeletal: other (pelvic pain with movement); No: arm pain Neurological: Confusion; No: Weakness Focused Exam Respiratory: No Accessory Muscle Use, No Respiratory Distress, Wheezing Cardiovascular: Regular Rate, Rhythm, Systolic Murmur Peripheral Pulses: 2+ Radial Pulses (R), 2+ Radial Pulses (L) Skin: normal color, warm/dry Objective Exam Vital Signs Date Time Temp Pulse Resp B/P (MAP) Pulse Ox O2 Delivery O2 Flow Rate FiO2 09/28/21 04:05 36.4 97 18 133/61 (85) 98 OxyMask 3.00 09/27/21 23:54 36.7 72 18 117/62 (80) 95 Nasal Cannula 2.00 09/27/21 21:48 96 Nasal Cannula 3.00 09/27/21 20:13 16 09/27/21 20:09 Nasal Cannula 2.00 09/27/21 20:00 35.9 71 18 105/70 (82) 95 Nasal Cannula 2.00 09/27/21 19:32 94 Nasal Cannula 2.00 09/27/21 15:49 35.5 78 18 99/61 (74) 94 Nasal Cannula 2.00 09/27/21 11:21 36.1 77 18 103/66 (78) 95 Nasal Cannula 2.00 09/27/21 10:35 92 Nasal Cannula 2.00 09/27/21 08:02 36.5 70 18 129/71 (90) 97 Nasal Cannula 2.00 09/27/21 08:00 Nasal Cannula 2.00 I & O 09/28/21 07:00 Intake Total 480 ml Output Total 725 ml Balance -245 ml Capillary Refill : General Appearance: WD/WN, Severe Distress (WITH MOVEMENT, COUGH, DEEP BREATHING) Respiratory: No Respiratory Distress, Wheezing Cardiovascular: Regular Rate, Rhythm, Normal Peripheral Pulses, Systolic Murmur Peripheral Pulses: 2+ Radial Pulses (R), 2+ Radial Pulses (L) Gastrointestinal: soft, no organomegaly, tenderness (RUQ palpation made her yell, not so much on the left) Extremity: Normal Inspection, No Pedal Edema Neurologic/Psychiatric: Depressed Affect, Other (Slow to answer, seems confused how to answer certain questions) Skin: Normal Color, Warm/Dry Results Lab Laboratory Tests 09/27/21 14:47: Hemoglobin 10.9L, Hematocrit 33L 09/28/21 05:20: Hemoglobin 10.7L, Hematocrit 33L, White Blood Count 9.3, Red Blood Count 3.50L, Mean Corpuscular Volume 95, Mean Corpuscular Hemoglobin 31, Mean Corpuscular Hemoglobin Concent 32, Red Cell Distribution Width 15.9H, Platelet Count 161, Mean Platelet Volume 9.1, Prothrombin Time 20.2H, INR Comment 1.7H, Sodium Level 140, Potassium Level 3.7, Chloride Level 105, Carbon Dioxide Level 25, Anion Gap 10, Blood Urea Nitrogen 22H, Creatinine 0.91, Estimat Glomerular Filtration Rate 63, BUN/Creatinine Ratio 24, Glucose Level 104, Calcium Level 8.9 Assessment/Plan Assessment/Plan Assessment/Plan Comminuted Right Pubic Rami Fracture Pelvic Hematoma Trauma Activation Hypercoagulable state Hypokalemia - resolved Hgb 10.7 yest-->10.9 yest-->10.7 today Pain management Continue checking H/H May need CT pelvis with IV contrast if Hgb drops Hold Coumadin Consider repeat CXR Monitor labs and vitals SANTO GALICIA DO 09/28/21 1148: Subjective Time Seen by a Provider: 09:17 Subjective/Events-last exam Pt seen and examined, was sitting up slightly and trying to eat. States no abdominal pain, still severe hip and back pain. Review of Systems General: Fatigue, Malaise Pulmonary: Dyspnea, Cough Cardiovascular: Chest Pain (stated she didn't know), Palpitations (stated she didn't know) Gastrointestinal: No: Nausea, Vomiting, Abdominal Pain Objective Exam General Appearance: WD/WN, Mild Distress HEENT: PERRL/EOMI, Other (poor dentition) Respiratory: No Respiratory Distress, Wheezing Cardiovascular: Regular Rate, Rhythm, Systolic Murmur Gastrointestinal: soft, no organomegaly, tenderness (minimal with deep palpation) Assessment/Plan Assessment/Plan Assessment/Plan Comminuted Right Pubic Rami Fracture Pelvic Hematoma Trauma Activation Hypercoagulable state Hypokalemia - resolved Hgb 10.7 yest-->10.9 yest-->10.7 today Pain management, can probably stop checking H/H Continue to hold Coumadin Will sign off and reconsult if needed. Supervisory-Addendum Brief Verification & Attestation Participated in pt care: history, MDM, physical Personally performed: exam, history, MDM, supervision of care Care discussed with: Medical Student Procedures: n/a Verification and Attestation of Medical Student E/M Service A medical student performed and documented this service. I then reviewed and verified all information documented by the medical student and made modifications to such information, when appropriate. I personally performed a physical exam, medical decision making and then discussed any differences between the notes and made revisions as necessary to create one note. [place] , 09/28/21 , 11:48 ANA HERBERT Sep 28, 2021 07:58 SANTO GALICIA DO Sep 28, 2021 11:48
[2021-09-28 08:00] VITALS: BP 103/68
[2021-09-28] MEDS: NICOTINE 7 MG (NICODERM) PATCH TD SCH (08:17)
[2021-09-28] MEDS: LEVOTHYROXINE 88 MCG (LEVOTHORID) TAB PO SCH (08:18)
[2021-09-28] MEDS: CALCITONIN NASAL 200 INTLU/AC (FORTICAL) 3.7 ML BTL SCH (08:18)
[2021-09-28] MEDS: SENNA W/DOCUSATE (SENOKOT S) TABLET PO SCH (08:18)
[2021-09-28] MEDS: busPIRone 5 MG (BUSPAR) TAB PO SCH ×2 (08:18→20:36)
[2021-09-28] MEDS: BACLOFEN 10 MG (LIORESAL) TAB PO SCH ×4 (08:18→20:36)
[2021-09-28] MEDS: SERTRALINE 100 MG (ZOLOFT) TAB PO SCH (08:19)
--- NOTE | 2021-09-28 08:30 | Progress Note ---
Subjective Subjective Date Seen by Provider: Sep 28, 2021 Time Seen by Provider: 08:20 PT REPORTS THAT SHE IS HAVING PERSISTENT SPASMS AND PAIN IN HER PELVIS. HER DTR STATES THAT HER MOM SLEPT ALMOST ALL NIGHT. SHE REPORTS THAT HER MOM HAS BEEN APPEARING TO BE MORE COMFORTABLE TODAY COMPARED TO YESTERDAY. Review of Systems General: Fatigue, Malaise HEENT: No Head Aches, No Visual Changes Pulmonary: Dyspnea, Cough Cardiovascular: No: Chest Pain, Palpitations Gastrointestinal: No: Nausea, Vomiting, Abdominal Pain Genitourinary: No Dysuria, No Frequency Musculoskeletal: other (pelvic pain with movement); No: arm pain Neurological: Confusion; No: Weakness All Other Systems Reviewed All Other Systems Reviewed: Yes Objective Exam Vital Signs Vital Signs Date Time Temp Pulse Resp B/P (MAP) Pulse Ox O2 Delivery O2 Flow Rate FiO2 09/28/21 04:05 36.4 97 18 133/61 (85) 98 OxyMask 3.00 09/27/21 23:54 36.7 72 18 117/62 (80) 95 Nasal Cannula 2.00 09/27/21 21:48 96 Nasal Cannula 3.00 09/27/21 20:13 16 09/27/21 20:09 Nasal Cannula 2.00 09/27/21 20:00 35.9 71 18 105/70 (82) 95 Nasal Cannula 2.00 09/27/21 19:32 94 Nasal Cannula 2.00 09/27/21 15:49 35.5 78 18 99/61 (74) 94 Nasal Cannula 2.00 09/27/21 11:21 36.1 77 18 103/66 (78) 95 Nasal Cannula 2.00 09/27/21 10:35 92 Nasal Cannula 2.00 I & O 09/28/21 07:00 Intake Total 480 ml Output Total 725 ml Balance -245 ml General Appearance: WD/WN, Moderate Distress (WITH MOVEMENT, COUGH, DEEP BREATHING) Eyes: Bilateral Eye PERRL, Bilateral Eye EOMI Respiratory: No Respiratory Distress, Decreased Breath Sounds, Wheezing Cardiovascular: Regular Rate, Rhythm, Normal Peripheral Pulses, Systolic Murmur Gastrointestinal: Normal Bowel Sounds, Non Tender, Soft Back: Other Extremity: Normal Inspection, No Pedal Edema Neurologic/Psychiatric: Depressed Affect, Other (Slow to answer, seems confused how to answer certain questions) Skin: Normal Color, Warm/Dry Results Lab Laboratory Tests 09/27/21 14:47: Hemoglobin 10.9L, Hematocrit 33L 09/28/21 05:20: Hemoglobin 10.7L, Hematocrit 33L, White Blood Count 9.3, Red Blood Count 3.50L, Mean Corpuscular Volume 95, Mean Corpuscular Hemoglobin 31, Mean Corpuscular Hemoglobin Concent 32, Red Cell Distribution Width 15.9H, Platelet Count 161, Mean Platelet Volume 9.1, Prothrombin Time 20.2H, INR Comment 1.7H, Sodium Level 140, Potassium Level 3.7, Chloride Level 105, Carbon Dioxide Level 25, Anion Gap 10, Blood Urea Nitrogen 22H, Creatinine 0.91, Estimat Glomerular Filtration Rate 63, BUN/Creatinine Ratio 24, Glucose Level 104, Calcium Level 8.9 Assessment/Plan Assessment/Plan Admission Dx PELVIC BONE FRACTURES - RIGHT PUBIC BODY AND RIGHT INFERIOR ISCHIAL RAMI FRACTURE WITH DISPLACEMENT FALL AT SAME LEVEL IN HOME ANEMIA POST FALL HEMATOMA OF PELVIS CHRONIC ANTICOAGULATION THERAPY CHRONIC HYPERTENSION TOBACCOISM 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 ANXIETY DEPRESSION COPD HYPOTHYROIDISM Assessment and Plan PELVIC BONE FRACTURES - RIGHT PUBIC BODY AND RIGHT INFERIOR ISCHIAL RAMI FRACTURE WITH DISPLACEMENT FALL AT SAME LEVEL IN HOME ANEMIA POST FALL HEMATOMA OF PELVIS CHRONIC ANTICOAGULATION THERAPY CHRONIC HYPERTENSION TOBACCOISM 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 ANXIETY DEPRESSION COPD HYPOTHYROIDISM PELVIC BONE FRACTURES - RIGHT PUBIC BODY AND RIGHT INFERIOR ISCHIAL RAMI FRACTURE WITH DISPLACEMENT - IMPRESSION FROM CT SCAN FOLLOWS: IMPRESSION: Fractures involving the right pubic body and right inferior ischial ramus with displacement and moderate associated right pelvic sidewall hematoma resulting in mass effect upon the bladder. No other definite acute abnormality is seen. - DISCUSSED WITH DR. DELGADO, PT IS WEIGHT BEARING TOLERATED. - PT WILL BE STARTED ON A BATTERY INSPECTOR PUMP TODAY, AND BACLOFEN FOR MUSCLE SPASMS, WILL MONITOR FOR APPROPRIATE PAIN CONTROL, ADJUST HER MEDICATIONS NEEDED AND WORK TOWARD ORAL MEDICATION FOR PAIN CONTROL. - DISCUSSED WITH PT AND HER DTR - PLAN WILL BE TO ATTEMPT TO TRANSFER HER TO A CUSTODIAL IN [place] FOR LONGER TERM THERAPY SINCE THAT IS WHERE HER DAUGHTER RESIDES FALL AT SAME LEVEL IN HOME ANEMIA POST FALL WITH HEMATOMA OF THE PELVIS - MONITOR LABS TO ASSURE THAT SHE IS NOT STILL BLEEDING INTO HER PELVIS. CHRONIC ANTICOAGULATION THERAPY - WILL REPEAT INR SATURDAY. CHRONIC HYPERTENSION - RESTART MEDICATION, MONITOR PRESSURE, RESTART NEEDED. 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
[2021-09-28 11:40] VITALS: BP 123/83
[2021-09-28] MEDS: guaiFENesin (MUCINEX) 600 MG TAB PO SCH ×2 (12:06→20:36)
[2021-09-28] MEDS: METHYLNALTREXONE 12 MG/0.6 ML (RELISTOR) VIAL SQ SCH (12:07)
--- NOTE | 2021-09-28 13:38 | Physician Query Clarification ---
Physician Query-General Query to Physician: The medical record reflects the following clinical evidence: Clinical Indicators: O2 sat decreased to 88% within 8 hours of admission, P/F = 55/02=952 and 92% on 2L P/F 232, RR 18 to 24, End tidal CO2 25 on admission, remained 25 to 27 X 2 days, Remains on 02 greater than 24 hours Risk Factor(s): Advanced age, Pain medication, Anemia, COPD, no documentation of home 02 Treatment: Supplemental 02 up to 3L per oxymask, Chest Xray, Respiratory monitoring, 1. Acute respiratory failure, with hypoxia, present on admission 2. Other explanation of clinical findings 3. Unable to determine (no explanation for clinical findings) Please clarify and document your clinical opinion in the progress notes and discharge summary including the definitive and/or presumptive diagnosis, (suspected or probable), related to the above clinical findings. Please include clinical findings supporting your diagnosis. Savanna Mcdonald MSN, RN Clinical Supervisor Partial Denture Department [phone] [email or web address] PHYSICIAN RESPONSE: Based on the clinical findings in the record, please respond to the query above on this document as an addendum. Physician Response: Physician Response . Acute respiratory failure, with hypoxia, present on admission If you have questions please contact: Parlor Maid: Ext: Thank you for your time and cooperation. Clinical Supervisor Partial Denture Department/Parlor Maid This is a permanent part of the medical record SAVANNA MCDONALD Sep 28, 2021 13:38 DAYANNA ROGEL MD Oct 11, 2021 12:36
[2021-09-28] MEDS: NS IV 1000 ML 1,000 ML IV SCH (14:17)
[2021-09-28] MEDS ORDERED: RT-ALBUTEROL SULF 2.5 MG/3 ML PRE-MIX VIAL INH PRN (15:30)
[2021-09-28 15:45] VITALS: BP 114/66
[2021-09-28] MEDS: warFARin 2 MG (COUMADIN) TAB PO SCH (17:31)
[2021-09-28 19:33] VITALS: BP 127/57
[2021-09-28] MEDS: RT-ALBUTEROL/IPRATROPIUM 3 ML (DUONEB) VIAL INH SCH (20:52)
[2021-09-29] VITALS (7 sets, daily range): BP systolic 101–133; BP diastolic 56–78
[2021-09-29] MEDS: RT-ALBUTEROL/IPRATROPIUM 3 ML (DUONEB) VIAL INH SCH ×4 (03:25→21:24)
[2021-09-29 06:06] LABS: INR 1.5 (0.8-1.4); PROTHROMBIN TIME PATIENT 18.8 SEC (12.2-14.7)
[2021-09-29] MEDS: LEVOTHYROXINE 88 MCG (LEVOTHORID) TAB PO SCH (08:45)
[2021-09-29] MEDS: SERTRALINE 100 MG (ZOLOFT) TAB PO SCH (08:45)
[2021-09-29] MEDS: guaiFENesin (MUCINEX) 600 MG TAB PO SCH ×3 (08:45→22:10)
[2021-09-29] MEDS: NICOTINE 7 MG (NICODERM) PATCH TD SCH (08:45)
[2021-09-29] MEDS: SENNA W/DOCUSATE (SENOKOT S) TABLET PO SCH (08:45)
[2021-09-29] MEDS: busPIRone 5 MG (BUSPAR) TAB PO SCH ×3 (08:46→22:10)
[2021-09-29] MEDS: CALCITONIN NASAL 200 INTLU/AC (FORTICAL) 3.7 ML BTL SCH (08:46)
[2021-09-29] MEDS: BACLOFEN 10 MG (LIORESAL) TAB PO SCH ×5 (08:46→22:14)
[2021-09-29] MEDS ORDERED: guaiFENesin/DM (ROBITUSSIN DM) 10 ML UDC PO PRN (10:45)
[2021-09-29] MEDS ORDERED: guaiFENesin/DM (ROBITUSSIN DM) 10 ML UDC PO ONE (10:45)
--- NOTE | 2021-09-29 10:48 | Progress Note ---
Subjective Subjective Date Seen by Provider: Sep 29, 2021 Time Seen by Provider: 09:40 PT REPORTS THAT SHE HAS BEEN FATIGUED, HER SPASMS ARE BETTER. DISCUSSION WITH THE NURSE - PATIENT HAS CONTINUED TO RECEIVE CONTINUOUS DOPE POURER - ORDERS WERE WRITTEN FOR DC OF CONTINUOUS YESTERDAY - REITERATED NEED TO ADJUST DOPE POURER PREVIOUSLY ORDERED. Review of Systems General: Fatigue, Malaise HEENT: No Head Aches, No Visual Changes Pulmonary: Dyspnea, Cough, Pleuritic Chest Pain Cardiovascular: No: Chest Pain, Palpitations Gastrointestinal: No: Nausea, Vomiting, Abdominal Pain Genitourinary: No Dysuria, No Frequency Musculoskeletal: other (pelvic pain with movement); No: arm pain Neurological: Confusion; No: Weakness All Other Systems Reviewed All Other Systems Reviewed: Yes Objective Exam Vital Signs Vital Signs Date Time Temp Pulse Resp B/P (MAP) Pulse Ox O2 Delivery O2 Flow Rate FiO2 09/29/21 08:01 36.5 70 18 105/57 (73) 97 Nasal Cannula 3.00 09/29/21 03:55 35.8 81 18 101/60 (74) 92 Nasal Cannula 3.00 09/29/21 03:25 94 Nasal Cannula 3.00 09/29/21 00:00 36.2 80 17 118/65 (82) 95 Nasal Cannula 3.00 09/28/21 20:52 97 Nasal Cannula 3.00 09/28/21 20:30 Nasal Cannula 2.00 09/28/21 19:33 36.4 85 19 127/57 (80) 94 Nasal Cannula 3.00 09/28/21 15:45 35.7 79 20 114/66 (82) 97 Nasal Cannula 3.00 09/28/21 14:10 94 Nasal Cannula 3.00 09/28/21 11:40 37.5 100 24 123/83 (96) 94 OxyMask 3.00 09/28/21 10:45 97 Nasal Cannula 3.00 I & O 09/29/21 07:00 Intake Total 1050 ml Output Total 825 ml Balance 225 ml General Appearance: WD/WN, Moderate Distress (WITH MOVEMENT, COUGH, DEEP BREATHING) Eyes: Bilateral Eye PERRL, Bilateral Eye EOMI HEENT: PERRL/EOMI, Other (poor dentition) Respiratory: No Respiratory Distress, Decreased Breath Sounds, Wheezing Cardiovascular: Regular Rate, Rhythm, Normal Peripheral Pulses, Systolic Murmur Gastrointestinal: Normal Bowel Sounds, Non Tender, Soft Back: Other Extremity: Normal Inspection, No Pedal Edema Neurologic/Psychiatric: Depressed Affect, Other (Slow to answer, seems confused how to answer certain questions) Skin: Normal Color, Warm/Dry Results Lab Laboratory Tests 09/29/21 05:16: Prothrombin Time 18.8H, INR Comment 1.5H Assessment/Plan Assessment/Plan Admission Dx PELVIC BONE FRACTURES - RIGHT PUBIC BODY AND RIGHT INFERIOR ISCHIAL RAMI FRACTURE WITH DISPLACEMENT FALL AT SAME LEVEL IN HOME ANEMIA POST FALL HEMATOMA OF PELVIS CHRONIC ANTICOAGULATION THERAPY CHRONIC HYPERTENSION TOBACCOISM 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 ANXIETY DEPRESSION COPD HYPOTHYROIDISM Assessment and Plan PELVIC BONE FRACTURES - RIGHT PUBIC BODY AND RIGHT INFERIOR ISCHIAL RAMI FRACTURE WITH DISPLACEMENT FALL AT SAME LEVEL IN HOME ANEMIA POST FALL HEMATOMA OF PELVIS CHRONIC ANTICOAGULATION THERAPY CHRONIC HYPERTENSION TOBACCOISM 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 ANXIETY DEPRESSION COPD HYPOTHYROIDISM PELVIC BONE FRACTURES - RIGHT PUBIC BODY AND RIGHT INFERIOR ISCHIAL RAMI FRACTURE WITH DISPLACEMENT - IMPRESSION FROM CT SCAN FOLLOWS: IMPRESSION: Fractures involving the right pubic body and right inferior ischial ramus with displacement and moderate associated right pelvic sidewall hematoma resulting in mass effect upon the bladder. No other definite acute abnormality is seen. - DISCUSSED WITH DR. DELGADO, PT IS WEIGHT BEARING TOLERATED. - PT ON A DOPE POURER PUMP DECREASE TO JUST PRN DOSING AND BACLOFEN QID FOR MUSCLE SPASMS, WILL MONITOR FOR APPROPRIATE PAIN CONTROL, ADJUST HER MEDICATIONS NEEDED AND WORK TOWARD PT TO ONLY BE ON ORAL MEDICATION FOR PAIN CONTROL. - DISCUSSED WITH PT AND HER DTR - PLAN WILL BE TO ATTEMPT TO TRANSFER HER TO A ALF IN [place] FOR LONGER TERM THERAPY SINCE THAT IS WHERE HER DAUGHTER RESIDES - WORKING WITH [employer] FOR TRANSFER ON SATURDAY TO [place] FALL AT SAME LEVEL IN HOME ANEMIA POST FALL WITH HEMATOMA OF THE PELVIS - HGB STABLE - PT RESTARTED ON COUMADIN - MONITOR LABS CHRONIC ANTICOAGULATION THERAPY - RESTARTED COUMADIN - WILL REPEAT INR DAILY CHRONIC HYPERTENSION - RESTARTED MEDICATION, MONITOR PRESSURE TOBACCOISM - LOW DOSE NICODERM PATCH 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 ANXIETY AND DEPRESSION - RESUME PART OF HOME REGiMEN COPD - MONITOR HYPOTHYROIDISM - RESUME HOME REGIMEN DVT PROPHYLAXIS WITH COMPRESSION - RESTARTED COUMADIN GI PROPHYLAXIS WITH PPI Admission Dx PELVIC BONE FRACTURES - RIGHT PUBIC BODY AND RIGHT INFERIOR ISCHIAL RAMI FRACTURE WITH DISPLACEMENT FALL AT SAME LEVEL IN HOME ANEMIA POST FALL HEMATOMA OF PELVIS CHRONIC ANTICOAGULATION THERAPY CHRONIC HYPERTENSION TOBACCOISM 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
--- NOTE | 2021-09-29 11:31 | Physical Therapy Evaluation ---
PT Evaluation-General Medical Diagnosis Admission Date Sep 26, 2021 at 18:00 Medical Diagnosis: pelvic fx Onset Date: Sep 26, 2021 Therapy Diagnosis Therapy Diagnosis: impaired mobility, strength, endurance Height/Weight Height (Feet): 5 Height (Inches): 2.00 Weight (Pounds): 159 Weight (Ounces): 0.0 Precautions Precautions/Isolations: Fall Prevention, Standard Precautions Referral Physician: Deya Reason for Referral: Evaluation/Treatment Medical History Pertinent Medical History: Atrial Fib, Alcoholism, HTN, Hypothroidism, PVD, Smoking Additional Medical History Past Medical History Surgeries: Hysterectomy, Orthopedic, Tonsillectomy COPD Currently Using CPAP: No Currently Using BIPAP: No Coronary Artery Disease, Hypertension 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 8-Zmkgkcqcpw-vprovti completes the activity by him/herself with no assistance from a helper. 5-Set-up or Clean-up Assistance-helper sets up or cleans up; patient completes activity. [place] assists only prior to or following the activity. 4-Supervision or Touching Assistance-helper provides verbal cues and/or touching/steadying and/or contact guard assistance as patient completes activity. Assistance may be provided throughout the activity or intermittently. 3-Partial/Moderate Assistance-helper does LESS THAN HALF the effort. [place] lifts, holds or supports trunk or limbs, but provides less than half the effort. 2-Substantial/Maximal Assistance-helper does MORE THAN HALF the effort. [place] lifts or holds trunk or limbs and provides more than half the effort. 8-Iyeynmqaw-ouxqsc does ALL the effort. Patient does none of the effort to complete the activity. Or, the assistance of 2 or more helpers is required for the patient to complete the activity. If activity was not attempted, code reason: 7-Patient Refused. 9-Not Applicable-not attempted and the patient did not perform the activity before the current illness, exacerbation or injury. 10-Not Attempted due to Environmental Limitations-(lack of equipment, weather restraints, etc.). 88-Not Attempted due to Medical Conditions or Safety Concerns. Bed Mobility: 6 Transfers (B,C,W/C): 6 Gait: 6 Indoor Mobility (Ambulation): Independent PT Evaluation-Current Subjective Patient in bed pre tx, agrees to PT reluctantly, has unrated pain in pelvis and right upper chest. Patient states she would like to get into the recliner but doubts that we will be able to move her. Pt/Family Goals none stated Objective Patient Orientation: Person, Place, Situation Attachments: Oxygen, Miranda Catheter ROM/Strength ROM Lower Extremities unable to test Strength Lower Extremities unable to test Sensory Vision: Functional Hearing: Functional Transfers Roll Left to Right (QC): 1 Lying to Sitting/Side of Bed(Q: 1 Sit to Stand (QC): 3 Chair/Kag-kv-Qkena Xfer(QC): 3 Patient requires 2 people for supine to sit, she was able to scoot forward on her own with trunk support, sit to stand mod assist and stand pivot transfer mod assist. However, patient has a lot of pain, cries out in pain multiple times, she can do some movement herself with less pain but it takes a lot of time and patience, the actual transfer probably took about 5 min but she was able to take several small steps, needed assist with guiding hand for armrest when sitting. Attempted LE exercise but patient says she cannot move her legs. Balance Sitting Static: Poor Sitting Dynamic: Poor Standing Static: Poor Standing Dynamic: Poor Assessment/Needs Patient in recliner post tx with nurse call, phone, tray, all needs met. Patient has impaired mobility, strength, endurance. She has a lot of pain with movement. Nurse notified about how patient transfers so they can get her back. Rehab Potential: Guarded PT Road Supervisor Of Engines Goals Road Supervisor Of Engines Goals PT Road Supervisor Of Engines Goals Time Frame: Oct 06, 2021 Roll Left & Right (QC): 3 Sit to Lying (QC): 3 Lying-Sitting on Side/Bed(QC): 3 Sit to Stand (QC): 3 Chair/Baq-lk-Gpcgc Xfer(QC): 3 PT Plan Problem List Problem List: Activity Tolerance, Functional Strength, Safety, Balance, Gait, Transfer, Bed Mobility, ROM Treatment/Plan Treatment Plan: Continue Plan of Care Treatment Plan: Bed Mobility, Education, Functional Activity Sweta, Functional Strength, Gait, Safety, Therapeutic Exercise, Transfers Treatment Duration: Oct 06, 2021 Frequency: 6 times per week Estimated Hrs Per Day: .25 hour per day Patient and/or Family Agrees t: Yes Safety Risks/Education Patient Education: Transfer Techniques, Correct Positioning, Safety Issues Teaching Recipient: Patient Teaching Methods: Demonstration, Discussion Response to Teaching: Reinforcement Needed Discharge Recommendations Plan Patient will perform bed mobility and transfer training, balance and endurance training, functional strengthening, gait training, and education, to improve functional mobility and independence at home. Therapy Discharge Recommendati: 24 Hour Supervision Time/GCodes Time In: 1056 Time Out: 1119 Total Billed Treatment Time: 23 Total Billed Treatment 1 visit VERA 10' FA 13' MARVIN ARAUZ PT Sep 29, 2021 11:31
--- NOTE | 2021-09-29 11:58 | Occupational Therapy Eval ---
OT Evaluation-General/PLF Medical Diagnosis Admission Date Sep 26, 2021 at 18:00 Medical Diagnosis: pelvic fx Onset Date: Sep 26, 2021 Therapy Diagnosis Therapy Diagnosis: decreased ADL status Height/Weight Height (Feet): 5 Height (Inches): 2.00 Weight (Pounds): 159 Weight (Ounces): 0.0 Precautions Precautions/Isolations: Fall Prevention, Standard Precautions Weight Bear Status Weight Bearing Restriction: Weight Bearing/Tolerated WBAT per nursing report. Referral Physician: Deya Referral Reason: Evaluation/Treatment Medical History Pertinent Medical History: Atrial Fib, Alcoholism, HTN, Hypothroidism, PVD, Smoking Additional Medical History Hysterectomy, Orthopedic, Tonsillectomy, Coronary Artery Disease, Hypertension, TIA, Osteoporosis, Arthritis, Hypothyroidsim, Skin cancer, anxiety/depression Current History R pubic body and R inferior ischial rami fx with displacement. Social History Home: Single Level Current Living Status: Spouse ADL-Prior Level of Function SCALE: Activities may be completed with or without assistive devices. 0-Uxaayjscfk-xmdoxyz completes the activity by him/herself with no assistance from a helper. 5-Set-up or Clean-up Assistance-helper sets up or cleans up; patient completes activity. [place] assists only prior to or following the activity. 4-Supervision or Touching Assistance-helper provides verbal cues and/or touching/steadying and/or contact guard assistance as patient completes activity. Assistance may be provided throughout the activity or intermittently. 3-Partial/Moderate Assistance-helper does LESS THAN HALF the effort. [place] lifts, holds or supports trunk or limbs, but provides less than half the effort. 2-Substantial/Maximal Assistance-helper does MORE THAN HALF the effort. [place] lifts or holds trunk or limbs and provides more than half the effort. 9-Mqaxzphhj-hduzry does ALL the effort. Patient does none of the effort to complete the activity. Or, the assistance of 2 or more helpers is required for the patient to complete the activity. If activity was not attempted, code reason: 7-Patient Refused. 9-Not Applicable-not attempted and the patient did not perform the activity before the current illness, exacerbation or injury. 10-Not Attempted due to Environmental Limitations-(lack of equipment, weather restraints, etc.). 88-Not Attempted due to Medical Conditions or Safety Concerns. ADL PLOF Comments Pt independent with ADLs and functional mobiltiy at [facility], no AD. 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 Self Care: Independent Functional Cognition: Independent OT Current Status Subjective Pt in bed, agreeable to OT evaluation. 2 family members present stating pt will go to [facility] in [place] at discharge. Mental Status/Objective Patient Orientation: Person, Place, Situation Attachments: Miranda Catheter, IV, Oxygen Current Upper Extremity ROM unable to formally assess due to pt being resistive to movements. ADL-Treatment Lower Body Dressing (QC): 1 (per clinical judgment) On/Off Footwear (QC): 1 (per clinical judgment) Toileting Hygiene (QC): 1 Other Treatments Pt in bed, requires 2 person assist supine to sit. Pt able to scoot forward on her own with some trunk support. Sit to stand mod A and SPT mod A. Pt has a lot of pain and cries out multiple times throughout session. She can do some move ments herself, but takes a lot of time and patience due to her pain. Pt required assistance guiding hand to armrest in sitting. UE exercise attempted, but pt refused further activity. Post tx, pt up in recliner, call light in reach and all needs met. Education OT Patient Education: Correct positioning, Energy conservation, Modified ADL techniques, Progress toward Goal/Update tx plan, Purpose of tx/functional activities, Rehab process Teaching Recipient: Patient Teaching Methods: Discussion Response to Teaching: Verbalize Understanding OT Half-Way Goals Half-Way Goals Time Frame: Oct 13, 2021 Eating (QC): 5 Oral Hygiene (QC): 5 Toileting Hygiene (QC): 3 Shower/Bathe Self (QC): 2 Upper Body Dressing (QC): 3 Lower Body Dressing (QC): 2 On/Off Footwear (QC): 2 Additional Goals: 1-Demonstrate ADL Tasks, 2-Verbalize Understanding, 3- ImproveStrength/Sweta 1=Demonstrate adherence to instructed precautions during ADL tasks. 2=Patient will verbalize/demonstrate understanding of assistive devices/modifications for ADL. 3=Patient will improve strength/tolerance for activity to enable patient to perform ADL's. OT Education/Plan Problem List/Assessment Assessment: Decreased Activ Tolerance, Decreased UE Strength, Dependent Transfers, Impaired Bed Mobility, Impaired Funct Balance, Impaired I ADL's, Impaired Self-Care Skills, Restricted Funct UE ROM Discharge Recommendations Plan/Recommendations: Continue POC Treatment Plan/Plan of Care Patient would benefit from OT for education, treatment and training to promote independence in ADL's, mobility, safety and/or upper extremity function for ADL's. Plan of Care: ADL Retraining, Functional Mobility, UE Funct Exercise/Act Treatment Duration: Oct 13, 2021 Frequency: 3 times per week (3-5 times per week) Estimated Hrs Per Day: .25 hour per day Rehab Potential: Guarded Time/GCodes Start Time: 10:56 Stop Time: 11:19 Total Time Billed (hr/min): 23 Billed Treatment Time 1, EVM (10'), FA (13') DOROTHY AHN OT Sep 29, 2021 11:58
[2021-09-29] MEDS: warFARin 2 MG (COUMADIN) TAB PO SCH (17:26)
[2021-09-29] MEDS: NS IV 1000 ML 1,000 ML IV SCH (20:13)
[2021-09-30] VITALS (7 sets, daily range): BP systolic 96–152; BP diastolic 57–78
[2021-09-30] MEDS: RT-ALBUTEROL/IPRATROPIUM 3 ML (DUONEB) VIAL INH SCH ×6 (02:55→22:04)
[2021-09-30 05:41] LABS: HEMATOCRIT 29 % (35-52); HEMOGLOBIN 9.6 g/dL (11.5-16.0); MEAN CORPUSCULAR HEMOGLOBIN 31 pg (25-34); MEAN CORPUSCULAR HGB CONC 33 g/dL (32-36); MEAN CORPUSCULAR VOLUME 95 fL (80-99); MEAN PLATELET VOLUME 9.5 fL (9.0-12.2); PLATELET COUNT 182 10^3/uL (130-400); WHITE BLOOD COUNT 11.7 10^3/uL (4.3-11.0)
[2021-09-30 05:53] LABS: INR 1.5 (0.8-1.4); PROTHROMBIN TIME PATIENT 18.4 SEC (12.2-14.7)
[2021-09-30 05:59] LABS: ALBUMIN 2.9 GM/DL (3.2-4.5)
[2021-09-30 06:00] LABS: POTASSIUM 3.4 MMOL/L (3.6-5.0)
[2021-09-30 06:01] LABS: CALCIUM 8.8 MG/DL (8.5-10.1)
[2021-09-30 06:02] LABS: TOTAL PROTEIN 5.5 GM/DL (6.4-8.2)
[2021-09-30 06:04] LABS: BILIRUBIN,TOTAL 0.7 MG/DL (0.1-1.0)
[2021-09-30] MEDS: VITAMIN D3 10 MCG (400 UNITS) TABLET PO SCH (06:04)
[2021-09-30 06:06] LABS: CREATININE SERUM 0.72 MG/DL (0.60-1.30)
--- NOTE | 2021-09-30 06:18 | Diagnostic Imaging Report ---
EXAMINATION: Chest 1 view HISTORY: Shortness of breath COMPARISON: 09/26/2021 FINDINGS: Heart size and pulmonary vasculature are normal. There is a small left pleural effusion with adjacent atelectasis or consolidation in the left lung base. No pneumothorax. The osseous structures are intact. IMPRESSION: 1. Small left pleural effusion with adjacent atelectasis or consolidation. 2. Agree with preliminary interpretation. Dictated by: Dictated on workstation # [id number]
[2021-09-30] MEDS: NICOTINE 7 MG (NICODERM) PATCH TD SCH (08:50)
[2021-09-30] MEDS: SENNA W/DOCUSATE (SENOKOT S) TABLET PO SCH (08:51)
[2021-09-30] MEDS: BACLOFEN 10 MG (LIORESAL) TAB PO SCH ×4 (08:51→22:04)
[2021-09-30] MEDS: METHYLNALTREXONE 12 MG/0.6 ML (RELISTOR) VIAL SQ SCH (08:51)
[2021-09-30] MEDS: guaiFENesin (MUCINEX) 600 MG TAB PO SCH ×2 (08:51→22:04)
[2021-09-30] MEDS: LEVOTHYROXINE 88 MCG (LEVOTHORID) TAB PO SCH (08:51)
[2021-09-30] MEDS: CALCITONIN NASAL 200 INTLU/AC (FORTICAL) 3.7 ML BTL SCH (08:52)
[2021-09-30] MEDS: busPIRone 5 MG (BUSPAR) TAB PO SCH ×2 (08:52→22:04)
[2021-09-30] MEDS: SERTRALINE 100 MG (ZOLOFT) TAB PO SCH (08:52)
[2021-09-30] MEDS ORDERED: BISACODYL 10 MG SUPP (DULCOLAX) PR PRN (10:45)
--- NOTE | 2021-09-30 10:58 | Physical Therapy Daily Note ---
PT Daily Note-Current Subjective Pt reluctantly agrees to bed exs. Pt denies wanting to get up and TF to recliner. Pt reports she is having a lot of pain w/ movement but does not rate. Family present Mental Status Patient Orientation: Person, Place, Time Attachments: IV Transfers SCALE: Activities may be completed with or without assistive devices. 4-Hmzwizbxyj-bmemwcm completes the activity by him/herself with no assistance from a helper. 5-Set-up or Clean-up Assistance-helper sets up or cleans up; patient completes activity. [place] assists only prior to or following the activity. 4-Supervision or Touching Assistance-helper provides verbal cues and/or touching/steadying and/or contact guard assistance as patient completes activity. Assistance may be provided throughout the activity or intermittently. 3-Partial/Moderate Assistance-helper does LESS THAN HALF the effort. [place] lifts, holds or supports trunk or limbs, but provides less than half the effort. 2-Substantial/Maximal Assistance-helper does MORE THAN HALF the effort. [place] lifts or holds trunk or limbs and provides more than half the effort. 1-Exhkwjwzo-nkxxxm does ALL the effort. Patient does none of the effort to complete the activity. Or, the assistance of 2 or more helpers is required for the patient to complete the activity. If activity was not attempted, code reason: 7-Patient Refused. 9-Not Applicable-not attempted and the patient did not perform the activity before the current illness, exacerbation or injury. 10-Not Attempted due to Environmental Limitations-(lack of equipment, weather restraints, etc.). 88-Not Attempted due to Medical Conditions or Safety Concerns. Gait Training Does the Patient Walk?: No and Walking Goal IS indicated Exercises Supine Ex: Ankle pumps, Quad Set, Short Arc Quads, Hip abd/add Supine Reps: 10 Treatments Pt reluctantly performs bed exs but any slightest movement pt will report pain. Pt in bed upon departure w/ all needs met and call light nearby. Assessment Current Status: Poor Progress Encouraged pt to get up and move but pt denies. Pt requires min/modA in order to perform bed exs. 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 Certified Master Locksmith Goals PT [facility] Goals Time Frame: Oct 06, 2021 Roll Left & Right (QC): 3 Sit to Lying (QC): 3 Lying-Sitting on Side/Bed(QC): 3 Sit to Stand (QC): 3 Chair/Svb-jx-Kuwwr Xfer(QC): 3 PT Plan Problem List Problem List: Activity Tolerance, Functional Strength, Safety Treatment/Plan Treatment Plan: Continue Plan of Care Treatment Plan: Bed Mobility, Education, Functional Activity Sweta, Functional Strength, Gait, Safety, Therapeutic Exercise, Transfers Treatment Duration: Oct 06, 2021 Frequency: 6 times per week Estimated Hrs Per Day: .25 hour per day Patient and/or Family Agrees t: Yes Safety Risks/Education Patient Education: Correct Positioning Teaching Recipient: Patient, Family Teaching Methods: Discussion Response to Teaching: Return Demonstration Time/GCodes Time In: 1003 Time Out: 1018 Total Billed Treatment Time: 15 Total Billed Treatment 1, Ex DENICE GILBERT WEAVING LOOM OPERATOR Sep 30, 2021 10:58
--- NOTE | 2021-09-30 14:01 | Progress Note - Hospitalist ---
Subjective HPI/CC On Admission Date Seen by Provider: Sep 30, 2021 Time Seen by Provider: 10:15 Subjective/Events-last exam Pt reports persistent pain. States she is not getting adequate pain control when pressing the button. She then inidicates she's been pressing the nurse button instead of her RESAW OPERATOR button. Educated her on how to use RESAW OPERATOR and to let us know if the pain control Objective Exam Vital Signs Vital Signs Date Time Temp Pulse Resp B/P (MAP) Pulse Ox O2 Delivery O2 Flow Rate FiO2 09/30/21 23:37 74 14 116/65 (82) 91 Nasal Cannula 2.00 09/30/21 19:08 36.0 Capillary Refill : General Appearance: No Apparent Distress, Chronically ill Respiratory: Lungs Clear Results/Procedures Lab Laboratory Tests 09/30/21 05:36 Patient resulted labs reviewed. Assessment/Plan Assessment and Plan Assess & Plan/Chief Complaint PELVIC BONE FRACTURES - RIGHT PUBIC BODY AND RIGHT INFERIOR ISCHIAL RAMI FRACTURE WITH DISPLACEMENT WBAT per Ortho Continue RESAW OPERATOR pump for pain control, had been confused in how to use it so reeducated on use, will monitor need over 24 hours for total needs Goal is to DC to senior care in [place] next week child and family services specialist consulted, appreciate recs ANEMIA POST FALL WITH HEMATOMA OF THE PELVIS -Hgb down slightly today - Trend with resumption of Coumadin CHRONIC ANTICOAGULATION THERAPY Continue Warfarin as long as hemoglobin stable INR 1.5 this AM CHRONIC HYPERTENSION BP well controlled TOBACCOISM Nicotine patch 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 ANXIETY AND DEPRESSION Continue home meds DVT PROPHYLAXIS WITH COMPRESSION - RESTARTED COUMADIN GI PROPHYLAXIS WITH PPI MELITON RED MD Sep 30, 2021 14:01
[2021-09-30] MEDS: warFARin 2 MG (COUMADIN) TAB PO SCH (18:24)
[2021-09-30] MEDS: polyethylene glycoL POWDER 17 GM (MIRALAX) PACK PO SCH (22:04)
[2021-10-01] MEDS: RT-ALBUTEROL/IPRATROPIUM 3 ML (DUONEB) VIAL INH SCH ×6 (03:13→22:18)
[2021-10-01 04:00] VITALS: BP 115/61
[2021-10-01] MEDS: VITAMIN D3 10 MCG (400 UNITS) TABLET PO SCH (05:12)
[2021-10-01] MEDS: NS IV 1000 ML 1,000 ML IV SCH (05:13)
[2021-10-01 05:51] LABS: HEMATOCRIT 31 % (35-52); HEMOGLOBIN 10.1 g/dL (11.5-16.0); MEAN CORPUSCULAR HEMOGLOBIN 31 pg (25-34); MEAN CORPUSCULAR HGB CONC 33 g/dL (32-36); MEAN CORPUSCULAR VOLUME 95 fL (80-99); MEAN PLATELET VOLUME 9.2 fL (9.0-12.2); PLATELET COUNT 191 10^3/uL (130-400); WHITE BLOOD COUNT 11.1 10^3/uL (4.3-11.0)
[2021-10-01 06:00] LABS: INR 1.4 (0.8-1.4); PROTHROMBIN TIME PATIENT 17.3 SEC (12.2-14.7)
[2021-10-01 07:55] VITALS: BP 136/61
[2021-10-01] MEDS: BACLOFEN 10 MG (LIORESAL) TAB PO SCH ×4 (09:30→20:35)
[2021-10-01] MEDS: LEVOTHYROXINE 88 MCG (LEVOTHORID) TAB PO SCH (09:30)
[2021-10-01] MEDS: polyethylene glycoL POWDER 17 GM (MIRALAX) PACK PO SCH ×2 (09:30→20:35)
[2021-10-01] MEDS: SERTRALINE 100 MG (ZOLOFT) TAB PO SCH (09:30)
[2021-10-01] MEDS: busPIRone 5 MG (BUSPAR) TAB PO SCH ×2 (09:30→20:35)
[2021-10-01] MEDS: SENNA W/DOCUSATE (SENOKOT S) TABLET PO SCH (09:30)
[2021-10-01] MEDS: guaiFENesin (MUCINEX) 600 MG TAB PO SCH ×2 (09:30→20:35)
[2021-10-01] MEDS: NICOTINE 7 MG (NICODERM) PATCH TD SCH (09:34)
[2021-10-01] MEDS: CALCITONIN NASAL 200 INTLU/AC (FORTICAL) 3.7 ML BTL SCH (09:34)
--- NOTE | 2021-10-01 11:49 | Progress Note - Hospitalist ---
Subjective HPI/CC On Admission Date Seen by Provider: Oct 01, 2021 Time Seen by Provider: 11:47 Subjective/Events-last exam Pt reports doing well. Pain control improving. Discussed with RN and pt used 6mg morphine yesterday during day shift. 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 Assessment/Plan Assessment and Plan Assess & Plan/Chief Complaint PELVIC BONE FRACTURES - RIGHT PUBIC BODY AND RIGHT INFERIOR ISCHIAL RAMI FRACTURE WITH DISPLACEMENT WBAT per Ortho Continue CONSUMER LENDING MANAGER pump for pain control, pt reports pain controlled with current dosing Encourage increased use of oral meds for pain control to work on regimen for outpatient use Goal is to DC to [facility] [place] [facility] week inpatient services director consulted, appreciate recs Bowel regimen ANEMIA POST FALL WITH HEMATOMA OF THE PELVIS -Hgb stable, actually up to 10.1 - Trend with resumption of Coumadin CHRONIC ANTICOAGULATION THERAPY Continue Warfarin as long as hemoglobin stable INR 1.4 this AM CHRONIC HYPERTENSION BP well controlled TOBACCOISM Nicotine patch 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 ANXIETY AND DEPRESSION Continue home meds DVT PROPHYLAXIS WITH COMPRESSION and home COUMADIN GI PROPHYLAXIS WITH PPI MELITON RED MD Oct 01, 2021 11:49
[2021-10-01 12:12] VITALS: BP 133/70
[2021-10-01 16:31] VITALS: BP 141/71
[2021-10-01] MEDS: warFARin 2 MG (COUMADIN) TAB PO SCH (17:19)
--- NOTE | 2021-10-01 18:57 | Diagnostic Imaging Report ---
INDICATION: Aspiration. COMPARISON: 09/30/2021. FINDINGS: Single frontal radiographic view of the chest was obtained and demonstrates mild enlargement of the cardiac silhouette. Pulmonary vasculature is within normal limits. Lungs are clear. There is no focal consolidation, large effusion or pneumothorax. Osseous structures show no gross acute abnormality. IMPRESSION: Mild enlargement of the cardiac silhouette, which may be exaggerated by portable technique. There is otherwise no evidence of failure or focal infiltrate. Dictated by: Dictated on workstation # [id number]
[2021-10-01 20:18] VITALS: BP 124/56
[2021-10-02] VITALS (7 sets, daily range): BP systolic 108–135; BP diastolic 56–74
[2021-10-02] MEDS: RT-ALBUTEROL/IPRATROPIUM 3 ML (DUONEB) VIAL INH SCH ×8 (02:02→22:19)
[2021-10-02 05:47] LABS: HEMATOCRIT 29 % (35-52); HEMOGLOBIN 9.9 g/dL (11.5-16.0); MEAN CORPUSCULAR HEMOGLOBIN 31 pg (25-34); MEAN CORPUSCULAR HGB CONC 34 g/dL (32-36); MEAN CORPUSCULAR VOLUME 92 fL (80-99); MEAN PLATELET VOLUME 9.4 fL (9.0-12.2); PLATELET COUNT 206 10^3/uL (130-400); WHITE BLOOD COUNT 10.9 10^3/uL (4.3-11.0)
[2021-10-02 05:59] LABS: INR 1.5 (0.8-1.4); PROTHROMBIN TIME PATIENT 18.8 SEC (12.2-14.7)
[2021-10-02 06:00] LABS: ALBUMIN 2.8 GM/DL (3.2-4.5); POTASSIUM 3.9 MMOL/L (3.6-5.0)
[2021-10-02 06:01] LABS: CALCIUM 8.5 MG/DL (8.5-10.1)
[2021-10-02 06:03] LABS: TOTAL PROTEIN 5.5 GM/DL (6.4-8.2)
[2021-10-02 06:04] LABS: BILIRUBIN,TOTAL 0.9 MG/DL (0.1-1.0)
[2021-10-02 06:06] LABS: CREATININE SERUM 0.73 MG/DL (0.60-1.30)
[2021-10-02] MEDS: VITAMIN D3 10 MCG (400 UNITS) TABLET PO SCH (06:30)
[2021-10-02] MEDS ORDERED: warFARin 2 MG (COUMADIN) TAB PO NR (09:10)
[2021-10-02] MEDS ORDERED: BISA10SU8 PR (09:18)
[2021-10-02] MEDS ORDERED: ASPI-999 PO (09:18)
[2021-10-02] MEDS ORDERED: BACL10TA PO (09:18)
[2021-10-02] MEDS ORDERED: POLY17PO54 PO (09:18)
[2021-10-02] MEDS ORDERED: LEVO88TA54 PO (09:18)
[2021-10-02] MEDS ORDERED: CALC3.8S (09:18)
[2021-10-02] MEDS ORDERED: MTP25TSR PO (09:18)
[2021-10-02] MEDS ORDERED: WARF-47 PO (09:18)
[2021-10-02] MEDS ORDERED: NF-VITD400 PO (09:18)
[2021-10-02] MEDS ORDERED: GUAI600T43 PO (09:18)
[2021-10-02] MEDS ORDERED: SERT-414 PO (09:18)
[2021-10-02] MEDS ORDERED: SENN1TAB76 PO (09:18)
[2021-10-02] MEDS ORDERED: ACHYD1T PO (09:18)
[2021-10-02] MEDS ORDERED: IPRA3AMP31 INH (09:18)
[2021-10-02] MEDS ORDERED: ATOR20TA66 PO (09:18)
[2021-10-02] MEDS ORDERED: BUSP5TAB59 PO (09:18)
[2021-10-02] MEDS ORDERED: ALBU2.5V4 INH (09:18)
--- NOTE | 2021-10-02 09:23 | Discharge Summary ---
Diagnosis/Chief Complaint Date of Admission Sep 26, 2021 at 18:00 Date of Discharge 10/03/21 Admission Diagnosis Admission Diagnosis PELVIC BONE FRACTURES - RIGHT PUBIC BODY AND RIGHT INFERIOR ISCHIAL RAMI FRACTURE WITH DISPLACEMENT FALL AT SAME LEVEL IN HOME ANEMIA POST FALL HEMATOMA OF PELVIS CHRONIC ANTICOAGULATION THERAPY CHRONIC HYPERTENSION TOBACCOISM 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 ANXIETY DEPRESSION COPD HYPOTHYROIDISM Discharge Diagnosis PELVIC BONE FRACTURES - RIGHT PUBIC BODY AND RIGHT INFERIOR ISCHIAL RAMI FRACTU RE WITH DISPLACEMENT FALL AT SAME LEVEL IN HOME ANEMIA POST FALL HEMATOMA OF PELVIS CHRONIC ANTICOAGULATION THERAPY ATRIAL FIBRILLATION CHRONIC HYPERTENSION TOBACCOISM 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 ANXIETY DEPRESSION COPD HYPOTHYROIDISM Reason Hospital Visit PT IS AN 81 Y/O FEMALE WHO IS WELL KNOWN TO ME FROM CLINIC. NATHEN STATES THAT SHE WAS MOVING FROM THE GARAGE TO ANOTHER ROOM WHEN SHE FELL, SHE IS UNSURE HOW SHE CAME ABOUT FALLING. SHE DOES NOT REMEMBER TRIPPING, WAS NOT PUSHED, DOES NOT REMEMBER ANYTHING ON THE FLOOR AT THE TIME OF HER FALL. 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 THIS MORNING SHE IS COMPLAINING OF SEVERE PAIN AND SPASMS IN HER PELVIS. Discharge Summary Consultations DR. DELGADO - ORTHO DR. HEAD - TRAUMA Discharge Physical Examination Allergies: Coded Allergies: hydrochlorothiazide (Verified Allergy, Unknown, 09/10/16) Vitals & I&Os Vital Signs Date Time Temp Pulse Resp B/P (MAP) Pulse Ox O2 Delivery O2 Flow Rate FiO2 10/03/21 08:17 35.8 66 16 128/73 (91) 94 Nasal Cannula 2.00 General Appearance: Alert, Oriented X3, Cooperative, No Acute Distress HEENT: Atraumatic, PERRLA, Mucous Memb Moist/[place] Respiratory: Normal Air Movement Cardiovascular: Other (IRREGULARLY IRREGULAR) Abdominal: Normal Bowel Sounds, Soft, No Tenderness Extremities: No Cyanosis Skin: No Rashes, No Breakdown Neuro: Normal Speech, Cranial Nerves 3-12 NL Psych/Mental Status: Mental Status NL, Other (TEARFUL ABOUT HER HEALTH CONDITION) Hospital Course Was the Problem List Reviewed?: Yes PELVIC BONE FRACTURES - RIGHT PUBIC BODY AND RIGHT INFERIOR ISCHIAL RAMI FRACTURE WITH DISPLACEMENT FALL AT SAME LEVEL IN HOME ANEMIA POST FALL HEMATOMA OF PELVIS CHRONIC ANTICOAGULATION THERAPY CHRONIC HYPERTENSION TOBACCOISM 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 ANXIETY DEPRESSION COPD HYPOTHYROIDISM PELVIC BONE FRACTURES - RIGHT PUBIC BODY AND RIGHT INFERIOR ISCHIAL RAMI FRACTURE WITH DISPLACEMENT - IMPRESSION FROM CT SCAN FOLLOWS: IMPRESSION: Fractures involving the right pubic body and right inferior ischial ramus with displacement and moderate associated right pelvic sidewall hematoma resulting in mass effect upon the bladder. No other definite acute abnormality is seen. - DISCUSSED WITH DR. DELGADO, PT IS WEIGHT BEARING TOLERATED. - PT ON A FRUIT CULLER PUMP DECREASE TO JUST PRN DOSING AND BACLOFEN QID FOR MUSCLE SPASMS, WILL MONITOR FOR APPROPRIATE PAIN CONTROL, ADJUSTED HER MEDICATIONS NEEDED SHE IS NOW WITH PAIN CONTROLLED ON HYDROCODONE. - DISCUSSED WITH PT AND HER DTR - PLAN WILL BE TO ATTEMPT TO TRANSFER HER TO A HALF[facility]WAY IN [place] FOR LONGER TERM THERAPY SINCE THAT IS WHERE HER DAUGHTER RESIDES - WORKING WITH [employer] AND [employer] FOR TRANSFER OF PATIENT TO [facility] - HER INSURANCE COMPANY HAS BEEN DRAGGING THEIR FEET ABOUT ADMISSION - PLAN WAS FOR SATURDAY, THEN SATURDAY, NOW IT IS SATURDAY AND WE ARE STILL WAITING ON APPROVAL OF THE PATIENT TO THE SNF OF THE FAMILY'S CHOICE IN [place]. FALL AT SAME LEVEL IN HOME ANEMIA POST FALL WITH HEMATOMA OF THE PELVIS - HGB STABLE - PT RESTARTED ON COUMADIN - MONITOR LABS AFIB - CHRONIC - PT ON CHRONIC ANTICOAGULATION THERAPY - RESTARTED COUMADIN - MONITOR INR WEEKLY FOR A MONTH THEN MONTHLY THEREAFTER - PT ON METOPROLOL, DOSE WAS INCREASED, MONITOR PRESSURES AND HEART RATE CLOSELY CHRONIC HYPERTENSION - RESTARTED MEDICATION, MONITOR PRESSURE TOBACCOISM - LOW DOSE NICODERM PATCH 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 ANXIETY AND DEPRESSION - RESUMED PART OF HOME REGIMEN - WHEN PT IS AT HALF-WAY, IF NEEDED HER Z OLOFT DOSE CAN BE INCREASED COPD - MONITOR, ALBUTEROL NEBS SCHEDULED AND PRN HYPOTHYROIDISM - RESUME HOME REGIMEN DVT PROPHYLAXIS WITH COMPRESSION - RESTARTED COUMADIN GI PROPHYLAXIS WITH PPI Pending Labs Discharge Condition at discharge STABLE/IMPROVED Instructions to patient/family Please see electronic discharge instructions given to patient. Discharge Medications Reviewed and agree with Discharge Medication list on patient's Discharge Instruction sheet DAYANNA ROGEL MD Oct 02, 2021 09:23
--- NOTE | 2021-10-02 09:23 | Discharge Inst-Skilled Nursing ---
Discharge Inst-Skilled NF Reconcile Patient Problems Problems Reviewed?: Yes Patient Instructions Patient Problems: PELVIC BONE FRACTURES - RIGHT PUBIC BODY AND RIGHT INFERIOR ISCHIAL RAMI FRACTURE WITH DISPLACEMENT FALL AT SAME LEVEL IN HOME ANEMIA POST FALL HEMATOMA OF PELVIS ATRIAL FIBRILLATION CHRONIC ANTICOAGULATION THERAPY CHRONIC HYPERTENSION TOBACCOISM 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 ANXIETY DEPRESSION COPD HYPOTHYROIDISM Goal: pain control, improved strength, ambulation safely independently Consult/Follow Up/Orders Follow Up Appt.: need to be seen by a primary care in [place], utilize nursing facility physician if possible, will need follow up with ortho for xrays to document healing Skilled NF Admit to: snf in [place] of pt's choice Certification (SNF) I certify that SNF services are required to be given on an inpatient basis because of the above named patient's need for long term care on a continuing basis for the conditions(s) for which he/she was receiving inpatient hospital services prior to his/her transfer to the SNF. Nursing Home Facility Order: Nursing Services, Firefighter Type One-Evaluate & Treat, Physical Therapy-Evaluate & Treat Discharge Diet: No Restrictions Daily Activity as Tolerated: Yes Resuscitation Status: Full Code New & Resume Previous Orders New & Resume Previous Orders KEEP ROD CATHETER IN PLACE UNTIL 10/17/2021, PROVIDE ROUTINE ROD CATHETER CARE, REPLACE IF NEEDED REMOVE CATHETER ON 10/17/21, MONITOR FOR URINARY RETENTION CBC, CMP IN 1 WK FROM DISCHARGE Dayanna Falk Oct 02, 2021 09:19 Medication List: Active Scripts Active Vitamin D3 (Vitamin D) 10 Mcg Tablet 10 Mcg PO DAILY@0700 Calcitonin-[place] (Calcitonin,[place],Synthetic) 3.7 Ml [place].pump 0 Ml NA DAILY one spray into one nostril daily - alternate nostrils Stool Softener-Laxative Tablet (Sennosides/Docusate Sodium) 1 Each Tablet 1 Ea PO DAILY Polyethylene Glycol 3350 17 Gm Powd.pack 17 Gm PO BID Bisacodyl 10 Mg Supp.rect 10 Mg MA DAILY PRN Mucinex (Guaifenesin) 600 Mg Tab.er.12h 600 Mg PO BID Sertraline HCl 100 Mg Tablet 50 Mg PO DAILY HYDROcodone/APAP 10/325 TABLET (Acetaminophen/Hydrocodone Bitart) 1 Ea Tab 1 Ea PO Q4H PRN 1 TAB PO BID AND Q 4H PRN PAIN Baclofen 10 Mg Tablet 5 Mg PO QID Albuterol Sulfate 2.5 Mg/3 Ml Vial.neb 2.5 Mg INH Q2HR PRN Iprat-Albut 0.5-3(2.5) mg/3 ml (Ipratropium/Albuterol Sulfate) 3 Ml Ampul.neb 3 Ml INH TID Warfarin Sodium 2 Mg Tablet 2 Mg PO DAILY Buspirone HCl 5 Mg Tablet 5 Mg PO BID Aspirin 81 Mg Tab.chew 81 Mg PO DAILY Levothyroxine Sodium 88 Mcg Tablet 88 Mcg PO DAILY Metoprolol Succinate 25 Mg Tab.er.24h 25 Mg PO BID Atorvastatin Calcium 20 Mg Tablet 20 Mg PO HS Reported Amlodipine Besylate 5 Mg Tablet 5 Mg PO HS Sertraline HCl 100 Mg Tablet 50 Mg PO DAILY TAKES OF A 100MG Zoloft (Sertraline HCl) 100 Mg Tablet 100 Mg PO HS Lab results: Laboratory Tests Test 10/02/21 05:32 Range/Units White Blood Count 10.9 4.3-11.0 10^3/uL Red Blood Count 3.17 L 3.80-5.11 10^6/uL Hemoglobin 9.9 L 11.5-16.0 g/dL Hematocrit 29 L 35-52 % Mean Corpuscular Volume 92 80-99 fL Mean Corpuscular Hemoglobin 31 25-34 pg Mean Corpuscular Hemoglobin Concent 34 32-36 g/dL Red Cell Distribution Width 15.3 H 10.0-14.5 % Platelet Count 206 130-400 10^3/uL Mean Platelet Volume 9.4 9.0-12.2 fL Prothrombin Time 18.8 H 12.2-14.7 SEC INR Comment 1.5 H 0.8-1.4 Sodium Level 134 L 135-145 MMOL/L Potassium Level 3.9 3.6-5.0 MMOL/L Chloride Level 102 98-107 MMOL/L Carbon Dioxide Level 19 L 21-32 MMOL/L Anion Gap 13 5-14 MMOL/L Blood Urea Nitrogen 18 7-18 MG/DL Creatinine 0.73 0.60-1.30 MG/DL Estimat Glomerular Filtration Rate 82 BUN/Creatinine Ratio 25 Glucose Level 92 70-105 MG/DL Calcium Level 8.5 8.5-10.1 MG/DL Corrected Calcium 9.5 8.5-10.1 MG/DL Total Bilirubin 0.9 0.1-1.0 MG/DL Aspartate Amino Transf (AST/SGOT) 82 H 5-34 U/L Alanine Aminotransferase (ALT/SGPT) 38 0-55 U/L Alkaline Phosphatase 41 40-136 U/L Total Protein 5.5 L 6.4-8.2 GM/DL Albumin 2.8 L 3.2-4.5 GM/DL My orders: Orders - DYAANNA FALK MD Pending Transfer(Oth Facility) (10/02/21 ) Warfarin Tablet (Coumadin Tablet) (10/02/21 09:10) Protime With Inr (10/03/21 05:00) DAYANNA FALK MD Oct 02, 2021 09:23
[2021-10-02] MEDS: SERTRALINE 100 MG (ZOLOFT) TAB PO SCH (09:54)
[2021-10-02] MEDS: METHYLNALTREXONE 12 MG/0.6 ML (RELISTOR) VIAL SQ SCH (09:54)
[2021-10-02] MEDS: NICOTINE 7 MG (NICODERM) PATCH TD SCH (09:55)
[2021-10-02] MEDS: BACLOFEN 10 MG (LIORESAL) TAB PO SCH ×4 (09:55→20:59)
[2021-10-02] MEDS: CALCITONIN NASAL 200 INTLU/AC (FORTICAL) 3.7 ML BTL SCH (09:55)
[2021-10-02] MEDS: guaiFENesin (MUCINEX) 600 MG TAB PO SCH ×2 (09:55→20:59)
[2021-10-02] MEDS: busPIRone 5 MG (BUSPAR) TAB PO SCH ×2 (09:55→21:00)
[2021-10-02] MEDS: polyethylene glycoL POWDER 17 GM (MIRALAX) PACK PO SCH ×2 (09:55→21:00)
[2021-10-02] MEDS: LEVOTHYROXINE 88 MCG (LEVOTHORID) TAB PO SCH (09:55)
--- NOTE | 2021-10-02 09:58 | Occupational Ther Daily Note ---
OT Current Status-Daily Note Subjective Pt alert, lying in bed. Pt agrees to therapy. No c/o pain when lying still, pain with movement (did not rate, did yell). Mental Status/Objective Patient Orientation: Person, Place, Situation Attachments: IV, Oxygen (1L) ADL-Treatment Pt took increased time to go from supine to EOB with CGA. Increased time to transfer to recliner, Min to mod A x2 for SPT from EOB to recliner due to pain. Pt draining from two wounds, one on each buttocks. Pt cleansed while 2nd person assisted pt in standing. Reported wounds to nrsg. After session, pt sitting in recliner with call light/phone in reach. All needs met in room. Therapy Code Descriptions/Definitions Functional [place] Measure: 0=Not Assessed/NA 4=Minimal Assistance 1=Total Assistance 5=Supervision or Setup 2=Maximal Assistance 6=Modified [place] 3=Moderate Assistance 7=Complete IndependenceSCALE: Activities may be completed with or without assistive devices. 9-Brfccdmjsa-kdhiizg completes the activity by him/herself with no assistance from a helper. 5-Set-up or Clean-up Assistance-helper sets up or cleans up; patient completes activity. [place] assists only prior to or following the activity. 4-Supervision or Touching Assistance-helper provides verbal cues and/or touching/steadying and/or contact guard assistance as patient completes activity. Assistance may be provided throughout the activity or intermittently. 3-Partial/Moderate Assistance-helper does LESS THAN HALF the effort. [place] lifts, holds or supports trunk or limbs, but provides less than half the effort. 2-Substantial/Maximal Assistance-helper does MORE THAN HALF the effort. [place] lifts or holds trunk or limbs and provides more than half the effort. 8-Pzyeaqaej-aycpvd does ALL the effort. Patient does none of the effort to complete the activity. Or, the assistance of 2 or more helpers is required for the patient to complete the activity. If activity was not attempted, code reason: 7-Patient Refused. 9-Not Applicable-not attempted and the patient did not perform the activity b efore the current illness, exacerbation or injury. 10-Not Attempted due to Environmental Limitations-(lack of equipment, weather restraints, etc.). 88-Not Attempted due to Medical Conditions or Safety Concerns. OT Supply Coordinator Goals Supply Coordinator Goals Time Frame: Oct 13, 2021 Eating (QC): 5 Oral Hygiene (QC): 5 Toileting Hygiene (QC): 3 Shower/Bathe Self (QC): 2 Upper Body Dressing (QC): 3 Lower Body Dressing (QC): 2 On/Off Footwear (QC): 2 Additional Goals: 1-Demonstrate ADL Tasks, 2-Verbalize Understanding, 3- ImproveStrength/Sweta 1=Demonstrate adherence to instructed precautions during ADL tasks. 2=Patient will verbalize/demonstrate understanding of assistive devices/m odifications for ADL. 3=Patient will improve strength/tolerance for activity to enable patient to perform ADL's. OT Education/Plan Problem List/Assessment Assessment: Decreased Activ Tolerance, Decreased Safety Aware, Decreased UE Strength, Impaired Bed Mobility, Impaired Funct Balance, Impaired Self-Care Skills Discharge Recommendations Plan/Recommendations: Continue POC Treatment Plan/Plan of Care Patient would benefit from OT for education, treatment and training to promote independence in ADL's, mobility, safety and/or upper extremity function for ADL's. Plan of Care: ADL Retraining, Functional Mobility, UE Funct Exercise/Act Treatment Duration: Oct 13, 2021 Frequency: 3 times per week (3-5 times per week) Estimated Hrs Per Day: .25 hour per day Rehab Potential: Guarded Time/GCodes Start Time: 09:29 Stop Time: 09:46 Total Time Billed (hr/min): 17 Billed Treatment Time 1 visit-FA 1 (17 min) MARTHA ALBARADO Oct 02, 2021 09:58
--- NOTE | 2021-10-02 10:30 | Physical Therapy Daily Note ---
PT Daily Note-Current Subjective Patient in bed pre tx, agrees to PT, has no complaints of pain at rest. Appearance Patient in recliner post tx with nurse call, phone, tray, all needs met, family in room. Mental Status Patient Orientation: Person, Place, Situation Attachments: Oxygen, Miranda Catheter, IV Transfers SCALE: Activities may be completed with or without assistive devices. 7-Bcjansexto-lnzrxwx completes the activity by him/herself with no assistance from a helper. 5-Set-up or Clean-up Assistance-helper sets up or cleans up; patient completes activity. [place] assists only prior to or following the activity. 4-Supervision or Touching Assistance-helper provides verbal cues and/or touching/steadying and/or contact guard assistance as patient completes activity. Assistance may be provided throughout the activity or intermittently. 3-Partial/Moderate Assistance-helper does LESS THAN HALF the effort. [place] lifts, holds or supports trunk or limbs, but provides less than half the effort. 2-Substantial/Maximal Assistance-helper does MORE THAN HALF the effort. [place] lifts or holds trunk or limbs and provides more than half the effort. 1-Flubbgvxv-acbncd does ALL the effort. Patient does none of the effort to complete the activity. Or, the assistance of 2 or more helpers is required for the patient to complete the activity. If activity was not attempted, code reason: 7-Patient Refused. 9-Not Applicable-not attempted and the patient did not perform the activity before the current illness, exacerbation or injury. 10-Not Attempted due to Environmental Limitations-(lack of equipment, weather restraints, etc.). 88-Not Attempted due to Medical Conditions or Safety Concerns. Roll Left & Right (QC): 3 Lying to Sitting/Side of Bed(Q: 3 Sit to Stand (QC): 3 Chair/Bcc-ix-Dibyt Xfer(QC): 3 Patient needs min assist for supine to sit and sit to stand, transfer mod assist. Patient likes to move on her own mostly during activity, it is extremely slow but it really works out better for her. When she is assisted with bed mobility and transfers it causes too much pain for her to handle. During transfer she was only able to go about prison before needed some assist to finish and sit. Exercises Seated Therapy Exercises: Ankle pumps, Long arc quads Seated Reps: 20 Treatments bed mobility and transfers, LE strengthening Assessment Current Status: Fair Progress some improvement with bed mobility and standing PT Collar Padder Blindstitch Goals Collar Padder Blindstitch Goals PT Collar Padder Blindstitch Goals Time Frame: Oct 06, 2021 Roll Left & Right (QC): 3 Sit to Lying (QC): 3 Lying-Sitting on Side/Bed(QC): 3 Sit to Stand (QC): 3 Chair/Stp-uh-Cmffx Xfer(QC): 3 PT Plan Problem List Problem List: Activity Tolerance, Functional Strength, Safety, Balance, Gait, Transfer, Bed Mobility, ROM Treatment/Plan Treatment Plan: Continue Plan of Care Treatment Plan: Bed Mobility, Education, Functional Activity Sweta, Functional Strength, Gait, Safety, Therapeutic Exercise, Transfers Treatment Duration: Oct 06, 2021 Frequency: 6 times per week Estimated Hrs Per Day: .25 hour per day Patient and/or Family Agrees t: Yes Safety Risks/Education Patient Education: Transfer Techniques, Correct Positioning, Safety Issues Teaching Recipient: Patient Teaching Methods: Demonstration, Discussion Response to Teaching: Reinforcement Needed Time/GCodes Time In: 0829 Time Out: 0846 Total Billed Treatment Time: 17 Total Billed Treatment 1 visit FA MARVIN JAMES PT Oct 02, 2021 10:30
[2021-10-02] MEDS: warFARin 2 MG (COUMADIN) TAB PO SCH (17:58)
[2021-10-03] MEDS: RT-ALBUTEROL/IPRATROPIUM 3 ML (DUONEB) VIAL INH SCH ×5 (01:57→19:25)
[2021-10-03 03:34] VITALS: BP 121/62
[2021-10-03] MEDS: VITAMIN D3 10 MCG (400 UNITS) TABLET PO SCH (06:41)
[2021-10-03 08:17] VITALS: BP 128/73
--- NOTE | 2021-10-03 09:04 | Progress Note ---
Subjective Subjective Date Seen by Provider: Oct 02, 2021 Time Seen by Provider: 08:30 LATE ENTRY NOTE, PLAN WAS FOR DISCHARGE - DISCHARGE NOTE STARTED, BUT PT'S INSURANCE COMPANY HAS BEEN SLOW TO GIVE APPROVAL OF THE PATIENT'S TRANSFER TO A SNF IN [place]. PT AND DTR REPORT THAT NATHEN DID WELL OVER THE WEEKEND, SHE HAS BEEN ABLE TO MOVE HERSELF ABOUT IN BED A LITTLE. PT IS WONDERING ABOUT MOVING HERSELF TO THE EDGE OF THE BED WITHOUT ANYONE IN THE ROOM. PT REPORTS THAT HER BOWELS HAVE MOVED AND THAT HELPED HER TO FEEL BETTER. SHE REPORTS THAT HER PAIN IS MORE STABLE Review of Systems General: Fatigue, Malaise HEENT: No Head Aches, No Visual Changes Pulmonary: Dyspnea, Cough, Pleuritic Chest Pain Cardiovascular: No: Chest Pain, Palpitations Gastrointestinal: Constipation (IMPROVED); No: Nausea, Vomiting, Abdominal Pain Genitourinary: No Dysuria, No Frequency Musculoskeletal: other (pelvic pain with movement); No: arm pain Neurological: No: Weakness, Confusion All Other Systems Reviewed All Other Systems Reviewed: Yes Objective Exam Vital Signs Vital Signs Date Time Temp Pulse Resp B/P (MAP) Pulse Ox O2 Delivery O2 Flow Rate FiO2 10/03/21 08:17 35.8 66 16 128/73 (91) 94 Nasal Cannula 2.00 10/03/21 07:17 Nasal Cannula 2.00 10/03/21 07:08 97 Nasal Cannula 3.00 10/03/21 03:34 36.6 68 22 121/62 (81) 97 Nasal Cannula 2.00 10/03/21 01:57 96 Nasal Cannula 2.00 10/02/21 23:33 36.8 84 18 113/56 (75) 95 Nasal Cannula 3.00 10/02/21 22:19 94 Nasal Cannula 2.00 10/02/21 20:42 Room Air 10/02/21 20:00 36.2 82 16 108/60 (76) 91 Room Air 10/02/21 18:47 88 Room Air 10/02/21 16:00 36.3 125 20 112/66 (81) 90 Nasal Cannula 1.00 10/02/21 14:57 95 Room Air 10/02/21 12:03 36.2 88 20 112/73 (86) 94 Nasal Cannula 1.00 10/02/21 09:23 I & O 10/03/21 07:00 Intake Total 2500 ml Output Total 2400 ml Balance 100 ml General Appearance: No Apparent Distress, Chronically ill Eyes: Bilateral Eye PERRL, Bilateral Eye EOMI HEENT: PERRL/EOMI, Other (poor dentition) Respiratory: Lungs Clear, No Respiratory Distress Cardiovascular: Regular Rate, Rhythm, No Murmur Gastrointestinal: Non Tender, Soft Back: Other Extremity: Normal Inspection, No Pedal Edema Neurologic/Psychiatric: Alert, Oriented x3 Skin: Normal Color, Warm/Dry Assessment/Plan Assessment/Plan Admission Dx PELVIC BONE FRACTURES - RIGHT PUBIC BODY AND RIGHT INFERIOR ISCHIAL RAMI FRACTURE WITH DISPLACEMENT FALL AT SAME LEVEL IN HOME ANEMIA POST FALL HEMATOMA OF PELVIS CHRONIC ANTICOAGULATION THERAPY CHRONIC HYPERTENSION TOBACCOISM 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 ANXIETY DEPRESSION COPD HYPOTHYROIDISM Assessment and Plan PELVIC BONE FRACTURES - RIGHT PUBIC BODY AND RIGHT INFERIOR ISCHIAL RAMI FRACTURE WITH DISPLACEMENT FALL AT SAME LEVEL IN HOME ANEMIA POST FALL HEMATOMA OF PELVIS CHRONIC ANTICOAGULATION THERAPY ATRIAL FIBRILLATION CHRONIC HYPERTENSION TOBACCOISM 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 ANXIETY DEPRESSION COPD HYPOTHYROIDISM PELVIC BONE FRACTURES - RIGHT PUBIC BODY AND RIGHT INFERIOR ISCHIAL RAMI FRACTURE WITH DISPLACEMENT - IMPRESSION FROM CT SCAN FOLLOWS: IMPRESSION: Fractures involving the right pubic body and right inferior ischial ramus with displacement and moderate associated right pelvic sidewall he matoma resulting in mass effect upon the bladder. No other definite acute abnormality is seen. - DISCUSSED WITH DR. DELGADO, PT IS WEIGHT BEARING TOLERATED. - PT ON A GOLD LETTERER PUMP DECREASE TO JUST PRN DOSING AND BACLOFEN QID FOR MUSCLE SPASMS, WILL MONITOR FOR APPROPRIATE PAIN CONTROL, ADJUST HER MEDICATIONS NEEDED AND WORK TOWARD PT TO ONLY BE ON ORAL MEDICATION FOR PAIN CONTROL. - DISCUSSED WITH PT AND HER DTR - PLAN WILL BE TO ATTEMPT TO TRANSFER HER TO A CORRECTION IN [place] FOR LONGER TERM THERAPY SINCE THAT IS WHERE HER DAUGHTER RESIDES - WORKING WITH [employer] FOR TRANSFER ON TODAY OR TOMORROW TO [place] - INSURANCE COMPANY HAS BEEN DRAGGING THEIR FEET ON ADMISSION TO THE CORRECTION FALL AT SAME LEVEL IN HOME ANEMIA POST FALL WITH HEMATOMA OF THE PELVIS - HGB STABLE - PT RESTARTED ON COUMADIN - MONITOR LABS AFIB ON CHRONIC ANTICOAGULATION THERAPY - RESTARTED COUMADIN - WILL REPEAT INR DAILY - PT ON METOPROLOL CHRONIC HYPERTENSION - RESTARTED MEDICATION, MONITOR PRESSURE TOBACCOISM - LOW DOSE NICODERM PATCH 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 ANXIETY AND DEPRESSION - RESUMED PART OF HOME REGIMEN, SYMPTOMS STABLE IF NEEDED WILL INCREASE MEDICATION COPD - MONITOR HYPOTHYROIDISM - RESUMED HOME REGIMEN DVT PROPHYLAXIS WITH COMPRESSION - RESTARTED COUMADIN GI PROPHYLAXIS WITH PPI Admission Dx PELVIC BONE FRACTURES - RIGHT PUBIC BODY AND RIGHT INFERIOR ISCHIAL RAMI FRACTURE WITH DISPLACEMENT FALL AT SAME LEVEL IN HOME ANEMIA POST FALL HEMATOMA OF PELVIS CHRONIC ANTICOAGULATION THERAPY CHRONIC HYPERTENSION TOBACCOISM 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 ANXIETY DEPRESSION COPD HYPOTHYROIDISM Clinical Quality Measures Admission Status Admission Dx PELVIC BONE FRACTURES - RIGHT PUBIC BODY AND RIGHT INFERIOR ISCHIAL RAMI FRACTURE WITH DISPLACEMENT FALL AT SAME LEVEL IN HOME ANEMIA POST FALL HEMATOMA OF PELVIS CHRONIC ANTICOAGULATION THERAPY CHRONIC HYPERTENSION TOBACCOISM 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 ANXIETY DEPRESSION COPD HYPOTHYROIDISM DAYANNA ROGEL MD Oct 03, 2021 09:04
[2021-10-03] MEDS: busPIRone 5 MG (BUSPAR) TAB PO SCH ×2 (09:41→20:40)
[2021-10-03] MEDS: guaiFENesin (MUCINEX) 600 MG TAB PO SCH ×2 (09:41→20:41)
[2021-10-03] MEDS: SERTRALINE 100 MG (ZOLOFT) TAB PO SCH ×2 (09:41→20:41)
[2021-10-03] MEDS: LEVOTHYROXINE 88 MCG (LEVOTHORID) TAB PO SCH (09:41)
[2021-10-03] MEDS: BACLOFEN 10 MG (LIORESAL) TAB PO SCH ×4 (09:41→20:41)
[2021-10-03] MEDS: NICOTINE 7 MG (NICODERM) PATCH TD SCH (09:42)
[2021-10-03] MEDS: polyethylene glycoL POWDER 17 GM (MIRALAX) PACK PO SCH ×2 (09:47→20:42)
[2021-10-03] MEDS: CALCITONIN NASAL 200 INTLU/AC (FORTICAL) 3.7 ML BTL SCH (09:48)
[2021-10-03 11:40] VITALS: BP 119/57
--- NOTE | 2021-10-03 12:49 | Occupational Ther Daily Note ---
OT Current Status-Daily Note Subjective Pt alert, lying in bed. Pt agrees to therapy. No c/o pain. Mental Status/Objective Patient Orientation: Person, Place, Time, Situation Attachments: IV ADL-Treatment Pt declines ADLs. Pt declines OOB activities. Pt declines eating lunch at this time due to eating a late breakfast. Therapy Code Descriptions/Definitions Functional [place] Measure: 0=Not Assessed/NA 4=Minimal Assistance 1=Total Assistance 5=Supervision or Setup 2=Maximal Assistance 6=Modified [place] 3=Moderate Assistance 7=Complete IndependenceSCALE: Activities may be completed with or without assistive devices. 3-Bnibewipyv-xbhtgyd completes the activity by him/herself with no assistance from a helper. 5-Set-up or Clean-up Assistance-helper sets up or cleans up; patient completes activity. [place] assists only prior to or following the activity. 4-Supervision or Touching Assistance-helper provides verbal cues and/or touching/steadying and/or contact guard assistance as patient completes activity. Assistance may be provided throughout the activity or intermittently. 3-Partial/Moderate Assistance-helper does LESS THAN HALF the effort. [place] lifts, holds or supports trunk or limbs, but provides less than half the effort. 2-Substantial/Maximal Assistance-helper does MORE THAN HALF the effort. [place] lifts or holds trunk or limbs and provides more than half the effort. 0-Yxyuywasv-wlfhvg does ALL the effort. Patient does none of the effort to complete the activity. Or, the assistance of 2 or more helpers is required for the patient to complete the activity. If activity was not attempted, code reason: 7-Patient Refused. 9-Not Applicable-not attempted and the patient did not perform the activity before the current illness, exacerbation or injury. 10-Not Attempted due to Environmental Limitations-(lack of equipment, weather restraints, etc.). 88-Not Attempted due to Medical Conditions or Safety Concerns. Other Treatment Pt completed B UE exercises against gravity, shldr flex/ext, shldr abd/add, tricep isolation exercises, 1 set 20 reps each. Pt fatigues after first set. After session, pt lying in bed with call light/phone in reach. All needs met in room. OT Fpc Goals Kiln Repairer Goals Time Frame: Oct 13, 2021 Eating (QC): 5 Oral Hygiene (QC): 5 Toileting Hygiene (QC): 3 Shower/Bathe Self (QC): 2 Upper Body Dressing (QC): 3 Lower Body Dressing (QC): 2 On/Off Footwear (QC): 2 Additional Goals: 1-Demonstrate ADL Tasks, 2-Verbalize Understanding, 3- ImproveStrength/Sweta 1=Demonstrate adherence to instructed precautions during ADL tasks. 2=Patient will verbalize/demonstrate understanding of assistive devices/modifications for ADL. 3=Patient will improve strength/tolerance for activity to enable patient to perform ADL's. OT Education/Plan Problem List/Assessment Assessment: Decreased Activ Tolerance, Decreased UE Strength, Impaired Self- Care Skills Discharge Recommendations Plan/Recommendations: Continue POC Treatment Plan/Plan of Care Patient would benefit from OT for education, treatment and training to promote independence in ADL's, mobility, safety and/or upper extremity function for ADL's. Plan of Care: ADL Retraining, Functional Mobility, UE Funct Exercise/Act Treatment Duration: Oct 13, 2021 Frequency: 3 times per week (3-5 times per week) Estimated Hrs Per Day: .25 hour per day Rehab Potential: Guarded Time/GCodes Start Time: 12:35 Stop Time: 12:45 Total Time Billed (hr/min): 10 Billed Treatment Time 1 visit-EX 1 (10 min) MARTHA ALBARADO Oct 03, 2021 12:49
--- NOTE | 2021-10-03 13:37 | Physical Therapy Daily Note ---
PT Daily Note-Current Subjective Patient reluctantly agrees to PT. Pain Numeric Pain Scale: 10-Worst Possible Pain Location: Right Location Body Site: Pelvic Pain Description: Stabbing, Acute Mental Status Patient Orientation: Normal For Age Attachments: Miranda Catheter Transfers SCALE: Activities may be completed with or without assistive devices. 5-Khakpuazzo-uttxqyi completes the activity by him/herself with no assistance from a helper. 5-Set-up or Clean-up Assistance-helper sets up or cleans up; patient completes activity. [place] assists only prior to or following the activity. 4-Supervision or Touching Assistance-helper provides verbal cues and/or touching/steadying and/or contact guard assistance as patient completes activity. Assistance may be provided throughout the activity or intermittently. 3-Partial/Moderate Assistance-helper does LESS THAN HALF the effort. [place] lifts, holds or supports trunk or limbs, but provides less than half the effort. 2-Substantial/Maximal Assistance-helper does MORE THAN HALF the effort. [place] lifts or holds trunk or limbs and provides more than half the effort. 4-Elixzzeak-wpdijs does ALL the effort. Patient does none of the effort to complete the activity. Or, the assistance of 2 or more helpers is required for the patient to complete the activity. If activity was not attempted, code reason: 7-Patient Refused. 9-Not Applicable-not attempted and the patient did not perform the activity before the current illness, exacerbation or injury. 10-Not Attempted due to Environmental Limitations-(lack of equipment, weather restraints, etc.). 88-Not Attempted due to Medical Conditions or Safety Concerns. Lying to Sitting/Side of Bed(Q: 2 Sit to Stand (QC): 2 Chair/Mls-ua-Cgrxw Xfer(QC): 2 Patient has difficulty with weight bearing right LE/SPT bed to recliner Assessment Patient requires time to complete all functional tasks due to pain. Plan transfer to facility this week. PT Mcc Goals Bearing Machine Operator Goals PT Bearing Machine Operator Goals Time Frame: Oct 06, 2021 Roll Left & Right (QC): 3 Sit to Lying (QC): 3 Lying-Sitting on Side/Bed(QC): 3 Sit to Stand (QC): 3 Chair/Zmz-iy-Sgmia Xfer(QC): 3 PT Plan Treatment/Plan Treatment Plan: Continue Plan of Care Treatment Plan: Bed Mobility, Education, Functional Activity Sweta, Functional Strength, Gait, Safety, Therapeutic Exercise, Transfers Treatment Duration: Oct 06, 2021 Frequency: 6 times per week Estimated Hrs Per Day: .25 hour per day Patient and/or Family Agrees t: Yes Time/GCodes Time In: 1250 Time Out: 1308 Total Billed Treatment Time: 18 Total Billed Treatment 1 visit FA 18 min [facility] PERALTA PT Oct 03, 2021 13:37
[2021-10-03 15:40] VITALS: BP 119/69
--- NOTE | 2021-10-03 16:16 | Progress Note ---
Subjective Subjective Date Seen by Provider: Oct 03, 2021 Time Seen by Provider: 08:45 PLAN WAS FOR DISCHARGE - DISCHARGE NOTE STARTED, BUT PT'S INSURANCE COMPANY HAS BEEN SLOW TO GIVE APPROVAL OF THE PATIENT'S TRANSFER TO A SNF IN [place]. THE PATIENT'S INSURANCE HAS STILL NOT MADE ANY DECISIONS ON THE PATIENT'S NEED TO STAY AT THE [facility] IN [place]. NATHEN IS CONTINUING TO HAVE PAIN, DIFFICULTY MOVING ABOUT IN BED AND DIFFICULTY WITH LEG/PELVIC SPASMS Review of Systems General: Fatigue, Malaise HEENT: No Head Aches, No Visual Changes Pulmonary: Dyspnea, Cough, Pleuritic Chest Pain Cardiovascular: No: Chest Pain, Palpitations Gastrointestinal: Constipation (IMPROVED); No: Nausea, Vomiting, Abdominal Pain Genitourinary: No Dysuria, No Frequency Musculoskeletal: other (pelvic pain with movement); No: arm pain Neurological: Other (DEPRESSION OF MOOD); No: Weakness, Confusion All Other Systems Reviewed All Other Systems Reviewed: Yes Objective Exam Vital Signs Vital Signs Date Time Temp Pulse Resp B/P (MAP) Pulse Ox O2 Delivery O2 Flow Rate FiO2 10/03/21 11:40 35.7 74 18 119/57 (77) 93 Room Air 10/03/21 10:45 95 Room Air 10/03/21 08:17 35.8 66 16 128/73 (91) 94 Nasal Cannula 2.00 10/03/21 08:00 Nasal Cannula 2.00 10/03/21 07:17 Nasal Cannula 2.00 10/03/21 07:08 97 Nasal Cannula 3.00 10/03/21 03:34 36.6 68 22 121/62 (81) 97 Nasal Cannula 2.00 10/03/21 01:57 96 Nasal Cannula 2.00 10/02/21 23:33 36.8 84 18 113/56 (75) 95 Nasal Cannula 3.00 10/02/21 22:19 94 Nasal Cannula 2.00 10/02/21 20:42 Room Air 10/02/21 20:00 36.2 82 16 108/60 (76) 91 Room Air 10/02/21 18:47 88 Room Air I & O 10/03/21 07:00 Intake Total 2500 ml Output Total 2400 ml Balance 100 ml General Appearance: No Apparent Distress, Chronically ill Eyes: Bilateral Eye PERRL, Bilateral Eye EOMI HEENT: PERRL/EOMI, Other (poor dentition) Respiratory: Lungs Clear, No Respiratory Distress Cardiovascular: Regular Rate, Rhythm, No Murmur Gastrointestinal: Non Tender, Soft Back: Other Extremity: Normal Inspection, No Pedal Edema Neurologic/Psychiatric: Alert, Oriented x3 Skin: Normal Color, Warm/Dry Assessment/Plan Assessment/Plan Admission Dx PELVIC BONE FRACTURES - RIGHT PUBIC BODY AND RIGHT INFERIOR ISCHIAL RAMI F RACTURE WITH DISPLACEMENT FALL AT SAME LEVEL IN HOME ANEMIA POST FALL HEMATOMA OF PELVIS CHRONIC ANTICOAGULATION THERAPY CHRONIC HYPERTENSION TOBACCOISM 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 ANXIETY DEPRESSION COPD HYPOTHYROIDISM Assessment and Plan PELVIC BONE FRACTURES - RIGHT PUBIC BODY AND RIGHT INFERIOR ISCHIAL RAMI FRACTURE WITH DISPLACEMENT FALL AT SAME LEVEL IN HOME ANEMIA POST FALL HEMATOMA OF PELVIS CHRONIC ANTICOAGULATION THERAPY ATRIAL FIBRILLATION CHRONIC HYPERTENSION TOBACCOISM 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 ANXIETY DEPRESSION COPD HYPOTHYROIDISM PELVIC BONE FRACTURES - RIGHT PUBIC BODY AND RIGHT INFERIOR ISCHIAL RAMI FRACTURE WITH DISPLACEMENT - IMPRESSION FROM CT SCAN FOLLOWS: IMPRESSION: Fractures involving the right pubic body and right inferior ischial ramus with displacement and moderate associated right pelvic sidewall hematoma resulting in mass effect upon the bladder. No other definite acute abnormality is seen. - DISCUSSED WITH DR. DELGADO, PT IS WEIGHT BEARING TOLERATED. - PT ON A GALLERY INTERN PUMP DECREASE TO JUST PRN DOSING AND BACLOFEN QID FOR MUSCLE SPASMS, WILL MONITOR FOR APPROPRIATE PAIN CONTROL, ADJUST HER MEDICATIONS NEEDED AND WORK TOWARD PT TO ONLY BE ON ORAL MEDICATION FOR PAIN CONTROL. - DISCUSSED WITH PT AND HER DTR - PLAN WILL BE TO ATTEMPT TO TRANSFER HER TO A [facility] IN [place] FOR LONGER TERM THERAPY SINCE THAT IS WHERE HER DAUGHTER RESIDES - WORKING WITH [employer] FOR TRANSFER ON TODAY OR TOMORROW TO [place] - INSURANCE COMPANY HAS BEEN DRAGGING THEIR FEET ON ADMISSION TO THE [facility] FALL AT SAME LEVEL IN HOME ANEMIA POST FALL WITH HEMATOMA OF THE PELVIS - HGB STABLE - PT RESTARTED ON COUMADIN - MONITOR LABS AFIB ON CHRONIC ANTICOAGULATION THERAPY - RESTARTED COUMADIN - WILL REPEAT INR DAILY - PT ON METOPROLOL CHRONIC HYPERTENSION - RESTARTED MEDICATION, MONITOR PRESSURE TOBACCOISM - LOW DOSE NICODERM PATCH 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 ANXIETY AND DEPRESSION - RESUMED PART OF HOME REGIMEN, SYMPTOMS STABLE IF NEEDED WILL INCREASE MEDICATION COPD - MONITOR HYPOTHYROIDISM - RESUMED HOME REGIMEN DVT PROPHYLAXIS WITH COMPRESSION - RESTARTED COUMADIN GI PROPHYLAXIS WITH PPI Admission Dx PELVIC BONE FRACTURES - RIGHT PUBIC BODY AND RIGHT INFERIOR ISCHIAL RAMI FRACTURE WITH DISPLACEMENT FALL AT SAME LEVEL IN HOME ANEMIA POST FALL HEMATOMA OF PELVIS CHRONIC ANTICOAGULATION THERAPY CHRONIC HYPERTENSION TOBACCOISM 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 ANXIETY DEPRESSION COPD HYPOTHYROIDISM Clinical Quality Measures Admission Status Admission Dx PELVIC BONE FRACTURES - RIGHT PUBIC BODY AND RIGHT INFERIOR ISCHIAL RAMI FRACTURE WITH DISPLACEMENT FALL AT SAME LEVEL IN HOME ANEMIA POST FALL HEMATOMA OF PELVIS CHRONIC ANTICOAGULATION THERAPY CHRONIC HYPERTENSION TOBACCOISM 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 ANXIETY DEPRESSION COPD HYPOTHYROIDISM DAYANNA ROGEL MD Oct 03, 2021 16:16
[2021-10-03 17:16] LABS: HEMOGLOBIN 11.1 g/dL (11.5-16.0)
[2021-10-03] MEDS: morphine INJ 4 MG/ML 1 ML (VIAL/SYRINGE) IV PRN (17:21)
[2021-10-03 17:27] LABS: ALBUMIN 3.1 GM/DL (3.2-4.5); POTASSIUM 4.4 MMOL/L (3.6-5.0)
[2021-10-03 17:28] LABS: CALCIUM 9.2 MG/DL (8.5-10.1); PROTHROMBIN TIME PATIENT 23.2 SEC (12.2-14.7)
[2021-10-03 17:30] LABS: TOTAL PROTEIN 6.5 GM/DL (6.4-8.2)
[2021-10-03 17:31] LABS: BILIRUBIN,TOTAL 0.8 MG/DL (0.1-1.0)
[2021-10-03 17:33] LABS: CREATININE SERUM 0.79 MG/DL (0.60-1.30)
[2021-10-03] MEDS: warFARin 2 MG (COUMADIN) TAB PO SCH (17:33)
[2021-10-03 17:54] VITALS: BP 128/73
[2021-10-03 20:00] VITALS: BP 146/72
[2021-10-04] VITALS (7 sets, daily range): BP systolic 100–157; BP diastolic 62–81
[2021-10-04] MEDS: VITAMIN D3 10 MCG (400 UNITS) TABLET PO SCH (06:08)
[2021-10-04] MEDS: BACLOFEN 10 MG (LIORESAL) TAB PO SCH ×4 (09:20→20:53)
[2021-10-04] MEDS: LEVOTHYROXINE 88 MCG (LEVOTHORID) TAB PO SCH (09:20)
[2021-10-04] MEDS: guaiFENesin (MUCINEX) 600 MG TAB PO SCH ×2 (09:20→20:53)
[2021-10-04] MEDS: busPIRone 5 MG (BUSPAR) TAB PO SCH ×2 (09:20→20:52)
[2021-10-04] MEDS: METHYLNALTREXONE 12 MG/0.6 ML (RELISTOR) VIAL SQ SCH (09:21)
[2021-10-04] MEDS: polyethylene glycoL POWDER 17 GM (MIRALAX) PACK PO SCH ×2 (09:21→20:53)
[2021-10-04] MEDS: NICOTINE 7 MG (NICODERM) PATCH TD SCH (09:21)
[2021-10-04] MEDS: CALCITONIN NASAL 200 INTLU/AC (FORTICAL) 3.7 ML BTL SCH (09:24)
--- NOTE | 2021-10-04 09:26 | Physical Therapy Daily Note ---
PT Daily Note-Current Subjective Pt. in bed , daughter present . Pt. agrees to Rx with encouragement. Encouraged pt. to do all the moving herself as much as possible and it will likely be less painful. Dtr states "that is exactly what she says is wanting' Pain Numeric Pain Scale: 5-Moderate Pain Location: Medial Location Body Site: Pelvic Pain Description: Pressure Mental Status Patient Orientation: Person, Place, Situation Attachments: Miranda Catheter Transfers SCALE: Activities may be completed with or without assistive devices. 5-Guihtqdfyl-yyvegdf completes the activity by him/herself with no assistance from a helper. 5-Set-up or Clean-up Assistance-helper sets up or cleans up; patient completes activity. [place] assists only prior to or following the activity. 4-Supervision or Touching Assistance-helper provides verbal cues and/or touching/steadying and/or contact guard assistance as patient completes activity. Assistance may be provided throughout the activity or intermittently. 3-Partial/Moderate Assistance-helper does LESS THAN HALF the effort. [place] lifts, holds or supports trunk or limbs, but provides less than half the effort. 2-Substantial/Maximal Assistance-helper does MORE THAN HALF the effort. [place] lifts or holds trunk or limbs and provides more than half the effort. 7-Oiqanehfh-jbamjs does ALL the effort. Patient does none of the effort to complete the activity. Or, the assistance of 2 or more helpers is required for the patient to complete the activity. If activity was not attempted, code reason: 7-Patient Refused. 9-Not Applicable-not attempted and the patient did not perform the activity before the current illness, exacerbation or injury. 10-Not Attempted due to Environmental Limitations-(lack of equipment, weather restraints, etc.). 88-Not Attempted due to Medical Conditions or Safety Concerns. Lying to Sitting/Side of Bed(Q: 5 Sit to Stand (QC): 4 Chair/Pvx-cn-Hiwye Xfer(QC): 4 pt. slowly moved LEs to EOB, sat on edge SBA , then stood SPT and 4-5 steps in foot scooting fashion to recliner. This was a slow process Gait Training Does the Patient Walk?: Yes Gait Assistive Device: FWW much instruction in heavy wt bearing on UEs onto FWW to offset LE wt bearing Exercises Seated Therapy Exercises: Ankle pumps Seated Reps: 15 Treatments TRFs, min gait, up in chair with call quan, cushion , needs met Assessment Current Status: Good Progress PT Long-Term Goals Long-Term Goals PT Long-Term Goals Time Frame: Oct 06, 2021 Roll Left & Right (QC): 3 Sit to Lying (QC): 3 Lying-Sitting on Side/Bed(QC): 3 Sit to Stand (QC): 3 Chair/Ojo-xx-Uepzn Xfer(QC): 3 PT Plan Treatment/Plan Treatment Plan: Continue Plan of Care Treatment Plan: Bed Mobility, Education, Functional Activity Sweta, Functional Strength, Gait, Safety, Therapeutic Exercise, Transfers Treatment Duration: Oct 06, 2021 Frequency: 6 times per week Estimated Hrs Per Day: .25 hour per day Patient and/or Family Agrees t: Yes Safety Risks/Education Patient Education: Gait Training, Transfer Techniques, Correct Positioning, Disease Process, Safety Issues Teaching Recipient: Patient, Family Teaching Methods: Demonstration, Discussion Response to Teaching: Verbalize Understanding, Return Demonstration, Reinforcement Needed Time/GCodes Time In: 835 Time Out: 910 Total Billed Treatment Time: 35 Total Billed Treatment 1,FA35m SHELLY SMART WIRE BORDER ASSEMBLER Oct 04, 2021 09:26
[2021-10-04] MEDS: RT-ALBUTEROL/IPRATROPIUM 3 ML (DUONEB) VIAL INH SCH ×2 (09:31→21:24)
[2021-10-04] MEDS: SERTRALINE 100 MG (ZOLOFT) TAB PO SCH ×2 (09:33→20:52)
--- NOTE | 2021-10-04 11:49 | Occupational Ther Daily Note ---
OT Current Status-Daily Note Subjective Pt alert, sitting in recliner. Pt c/o fatigue when sitting in chair. C/o pain with movement, does not rate. Reluctantly agrees to therapy. Mental Status/Objective Patient Orientation: Person, Place, Time, Situation Attachments: Miranda Catheter, IV ADL-Treatment Pt is able to complete eating independently though does not eat much of meal. Therapy Code Descriptions/Definitions Functional [place] Measure: 0=Not Assessed/NA 4=Minimal Assistance 1=Total Assistance 5=Supervision or Setup 2=Maximal Assistance 6=Modified [place] 3=Moderate Assistance 7=Complete IndependenceSCALE: Activities may be completed with or without assistive devices. 1-Zxxmahcwmk-uoqfhjc completes the activity by him/herself with no assistance from a helper. 5-Set-up or Clean-up Assistance-helper sets up or cleans up; patient completes activity. [place] assists only prior to or following the activity. 4-Supervision or Touching Assistance-helper provides verbal cues and/or touching/steadying and/or contact guard assistance as patient completes activity. Assistance may be provided throughout the activity or intermittently. 3-Partial/Moderate Assistance-helper does LESS THAN HALF the effort. [place] lifts, holds or supports trunk or limbs, but provides less than half the effort. 2-Substantial/Maximal Assistance-helper does MORE THAN HALF the effort. [place] lifts or holds trunk or limbs and provides more than half the effort. 3-Yeushzfba-etepng does ALL the effort. Patient does none of the effort to complete the activity. Or, the assistance of 2 or more helpers is required for the patient to complete the activity. If activity was not attempted, code reason: 7-Patient Refused. 9-Not Applicable-not attempted and the patient did not perform the activity before the current illness, exacerbation or injury. 10-Not Attempted due to Environmental Limitations-(lack of equipment, weather restraints, etc.). 88-Not Attempted due to Medical Conditions or Safety Concerns. Eating (QC): 6 Other Treatment Pt requests to go back to bed. Min A for sit to stand. CGA for transfer using FWW with ~10 shuffling steps. Pt c/o dizziness and pain with movement. Pt states that she feels that she was going to pas out with transfer. ARRIOLA encouraged pt to breathe and calm. Pt was able to make it to bed with CGA and no LOB. Max A for sit to supine due to pain. Pt lying in bed with call light/phone in reach. Daughter present in room. All needs met. OT Mcfp Goals Mcfp Goals Time Frame: Oct 13, 2021 Eating (QC): 5 Oral Hygiene (QC): 5 Toileting Hygiene (QC): 3 Shower/Bathe Self (QC): 2 Upper Body Dressing (QC): 3 Lower Body Dressing (QC): 2 On/Off Footwear (QC): 2 Additional Goals: 1-Demonstrate ADL Tasks, 2-Verbalize Understanding, 3- ImproveStrength/Sweta 1=Demonstrate adherence to instructed precautions during ADL tasks. 2=Patient will verbalize/demonstrate understanding of assistive devices/modifications for ADL. 3=Patient will improve strength/tolerance for activity to enable patient to perform ADL's. OT Education/Plan Problem List/Assessment Assessment: Decreased Activ Tolerance, Impaired Self-Care Skills Discharge Recommendations Plan/Recommendations: Continue POC Treatment Plan/Plan of Care Patient would benefit from OT for education, treatment and training to promote independence in ADL's, mobility, safety and/or upper extremity function for ADL's. Plan of Care: ADL Retraining, Functional Mobility, UE Funct Exercise/Act Treatment Duration: Oct 13, 2021 Frequency: 3 times per week (3-5 times per week) Estimated Hrs Per Day: .25 hour per day Rehab Potential: Guarded Time/GCodes Start Time: 11:15 Stop Time: 11:38 Total Time Billed (hr/min): 23 Billed Treatment Time 1 visit-FA 2 (23 min) MARTHA ALBARADO Oct 04, 2021 11:48
--- NOTE | 2021-10-04 12:31 | Progress Note ---
Subjective Subjective Date Seen by Provider: Oct 04, 2021 Time Seen by Provider: 08:50 PLAN WAS FOR DISCHARGE - DISCHARGE NOTE STARTED, BUT PT'S INSURANCE COMPANY HAS BEEN SLOW TO GIVE APPROVAL OF THE PATIENT'S TRANSFER TO A SNF IN [place]. THIS IS THE THRID DAY OF WAITING FOR THE PATIENT'S INSURANCE TO MAKE AN APPROVAL DECISION FOR THE STAY AT THE SKILLED NURSING IN [place]. NATHEN IS CONTINUING TO HAVE PAIN, DIFFICULTY MOVING DUE TO LEG/PELVIC SPASMS. PT'S FAMILY REPORTS THAT SHE IS PRETTY DEPRESSED DUE TO HER SITUATION Review of Systems General: Fatigue, Malaise HEENT: No Head Aches, No Visual Changes Pulmonary: Dyspnea, Cough, Pleuritic Chest Pain Cardiovascular: No: Chest Pain, Palpitations Gastrointestinal: Constipation (IMPROVED); No: Nausea, Vomiting, Abdominal Pain Genitourinary: No Dysuria, No Frequency Musculoskeletal: other (pelvic pain with movement); No: arm pain Neurological: Other (DEPRESSION OF MOOD); No: Weakness, Confusion All Other Systems Reviewed All Other Systems Reviewed: Yes Objective Exam Vital Signs Vital Signs Date Time Temp Pulse Resp B/P (MAP) Pulse Ox O2 Delivery O2 Flow Rate FiO2 10/04/21 11:03 35.9 71 18 100/66 (77) 93 Room Air 10/04/21 09:31 95 Room Air 10/04/21 08:00 Nasal Cannula 2.00 10/04/21 07:47 36.8 80 18 117/67 (84) 95 Room Air 10/04/21 03:53 36.5 105 20 157/81 (106) 92 Room Air 10/04/21 00:02 37.2 77 18 144/66 (92) 93 Room Air 10/03/21 20:50 Room Air 2.00 10/03/21 20:00 36.0 108 18 146/72 (96) 100 Room Air 10/03/21 19:25 90 Room Air 10/03/21 17:54 35.8 66 95 21 10/03/21 15:40 35.8 86 20 119/69 (86) 95 Room Air I & O 10/04/21 07:00 Intake Total 2400 ml Output Total 2875 ml Balance -475 ml General Appearance: No Apparent Distress, Chronically ill Eyes: Bilateral Eye PERRL, Bilateral Eye EOMI HEENT: PERRL/EOMI, Other (poor dentition) Respiratory: Lungs Clear, No Respiratory Distress Cardiovascular: Regular Rate, Rhythm, No Murmur Gastrointestinal: Non Tender, Soft Back: Other Extremity: Normal Inspection, No Pedal Edema Neurologic/Psychiatric: Alert, Oriented x3 Skin: Normal Color, Warm/Dry Results Lab Laboratory Tests 10/03/21 17:07: Hemoglobin 11.1L, Hematocrit 33L, Prothrombin Time 23.2H, INR Comment 2.0H, Sodium Level 135, Potassium Level 4.4, Chloride Level 99, Carbon Dioxide Level 22, Anion Gap 14, Blood Urea Nitrogen 24H, Creatinine 0.79, Estimat Glomerular Filtration Rate 74, BUN/Creatinine Ratio 30, Glucose Level 72, Calcium Level 9.2, Corrected Calcium 9.9, Total Bilirubin 0.8, Aspartate Amino Transf (AST/SGOT) 115H, Alanine Aminotransferase (ALT/SGPT) 77H, Alkaline Phosphatase 72, Total Protein 6.5, Albumin 3.1L Assessment/Plan Assessment/Plan Admission Dx PELVIC BONE FRACTURES - RIGHT PUBIC BODY AND RIGHT INFERIOR ISCHIAL RAMI FRACTURE WITH DISPLACEMENT FALL AT SAME LEVEL IN HOME ANEMIA POST FALL HEMATOMA OF PELVIS CHRONIC ANTICOAGULATION THERAPY CHRONIC HYPERTENSION TOBACCOISM 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 ANXIETY DEPRESSION COPD HYPOTHYROIDISM Assessment and Plan PELVIC BONE FRACTURES - RIGHT PUBIC BODY AND RIGHT INFERIOR ISCHIAL RAMI FRACTURE WITH DISPLACEMENT FALL AT SAME LEVEL IN HOME ANEMIA POST FALL HEMATOMA OF PELVIS CHRONIC ANTICOAGULATION THERAPY ATRIAL FIBRILLATION CHRONIC HYPERTENSION TOBACCOISM 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 ANXIETY DEPRESSION COPD HYPOTHYROIDISM PELVIC BONE FRACTURES - RIGHT PUBIC BODY AND RIGHT INFERIOR ISCHIAL RAMI FRACTURE WITH DISPLACEMENT - IMPRESSION FROM CT SCAN FOLLOWS: IMPRESSION: Fractures involving the right pubic body and right inferior ischial ramus with displacement and moderate associated right pelvic sidewall hematoma resulting in mass effect upon the bladder. No other definite acute abnormality is seen. - DISCUSSED WITH DR. DELGADO, PT IS WEIGHT BEARING TOLERATED. - PT ON A MVA REACTOR OPERATOR PUMP DECREASE TO JUST PRN DOSING AND BACLOFEN QID FOR MUSCLE SPASMS, WILL MONITOR FOR APPROPRIATE PAIN CONTROL, ADJUST HER MEDICATIONS NEEDED AND WORK TOWARD PT TO ONLY BE ON ORAL MEDICATION FOR PAIN CONTROL. - DISCUSSED WITH PT AND HER DTR - PLAN WILL BE TO ATTEMPT TO TRANSFER HER TO A SKILLED NURSING IN [place] FOR LONGER TERM THERAPY SINCE THAT IS WHERE HER DAUGHTER RESIDES - WORKING WITH [employer] FOR TRANSFER ON TODAY OR TOMORROW TO [place] - INSURANCE COMPANY HAS BEEN DRAGGING THEIR FEET ON ADMISSION TO THE SKILLED NURSING FALL AT SAME LEVEL IN HOME ANEMIA POST FALL WITH HEMATOMA OF THE PELVIS - HGB STABLE - PT RESTARTED ON COUMADIN - MONITOR LABS AFIB ON CHRONIC ANTICOAGULATION THERAPY - RESTARTED COUMADIN - WILL REPEAT INR DAILY - PT ON METOPROLOL CHRONIC HYPERTENSION - RESTARTED MEDICATION, MONITOR PRESSURE TOBACCOISM - LOW DOSE NICODERM PATCH 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 ANXIETY AND DEPRESSION - RESUMED PART OF HOME REGIMEN, SYMPTOMS STABLE IF NEEDED WILL INCREASE MEDICATION COPD - MONITOR, WILL SCHEDULE BREATHING TREATMENTS. HYPOTHYROIDISM - RESUMED HOME REGIMEN DVT PROPHYLAXIS WITH COMPRESSION - RESTARTED COUMADIN GI PROPHYLAXIS WITH PPI Admission Dx PELVIC BONE FRACTURES - RIGHT PUBIC BODY AND RIGHT INFERIOR ISCHIAL RAMI FRACTURE WITH DISPLACEMENT FALL AT SAME LEVEL IN HOME ANEMIA POST FALL HEMATOMA OF PELVIS CHRONIC ANTICOAGULATION THERAPY CHRONIC HYPERTENSION TOBACCOISM 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 ANXIETY DEPRESSION COPD HYPOTHYROIDISM Clinical Quality Measures Admission Status Admission Dx PELVIC BONE FRACTURES - RIGHT PUBIC BODY AND RIGHT INFERIOR ISCHIAL RAMI FRACTURE WITH DISPLACEMENT FALL AT SAME LEVEL IN HOME ANEMIA POST FALL HEMATOMA OF PELVIS CHRONIC ANTICOAGULATION THERAPY CHRONIC HYPERTENSION TOBACCOISM 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 ANXIETY DEPRESSION COPD HYPOTHYROIDISM DAYANNA ROGEL MD Oct 04, 2021 12:31
[2021-10-04] MEDS: warFARin 2 MG (COUMADIN) TAB PO SCH (17:32)
[2021-10-05 04:14] VITALS: BP 129/70
[2021-10-05 06:09] LABS: HEMATOCRIT 30 % (35-52); HEMOGLOBIN 9.8 g/dL (11.5-16.0); MEAN CORPUSCULAR HEMOGLOBIN 31 pg (25-34); MEAN CORPUSCULAR HGB CONC 33 g/dL (32-36); MEAN CORPUSCULAR VOLUME 95 fL (80-99); MEAN PLATELET VOLUME 8.9 fL (9.0-12.2); PLATELET COUNT 278 10^3/uL (130-400); WHITE BLOOD COUNT 10.8 10^3/uL (4.3-11.0)
[2021-10-05 06:25] LABS: ALBUMIN 2.7 GM/DL (3.2-4.5); POTASSIUM 4.2 MMOL/L (3.6-5.0)
[2021-10-05 06:26] LABS: CALCIUM 8.9 MG/DL (8.5-10.1); INR 2.5 (0.8-1.4); PROTHROMBIN TIME PATIENT 27.2 SEC (12.2-14.7)
[2021-10-05 06:28] LABS: TOTAL PROTEIN 5.7 GM/DL (6.4-8.2)
[2021-10-05 06:29] LABS: BILIRUBIN,TOTAL 0.7 MG/DL (0.1-1.0)
[2021-10-05 06:31] LABS: CREATININE SERUM 0.74 MG/DL (0.60-1.30)
[2021-10-05] MEDS: VITAMIN D3 10 MCG (400 UNITS) TABLET PO SCH (06:46)
[2021-10-05 07:24] VITALS: BP 140/66
[2021-10-05] MEDS: RT-ALBUTEROL/IPRATROPIUM 3 ML (DUONEB) VIAL INH SCH ×2 (07:38→20:34)
--- NOTE | 2021-10-05 09:22 | Progress Note ---
Subjective Subjective PLAN WAS FOR DISCHARGE - DISCHARGE NOTE STARTED, BUT PT'S INSURANCE COMPANY HAS BEEN SLOW TO GIVE APPROVAL OF THE PATIENT'S TRANSFER TO A SNF IN [place]. THIS IS THE THRID DAY OF WAITING FOR THE PATIENT'S INSURANCE TO MAKE AN APPROVAL DECISION FOR THE STAY AT THE INTERMEDIATE IN [place]. NATHEN IS CONTINUING TO HAVE PAIN, DIFFICULTY MOVING DUE TO LEG/PELVIC SPASMS. PT'S FAMILY REPORTS THAT SHE IS PRETTY DEPRESSED DUE TO HER SITUATION Review of Systems General: Fatigue, Malaise HEENT: No Head Aches, No Visual Changes Pulmonary: Dyspnea, Cough, Pleuritic Chest Pain Cardiovascular: No: Chest Pain, Palpitations Gastrointestinal: Constipation (IMPROVED); No: Nausea, Vomiting, Abdominal Pain Genitourinary: No Dysuria, No Frequency Musculoskeletal: other (pelvic pain with movement); No: arm pain Neurological: Other (DEPRESSION OF MOOD); No: Weakness, Confusion All Other Systems Reviewed All Other Systems Reviewed: Yes Objective Exam Vital Signs Vital Signs Date Time Temp Pulse Resp B/P (MAP) Pulse Ox O2 Delivery O2 Flow Rate FiO2 10/05/21 07:38 96 Nasal Cannula 10/05/21 07:24 36.3 64 18 140/66 (90) 97 Nasal Cannula 2.00 10/05/21 04:14 36.0 70 18 129/70 (89) 98 Nasal Cannula 2.00 10/04/21 23:48 36.6 66 18 133/67 (89) 97 Nasal Cannula 2.00 10/04/21 21:25 94 Room Air 10/04/21 20:15 Nasal Cannula 2.00 10/04/21 19:15 36.5 75 20 114/69 (84) 97 Nasal Cannula 2.00 10/04/21 15:27 36.4 73 18 131/62 (85) 93 Room Air 10/04/21 11:03 35.9 71 18 100/66 (77) 93 Room Air 10/04/21 09:31 95 Room Air I & O 10/05/21 07:00 Intake Total 1050 ml Output Total 2925 ml Balance -1875 ml General Appearance: No Apparent Distress, Chronically ill Eyes: Bilateral Eye PERRL, Bilateral Eye EOMI HEENT: PERRL/EOMI, Other (poor dentition) Respiratory: Lungs Clear, No Respiratory Distress Cardiovascular: Regular Rate, Rhythm, No Murmur Gastrointestinal: Non Tender, Soft Back: Other Extremity: Normal Inspection, No Pedal Edema Neurologic/Psychiatric: Alert, Oriented x3 Skin: Normal Color, Warm/Dry Results Lab Laboratory Tests 10/05/21 05:54: White Blood Count 10.8, Red Blood Count 3.13L, Hemoglobin 9.8L, Hematocrit 30L, Mean Corpuscular Volume 95, Mean Corpuscular Hemoglobin 31, Mean Corpuscular Hem oglobin Concent 33, Red Cell Distribution Width 15.6H, Platelet Count 278, Mean Platelet Volume 8.9L, Prothrombin Time 27.2H, INR Comment 2.5H, Sodium Level 137, Potassium Level 4.2, Chloride Level 104, Carbon Dioxide Level 20L, Anion Gap 13, Blood Urea Nitrogen 22H, Creatinine 0.74, Estimat Glomerular Filtration Rate 80, BUN/Creatinine Ratio 30, Glucose Level 91, Calcium Level 8.9, Corrected Calcium 9.9, Total Bilirubin 0.7, Aspartate Amino Transf (AST/SGOT) 59H, Alanine Aminotransferase (ALT/SGPT) 55, Alkaline Phosphatase 59, Total Protein 5.7L, Albumin 2.7L Assessment/Plan Assessment/Plan Admission Dx PELVIC BONE FRACTURES - RIGHT PUBIC BODY AND RIGHT INFERIOR ISCHIAL RAMI FRACTURE WITH DISPLACEMENT FALL AT SAME LEVEL IN HOME ANEMIA POST FALL HEMATOMA OF PELVIS CHRONIC ANTICOAGULATION THERAPY CHRONIC HYPERTENSION TOBACCOISM 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 ANXIETY DEPRESSION COPD HYPOTHYROIDISM Assessment and Plan PELVIC BONE FRACTURES - RIGHT PUBIC BODY AND RIGHT INFERIOR ISCHIAL RAMI FRACTURE WITH DISPLACEMENT FALL AT SAME LEVEL IN HOME ANEMIA POST FALL HEMATOMA OF PELVIS CHRONIC ANTICOAGULATION THERAPY ATRIAL FIBRILLATION CHRONIC HYPERTENSION TOBACCOISM 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 ANXIETY DEPRESSION COPD HYPOTHYROIDISM PELVIC BONE FRACTURES - RIGHT PUBIC BODY AND RIGHT INFERIOR ISCHIAL RAMI FRACTURE WITH DISPLACEMENT - IMPRESSION FROM CT SCAN FOLLOWS: IMPRESSION: Fractures involving the right pubic body and right inferior ischial ramus with displacement and moderate associated right pelvic sidewall hematoma resulting in mass effect upon the bladder. No other definite acute abnormality is seen. - DISCUSSED WITH DR. DELGADO, PT IS WEIGHT BEARING TOLERATED. 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 - DISCUSSED WITH PT AND HER DTR - PLAN WILL BE TO ATTEMPT TO TRANSFER HER TO A INTERMEDIATE IN [place] FOR LONGER TERM THERAPY SINCE THAT IS WHERE HER DAUGHTER RESIDES - WORKING WITH [employer] FOR TRANSFER ON TODAY OR TOMORROW TO [place] - INSURANCE COMPANY HAS BEEN DRAGGING THEIR FEET ON ADMISSION TO THE INTERMEDIATE FALL AT SAME LEVEL IN HOME ANEMIA POST FALL WITH HEMATOMA OF THE PELVIS - HGB STABLE - PT RESTARTED ON COUMADIN - MONITOR LABS AFIB ON CHRONIC ANTICOAGULATION THERAPY - RESTARTED COUMADIN - WILL REPEAT INR DAILY - PT ON METOPROLOL CHRONIC HYPERTENSION - RESTARTED MEDICATION, MONITOR PRESSURE TOBACCOISM - LOW DOSE NICODERM PATCH 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 ANXIETY AND DEPRESSION - RESUMED PART OF HOME REGIMEN, SYMPTOMS STABLE IF NEEDED WILL INCREASE MEDICATION COPD - MONITOR, WILL SCHEDULE BREATHING TREATMENTS. HYPOTHYROIDISM - RESUMED HOME REGIMEN DVT PROPHYLAXIS WITH COMPRESSION - RESTARTED COUMADIN GI PROPHYLAXIS WITH PPI Admission Dx PELVIC BONE FRACTURES - RIGHT PUBIC BODY AND RIGHT INFERIOR ISCHIAL RAMI FRACTURE WITH DISPLACEMENT FALL AT SAME LEVEL IN HOME ANEMIA POST FALL HEMATOMA OF PELVIS CHRONIC ANTICOAGULATION THERAPY CHRONIC HYPERTENSION TOBACCOISM 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 ANXIETY DEPRESSION COPD HYPOTHYROIDISM Clinical Quality Measures Admission Status Admission Dx PELVIC BONE FRACTURES - RIGHT PUBIC BODY AND RIGHT INFERIOR ISCHIAL RAMI FRACTURE WITH DISPLACEMENT FALL AT SAME LEVEL IN HOME ANEMIA POST FALL HEMATOMA OF PELVIS CHRONIC ANTICOAGULATION THERAPY CHRONIC HYPERTENSION TOBACCOISM 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 ANXIETY DEPRESSION COPD HYPOTHYROIDISM DAYANNA ROGEL MD Oct 05, 2021 09:22
--- NOTE | 2021-10-05 09:37 | Physical Therapy Daily Note ---
PT Daily Note-Current Subjective Patient agrees to PT. Pain Numeric Pain Scale: 8 Location: Right Location Body Site: Pelvic Pain Description: Stabbing, Acute, Sharp Mental Status Patient Orientation: Normal For Age Attachments: Oxygen, Miranda Catheter Transfers SCALE: Activities may be completed with or without assistive devices. 2-Lknvjtceee-ggwfqxs completes the activity by him/herself with no assistance from a helper. 5-Set-up or Clean-up Assistance-helper sets up or cleans up; patient completes activity. [place] assists only prior to or following the activity. 4-Supervision or Touching Assistance-helper provides verbal cues and/or to uching/steadying and/or contact guard assistance as patient completes activity. Assistance may be provided throughout the activity or intermittently. 3-Partial/Moderate Assistance-helper does LESS THAN HALF the effort. [place] lifts, holds or supports trunk or limbs, but provides less than half the effort. 2-Substantial/Maximal Assistance-helper does MORE THAN HALF the effort. [place] lifts or holds trunk or limbs and provides more than half the effort. 0-Ehsbhfhkr-iawmwm does ALL the effort. Patient does none of the effort to complete the activity. Or, the assistance of 2 or more helpers is required for the patient to complete the activity. If activity was not attempted, code reason: 7-Patient Refused. 9-Not Applicable-not attempted and the patient did not perform the activity before the current illness, exacerbation or injury. 10-Not Attempted due to Environmental Limitations-(lack of equipment, weather restraints, etc.). 88-Not Attempted due to Medical Conditions or Safety Concerns. Lying to Sitting/Side of Bed(Q: 3 Sit to Stand (QC): 3 Chair/Yga-fq-Nuaoj Xfer(QC): 3 Gait Training Distance: 10' Walk 10 feet (QC): 3 Exercises Supine Ex: Ankle pumps, Quad Set, Heel Slides Supine Reps: 12 Seated Therapy Exercises: Ankle pumps, Long arc quads Seated Reps: 12 Assessment Patient tolerated minimal activity due to pelvic pain. From a PT standpoint, patient would benefit from extended care facility to allow proper healing to return to home with family at maximum LOF. PT Sample Box Maker Goals Nursing Home Goals PT Sample Box Maker Goals Time Frame: Oct 06, 2021 Roll Left & Right (QC): 3 Sit to Lying (QC): 3 Lying-Sitting on Side/Bed(QC): 3 Sit to Stand (QC): 3 Chair/Yfp-hf-Tpgcs Xfer(QC): 3 PT Plan Treatment/Plan Treatment Plan: Continue Plan of Care Treatment Plan: Bed Mobility, Education, Functional Activity Sweta, Functional Strength, Gait, Safety, Therapeutic Exercise, Transfers Treatment Duration: Oct 06, 2021 Frequency: 6 times per week Estimated Hrs Per Day: .25 hour per day Patient and/or Family Agrees t: Yes Time/GCodes Time In: 912 Time Out: 924 Total Billed Treatment Time: 12 Total Billed Treatment 1 visit FA 12 min [facility] PERALTA PT Oct 05, 2021 09:37
[2021-10-05] MEDS: busPIRone 5 MG (BUSPAR) TAB PO SCH ×2 (09:43→21:29)
[2021-10-05] MEDS: guaiFENesin (MUCINEX) 600 MG TAB PO SCH ×2 (09:43→21:30)
[2021-10-05] MEDS: BACLOFEN 10 MG (LIORESAL) TAB PO SCH ×4 (09:43→21:29)
[2021-10-05] MEDS: LEVOTHYROXINE 88 MCG (LEVOTHORID) TAB PO SCH (09:43)
[2021-10-05] MEDS: CALCITONIN NASAL 200 INTLU/AC (FORTICAL) 3.7 ML BTL SCH (09:43)
[2021-10-05] MEDS: NICOTINE 7 MG (NICODERM) PATCH TD SCH (09:44)
--- NOTE | 2021-10-05 09:44 | Diagnostic Imaging Report ---
INDICATION: Cough. EXAMINATION: Portable chest at 9:38 AM. FINDINGS: The heart is mildly enlarged. The pulmonary vascularity is normal. There are some faint areas of increased opacification in the upper lobes and left lung base that could be developing infiltrates. IMPRESSION: Small patchy alveolar infiltrates in both lungs, suspicious for pneumonia. Dictated by: Dictated on workstation # [id number]
[2021-10-05] MEDS: polyethylene glycoL POWDER 17 GM (MIRALAX) PACK PO SCH ×2 (09:46→21:29)
[2021-10-05] MEDS: SERTRALINE 100 MG (ZOLOFT) TAB PO SCH ×2 (09:47→21:30)
--- NOTE | 2021-10-05 10:26 | Occupational Ther Daily Note ---
OT Current Status-Daily Note Subjective Pt alert, sitting in recliner. Nrsg just brought pain meds. Pt reluctant to participate in therapy. Mental Status/Objective Patient Orientation: Person, Place, Time Attachments: Miranda Catheter, IV ADL-Treatment Therapy Code Descriptions/Definitions Functional [place] Measure: 0=Not Assessed/NA 4=Minimal Assistance 1=Total Assistance 5=Supervision or Setup 2=Maximal Assistance 6=Modified [place] 3=Moderate Assistance 7=Complete IndependenceSCALE: Activities may be completed with or without assistive devices. 7-Wogufcchbz-tefvqbw completes the activity by him/herself with no assistance from a helper. 5-Set-up or Clean-up Assistance-helper sets up or cleans up; patient completes activity. [place] assists only prior to or following the activity. 4-Supervision or Touching Assistance-helper provides verbal cues and/or touching/steadying and/or contact guard assistance as patient completes activity. Assistance may be provided throughout the activity or intermittently. 3-Partial/Moderate Assistance-helper does LESS THAN HALF the effort. [place] lifts, holds or supports trunk or limbs, but provides less than half the effort. 2-Substantial/Maximal Assistance-helper does MORE THAN HALF the effort. [place] lifts or holds trunk or limbs and provides more than half the effort. 8-Wahyvqjwd-bfdzvy does ALL the effort. Patient does none of the effort to complete the activity. Or, the assistance of 2 or more helpers is required for the patient to complete the activity. If activity was not attempted, code reason: 7-Patient Refused. 9-Not Applicable-not attempted and the patient did not perform the activity before the current illness, exacerbation or injury. 10-Not Attempted due to Environmental Limitations-(lack of equipment, weather restraints, etc.). 88-Not Attempted due to Medical Conditions or Safety Concerns. Other Treatment Pt able to complete eating by self. When moving or standing mentioned pt began to cry and become very anxious stating that she hurts to much. Attempted to calm pt down and work on changing positions to relax pt. Pt continues to be very anxious and states that any movement is causing too much pain. Pt positioned in a recliner to decrease pain. After session, pt sitting in recliner with call light/phone in reach. Checked on pt 5 min after session, pt is comfortable in chair and calm. OT Developer Automatic Goals Developer Automatic Goals Time Frame: Oct 13, 2021 Eating (QC): 5 Oral Hygiene (QC): 5 Toileting Hygiene (QC): 3 Shower/Bathe Self (QC): 2 Upper Body Dressing (QC): 3 Lower Body Dressing (QC): 2 On/Off Footwear (QC): 2 Additional Goals: 1-Demonstrate ADL Tasks, 2-Verbalize Understanding, 3- ImproveStrength/Sweta 1=Demonstrate adherence to instructed precautions during ADL tasks. 2=Patient will verbalize/demonstrate understanding of assistive devices/modifications for ADL. 3=Patient will improve strength/tolerance for activity to enable patient to perform ADL's. OT Education/Plan Problem List/Assessment Assessment: Decreased Activ Tolerance, Impaired Self-Care Skills Discharge Recommendations Plan/Recommendations: Continue POC Treatment Plan/Plan of Care Patient would benefit from OT for education, treatment and training to promote independence in ADL's, mobility, safety and/or upper extremity function for ADL's. Plan of Care: ADL Retraining, Functional Mobility, UE Funct Exercise/Act Treatment Duration: Oct 13, 2021 Frequency: 3 times per week (3-5 times per week) Estimated Hrs Per Day: .25 hour per day Rehab Potential: Guarded Time/GCodes Start Time: 10:15 Stop Time: 10:25 Total Time Billed (hr/min): 10 Billed Treatment Time 1 visit-FA 1 (10 min) MARTHA ALBARADO Oct 05, 2021 10:26
[2021-10-05 11:18] VITALS: BP 111/68
[2021-10-05 15:50] VITALS: BP 111/68
[2021-10-05] MEDS: warFARin 2 MG (COUMADIN) TAB PO SCH (17:20)
[2021-10-05 19:34] VITALS: BP 109/59
[2021-10-06 00:33] VITALS: BP 149/79
[2021-10-06 03:48] VITALS: BP 120/63
[2021-10-06] MEDS: VITAMIN D3 10 MCG (400 UNITS) TABLET PO SCH (06:16)
[2021-10-06 06:25] LABS: INR 2.7 (0.8-1.4); PROTHROMBIN TIME PATIENT 28.7 SEC (12.2-14.7)
[2021-10-06] MEDS ORDERED: CALCIUM CARBONATE 500 MG (TUMS) TAB.CHEW PO ONE (06:30)
[2021-10-06] MEDS: RT-ALBUTEROL/IPRATROPIUM 3 ML (DUONEB) VIAL INH SCH (07:18)
[2021-10-06 08:00] VITALS: BP 126/66
[2021-10-06] MEDS: NICOTINE 7 MG (NICODERM) PATCH TD SCH (08:21)
[2021-10-06] MEDS: LEVOTHYROXINE 88 MCG (LEVOTHORID) TAB PO SCH (08:22)
[2021-10-06] MEDS: SERTRALINE 100 MG (ZOLOFT) TAB PO SCH (08:22)
[2021-10-06] MEDS: busPIRone 5 MG (BUSPAR) TAB PO SCH (08:22)
[2021-10-06] MEDS: guaiFENesin (MUCINEX) 600 MG TAB PO SCH (08:22)
[2021-10-06] MEDS: BACLOFEN 10 MG (LIORESAL) TAB PO SCH (08:23)
[2021-10-06] MEDS: CALCITONIN NASAL 200 INTLU/AC (FORTICAL) 3.7 ML BTL SCH (08:23)
[2021-10-06] MEDS: METHYLNALTREXONE 12 MG/0.6 ML (RELISTOR) VIAL SQ SCH (08:23)
[2021-10-06] MEDS: polyethylene glycoL POWDER 17 GM (MIRALAX) PACK PO SCH (08:25)
--- NOTE | 2021-10-09 04:19 | Physician Query Clarification ---
PQ-Intro New Diagnosis Admission/Discharge Admission Date: Sep 26, 2021 at 18:00 Discharge Date: Oct 06, 2021 at 09:10 DAYANNA Harrison MD The medical record reflects the following clinical scenario: History/Risk Factors: 81 y/o female patient admitted with pelvic fracture underwent non surgical treatment, pain medication, Anemia, COPD, no documentation of home 02. Clinical Findings: O2 sat decreased to 88% within 8 hours of admission, P/F = 55/27=682 and 92% on 2L P/F 232, RR 18 to 24, End tidal CO2 25 on admission, remained 25 to 27 X 2 days, Remains on 02 greater than 24 hours. Treatment: Supplemental 02 up to 3L per oxymask, Chest Xray, Respiratory monitoring. Question: What condition best reflects the above clinical scenario? Please document a response in the Progress Noter or Discharge Summary. 1. Acute respiratory failure, with hypoxia, present on admission 2. Other, with explanation of the clinical findings. 3. Clinically undetermined, no explanation for the clinical findings. PHYSICIAN RESPONSE What condition reflects above: 1 Please remember a lack of response to the above will prompt a phone page by CDI/Coding staff. In responding to this query, please exercise your independent professional judgment. The purpose of this communication is to more accurately reflect the complexity of your patients condition. The fact that a question is asked does not imply that any particular answer is desired or expected. Thank you for your timely response to this clarification. Requestors name: [ ] Phone # [ ] THIS PHYSICIAN QUERY FORM IS A PERMANENT PART OF THE MEDICAL RECORD AISHWARYAJACI Oct 09, 2021 04:19 DAYANNA ROGEL MD Oct 11, 2021 12:43
== END 2021-10-06 09:10 | DRG 535 ==
LOC: EDUNIT# 16:04 → ER 16:05 → 4TH 18:00 → UNDODISIN 10-02 15:00 → EDPENDDISDT 10-06 10:30 → EDPENDDISTM 10-06 10:30
PROVIDERS: ADMIT Family Medicine; ATTEND Family Medicine
DX: S32.591A Other specified fracture of right pubis, initial encounter for closed fracture (principal); J96.01 Acute respiratory failure with hypoxia; I48.20 Chronic atrial fibrillation, unspecified; D68.59 Other primary thrombophilia; W18.30XA Fall on same level, unspecified, initial encounter; Z79.82 Long term (current) use of aspirin; Z79.01 Long term (current) use of anticoagulants; Z79.899 Other long term (current) drug therapy; J44.9 Chronic obstructive pulmonary disease, unspecified; I25.10 Atherosclerotic heart disease of native coronary artery without angina pectoris; I10 Essential (primary) hypertension; M81.0 Age-related osteoporosis without current pathological fracture; M19.90 Unspecified osteoarthritis, unspecified site; E03.9 Hypothyroidism, unspecified; F41.9 Anxiety disorder, unspecified; F32.A Depression, unspecified; F17.210 Nicotine dependence, cigarettes, uncomplicated; Z86.73 Personal history of transient ischemic attack (TIA), and cerebral infarction without residual deficits; D64.9 Anemia, unspecified; S30.0XXA Contusion of lower back and pelvis, initial encounter; R53.1 Weakness; E87.6 Hypokalemia
CPT/HCPCS: 36415; 51702; 70450; 71045; 72125; 72128; 72131; 72192; 73523; 80048; 80053; 81000; 83735; 85014; 85018; 85025; 85027; 85610; 85730; 94640; 94664; 94760; 96374; 96375

== ENCOUNTER → 2022-08-01 | Outpatient (CLI) | payer MEDICARE ==
[~2022-08-01] MED LIST changes: +ACHYD1T PO; +ALBU2.5V4 INH; +ALBU8.5H6 IH; +AMLO-250 PO; +BACL10TA PO; +BISA10SU8 PR; +BUSP5TAB59 PO; +CALC3.8S; +GUAI600T43 PO; +IPRA3AMP31 INH; +NF-VITD400 PO; +POLY17PO54 PO; -RT-ALBUINH IH; +SENN1TAB76 PO; +WARF-47 PO
== END ==
LOC: CARD 13:29
PROVIDERS: ATTEND Internal Medicine Cardiovascular Disease
DX: I08.0 Rheumatic disorders of both mitral and aortic valves (principal); I11.9 Hypertensive heart disease without heart failure
CPT/HCPCS: 93306

== ENCOUNTER → 2023-05-17 | Outpatient (CLI) | payer MEDICARE ==
[~2023-05-17] MED LIST changes: +SENN-271 PO; -SENN1TAB76 PO
== END ==
LOC: CARD 13:09
PROVIDERS: ATTEND Physician Assistant
DX: I10 Essential (primary) hypertension (principal); I48.0 Paroxysmal atrial fibrillation
CPT/HCPCS: 93306

== ENCOUNTER → 2023-05-17 | Outpatient (CLI) | payer MEDICARE ==
--- NOTE | 2023-05-17 16:04 | Diagnostic Imaging Report ---
CLINICAL INDICATION: Patient with COPD. EXAM: Chest x-ray PA and lateral views. COMPARISON: Chest x-ray dated 10/05/2021. CT scan of the thoracic and lumbar spine without contrast dated 09/26/2021. FINDINGS: Lungs/pleura: Lungs are clear. There is no pneumothorax. There is no pleural effusion. Mediastinum: Again seen shadow overlying the right heart border which may be related to enlarged left atrium which is better seen on the comparison CT scan of the thoracic and lumbar spine. Pulmonary vasculature: Unremarkable. Heart: There is mild cardiomegaly. Bones/extrathoracic soft tissue: There are hypertrophic spurs involving the thoracic spine. IMPRESSION: 1: There is no radiographic evidence of acute cardiopulmonary process. 2: There is cardiomegaly with no significant pulmonary vascular congestion. Dictated by: Dictated on workstation # [id number]
== END ==
LOC: RAD 13:17
PROVIDERS: ATTEND Internal Medicine Critical Care Medicine
DX: I51.7 Cardiomegaly (principal); J44.9 Chronic obstructive pulmonary disease, unspecified
CPT/HCPCS: 71046

== ENCOUNTER → 2023-06-03 | Outpatient (CLI) | payer MEDICARE ==
[~2023-06-03] MED LIST changes: +REGADENOSON 0.4 MG/5 ML SYR IV ONE
[2023-06-03] MEDS: CATHETER FLUSH 10 ML SYR IVP PRN (09:24)
[2023-06-03 09:59] VITALS: BP 204/101
[2023-06-03] MEDS: REGADENOSON 0.4 MG/5 ML SYR IV ONE (10:10)
--- NOTE | 2023-06-03 12:03 | Cardiology Stress Test Report ---
Stress Test Report Date of Procedure/Referring: Date of Procedure: Jun 03, 2023 PCP Dayanna Falk MD Admitting Physician Admitting Physician: Attending Physician: Leila Olivares Pa-C Baseline Heart Rate: 68 Baseline Blood Pressure: Blood Pressure Systolic: 204 Blood Pressure Diastolic: 101 Baseline Vitals Vital Signs Date Time Temp Pulse Resp B/P (MAP) Pulse Ox O2 Delivery O2 Flow Rate FiO2 06/03/23 09:59 57 204/101 (135) Baseline EKG: Baseline EKG: a fib Summary After explaining the procedure to the patient, she signed a consent and then brought to the stress nuclear laboratory. Patient received 0.4 mg Lexiscan for stress test, ECG, heart rate and blood pressure were monitored continuously. Resting and stress dose of radio tracer were injected, imaging was acquired and reviewed in short axis, horizontal long axis and vertical long axis views. TID: 1.04 SSS: 2 SDS: 1 EF: 72 Patient tolerated Lexiscan well Baseline atrial fibrillation persisted during test Breast attenuation with typical female pattern, no significant ischemia or infarction noted on SPECT images Normal left ventricular size, normal contractility, ejection fraction 72%, underlying A-fib affect the quality of the gated images Copy Copies To 1: DAYANNA FALK MD, BASHAR J MD Jun 03, 2023 12:03
== END ==
LOC: CARD 09:05
PROVIDERS: ATTEND Physician Assistant
DX: I10 Essential (primary) hypertension (principal); I48.0 Paroxysmal atrial fibrillation
CPT/HCPCS: 78452; 93017; A9502